=== PATIENT | female | born 1970 | race Caucasian/White ===

== ENCOUNTER 2020-02-18 13:38 | Outpatient (CLI) | payer OTHER, SELFPAY ==
--- NOTE | ~2020-02-18 | MR_ITS ---
MR breast BI wo con 02/20/2020 13:56 CDT INDICATION: Complication of breast implant TECHNIQUE: MRI of the breasts perform using standard protocol without IV contrast using the following sequences: Axial T2 fast spin-echo, axial vibrant, sagittal T2 fast spin echo, sagittal T2 STIR with silicone suppression and sagittal T2 STIR with water suppression. COMPARISON: MRI dated 01/01/2019 FINDINGS: Study limited by motion artifact. No definite evidence for intracapsular or extracapsular r upture. RIGHT BREAST: There are no abnormalities on the precontrast sequences. There is an irregular line negar ng the medial aspect of the left breast implant which likely represents a normal fold rather than butch dence for intracapsular rupture. No evidence for extracapsular rupture. LEFT BREAST: No signal abnormalities on precontrast sequences. There are normal radial folds in the right breast implant. IMPRESSION: 1: Normal radial folds. No evidence for intracapsular or extracapsular rupture. Reviewed, dictated and finalized at location B.
--- NOTE | ~2020-02-18 | MR_ITS ---
EXAMINATION: MR abdomen wo/w con DATE: 02/18/2020 15:52 INDICATION: Liver mass. TECHNIQUE: Magnetic resonance imaging (MRI) of the abdomen was performed without and with 10 mL Multi Jade intravenous contrast. Sequences included coronal T2-weighted FS FSE, coronal and axial FS FIEST A, axial T2-weighted FSE, coronal LAVA-flex, axial STIR FSE, axial DWI, axial dual-echo T1-weighted F SPGR, and axial LAVA. Postcontrast sequences included coronal LAVA-flex and a time course of axial LA VA. COMPARISON: None. FINDINGS: Partially visualized are breast implants. There are numerous cysts in the liver measuring up to 6 mm. The gallbladder, spleen, pancreas, adrenal glands, and kidneys are normal. There are no dilated loop s of bowel. There are no pathologically enlarged lymph nodes. There is no free intraperitoneal fluid. IMPRESSION: 1. Benign cysts in the liver. Reviewed, dictated and finalized at location A.
[2020-02-18 14:35] LABS: Estimated Glomerular Filt Rate > 60
== END 2020-02-18 13:39 | disposition home or self-care (01) ==
PROVIDERS: PCP Internal Medicine; Visit Provider Internal Medicine
DX: T85.49XS Other mechanical complication of breast prosthesis and implant, sequela (principal); Y83.8 Other surgical procedures as the cause of abnormal reaction of the patient, or of later complication, without mention of misadventure at the time of the procedure; K76.89 Other specified diseases of liver
CPT/HCPCS: 74183; 77047; A9577

== ENCOUNTER 2021-07-27 14:44 | Outpatient (CLI) | payer OTHER, SELFPAY ==
--- NOTE | 2021-07-27 16:48 | WPDSIXMINUTE ---
Six Minute Walk Procedure Procedure Performed Pulmonary Stress Test (6 min walk) Six Minute Walk This 6 minute walk test was carried out with the patient breathing ambient air. The pre-walk oxyhemoglobin saturation was 99%. The patient walked over 335 m with no stops recorded. During the walk the oxyhemoglobin saturation remained over 96%. The perceived dyspnea was 5 on the [place] scale at baseline and increased to 6 at the end of the 6 minute-walk. Impression: No evidence of oxyhemoglobin desaturation on this testing.
== END 2021-07-27 14:45 | disposition home or self-care (01) ==
PROVIDERS: PCP Nurse Practitioner Adult Health; Visit Provider Nurse Practitioner
DX: J43.9 Emphysema, unspecified (principal)
CPT/HCPCS: 94618

== ENCOUNTER 2021-09-02 14:06 | Emergency (ER) | payer OTHER, SELFPAY ==
--- NOTE | ~2021-09-02 | XR_ITS ---
EXAMINATION: XR chest 2V DATE: 09/02/2021 16:17 INDICATION: Chest pain. TECHNIQUE: Frontal and lateral views of the chest were obtained. COMPARISON: Chest single view 12/15/2018 FINDINGS: There is mild scarring at the lung apices. No pleural effusion or pneumothorax. The heart s ize is normal. Breast implants are noted. IMPRESSION: 1. Mild scarring at the lung apices. Reviewed, dictated and finalized at location A.
[2021-09-02 14:19] VITALS: BP 134/74; PULSE 79; RESP 18; TEMP 36.3; O2SAT 100
--- NOTE | 2021-09-02 14:25 | ECG_ITS ---
Measurements Intervals [place] Rate: 73 P: 78 SC: 177 QRS: 69 QRSD: 77 T: 54 QT: 385 QTc: 427 Interpretive Statements SINUS RHYTHM POSSIBLE LEFT ATRIAL ENLARGEMENT [-0.1mV P WAVE IN V1/V2] NONSPECIFIC T-WAVE ABNORMALITY BORDERLINE ECG NO PREVIOUS ECG AVAILABLE FOR COMPARISON Electronically Signed On 09-02-2021 15:34:43 CDT by Bharath Estrella M.D.
[2021-09-02 14:35] LABS: Basophils Absolute Auto 0.1 K/mm3 (0.0-0.1); Basophils Percent Auto 0.6 % (0.2-1.2); Eosinophils Absolute Auto 0.1 K/mm3 (0-0.3); Eosinophils Percent Auto 1.7 % (0-4.4); Hematocrit 39.2 % (37.0-47.0); Hemoglobin 13.1 g/dL (12.0-15.0); Immature Granulocyte Absolute 0.02 K/mm3 (0.00-0.031); Immature Granulocyte Percent A 0.3 % (0-0.5); Lymphocytes Absolute Auto 2.58 K/mm3 (0.9-3.2); Lymphocytes Percent Auto 32.8 % (18.3-44.2); Mean Corpuscular HGB Conc 33.4 g/dl (32-36); Mean Corpuscular Volume 92.9 fl (80-100); Mean Platelet Volume 9.5 fl (7.4-10.4); Monocytes Absolute Auto 0.5 K/mm3 (0.1-0.6); Monocytes Percent Auto 6.6 % (2.6-8.5); Neutrophils Absolute Auto 4.6 K/mm3 (1.3-6.7); Platelet Count Result 240 k/mm3 (150-375); Red Blood Count 4.22 M/mm3 (4.2-5.4); Red Cell Distribution Width 13.1 % (11.5-14.5); White Blood Count 7.9 K/mm3 (4.5-10.0)
[2021-09-02 14:44] LABS: Alanine Aminotransferase 13 U/L (4-35); Alkaline Phosphatase 40 U/L (38-126); Anion Gap 9 mmol/L (8-16); Aspartate Amino Transferase 25 U/L (14-36); Bilirubin,Total 0.4 mg/dL (0.2-1.3); Blood Urea Nitrogen 11 mg/dL (7-17); Calcium 9.4 mg/dL (8.4-10.2); Carbon Dioxide 22 mmol/L (22-30); Chloride 106 mmol/L (98-107); Estimated CRCL calculation 87 ml/min; Estimated Glomerular Filt Rate > 60; Glucose 96 mg/dL (65-110); Lipase 73 U/L (23-300); Sodium 137 mmol/L (137-145)
[2021-09-02 14:52] LABS: Appearance Urine Clear (Clear); Bilirubin Urine 1+ (Negative); Blood Urine 2+ (Negative); Color Urine Yellow (Yellow); Glucose Urine UA Negative (Negative); Ketones Urine 1+ mg/dL (Negative); Leukocyte Esterase Ur Negative LEU/UL (Negative); Nitrate Urine Negative (Negative); Protein Urine Negative (Negative); Specific Grav Ur 1.025 (1.001-1.035); Urobilinogen Urine 0.2 mg/dL (<2.0)
--- NOTE | 2021-09-02 14:52 | ED.GENADULT ---
HPI - General Adult General Chief complaint: Unspecified Stated complaint: lumps Time Seen by Provider: 09/02/21 14:53 History of Present Illness HPI narrative: Patient is a 51 year old female with a history of CHF (EF 35%), who presents for evaluation of multiple medical complaints. She states her main complaint is a burning epigastric discomfort that has been present constantly for the past 2 weeks, worse when lying flat. This is associated with belching and occasionally moves into her neck and across her chest. Additionally concerned over painful lumps that she feels in her bilateral breasts. She has breast implants and states the pain has been present since she had them placed about a year ago. The pain comes and goes throughout the month. Had an MRI done of her implants appx 1 year ago which showed no rupture. She additionally reports diffuse muscle cramping throughout her limbs, most notably in her legs. Has been trying [place] for her pain without much relief. Denies fevers, chills, shortness of breath. Has been compliant with Entresto and Metoprolol for her CHF, she states her last cath was less than 1 year ago and showed no blockage. Related Data Allergies Allergy/AdvReac Type Severity Reaction Status Date / Time aspirin Allergy Intermediate Rash Verified 12/15/18 16:24 latex Allergy Intermediate Rash Verified 12/15/18 16:24 Sulfa (Sulfonamide Allergy Intermediate Rash Verified 12/15/18 16:24 Antibiotics) Review of Systems Review of Systems: All systems reviewed & are unremarkable except as noted in HPI and below Exam Const: General: healthy appearing and no acute distress Nutritional Appearance: average body habitus HENMT: Head: normal to inspection Throat: posterior oropharynx normal Eyes: General: appearance normal, both eyes and all related structures Neck: Neck: normal visual inspection, lymphadenopathy noted and no anterior neck swelling Chest: Chest palpation & inspection: normal inspection of the chest Breast/axilla inspection: Other Breast/axilla palpation: axillary lymphadenopathy not noted Other: Breast implant palpated. Several mobile, tender masses to bilateral breasts. No nipple inversion or overlying skin changes. Resp: Effort & Inspection: normal respiratory effort and able to speak in complete sentences Auscultation: clear to auscultation bilaterally, no rales, no rhonchi and no wheezes Cardio: Rate: regular rate Rhythm: regular rhythm Heart sounds: S1 normal heart sound present and S2 normal heart sound present GI: GI Palp: No abdominal tenderness, Yes Soft to palpation, Yes Tenderness to palpation present (GI) (mild, epigastric) and No Guarding due to palpation present (GI) Auscultation: normal bowel sounds : General: No CVA tenderness Skin: General skin exam: normal color Neuro: General: patient oriented x3 and gait normal Speech: normal speech Extrem: General: normal to inspection, full ROM and no clubbing, cyanosis or edema Psych: Affect: Anxious affect present Course Vital Signs Vital signs: Vital Signs Temperature 97.4 F L 09/02/21 14:19 Pulse Rate 79 09/02/21 14:19 Respiratory Rate 18 09/02/21 14:19 Blood Pressure 134/74 09/02/21 14:19 Pulse Oximetry 100 09/02/21 14:19 Temperature 97.4 F L 09/02/21 14:19 Pulse Rate 88 09/02/21 17:10 Respiratory Rate 16 09/02/21 17:10 Blood Pressure 138/67 09/02/21 17:10 Pulse Oximetry 98 09/02/21 17:10 Medical Decision Making [facility] Narrative Medical decision making narrative: 51 year old female with history of CHF who presents for evaluation of multiple medical complaints, most notably epigastric discomfort for several weeks and some muscle cramping. Patient has stable vital signs, labs have been unremarkable. Chest XR, EKG and troponin were obtained given history of CHF and location of pain, all of which were non-ischemic. Given muscle cramping, a CK and UA were obtained which did not show evidence
[2021-09-02 14:57] LABS: Mucus Urine Moderate /lpf; RBC Urine 21-50 /hpf (0-2); Squamous Epithelial Cell Urine Rare /hpf (Few)
[2021-09-02 14:59] LABS: Add Urine Microscopic? YES
[2021-09-02 16:22] LABS: Creatine Kinase 51 U/L (30-135)
[2021-09-02 16:35] LABS: Troponin I < 0.012 ng/mL (0.000-0.034)
[2021-09-02] MEDS: BELLADONNA ALK/PHENOB ELIX 10 ML, MAG HYDROX/ALUMINUM HYD/SIMETH 30 ML, LIDOCAINE HCL 2... PO (17:00)
[2021-09-02 17:10] VITALS: BP 138/67; PULSE 88; RESP 16; O2SAT 98
== END 2021-09-02 17:33 | disposition home or self-care (01) ==
PROVIDERS: Emergency Medicine; Physician Assistant; Emergency Provider Family Medicine; PCP Nurse Practitioner Adult Health
DX: R10.13 Epigastric pain (principal)
CPT/HCPCS: 36415; 71046; 80053; 81001; 81025; 82550; 83690; 84484; 85025; 93005; 99284; A9270

== ENCOUNTER 2021-09-24 13:30 | Outpatient (CLI) | payer OTHER, SELFPAY ==
--- NOTE | ~2021-09-24 | MM_ITS ---
EXAMINATION: MM diag kristine implant BI w rashmi HISTORY: Bilateral breast lumps TECHNIQUE: ML, MLO and CC implant displaced 3-D tomosynthesis images of both breasts were performed a nd synthetic 2-D images were generated. Bilateral implant ML, MLO and CC views. CAD analysis was subm itted and interpreted. COMPARISON: 02/18/2020 MRI breast examination 01/01/2019 MR breast examination 01/01/2029 bilateral implant screening mammogram BREAST PARENCHYMAL COMPOSITION: The breasts are extremely dense, which lowers the sensitivity of mamm ography. FINDINGS: Status post bilateral augmentation mammoplasty. No suspicious mass or architectural distortion, malignant calcification, skin thickening or retractio n or significant new or developing density is detected. Given the history of bilateral breast lumps and the extremely dense stroma which may obscure masses, bilateral complete breast ultrasound examination is recommended. IMPRESSION: 1. Clinical complaint of bilateral breast lumps and extremely dense breast parenchyma 2. Bilateral complete breast ultrasound examination is recommended BI-RADS Category 0: Incomplete: Needs additional imaging evaluation. Reviewed, dictated and finalized at location A. IMPRESSION: 1. Clinical complaint of bilateral breast lumps and extremely dense breast pare nchyma 2. Bilateral complete breast ultrasound examination is recommended BI-RADS Category 0: Incomplete: Needs additional imaging evaluation.
== END 2021-09-24 13:31 | disposition home or self-care (01) ==
PROVIDERS: PCP Nurse Practitioner Adult Health; Visit Provider Nurse Practitioner Adult Health
DX: N63.20 Unspecified lump in the left breast, unspecified quadrant (principal); N63.10 Unspecified lump in the right breast, unspecified quadrant
CPT/HCPCS: 77062; 77066; G0279

== ENCOUNTER 2021-10-23 10:39 | Outpatient (CLI) | payer OTHER, SELFPAY ==
--- NOTE | ~2021-10-23 | US_ITS ---
EXAMINATION: US breast BI limited HISTORY: Palpable lumps in the upper outer quadrants of the breasts. TECHNIQUE: Limited bilateral ultrasound is performed in the areas of clinical interest FINDINGS: Right breast: There is a 5 mm x 2 mm oval, circumscribed, parallel, hypoechoic mass with no posterior features or internal vascularity at the 9:00 location 4 cm from the nipple in the area of palpable a bnormality. Left breast: There is a 10 mm x 2 mm oval, circumscribed, parallel, hypoechoic mass with posterior ac oustic enhancement and no internal vascularity at the 1:00 location 6 cm from the nipple correspondin g to the palpable abnormality of concern. There is a 3 mm x 2 mm mass with similar sonographic featur es at the 10:00 location 3 cm from the nipple. IMPRESSION: Probably benign bilateral breast masses. Targeted bilateral breast ultrasound in six months is recomm ended. BI-RADS category 3, probably benign findings. Reviewed, dictated and finalized at location A. IMPRESSION: Probably benign bilateral breast masses. Targeted bilateral breast ultrasound i n six months is recommended. BI-RADS category 3, probably benign findings.
== END 2021-10-23 10:40 | disposition home or self-care (01) ==
PROVIDERS: PCP Nurse Practitioner Adult Health; Visit Provider Nurse Practitioner Adult Health
DX: N63.10 Unspecified lump in the right breast, unspecified quadrant (principal); N63.20 Unspecified lump in the left breast, unspecified quadrant
CPT/HCPCS: 76642

== ENCOUNTER 2022-06-03 12:30 | Outpatient (RCR) | payer OTHER, SELFPAY ==
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
--- NOTE | 2022-06-03 13:12 | PTOPPROG ---
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--fingernails are changing colors and uneven, rough; pain range of 5-8 /10; cervical spine hurts, R and L sides of neck, back of head; have constant headache, just gets worse sometimes--have not been able to sleep well because of them; increase pain with lifting, carrying--unable to take out her trash or carry laundry basket; pain just comes on; decrease pain--try massage and stretching, heat but nothing helps the pain; feels tight all the time--feel like it is aggravated when I try to get it better; take hydrocodone every 4-6 hours per script; rough past few days and have neede to take them regularly; having pain in L hip and problems walking--hip muscles tightened up; also pain in lateral trunk L Oswestry self assessment functional score of 78% limitation in activity level. Assessment PT Clinical Summary Jessica has received 6 PT sessions, for cervicalgia. She reports she has not had any change since attending therapy. And that she NEEDS an MRI to figure out what is going on. Compared to the initial evaluation: pain rating has increased from 4-6/10 to 5-8/10; continues to have pain with all cervical motions and B shoulder motions and continues to have headaches; cervical rotation ROM to the R has increased slightly; she has been educated on home exercises and posture correction. Self assessment Oswestry score was 76% and now 78%. The goals for education and increase cervical rotation to R were met. She has a follow up appointment with provider in 2 weeks. PLAN: HOLD PT until after appt; If she is to continue PT, she will need a new order to return. Plan of Care PT Services Indicated Yes
--- NOTE | 2022-07-05 10:39 | PCPTNOTE ---
PHYSICAL THERAPY DISCHARGE 07-05-22 Attending Provider: Kavita Coffey NP Patient:Jessica Noriega Date of :1970 Mrs. Noriega has not returned for any further treatments since the reevaluation on 06/03/2022, therefore she will be discharged at this time. Refer to the reevaluation report for her status at the last session. Thank you for referring Arianne to [facility].
== END 2022-07-06 09:05 | disposition home or self-care (01) ==
LOC: ANHPT 12:30
PROVIDERS: PCP Internal Medicine; Visit Provider Nurse Practitioner Family
DX: M54.2 Cervicalgia (principal)
CPT/HCPCS: 97110; 97140; 97162

== ENCOUNTER 2022-10-19 12:53 | Outpatient (CLI) | payer OTHER, SELFPAY ==
--- NOTE | ~2022-10-19 | MR_ITS ---
EXAMINATION: MR breast BI wo/w con INDICATION: Right breast mass and possible breast implant rupture TECHNIQUE: Axial VIBRANT pre and dynamic post contrast, Sagittal VIBRANT post contrast, Axial T2 STIR ASSET, , Sagittal T2 FSE, Sagittal T2 STIR silicone SAT, Sagittal STIR Water suppression COMPARISON: 02/18/2020 CONTRAST: Multihance, 9 cc BREAST COMPOSITION: Heterogeneous fibroglandular tissue FINDINGS: RIGHT BREAST: There is mild background parenchymal enhancement. No abnormal enhancement is present af ter contrast administration. No pathologically enlarged axillary or internal mammary lymph nodes are identified. LEFT BREAST: There is mild background parenchymal enhancement. No abnormal enhancement is present aft er contrast administration. No pathologically enlarged axillary or internal mammary lymph nodes are i dentified. There is a bulge in the left axillary region of the left breast implant. IMPRESSION: 1. Unremarkable breast MRI. Bulge in the left axillary region of the left breast implant is noted. BI-RADS Category 1: Negative Reviewed, dictated and finalized at location A. IMPRESSION: 1. Unremarkable breast MRI. Bulge in the left axillary region of the left breas t implant is noted. BI-RADS Category 1: Negative
== END 2022-10-19 12:54 | disposition home or self-care (01) ==
PROVIDERS: PCP Internal Medicine
DX: R92.8 Other abnormal and inconclusive findings on diagnostic imaging of breast (principal)
CPT/HCPCS: 77049; A9577; C8908

== ENCOUNTER 2023-09-05 10:57 | Outpatient (CLI) | payer OTHER, SELFPAY ==
--- NOTE | ~2023-09-05 | MR_ITS ---
MR breast BI wo/w con 09/07/2023 16:11 CDT INDICATION: Breast lumps with pain TECHNIQUE: MRI of the breasts perform using standard protocol pre-and post IV contrast with the follo wing sequences: Axial T2 STIR, axial T1, axial vibrant T1 with fat suppression precontrast and multip hasic postcontrast. 11 cc of MultiHance administered intravenously. COMPARISON: Comparison to multiple prior studies sequentially, with oldest reviewed study dated 09/24. FINDINGS: There are no abnormalities on the precontrast sequences. There is mild background parenchym al enhancement. No enhancing lesions following contrast administration. No areas of enhancement julianna ting threshold criteria on CAD analysis. No evidence of signal abnormalities in the axillary or inte rnal mammary node distributions. LEFT BREAST: No signal abnormalities on precontrast sequences. There is mild background parenchymal enhancement. No enhancing lesions following contrast administration. No areas of enhancement meeti ng threshold criteria on CAD analysis. No evidence of signal abnormalities in the axillary or inter nal mammary node distributions.] IMPRESSION: 1: Right breast: Negative. No evidence of malignancy. BI-RADS category 1. Recommend annual mammo graphy follow-up. 2: Left breast: Negative. No evidence of malignancy. BI-RADS category 1. Recommend annual mammogr aphy follow-up. Reviewed, dictated and finalized at location A. IMPRESSION: 1: Right breast: Negative. No evidence of malignancy. BI-RADS category 1. Recommend annual mammography follow-up. 2: Left breast: Negative. No evidence of malignancy. BI-RADS category 1. Re commend annual mammography follow-up.
== END 2023-09-05 10:58 | disposition home or self-care (01) ==
LOC: ANHIMG 10:58
PROVIDERS: PCP Internal Medicine; Visit Provider Nurse Practitioner Adult Health
DX: R92.8 Other abnormal and inconclusive findings on diagnostic imaging of breast (principal)
CPT/HCPCS: 77049; A9577; C8908

== ENCOUNTER 2023-12-15 16:55 | Emergency (ER) | payer OTHER, SELFPAY ==
--- NOTE | ~2023-12-15 | XR_ITS ---
EXAMINATION: XR shoulder RT min 2V DATE: 12/15/2023 18:31 INDICATION: Right shoulder pain. TECHNIQUE: 4 views of right shoulder were obtained. COMPARISON: None. FINDINGS: Bone alignment is normal. No fracture. There is mild osteoarthritis of glenohumeral joint a nd acromioclavicular joint. IMPRESSION: 1. Mild polyarticular osteoarthritis. Reviewed, dictated and finalized at location E.
--- NOTE | ~2023-12-15 | CT_ITS ---
EXAMINATION: CT cervical spine wo con DATE: 12/15/2023 18:31 INDICATION: Neck pain radiating down right arm. TECHNIQUE: Computed tomography (CT) of the cervical spine was performed without intravenous contrast. Automated exposure control and iterative reconstruction technique were employed. The dose-length pro duct was 136.53 mGy-cm. COMPARISON: None FINDINGS: There is mild emphysema. There is 3 degrees dextrocurvature of cervical spine. There is mil d kyphosis of cervical spine. Vertebral body heights are normal. There is mildly decreased disc heigh t at C4-C5, severely decreased disc height at C5-C6, and mildly decreased disc height at C6-C7. The f ollowing disc levels are specifically discussed: C2-C3: There is mild left uncovertebral joint osteoarthritis. There is mild right and severe left fac et joint osteoarthritis. There is no neural foraminal stenosis. There is no central canal stenosis. C3-C4: There is mild bilateral uncovertebral joint osteoarthritis. There is no facet joint osteoarthr itis. There is no neural foraminal stenosis. There is no central canal stenosis. C4-C5: There is severe right and moderate left uncovertebral joint osteoarthritis. There is no facet joint osteoarthritis. There is mild bilateral neural foraminal stenosis. There is mild central canal stenosis. C5-C6: There is severe bilateral uncovertebral joint osteoarthritis. There is mild bilateral facet rachelle int osteoarthritis. There is mild bilateral neural foraminal stenosis. There is mild central canal st enosis. C6-C7: There is severe right and mild left uncovertebral joint osteoarthritis. There is no facet join t osteoarthritis. There is no neural foraminal stenosis. There is mild central canal stenosis. C7-T1: There is no uncovertebral joint osteoarthritis. There is severe right and mild left facet join t osteoarthritis. There is mild right neural foraminal stenosis. There is no central canal stenosis. IMPRESSION: 1. Severe cervical spondylosis. Reviewed, dictated and finalized at location E.
[2023-12-15 17:04] VITALS: BP 126/79; PULSE 73; RESP 14; TEMP 36.3; O2SAT 100
--- NOTE | 2023-12-15 18:15 | ED.UPPEXIN ---
HPI - Extremity Injury (Upper) General Chief Complaint: Extremity Injury, Upper Stated Complaint: R shoulder pain/hand pain Time Seen by Provider: 12/15/23 17:55 Source: patient Mode of arrival: ambulatory Limitations: no limitations History of Present Illness HPI narrative: This is a 53-year-old female that presents to the emergency department for right arm pain. Reports right-sided neck and shoulder pain ongoing over the last 4 days. Reports radiation into the arm. She took [place] at home with some relief. She takes this for chronic pain. No recent injuries or trauma. Does report she has been diagnosed with spinal stenosis. Denies numbness or weakness. Related Data Allergies Allergy/AdvReac Type Severity Reaction Status Date / Time aspirin Allergy Intermediate Rash Verified 12/15/23 17:06 latex Allergy Intermediate Rash Verified 12/15/23 17:06 Sulfa (Sulfonamide Allergy Intermediate Rash Verified 12/15/23 17:06 Antibiotics) Review of Systems Review of Systems: CONSTITUTIONAL: Denies fever SKIN: Denies rash MUSCULOSKELETAL: Reports joint pain, and myalgia. NEUROLOGIC: Denies numbness, or weakness. All systems reviewed & are unremarkable except as noted in HPI and below PMFSH Past Medical History Medical History (Updated 12/15/23 @ 20:06 by Tanika Johnson PA-C) History of anxiety History of CHF (congestive heart failure) Exam Narrative: GENERAL: Well-appearing, well-nourished, and in no acute distress. HEAD: Normocephalic, atraumatic. EYES: EOMI. ENT: Nares clear, no rhinorrhea or epistaxis. Mucous membranes moist. Oropharynx without tonsillar hypertrophy exudate or other lesions. NECK: Supple. No adenopathy or masses. No JVD CHEST: Clear to auscultation. No respiratory distress. No wheezes rales or rhonchi HEART: Regular rate and rhythm. No murmur heard. Normal peripheral pulses. EXTREMITIES: Normal range of motion, except decreased active ROM in the right 5th finger with chronic deformity. No edema or erythema. Normal radial pulse SKIN: Warm, dry, no rash. NEURO: No focal deficits. Alert and oriented x3. PSYCH: Normal mood and affect Course Course Emergency Course: patient updated on her workup and agrees with plan of care Vital Signs Vital signs: Vital Signs Temperature 97.4 F L 12/15/23 17:04 Pulse Rate 73 12/15/23 17:04 Respiratory Rate 14 12/15/23 17:04 Blood Pressure 126/79 12/15/23 17:04 Pulse Oximetry 100 12/15/23 17:04 Oxygen Delivery Room Air 12/15/23 17:04 Temperature 97.4 F L 12/15/23 17:04 Pulse Rate 73 12/15/23 17:04 Respiratory Rate 14 12/15/23 17:04 Blood Pressure 126/79 12/15/23 17:04 Pulse Oximetry 100 12/15/23 17:04 Oxygen Delivery Room Air 12/15/23 17:04 MDM - Extremity Injury (Upper) MDM Narrative Medical decision making narrative: Patient presents to the emergency department for right sided neck and shoulder pain. Ongoing over the last 4 days. No recent injuries or trauma. She is neurovascularly intact. Right shoulder x-ray shows osteoarthritis. Cervical spine CT shows severe cervical spondylosis. Patient was updated on her workup and agrees with plan of care. Will be given follow-up with neuro surgery. She was given warnings to return to the ER Patient also reporting some chronic issues. Reporting a lesion in her mouth that has been present for years. Given information for follow-up with ENT for this. Reporting she has also had trouble swallowing for a while. Given information for follow-up with Gastroenterology for this Differential Diagnosis Differential diagnosis: Likely other ( osteoarthritis, cervical radiculopathy, spinal stenosis, rotator cuff tendinopathy) Imaging Data Radiologist's impression: ITS Impressions Shoulder X-Ray 12/15/23 18:35 IMPRESSION: 1. Mild polyarticular osteoarthritis. Cervical Spine CT 12/15/23 18:46 IMPRESSION: 1. Severe cervical spondylosis.
[2023-12-15] MEDS: ACETAMINOPHEN 325 MG TABLET 650 MG PO (18:48)
[2023-12-15] MEDS: diazePAM INJ (*CRX) 10 MG/2 ML SYRINGE 5 MG IM (18:49)
[2023-12-15 20:21] VITALS: BP 119/65; PULSE 69; RESP 16; O2SAT 100
== END 2023-12-15 20:22 | disposition home or self-care (01) ==
PROVIDERS: Emergency Provider Physician Assistant; PCP Internal Medicine
DX: M47.812 Spondylosis without myelopathy or radiculopathy, cervical region (principal); I50.9 Heart failure, unspecified; M19.011 Primary osteoarthritis, right shoulder
CPT/HCPCS: 72125; 73030; 96372; 99284; A9270; J3360

== ENCOUNTER 2024-06-15 12:53 | Emergency (ER) | payer OTHER, SELFPAY ==
--- NOTE | ~2024-06-15 | XR_ITS ---
HISTORY: cut tip of 2ND finger with knife, rule out fx COMPARISON: None TECHNIQUE: 3 views of the second left digit were performed FINDINGS: No acute or subacute fracture. Joint spaces are narrowed and alignment is preserved. Soft tissue defect, consistent with patient's history. No radiopaque foreign body is visualized. Diminished mineralization, far advanced for patient's age. IMPRESSION: No acute fracture. Soft tissue defect Reviewed, dictated and finalized at location A. L APPLICATION DEVELOPER
[2024-06-15 13:05] VITALS: BP 145/82; PULSE 87; RESP 18; TEMP 36.2; O2SAT 100
--- NOTE | 2024-06-15 14:07 | ED_ITS ---
HPI - Wound/Laceration General Chief Complaint: Wound/Laceration <Osorio Hameed PA-C - Last Filed: 06/15/24 14:10> Stated Complaint: I chopped the top of my finger off <Osorio Hameed PA-C - Last Filed: 06/15/24 14:10> Time Seen by Provider: 06/15/24 14:21 <Osorio Hameed PA-C - Last Filed: 06/15/24 14:10> Focused HPI: this is a 54-year-old female who presents to the ED for chief complaint of left index finger injury that occurred at work just prior to arrival. 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 Denies any further injury. States tetanus shot is uptodate. GENERAL: Well-appearing, well-nourished, and in no acute distress. HEAD: Normocephalic, atraumatic. CHEST: Clear to auscultation. No respiratory distress. HEART: Regular rate and rhythm. NEURO: Alert and oriented x3. Patient screened in triage and initial orders placed. Additional care and disposition to be based upon diagnostic testing and treatment. <Osorio Hameed PA-C - Last Filed: 06/15/24 14:10> Related Data Allergies/Adverse Reactions: Allergies Allergy/AdvReac Type Severity Reaction Status Date / Time aspirin Allergy Intermediate Rash Verified 12/15/23 17:06 latex Allergy Intermediate Rash Verified 12/15/23 17:06 Sulfa (Sulfonamide Allergy Intermediate Rash Verified 12/15/23 17:06 Antibiotics) <Osorio Hameed PA-C - Last Filed: 06/15/24 14:10> Review of Systems Constitutional: Constitutional: Reports no additional constitutional complaints <Mert Mcarthur MD - Last Filed: 06/15/24 15:23> Musculoskeletal: Musculoskeletal: Reports no additional musculoskeletal complaints <Mert Mcarthur MD - Last Filed: 06/15/24 15:23> Integumentary/Breasts: Skin/Breast: Reports system reviewed and no additional complaints, except as docu <Mert Mcarthur MD - Last Filed: 06/15/24 15:23> Neurologic: Reports system reviewed and no additional complaints, except as documented <Mert Mcarthur MD - Last Filed: 06/15/24 15:23> PMFSH Past Medical History Medical History: Medical History (Updated 06/15/24 @ 15:18 by Mert Mcarthur MD) History of CHF (congestive heart failure) History of anxiety <Osorio Hameed PA-C - Last Filed: 06/15/24 14:10> Exam Narrative: GENERAL: Well-appearing, well-nourished, and in no acute distress. HEAD: Normocephalic, atraumatic. ENT: Mucous membranes moist. EXTREMITIES: Normal range of motion. No edema. Left index finger fingertip avulsion 1 cm diameter. Bleeding become controlled. No skin bone exposure. Sensation intact. SKIN: Warm, dry, no rash. NEURO: Alert and oriented x3. PSYCH: Normal mood and affect. <Mert Mcarthur MD - Last Filed: 06/15/24 15:23> Course Course Emergency Course: Patient declines any intervention on the finger. No bony involvement. Non adherent placed in Alumafoam splint given to cushion the tip. Tetanus up to date. Discharge. <Mert Mcarthur MD - Last Filed: 06/15/24 15:23> Vital Signs Vital signs: Vital Signs Temperature 97.2 F L 06/15/24 13:05 Pulse Rate 87 06/15/24 13:05 Respiratory Rate 18 06/15/24 13:05 Blood Pressure 145/82 H 06/15/24 13:05 Pulse Oximetry 100 06/15/24 13:05 Oxygen Delivery Room Air 06/15/24 13:05 Temperature 97.2 F L 06/15/24 13:05 Pulse Rate 87 06/15/24 13:05 Respiratory Rate 18 06/15/24 13:05 Blood Pressure 145/82 H 06/15/24 13:05 Pulse Oximetry 100 06/15/24 13:05 Oxygen Delivery Room Air 06/15/24 13:05 <Osorio Hameed PA-C - Last Filed: 06/15/24 14:10> Vital Signs Temperature 97.2 F L 06/15/24 13:05 Pulse Rate 87 06/15/24 13:05 Respiratory Rate 18 06/15/24 13:05 Blood Pressure 145/82 H 06/15/24 13:05 Pulse Oximetry 100 06/15/24 13:05 Oxygen Delivery Room Air 06/15/24 13:05 Temperature 97.2 F L 06/15/24 13:05 Pulse Rate 87 06/15/24 13:05 Respiratory Rate 18 06/15/24 13:05 Blood Pressure 145/82 H 06/15/24 13:05 Pulse Oximetry 100 06/15/24 13:05 Oxygen Delivery Room Air 06/15/24 13:05 <Mert Mcarthur MD - Last Filed: 06/15/24 15:23> MDM - Wound/Laceration Imaging Data Radiologist's impression: ITS Impressions Finger X-Ray 06/15/24 14:37 IMPRESSION: No acute fracture. Soft tissue defect <Mert Mcarthur MD - Last Filed: 06/15/24 15:23> Discharge Plan Discharge Clinical Impression: Finger laceration <Osorio Hameed PA-C - Last Filed: 06/15/24 14:10> Patient Disposition: Home, Self-Care <Osorio Hmaeed PA-C - Last Filed: 06/15/24 14:10> Condition: Stable <Osorio Hameed PA-C - Last Filed: 06/15/24 14:10> Instructions: Skin Avulsion (ED) <Osorio Hameed PA-C - Last Filed: 06/15/24 14:10> Additional Instructions: Return ER if your finger becomes red and hot, you have fever over 100.4? F, have additional concerns. <Osorio Hameed PA-C - Last Filed: 06/15/24 14:10> Patient Language: Sinhala <Osorio Hameed PA-C - Last Filed: 06/15/24 14:10> Prescriptions: No Action cyclobenzaprine 10 mg tablet 10 mg PO TID PRN (Reason: muscle spasm) Qty: 14 0RF <Osorio Hameed PA-C - Last Filed: 06/15/24 14:10> Follow-up/Referrals: Green,Buzz Acosta MD [Primary Care Provider] - 1 Week <Osorio Hameed PA-C - Last Filed: 06/15/24 14:10>
[2024-06-15] MEDS: ACETAMINOPHEN 500 MG TABLET 1000 MG PO (14:11)
[2024-06-15] MEDS: IBUPROFEN 400 MG TABLET 800 MG PO (14:12)
--- NOTE | 2024-06-15 14:12 | PC.NURSE ---
Pt. states she is allergic to aspirin but is not allergic to ibuprofen. KARI Ac aware and states is it ok to administer ibuprofen.
== END 2024-06-15 15:23 | disposition home or self-care (01) ==
PROVIDERS: Emergency Provider Emergency Medicine; PCP Internal Medicine
DX: S61.211A Laceration without foreign body of left index finger without damage to nail, initial encounter (principal); I50.9 Heart failure, unspecified; W26.0XXA Contact with knife, initial encounter; Y93.G1 Activity, food preparation and clean up
CPT/HCPCS: 29130; 73140; 99283; A9270

== ENCOUNTER 2024-07-10 08:59 | Outpatient (CLI) | payer OTHER, SELFPAY ==
--- NOTE | ~2024-07-10 | CT_ITS ---
EXAMINATION: CT soft tissue neck w con DATE: 07/10/2024 09:47 INDICATION: Other diseases of tongue. TECHNIQUE: Computed tomography (CT) of the neck was performed with 75 mL Omnipaque-350 intravenous co ntrast. Automated exposure control and iterative reconstruction technique were employed. The dose-eva gth product was 363.49 mGy-cm. COMPARISON: None FINDINGS: There is mild emphysema. There is mild scarring at the lung apices. Partially visualized is a right-sided breast implant. There are no pathologically enlarged lymph nodes. The cervical carotid arteries are normal. There is severe cervical spondylosis. IMPRESSION: 1. Unremarkable tongue. Reviewed, dictated and finalized at location A. MACHINE OPERATOR IMPRESSION: 1. Unremarkable tongue.
--- OUTSIDE RECORDS SUMMARY | 2024-07-10 09:36 | XMS_ITS | Encounter Summary ---
Author Organization [facility] Address [address] [facility] [place] [place] [address] Phone Care Team Providers Care Stroke Coordinator Name Role Phone Cruz Luciano MD Primary Care Provider [phone] Aguilar Najera MD Unavailable [phone] Cruz Luciano MD Primary Care Provider [phone] Tanika Clay APRN, [facility] Primary Care Provide r Danilo Lyles MD Unavailable [phone] Cruz Luciano MD Primary Care Provider [phone] Encounter Details Date Type Department Care Team (Late st Contact Info) Description 04/27/2022 Transcribe Orders [facility] Central Scheduling [address] [place] [address] Cruz Luciano MD [address] [place] [id number] Social History Tobacco Use Types Packs/Day Years Used Date Smoking Tobacco: Every Day Smokeless Tobacco: Never Comments Unknown Sex and Gender Information Value Date Recorded Sex Assigned at Not on file Legal Sex Female 1:32 PM CDT Gender Identity Not on file Sexual Orientation Not on file documented as of this encounter Plan of Treatment Upcoming Encounters Date Type Department Care Team (Late st Contact Info) Description 12/17/2024 10:45 AM CDT Office Visit [facility] Oncology Services [address] [place] [id number] Angelique Walker Elvie, PAC [address] [place] [address] Discharge Disposition: Discharged to home or Selfcare documented as of this encounter Visit Diagnoses Not on filedocumented in this encounter Care Teams Stroke Coordinator Relationship Specialty Start Date End Date Cruz Luciano MD PCP - General Internal Medicine 03/11/22 10/12/22 Cruz Luciano MD [address] [place] [id number] PCP - General Internal Medicine 10/19/22 11/09/22 Tanika Clay, WILDLIFE PHOTOGRAPHER, SAP PORTAL CONSULTANT [address] [place] [address] PCP - General Advanced Practice Nurse 11/10/22 01/11/24 Cruz Luciano MD [address] [place] [address] PCP - General Orthopaedic Surgery 01/12/24 Aguilar Najera MD [address] [address] Consulting Physician Urology 03/18/22 Danilo Lyles MD [address] [place] [address] Consulting Physician Medical Oncology 04/27/23 documented as of this encounter
--- OUTSIDE RECORDS SUMMARY | 2024-07-10 09:37 | XMS_ITS | Encounter Summary ---
Author Organization [facility] Address [address] [place] [address] Care Team Providers Care Nitric Acid Concentrator Operator Name Role Phone Katey Markham NP Primary Care Provider [phone] Katey Markham MODELING AGENCY MANAGER Primary Care Provider [phone] Katey Markham NP Unavailable [phone] Cruz Luciano MD Primary Care Provider + Katey Markham NP Primary Care Provider [phone] Katey Makrham NP Primary Care Provider [phone] Cruz Luciano MD Primary Care Provider + Alia Fuller MODELING AGENCY MANAGER Unavailable [phone] Tanika Clay MODELING AGENCY MANAGER Unavailable [phone] Aguilar Najera MD Unavailable [phone] Beau Stone MODELING AGENCY MANAGER Unavailable [phone] Pearl York DO Unavailable [phone] Katey Markham NP Primary Care Provider [phone] Katey Markham NP Primary Care Provider [phone] Encounter Details Date Type Department Care Team (Late st Contact Info) Description 09/04/2021 Telephone [facility] Imaging Center [address] [place] [address] Arcelia Pollard, RT Social History Tobacco Use Types Packs/Day Years Used Date Smoking Tobacco: Every Day Cigarettes Smokeless Tobacco: Never Comments:4 per day Alcohol Use Standard Drinks/Week Comments No 0 (1 standard drink = 0.6 oz pur e alcohol) Comments No Sex and Gender Information Value Date Recorded Sex Assigned at Not on file Legal 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 Female 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 Gender Identity Female 09/01/2023 3:49 PM CDT Sexual Orientation Straight 09/01/2023 3: 49 PM CDT documented as of this encounter Plan of Treatment Not on file documented as of this encounter Visit Diagnoses Not on filedocumented in this encounter Additional Health Concerns Infection Onset Date Last Indicated Resolved Time Diarrhea 07/11/2023 07/11/2023 07/25/2023 3:05 AM BALLOON MAKER documented as of this encounter Care Teams Nitric Acid Concentrator Operator Relationship Specialty Start Date End Date Katey Markham NP PCP - General 03/06/21 09/25/21 Katey Markham NP PCP - General 09/26/21 12/22/21 Cruz Luciano MD [address] [place] [address] [place] [address] PCP - General Internal Medicine 12/23/21 12/27/21 Katey Markham NP PCP - General 12/28/21 12/28/21 Katey Markham NP PCP - General 12/29/21 01/13/22 Cruz Luciano MD [address] [place] [address] [place] [address] PCP - General Internal Medicine 01/14/22 10/03/23 Katey Markham, MODELING AGENCY MANAGER [address] [facility] [place] [address] PCP - General Internal Medicine 10/04/23 10/04/23 Katey Markham, MODELING AGENCY MANAGER [address] [facility] Jeron[address] [place] [address] PCP - General Internal Medicine 10/12/23 Katey Markham, MODELING AGENCY MANAGER 09/26/21 Alia Fuller, ALKA [address] [place] [address] [address] [place] [address] Nurse Practitioner Family Medicine 09/28/22 Tanika Clay, ALKA [address] [place] [address] [place] [address] Nurse Practitioner Nurse Practitioner 09/28/22 [place] [address] [place] [address] Consulting Physician Urology 09/28/22 Beau Stone, ALKA [address] [place] [address] Nurse Practitioner Family Practice 09/28/22 Pearl York DO [address] [facility] Jeron[address] [place] [address] Consulting Physician Otolaryngology 09/28/22 documented as of this encounter
--- OUTSIDE RECORDS SUMMARY | 2024-07-10 09:38 | XMS_ITS | Data Portability ---
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 Lab hypersensit ivity pneumonitis profile, serum 2022 023 [email or web address] 25 Not available 11:56:[address] referral - Multiple skin calcificati ons, unexplained rashes, spooning of nails 2022 023 [email or web address] 25 [facility], [address] [place], [address], 10:54:08 hematologis t referral - Also with mild anemia 2022 023 [facility] [place], [address] [place], [address], 17:36:04 Procedures None recorded. Surgeries None recorded. Imaging None recorded. Medication Orders prednisone 10 mg tablet 2022 023 MALI [id number], [address], [place], [address], 3 15:02:18 amoxicillin 875 mg-potassiu m clavulanate 125 mg tablet 2022 023 [email or web address] 7 [id number] In [facility], [address] [facility], [place], [address], 3 11:15:38 Patient TargetsNo targets recorded. 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 [facility] ([facility]) [address] [place], [address], 03/01/2023 13:16:50 Result Notes None recorded. Problems Name Problem SNOMED Code Status Onset Date Resolution Date Notes Provider Name and Address Organization Details Recorded Time 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 19173283886 542652 Active 2021 Not Available [facility] 3 19:28:43 Chronic back pain 380586639 Active 2016 Not Available [facility] 3 19:28:43 Bipolar disorder 40749647 Active 2016 Not Available [facility] 3 19:28:43 Chronic depressio n 050945631 Completed 201605/12/2017 Not Available [facility] 3 19:28:43 Asthma 704621208 Active 2021 Not Available [facility] 3 19:28:43 Mixed anxiety and depressiv e disorder 991289702 Active 2016 Not Available [facility] 3 19:28:43 Muscle weakness 93859809 Active 2021 Not Available [facility] 3 19:28:43 Pulmonary function studies abnormal 580369043 Active 2021 Not Available [facility] 3 19:28:43 Scoliosis deformity of spine 098019957 Active 2016 Not Available [facility] 3 19:28:43 Pain in left knee Active 2016 Not Available [facility] 3 19:28:43 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 599733615 Active 2021 Not Available [facility] 3 19:28:43 Hypersens itivity pneumonit is 77332547 Active 2021 Not Available [facility] 3 19:28:43 Dizziness 097111810 Active 2021 Not Available [facility] 3 19:28:44 Exposure to potential ly harmful entity Active 2021 Not Available [facility] 3 19:28:44 Chronic systolic heart failure 923578847 Active 2021 Not Available [facility] 3 19:28:44 Multiple nodules of lung 173383911 Active 2021 Not Available [facility] 3 19:28:44 Anxiety 55630595 Completed 201605/12/2017 Not Available [facility] 3 19:28:44 Nicotine dependenc e 27631698 Active 2021 Not Available [facility] 3 19:28:44 Dyspnea on exertion 52328465 Active 2021 Not Available [facility] 3 19:28:44 Spina bifida 60356650 Active 2016 Not Available [facility] 3 19:28:44 Chronic cough 04004138 Active 2021 Not Available [facility] 3 19:28:44 Exacerbat ion of moderate persisten t asthma 638122755 Active 2022 Not Available [facility] 3 19:28:44 Smoker 93967970 Active 2016 Not Available [facility] 3 19:28:45 Candidias is of mouth 58254856 Active 2021 Not Available [facility] 3 19:28:45 Fatigue 54772266 Active 2021 Not Available [facility] 3 19:28:45 Pulmonary emphysema 35698480 Active 2021 Not Available [facility] 3 19:28:45 Chronic Erik-B arr virus infection syndrome 397700546 Active 2022 GRISELDA Ferguson [address], [address], [place], [address] , [employer] 3 15:04:10 Abnormal weight loss 367905944 Active 2022 GRISELDA Ferguson [address], [address], [place], [address] , [employer] 3 16:46:48 Red blood cell count below reference range 403738604 Active 2022 GRISELDA Ferguson [address], [address], [place], [address] , [employer] 3 10:16:41 Skin lesion 45796475 Active 2022 GRISELDA Ferguson [address], [address], [place], [address] , [employer] 3 10:17:40 Acute sinusitis 81319633 Active 2022 GRISELDA Ferguson [address], [address], [place], [address] , [employer] 3 16:40:02 Problem Notes None recorded. Procedures Surgical History None recorded. Imaging Results Imaging Date Name Status LastModified by Organization Details LastModified Time 02/18/2023 complete PFT w/ post bronchodilator spirometry* completed [address] ([facility]) [address], [place], [address], 03/01/2023 13:16:50 Procedure Notes None recorded. Medical Equipment None Reported. Allergies Allergen ID Allergen Name Allergen Category Reaction Reaction Severity Criticality Documentation Date Start Date Code Code System Note Provider Name and Address Organization Details Recorded Time 92116 Substance with sulfonami de structure and antibacte rial mechanism of action (substanc e) medicatio n hives severe Not available 08/04/2022 77887 8003 SNOMED Not Available [facility] 3 19:30:15 68223 aspirin medicatio n hives severe Not available 08/04/2022 1191 RxNorm Not Available [facility] 3 19:30:15 Medications Name Sig Start Date Stop Date Status Note LastModified by Organization Details LastModified Time cyclobenzap rine 10 mg tablet TAKE 1 TABLET BY MOUTH DAILY active Not Available Not Available No t Available amoxicillin 500 mg capsule 06/18 completed Not Available Not Available Not Available medroxyprog esterone 10 mg tablet 07/26 completed Not Available Not Available Not Available nystatin 100,000 unit/mL oral suspension Take 5 mL 4 times a day by oral route as directed for 10 days. active Not Available Not Available No t Available prednisone 10 mg tablet PLEASE SEE ATTACHED FOR DETAILED DIRECTION S active Not Available Not Available No t Available doxycycline hyclate 100 mg capsule active Not Available Not Available N ot Available atorvastati n 20 mg tablet TAKE 1 TABLET(20 MG) BY MOUTH AT BEDTIME active Not Available Not Available No t Available famotidine 10 mg tablet TAKE 1 TABLET (10MG) BY ORAL ROUTE THREE TIMES DAILY 07/26 completed Not Available Not Available Not Available azithromyci n 250 mg tablet TAKE 2 TABLETS BY MOUTH TODAY, THEN TAKE 1 TABLET DAILY FOR 4 DAYS 07/26 completed Not Available Not Available Not Available sucralfate 1 gram tablet active Not Available Not Available Not Available famotidine 40 mg tablet 07/26 completed Not Available Not Available Not Available prednisone 20 mg tablet Take 1 tablet every day by oral route as directed for 5 days. 10/12 completed Not Available Not Available Not Available clonazepam 0.5 mg tablet TAKE ONE-HALF TABLET BY MOUTH DAILY active Not Available Not Available No t Available sertraline 100 mg tablet TAKE 2 TABLETS BY MOUTH DAILY active Not Available Not Available No t Available prednisone 5 mg tablet Take one tablet daily for 1 week then 1/2 tablet daily for 1 weeks then off (to follow previous taper instructi ons) active Not Available Not Available No t Available Seroquel 25 mg tablet Take 1 tablet every day by oral route at bedtime for 30 days. 07/26 completed Not Available Not Available Not Available Mobic 7.5 mg tablet Take 1 tablet every day by oral route after meals for 30 days. 07/26 completed With food. Not Available Not Available Not Available sulindac 150 mg tablet active Not Available Not Available Not Available hydrocodone 10 mg-acetamin ophen 325 mg tablet TAKE ONE TABLET BY MOUTH EVERY 4 HOURS NEEDED FOR PAIN active Not Available Not Available No t Available cyproheptad ine 4 mg tablet TAKE 1/2 TABLET 2 TIMES A DAY BY MOUTH active Not Available Not Available No t Available hydrocortis one 2.5 % topical cream with perineal applicator PLEASE SEE ATTACHED FOR DETAILED DIRECTION S active Not Available Not Available No t Available amoxicillin 875 mg tablet TAKE 1 TABLET BY MOUTH TWICE DAILY X 7 DAYS. TAKE WITH FOOD active Not Available Not Available No t Available famotidine 20 mg tablet 07/26 completed Not Available Not Available Not Available dicyclomine 20 mg tablet TAKE 1 TABLET BY MOUTH 2 TIMES A DAY 07/26 completed Not Available Not Available Not Available baclofen 10 mg tablet Take 1 tablet every 8 hours by oral route as needed for 30 days. 06/18 completed Not Available Not Available Not Available Lamictal 25 mg tablet Take 2 tablets every day by oral route in the morning for 30 days. 07/26 completed Not Available Not Available Not Available pantoprazol e 40 mg tablet,golden yed release TAKE 1 TABLET BY MOUTH EVERY DAY active Not Available Not Available No t Available docusate sodium 100 mg capsule active Not Available Not Available N ot Available montelukast 10 mg tablet TAKE 1 TABLET BY MOUTH EVERY DAY IN THE MORNING 07/26 completed Not Available Not Available Not Available midodrine 2.5 mg tablet TAKE 1 TABLET BY MOUTH TWICE A DAY active Not Available Not Available No t Available mirtazapine 15 mg tablet TAKE 1 TABLET BY MOUTH EVERY DAY AT BEDTIME FOR 30 DAYS active Not Available Not Available No t Available metoprolol succinate ER 25 mg tablet,exte nded release 24 hr TAKE 1 TABLET BY MOUTH EVERY DAY active Not Available Not Available No t Available polyethylen e glycol 3350 17 gram/dose oral powder MIX AND TAKE 1/2 TO 1 CAPFUL DAILY NEEDED FOR CONSTIPAT ION active Not Available Not Available No t Available Bloomer 5 mg-325 mg tablet Take 1 tablet every 8 hours by oral route as needed for 30 days. 07/26 completed Not Available Not Available Not Available ondansetron 4 mg disintegrat ing tablet TAKE 1 TABLET (4 MG TOTAL) BY MOUTH EVERY 6 (SIX) HOURS NEEDED FOR NAUSEA OR VOMITING active Not Available Not Available No t Available fluticasone propionate 50 mcg/actuati on nasal spray,suspe nsion active Not Available Not Available Not Available sertraline 50 mg tablet 07/26 completed Not Available Not Available Not Available metoclopram dedra 10 mg tablet TAKE 1 TABLET BY MOUTH EVERY DAY AT NIGHT 07/26 completed Not Available Not Available Not Available amoxicillin 875 mg-potassiu m clavulanate 125 mg tablet TAKE 1 TABLET BY MOUTH EVERY 12 HOURS DIRECTED FOR 10 DAYS active Not Available Not Available No t Available amoxicillin 500 mg-potassiu m clavulanate 125 mg tablet TAKE 1 TABLET BY MOUTH TWICE A DAY FOR 10 DAYS 10/12 completed Not Available Not Available Not Available neomycin 3.5 mg/g-polymy farzaneh B 10,000 unit/g-dexa meth 0.1 % eye oint active Not Available Not Available Not Available ezetimibe 10 mg tablet TAKE 1 TABLET BY MOUTH EVERY DAY active Not Available Not Available No t Available cyclobenzap rine 5 mg tablet TAKE 1 TABLET(5M G) BY MOUTH DAILY 10/12 completed Not Available Not Available Not Available Spiriva with HandiHaler 18 mcg and inhalation capsules INHALE 1 CAPSULE EVERY DAY BY INHALATIO N ROUTE DIRECTED FOR 30 DAYS 11/19 completed Not Available Not Available Not Available duloxetine 30 mg capsule,del ayed release TAKE 1 CAPSULE BY MOUTH EVERY DAY IN THE MORNING 07/26 completed Not Available Not Available Not Available Gas Relief Extra Strength 125 mg chewable tablet CHEW 1 TABLET BY MOUTH 4 TIMES A DAY NEEDED (CRAMPING /BLOATING /GAS/NAUS EA) active Not Available Not Available No t Available Albuterol Sulfate HFA 90 mcg/Actuati on aerosol inhaler Inhale 2 puffs every 4 hours by inhalatio n route. 11/19 completed Not Available Not Available Not Available pregabalin 25 mg capsule TAKE 1 CAPSULE (25MG) BY MOUTH THREE TIMES DAILY 07/26 completed Not Available Not Available Not Available quetiapine 50 mg tablet Take 1 tablet every day by oral route at bedtime. 05/19 completed Not Available Not Available Not Available Senexon-S 8.6 mg-50 mg tablet TAKE 1 TABLET BY MOUTH NIGHTLY active Not Available Not Available No t Available Isabelle-era 8.6 mg tablet PLEASE SEE ATTACHED FOR DETAILED DIRECTION S active Not Available Not Available No t Available Spiriva Respimat 2.5 mcg/actuati on solution for inhalation Inhale 2 puffs every day by inhalatio n route as directed for 30 days. 11/19 completed Not Available Not Available Not Available Movantik 25 mg tablet TAKE 1 TABLET (25 MG TOTAL) BY MOUTH DAILY. active Not Available Not Available No t Available Entresto 24 mg-26 mg tablet TAKE 1 TABLET BY MOUTH TWICE A DAY active Not Available Not Available No t Available Trelegy Ellipta 100 mcg-62.5 mcg-25 mcg powder for inhalation Inhale 1 puff every day by inhalatio n route. 07/26 completed Not Available Not Available Not Available albuterol sulf 90 mcg/actuati on breath activated powder inhaler,sen sor Inhale 2 puffs every 4 hours by inhalatio n route. 2021 active Not Available Not Available Not Avai lable Trelegy Ellipta 200 mcg-62.5 mcg-25 mcg powder for inhalation Inhale 1 puff every day by inhalatio n route as directed for 30 days. active Not Available Not Available No t Available Vitals Date Recorded Body height Body mass index (BMI) Body weight Body temperature Heart rate Oxygen saturation Oxygen saturation in Arterial blood by Pulse oximetry Systolic blood pressure Diastolic blood pressure Provider Name and Address Organization Details Last Updated DateTime 3 167.64 cm 17.8 kg/m2 44916.1 6 g 97.3 [degF] 64 /min 99 % 99 % 120 mm[Hg] 70 mm[Hg] Shira Warren MA [facility] [employer] [facility] 3 09:35:04 Date Recorded Body height Body mass index (BMI) Body weight Body temperature Heart rate Oxygen saturation Oxygen saturation in Arterial blood by Pulse oximetry Systolic blood pressure Diastolic blood pressure Provider Name and Address Organization Details Last Updated DateTime 3 167.64 cm 17.8 kg/m2 93500.1 6 g 97.2 [degF] 71 /min 99 % 99 % 112 mm[Hg] 60 mm[Hg] Tatiana Jimenez RN [facility] [employer] [facility] 3 14:40:41 Date Recorded Body height Body mass index (BMI) Body weight Body temperature Heart rate Oxygen saturation Oxygen saturation in Arterial blood by Pulse oximetry Systolic blood pressure Diastolic blood pressure Provider Name and Address Organization Details Last Updated DateTime 3 167.64 cm 17.8 kg/m2 41418.1 6 g 97.3 [degF] 68 /min 99 % 99 % 114 mm[Hg] 64 mm[Hg] Tatiana Jimenez RN [facility] [employer] [facility] 3 11:16:24 Date Recorded Body height Body mass index (BMI) Body weight Body temperature Heart rate Oxygen saturation Oxygen saturation in Arterial blood by Pulse oximetry Systolic blood pressure Diastolic blood pressure Provider Name and Address Organization Details Last Updated DateTime 3 167.64 cm 18.6 kg/m2 50342.1 2 g 98.3 [degF] 76 /min 99 % 99 % 102 mm[Hg] 58 mm[Hg] Roya Tapia [facility] [employer] [facility] 3 16:33:07 Date Recorded Body height Body mass index (BMI) Body weight Body temperature Heart rate Oxygen saturation Oxygen saturation in Arterial blood by Pulse oximetry Systolic blood pressure Diastolic blood pressure Provider Name and Address Organization Details Last Updated DateTime 3 167.64 cm 19 kg/m2 18013.9 g 97.3 [degF] 72 /min 97 % 97 % 92 mm[Hg] 50 mm[Hg] Roya Tapia [facility] [employer] [facility] 3 15:33:16 Social History Question Answer Notes LastModified by Organizat ion Details LastModified Time Tobacco Smoking Status Current Every Day Smoker Not Available [facility] 08/04/2022 19:28:03 What Is Your Level Of Caffeine Consumption? Heavy [id number] Information not available 08/04/2022 Which Illicit Or Recreational Drugs Have You Used? Claraa Every3-6 Mo [id number] Information not available 08/04/2022 How Many Years Have You Used Illicit Or Recreational Drugs? 35 [id number] Information not available 08/04/2022 At What Age Did You Start Smoking Tobacco? 15 [id number] Information not available 08/04/2022 How Much Tobacco Do You Smoke? 1 PPD Now-8 A Day [id number] Information not available 08/04/2022 Do You Use Any Illicit Or Recreational Drugs? Yes [id number] Information not available 08/04/2022 How Many Years Have You Smoked Tobacco? 35 [id number] Information not available 08/04/2022 Have You Used IV Drugs? No [id number] Information not available 08/04/2022 Do You Or Have You Ever Used Any Other Forms Of Tobacco Or Nicotine? No [id number] Information not available 08/04/2022 Sex: Unknown Functional Status None recorded. Mental Status None recorded. Family History Nothing Reported. Medical History No medical history recorded. Gynecological HistoryNo gynecological history recorded. Obstetrics History GPAL:G 0 P 0 0 0 0 Immunizations Vaccine Type Date Status Note Provider Nam e and Address Organization Details Recorded Time Tdap 05/12/2017 completed Not Available [facility] 08/04/2022 19:30:13 Past Encounters Encounter ID Performer Location Encounter Start Date Encounter Closed Date Diagnosis/Indication Diagnosis SNOMED-CT Code Diagnosis ICD10 Code Diagnosis Note [id number] [facility] [address] [place] [address] 06/18/2021 00:00:00 06/22/2021 19:29:20 [id number] [facility] [address] [place] [address] 08/03/2021 00:00:00 08/03/2021 14:39:05 [id number] [facility] [address] [place] [address] 09/07/2021 00:00:00 09/07/2021 13:36:06 [id number] [facility] [address] [place] [address] 10/28/2021 00:00:00 10/28/2021 16:09:57 [id number] [facility] [place] [address] [facility] [place] [address] 11/19/2021 00:00:00 11/19/2021 14:15:06 [id number] [facility] [address] [place] [address] 03/03/2022 00:00:00 03/03/2022 14:07:33 [id number] [facility] [address] [place] [address] 04/14/2022 00:00:00 04/14/2022 16:48:20 [id number] [facility] [address] [place] [address] 07/26/2022 00:00:00 07/26/2022 14:25:50 [id number] Tanika Clay, [facility] [address] [place] [address] 08/30/2022 14:20:57 08/31/2022 08:57:21 Asthma 479775722 J45.909 Positive methacholi ne challenge testing at level 3 with 20% drop in [id number] ue Trelegy Ellipta 200Samples to patient todayInstr ucted on techniqueD iscussed reportable S/S Dyspnea on exertion 6084 5006 R06.09 Multifacto ral Chronic Ep mace-Chowdhury virus infection syndrome 244799509 B27.00 She shows me testing from 2020ID referral Multiple n odules of lung 399043376 R91.8 CT chest 03/27/22 with multiple micro nodular nodules No change per CT chest 3DW Jessica today Pulmonary emphysema 8743 3001 J43.9 PFT completed 12/17/20Ra yesenia 80%, FEV1 81%No improvemen t [facility] hodilator. Lung volumes significan tly elevated consistent with emphysema seen on CT chest.TLC 282, RV 670DLCO 58, corrects to 65 for alveolar volume.Rep eat 09/04/21 with ratio 89FEV1 84% pre-BDTLC 178, RV 334DLCO 103 adjustedAl pha1 MM normalEosi nophils normalSix minute walk testing normalPara septal emphysema noted to CT chestRepea t testing as ordered above Chronic sy stolic heart failure 098837254 I50.22 Follows cardiology Nicotine dependence 5629 4008 Z87.891 Smoking cessation counseling and techniques reviewed at length.?Literat ure reviewed.A void triggers, support groups.Dis traction techniques Greater than 3 but less than 10 minutes spent discussing cessation. Declines NRT.Discus sed Rx options if needed in the future. Abnormal weight loss 267 685515 R63.4 30 pounds in 6 months - follow with PCM Fatigue 42442544 R53.83 Sleep study and BENEDICT normal [id number] Tanika Clay, [facility] [address] [place] [address] 10/12/2022 09:26:05 10/12/2022 10:48:31 Red blood cell count below reference range 101390976 R71.8 Also with low H&HHematol ogy referral today Skin lesion 57662217 L98 .9 Intermitte nt rashesSkin calcificat ionsSpooni ng to nailsRefer ral to dermatolog y Asthma 874775973 J45.90 9 Positive methacholi ne challenge testing at level 3 with 20% drop in QUN5Rrltov ue Trelegy Ellipta 200Samples to patient todayInstr ucted on techniqueD iscussed reportable S/S Chronic Ep mace-Chowdhury virus infection syndrome 094927493 B27.00 She shows me testing from 2019Previo us ID referral Dyspnea on exertion 6084 5006 R06.09 Multifacto ralContinu e inhaled therapyShe must quit smoking Multiple n odules of lung 324793610 R91.8 CT chest 03/27/22 with multiple micro nodular nodules No change per CT chest 3Pla n to repeat in a year Pulmonary emphysema 8743 3001 J43.9 PFT completed 12/17/20Ra yesenia 80%, FEV1 81%No improvemen t [facility] hodilator. Lung volumes significan tly elevated consistent with emphysema seen on CT chest.TLC 282, RV 670DLCO 58, corrects to 65 for alveolar volume.Rep eat 09/04/21 with ratio 89FEV1 84% pre-BDTLC 178, RV 334DLCO 103 adjustedPl ans to repeat this fallAlpha1 MM normalEosi nophils normalSix minute walk testing normalPara septal emphysema noted to CT chest Chronic sy stolic heart failure 967552865 I50.22 Follows cardiology Fatigue 35529730 R53.83 Sleep study and BENEDICT normal Nicotine dependence 5629 4008 Z87.891 Smoking cessation counseling and techniques reviewed at length.?Literat ure reviewed.A void triggers, support groups.Dis traction techniques Greater than 3 but less than 10 minutes spent discussing cessation. Declines NRT.Discus sed Rx options if needed in the future. [id number] Tanika Clay, [facility] [address] [place] [address] 11/30/2022 14:36:15 11/30/2022 15:21:26 Asthma 290279940 J45.909 Positive methacholi ne challenge testing at level 3 with 20% drop in WXB3Popmlq ue Trelegy Ellipta 200Samples to patient todayInstr ucted on techniqueD iscussed reportable S/SStart prednisone taper Pulmonary emphysema 8743 3001 J43.9 PFT completed 12/17/20Ra yesenia 80%, FEV1 81%No improvemen t [facility] hodilator. Lung volumes significan tly elevated consistent with emphysema seen on CT chest.TLC 282, RV 670DLCO 58, corrects to 65 for alveolar volume.Rep eat 09/04/21 with ratio 89FEV1 84% pre-BDTLC 178, RV 334DLCO 103 adjustedPl ans to repeat this fall - ordered todayAlpha 1 MM normalEosi nophils normalSix minute walk testing normalPara septal emphysema noted to CT chest Red blood cell count below reference range [id number] R71.8 Has seen hematology Skin lesion 44123684 L98 .9 Intermitte nt rashesSkin calcificat ionsSpooni ng to nailsDerma tology appointmen t scheduled Chronic Ep mace-Chowdhury virus infection syndrome [id number] B27.00 [facility] Dyspnea on exertion 6084 5006 R06.09 Multifacto ralContinu e inhaled therapyShe must quit smoking Multiple n odules of lung 687936484 R91.8 CT chest 03/27/22 with multiple micro nodular nodulesNo change per CT chest 3Che ck HP panel, she brings mold testing with her today Chronic sy stolic heart failure 128960840 I50.22 Follows cardiology Fatigue 09047000 R53.83 Sleep study and BENEDICT normal Nicotine dependence 5629 4008 Z87.891 Smoking cessation counseling and techniques reviewed at length.?Literat ure reviewed.A void triggers, support groups.Dis traction techniques Greater than 3 but less than 10 minutes spent discussing cessation. Declines NRT.Discus sed Rx options if needed in the future. [id number] Tanika Clay, DINKEY ENGINE OPERATOR-[facility] Pulmonolo gy [place] [address] [place] [address] 02/11/2023 11:07:12 02/11/2023 12:06:22 Asthma [id number] J45.909 Positive methacholi ne challenge testing at level 3 with 20% drop in IAX5Bskghu ue Trelegy Ellipta 200, samples to patient todayInstr ucted on techniqueD iscussed reportable S/SStresse d avoidance of triggers Pulmonary emphysema 8743 3001 J43.9 PFT completed 12/17/20Ra yesenia 80%, FEV1 81%No [facility]men t [facility]. 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 Has appointmen t with ID scheduled Dyspnea on exertion 6084 5006 R06.09 Multifacto ralContinu e inhaled therapyQui t smoking and vaping 4 months ago Multiple n odules of lung 786664256 R91.8 CT chest 03/27/22 with multiple micro nodular nodulesNo change per CT chest 08/2022HP panel with high reaction to penicillum Chronic sy stolic heart failure 527492356 I50.22 Follows cardiology Fatigue 89604515 R53.83 Sleep study and BENEDICT normal [id number] Tanika Clay, DINKEY ENGINE OPERATOR-[facility] Pulmonolo gy [place] [address] [place] [address] 03/02/2023 15:58:54 03/02/2023 16:41:00 Asthma [id number] J45.909 Positive methacholi ne challenge testing 01/2022 at level 3 with 20% drop in WUL8Jhmizu ue Trelegy Ellipta 200, samples to patient todayInstr ucted on techniqueD iscussed reportable S/SStresse d avoidance of triggers Pulmonary emphysema 8743 3001 J43.9 PFT completed 12/17/20Ra yesenia 80%, FEV1 81%No [facility]men [facility]odil[facility]. Lung volumes significan tly elevated consistent with emphysema seen on CT chest.TLC 282, RV 670DLCO 58, corrects to 65 for alveolar volume.Rep eat 09/04/21 with ratio 89FEV1 84% pre-BDTLC 178, RV 334DLCO 103 adjustedRe peat PFT 02/2023 with no obstructio nTLC normalDLCO moderately reduced with corrected for alveolar volumeAlph a1 MM normalEosi nophils normalSix minute walk testing 08/2022 normalPara septal emphysema noted to CT chest Acute sinusitis 00328589 J01.90 Start amox-clavD iscussed emergently reportable signs and symptoms [id number] aTnika Obed, DINKEY ENGINE OPERATOR-[facility] Pulmonolo gy Anne-Marie Rivas [address] [place] [address] 03/28/2023 15:20:14 03/28/2023 16:18:04 Asthma [id number] J45.909 Positive methacholi ne challenge testing 01/2022 at level 3 with 20% drop in QOO2Xhmifu ue Trelegy Ellipta 200, samples to patient todayInstr ucted on techniqueD iscussed reportable S/SStresse d avoidance of triggersAd vised vaccines Pulmonary emphysema 8743 3001 J43.9 PFT completed 12/17/20Ra yesenai 80%, FEV1 81%No improvemen t [facility]odilator. Lung volumes significan tly elevated consistent with emphysema seen on CT chest.TLC 282, RV 670DLCO 58, corrects to 65 for alveolar volume.Rep eat 09/04/21 with ratio 89FEV1 84% pre-BDTLC 178, RV 334DLCO 103 adjustedRe peat PFT 02/2023 with no obstructio nTLC normalDLCO moderately reduced with corrected for alveolar volumeAlph a1 MM normalEosi nophils normalSix minute walk testing 08/2022 normalPara septal emphysema noted to CT chest Dyspnea on exertion 6084 5006 R06.09 Multifacto ralContinu e inhaled therapyQui t smoking and vaping 4 months ago Multiple n odules of lung 035712476 R91.8 CT chest 03/27/22 with multiple micro nodular nodulesNo change per CT chest 08/2022HP panel with high reaction to penicillum Repeat due 08/2023 Health Concerns Section Related Observation LastModified by Organization Detai ls LastModified Time None Recorded Concern Status LastModified by Organization Details LastModified Time None Recorded Advance Directives Directive None Recorded Payers Encounter Date Sequence Insurance Name Policy Number Policy Cabrales Covered Member ID Cabrales Member ID Guarantor Name 10/12/2022 1 [facility] (MEDICAID HMO) [id number] Jessica Noriega [id number] Jessica Noriega 11/30/2022 1 [facility] (MEDICAID HMO) [id number] [facility] [id number] [facility] 02/11/2023 1 [facility] (MEDICAID HMO) [id number] Jessica Dos Santosbright [id number] [facility] 03/02/2023 1 [facility] (MEDICAID HMO) [id number] Jessica Dos Santosbright [id number] Jessica Dos Santosbright 03/28/2023 1 [facility] (MEDICAID HMO) [id number] [facility] [id number] Jessica Men[facility]aca [facility] Notes Date Note Type Note Provider Name and Address Organization Details Recorded Time 3 text/html Jessica presents today to follow up on asthma, emphysema, shortness of breath, wheezing, and coughCompliant with Trelegy Ellipta 200 - requesting samples todayLisa has seen several other providers and has been told that she may have some silicone left from her implant when it ruptured in 2018In addition, she is anemic with low RBC countLandlord has set up a radon testing unit in her houseShe has contacted the [facility] and the health department to help with more testingTells me her cats are getting sick.Denies chest pain.Severe fatigue - this is chronicCough is mildly productiveNo hemoptysisDenies fever and chillsNail abnormalities since childhood, feels like she has redness around her fingernails and clubbing Reports mid back pain, chronic - MRI has been deniedLisa has ID appointment scheduled for January Tanika Clay, [facility] [address], [place], [address], [facility] 10/12/2022 13:53:14 3 text/html Jessica presents today to follow up on asthma, emphysema, shortness of breath, wheezing, and cough and referralsLisa has seen hematologyAppointment with dermatology in JanuaryReports more lumps under her skin todayCompliant with Trelegy Ellipta 200 dailyRescue MDI Osmin had independent mold testing done in her house and has the report with her todayDenies chest pain.Severe fatigue - this is chronicCough is mildly productiveNo hemoptysisDenies fever and chillsNo respiratory infection since last OV Tanika Obed, DINKEY ENGINE OPERATORSW[facility] [address], [place], [address], [employer] 11/30/2022 16:57:23 3 text/html Jessica presents today to follow up on asthma, emphysema, shortness of breath, wheezing, and cough and referralsShanabela has seen hematology and has low iron.Appointment with dermatology upcoming.Compliant with Trelegy Ellipta 200 daily but continues to report wheezing.Tells me that nothing in her house has been fixed and she does not have alternate housing.Rescue MDI intermittentDenies chest pain but admits to intermittent tightness.Severe fatigue - this is chronic and has gotten worse.Cough is mildly productiveNo hemoptysis, fever and chillsNo respiratory infection since last OV [facility] [address] [facility] [address], [place], [address], [employer] 02/11/2023 13:59:48 3 text/html Jessica presents today to follow up on asthma, emphysema, shortness of breath, wheezing, and cough and referralsShanabela has seen hematology and has low iron, has been instructed to double her doseSaw infectious disease and has had lab workup, awaiting results.Compliant with Trelegy Ellipta 200 daily but continues to report wheezing, dyspnea, cough.Rescue MDI intermittent with good benefitDenies chest pain but admits to intermittent tightness.Severe fatigue, muscle and bone aches.Reports the whole left side of her body hurtsCough is mildly productive but she denies hemoptysisHas had facial pressure with headache and thick nasal mucous for greater than a week.Unsure of fevers.No relief from OTCNo respiratory infection since last OV Tanika OJ [facility]FL[facility] [address] [facility] [address], [place], [address], [employer] 03/03/2023 11:23:54 3 text/html Jessica presents today to follow up on asthma, emphysema, shortness of breath, wheezing, and cough and referralsHad eye infection and tells me that her antibiotics were switched with improvement to eye swelling.Compliant with Trelegy Ellipta 200 daily but continues to report wheezing, dyspnea, cough.She is working.Rescue MDI intermittent with good benefitDenies chest pain but admits to intermittent tightness.Severe fatigue, muscle and bone aches.Cough is mildly productive but she denies hemoptysisSHe tells me she has recently found a water leak under her house and also piles of feces.No repairs thus far completed by [facility]. Tanika Clay, [facility] [address], [place], [address], [facility] 03/28/2023 19:09:44 OBGyn Episode No OBEpisode recorded.
--- OUTSIDE RECORDS SUMMARY | 2024-07-10 09:38 | XMS_ITS | Clinical Summary ---
Author Organization [facility] Address [address] [place] [address] Phone Care Team Providers Care Nuclear Plant Operator Name Role Phone Aguilar Najera MD Unavailable [phone] Danilo Lyles MD Unavailable [phone] Cruz Luciano MD Primary Care Provider [phone] Allergies Active Allergy Reactions Criticality Noted Date Comments Aspirin Hives 02/19/2014 Reaction: Hives, Latex Hives Medium 09/27/2017 Sulfa Antibiotics Hives 02/19/2014 Reaction: Hives, Medications sertraline (ZOLOFT) 100 MG Tablet TAKE 2 TABLETS BY MOUTH DAILY 2 Active senna (SENOKOT) 8.6 MG Tablet Take 2 pills, every day or every other day in the evening, for management of chronic constipation. 1 Active Entresto 24-26 MG Tablet Take 1 Tablet by mouth 2 times daily. 2 Active polyethylene glycol (GLYCOLAX) 17 GM/SCOOP Powder Take 1-2 capfuls nightly. 1 Active ondansetron (ZOFRAN-ODT) 4 MG TABLET DISPERSIBLE DISSOLVE 1 TABLET BY MOUTH EVERY 6 HOURS NEEDED FOR NAUSEA OR VOMITING 2 Active metoprolol Succinate (TOPROL-XL) 25 MG TABLET SR 24 HR Take 25 mg by mouth daily. 2 Active HYDROcodone-acet aminophen (NORCO) 10-325 MG Tablet TAKE 1 TABLET BY MOUTH EVERY 4 HOURS NEEDED FOR PAIN. 2 Active docusate sodium 100 MG Capsule 1 Active cyclobenzaprine (FLEXERIL) 5 MG Tablet TAKE 1 TABLET(5MG) BY MOUTH DAILY 2 Active clonazePAM (KlonoPIN) 0.5 MG Tablet TAKE 1/2 TABLET BY MOUTH DAILY(0.25MG DAILY) DAILY 2 Active Vitamin D3 1000 UNIT Tablet Take 1,000 Units by mouth. Active Fluticasone-Umec lidin-Vilant (Trelegy Ellipta) 200-62.5-25 MCG/INH AEROSOL POWDER, BREATH ACTIVATED take by inhalation. Active Gas Relief Extra Strength 125 MG Chewable Tablet CHEW 1 TABLET BY MOUTH 4 TIMES A DAY NEEDED (CRAMPING/BLOAT ING/GAS/NAUSEA) 3 Active Zinc-Vitamin C (ZINC-A-COLD/VIT LAGOS C MT) by Mouth/Throat route. Active MAGNESIUM PO Take by mouth. Ac tive Probiotic Product (PROBIOTIC PO) Take by mouth daily. Active Ascorbic Acid (VITAMIN C PO) Take by mouth daily. Active Ferrous Sulfate (IRON PO) Take by mouth daily. Active TURMERIC CURCUMIN PO Take by mouth daily. Active B Complex Vitamins (B COMPLEX PO) Take by mouth daily. Active Misc Natural Products (SUPER GREENS PO) Take by mouth daily. Active predniSONE (DELTASONE) 20 MG Tablet Take 20 mg by mouth. 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 08/30/2022 Former smoker 06/24/2022 Gastroesophageal reflux dise ase with esophagitis without hemorrhage 06/24/2022 Overview (10/19/2022): Last Assessment & Plan: 64 ounces of caffeine free and soda free fluid daily Nutritional shakes 3-4 times daily Continue work up with GI Augmentin 500 mg twice daily for 10 days Follow up with Dentist Multiple nodules of lung 03/03/2022 Claudication 08/21/2021 Chronic systolic heart failure 08/03/2021 Muscle weakness 08/03/2021 Asthma 07/02/2021 Cardiomyopathy 02/26/2021 Nonrheumatic mitral valve regurgitation 02/27/20 21 Irritable bowel syndrome wit h both constipation and diarrhea 10/16/2019 Overview (10/19/2022): Last Assessment & Plan: No worrisome signs, we dicussed diet and eating yogurt for probiotics benefits. Chronic back pain 05/19/2017 Bipolar disorder 05/12/2017 Anxiety disorder 05/12/2017 Scoliosis deformity of spine 05/12/2017 Normocytic anemia Immunizations Immunization Administration Dates Next Due TDAP Vaccine 05/12/2017 Tetanus Vaccine 06/11/2004 Family History Medical History Relation Name Comments Liver Disease Father Cancer Mother blood cancer Diabetes Mother Cancer Sister 1 skin cancer of face Cancer Sister 2 uterine Relation Name Status Comments Father Mother Sister 1 Sister 2 Alive Social History Tobacco Use Types Packs/Day Years Used Date Smoking Tobacco: Former Cigarettes 1 35 1 07/1986 - 05/2022 Smokeless Tobacco: Never Tobacco Cessation:Counseling Given: Not Answered Alcohol Use Standard Drinks/Week Comments Not Currently 0 (1 standard drink = 0.6 oz pur e alcohol) Sexually Active Control Partners Comments Not Currently Comments No Sex and Gender Information Value Date Recorded Sex Assigned at Not on file Legal Sex Female 1:32 PM CDT Gender Identity Not on file Sexual Orientation Not on file Last Filed Vital Signs Vital Sign Reading Time Taken Comments Blood Pressure 120/83 01/20/2024 9:09 AM CDT Pulse 96 01/20/2024 9:09 AM CDT Temperature 36.6 ??C (97.9 ??F) 12/15/2023 10:07 AM C DT Respiratory Rate 20 01/20/2024 9:09 AM CDT Oxygen Saturation 97% 01/20/2024 9:09 AM CDT Inhaled Oxygen Concentration - - Weight 58.5 kg (129 lb) 01/20/2024 9:09 AM CDT Height 162.6 cm (5' 4 ) 01/20/2024 9:09 AM CDT Body Mass Index 22.14 01/20/2024 9:09 AM CDT Plan of Treatment Upcoming Encounters Date Type Department Care Team (Late st Contact Info) Description 12/17/2024 10:45 AM CDT Office Visit [facility] [address] [place] [address] Angelique Walker Elvie, [address] [place] [address] Discharge Disposition: Discharged to home or Selfcare Health Maintenance Due Date Last Done Comments Hepatitis C Virus (HCV) Screening 1971 Hepatitis B Immunization (1 of 3 - 19+ 3-dose series) 1990 Pneumococcal Immunization (50+ years) (1 of 2 - PCV) 1990 Pap Smear 1992 Cervical Cancer Screening (CCS) 2001 HPV/Cotest 2001 Cologuard 2021 Zoster Immunization (1 of 2) 2021 Lung Cancer Screening 08/11/2023 08/10/2022 , 08/10/2022, 03/27/2022, Additional history exists Mammogram 01/23/2024 01/22/2022, 01/15/2021 Influenza Immunization (#1) 2024 SARS-COV-2 Immunization ( season) 2024 06/23/2021 Immunochemical Fecal Occult Blood 04/27/2024 04/27/2023, 01/25/2023 Td Immunization Every 10 Years (Adults With 1 Tdap) 05/12/2027 05/12/2017 Colonoscopy 12/30/2031 12/29/2021 Colorectal Cancer Screening 12/30/2031 Respiratory Syncytial Virus (RSV) Immunization (Adult) (1 - 1-dose 75+ series) 2046 12/29/2021 DTaP/Tdap/Td Immunization Discontinued 05/12/2017 Meningococcal Immunization (ACWY) Aged Out No longer eligible based on patient's age to complete this topic Rotavirus Immunization Aged Out No lo nger eligible based on patient's age to complete this topic Insurance MEDICAID [place] Care Teams Nuclear Plant Operator Relationship Specialty Start Date End Date Cruz Luciano MD [address] [place] [address] PCP - General Orthopaedic Surgery 01/12/24 Aguilar Najera MD [address] [address] Consulting Physician Urology 03/18/22 Danilo Lyles MD [address] [place] [address] Consulting Physician Medical Oncology 04/27/23
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
--- OUTSIDE RECORDS SUMMARY | 2024-07-10 09:38 | XMS_ITS | Clinical Summary ---
Author Organization [facility] Address [address] [place] [address] Phone Care Team Providers Care Biomed Tech Name Role Phone ADELE VALENTINE MD Primary Care Provider [phone] MARYLU CHRISTOPHER MD Unavailable [phone] Reason for Visit and Chief Complaint The Chief Complaint is: WWE, in 2018 or 2019 she had a Paragard that broke off and Dr. Christopher removed what was remaining. She states she has had pain to the right of her naval, she states it feels as if it floats around. She has not had intercourse for 4 years Problems Includes: Problems addressed during this encounter and other active Problems Current Visit Onset Date Resolved Date Provider Conditio n Status Hyperlipidemia 11/21/2020 HATTIE QUINTEROS WHNP-BC Active Last Documented On 1 1:46PM ; [facility] Hypertension Systemic 11/21/2020 HATTIE QUINTEROS WHNP-BC Active Last Documented On 1 1:48PM ; [facility] Risk: Tobacco Use 11/21/2020 HATTIE QUINTEROS WHNP -BC Active Last Documented On 1 1:29PM ; [facility] Plan of Treatment - Follow-up visit 1 year or as needed - Last Documented On 11/21/2020 2:02PM ; [facility] - Clinical summary provided to patient - Last Documented On 11/21/2020 2:02PM ; [facility] Jessica really feels that her pelvic pain has something to do with the laparoscopic removal of Paragard IUD with Dr. Christopher in 2018. She has had this pain since then. Will schedule consult with him to discuss . ER/pain precautions reviewed. Will check FSH today and consider provera challenge if not menopausal. - Last Documented On 11/21/2020 2:02PM ; [facility] Pending Tests Order Diagnosis Results Due Ordering Rafa oleary Radiology @ other - *MAMMOGRAPHY SCREENING MAMMOGRAM Encntr screen mammogram for malignant neoplasm of breast 12/05/20 HATTIE Ruth QUINTEROS WHNP-BC Last Documented On 2 8:55AM ; [facility] Instructions to patient Instructions for patient : B reast Self Exam discussed Last Documented On 1 1:01PM ; [facility] Intervention and counseling on cessation of tobacco use : Patient recieved smoking cessation handout Last Documented On 1 1:42PM ; [facility] Education and Decision Aids were provided during visit for: Patient Education: Daily iesha cium and vitamin D Last Documented On 1 1:01PM ; [facility] Patient Education: weight be aring exercise Last Documented On 1 1:01PM ; [facility] Smoking cessation advised Last Documented On 1 1:30PM ; [facility] Assessments Includes: Assessments from this encounter Findings - Hypertension [I10 - Essential (primary) hypertension] - Last Documented On 11/21/2020 2:02PM ; [facility] - NORMAL FEMALE EXAM [Z01.419 - Encounter for gynecological examination (general) (routine) without abnormal findings] - Last Documented On 11/21/2020 2:02PM ; [facility] - Hyperlipidemia - Last Documented On 11/21/2020 2:02PM ; [facility] - Screening Malig. Neoplasm Rectum [Z12.12 - Encounter for screening for malignant neoplasm of rectum] - Last Documented On 11/21/2020 2:02PM ; [facility] Instructions Includes: Instructions from this encounter Instructions to patient Instructions for patient : B reast Self Exam discussed Last Documented On 1 1:01PM ; [facility] Intervention and counseling on cessation of tobacco use : Patient recieved smoking cessation handout Last Documented On 1 1:42PM ; [facility] Education and Decision Aids were provided during visit for: Patient Education: Daily iesha cium and vitamin D Last Documented On 1 1:01PM ; [facility] Patient Education: weight be aring exercise Last Documented On 1 1:01PM ; [facility] Smoking cessation advised Last Documented On 1 1:30PM ; [facility] Medical Equipment - Implanted Devices Includes: Current Devices No Medical Equipment Recorded Medications Includes: Medications discussed during this encounter and other current Medications Discontinued / Stopped on this date on 03/14/2018 LamoTRIgine 25MG Oral Tablet Provider: Diagnosis: Last Documented On 11/21/2020 1:36PM By Carmencita Moss MA ; [facility] Current Medications (continue as prescribed) Provera 10 MG Oral Tablet 11/25/2020 Provider: Diagnosis: Last Documented On 11/25/2020 11:04AM By Carmencita Moss MA ; [facility] HYDROcodone-Acetaminophen 5-325 MG Oral Tablet 021 Provider: Diagnosis: Last Documented On 11/21/2020 1:38PM By Carmencita Moss MA ; [facility] clonazePAM 0.5 MG Oral Tablet 11/21/2020 Provider: Diagnosis: Last Documented On 11/21/2020 1:38PM By Carmencita Moss MA ; [facility] Cyclobenzaprine HCl 5 MG Oral Tablet 11/21/2020 Prov ider: Diagnosis: Last Documented On 11/21/2020 1:39PM By Carmencita Moss MA ; [facility] Adult Probiotic Oral Capsule 11/21/2020 Provider : Diagnosis: Last Documented On 11/21/2020 1:39PM By Carmencita Moss MA ; [facility] Turmeric Curcumin 500 MG Oral Capsule 11/21/2020 Provider: Diagnosis: Last Documented On 11/21/2020 1:39PM By Carmencita Moss MA ; [facility] Calcium/Vitamin D 500-200 MG-UNIT Oral Tablet 11/22/19 21 Provider: Diagnosis: Last Documented On 11/21/2020 1:40PM By Carmencita Moss MA ; [facility] Montelukast Sodium 10MG Oral Tablet 03/14/2018 Provi duyen: Diagnosis: Last Documented On 8 4:57PM By MAYRA RODRIGUEZ ; [facility] Medications Administered Includes: Administered Medications from this encounter No Administered Medications Recorded Vital Signs Includes: Vital Signs from this encounter Vital Name 11/21/2020 01:30P Blood Pressure Sitting L 126/74 BP Cuff Size Regular Temp-Oral (F) 98 Height (in) 64.5 Weight (lb) 141 Body Mass Index (kg/m2) 23.8 Body Surface Area (m2) 1.7 Last Documented: On 11/21/2020 1:36PM ; [facility] Results Includes: Results discussed during this encounter No Results Recorded For Specified Dates History of Present Illness Includes: History of Present Illness from this encounter JESUS ARRIAGA is a 50 year old female. - Allergy list reviewed - Medication reconciliation performed - Primary Care Provider: Dr. Adele Valentine - Age at menarche 15 - Date of last menstruation 3mos. ago - Number of days between periods 3 mos or so - Abnormal menstrual flow Normal menstrual flow - Menstrual symptoms Mild menstrual cramping - Concerned about getting - History of menopause having occurred at age 49 Social History Description Last Updated control is not practiced 1 Last Documented On 1 2:02PM ; [facility] Current smoker 11/21/2020 Last Documented On 1 2:02PM ; [facility] Does not have anal sex 11/21/2020 Last Documented On 1 2:02PM ; [facility] Does not have vaginal sex. 11/21/2020 Last Documented On 1 2:02PM ; [facility] Has not used injectable drugs 11/21/2020 Last Documented On 1 2:02PM ; [facility] Has sex with males only 11/21/2020 Last Documented On 1 2:02PM ; [facility] Have you ever had sex (vaginal or penis in anus or rectum)? 11/21/2020 Last Documented On 1 2:02PM ; [facility] No consumption of alcohol 11/21/2020 Last Documented On 1 2:02PM ; [facility] No drug use by a sexual partner 11/22/19 Last Documented On 1 2:02PM ; [facility] Not using drugs 11/21/2020 Last Documented On 1 2:02PM ; [facility] Partner has not had a STD in the past ye ar 11/21/2020 Last Documented On 1 2:02PM ; [facility] Patient does not report having sex when she didn't want to 11/21/2020 Last Documented On 1 2:02PM ; [facility] Patient has not had sex unde r the influence of alcohol or drugs in the last year 11/21/2020 Last Documented On 1 2:02PM ; [facility] Sexual partner has not had o ther partners while in relationship with patient 11/21/2020 Last Documented On 1 2:02PM ; [facility] Sexual partner has not had sex with pros titutes 11/21/2020 Last Documented On 1 2:02PM ; [facility] Alcohol use very seldom: every 2 months 11/21/2020 Last Documented On 1 2:02PM ; [facility] Exercising regularly 11/21/2020 Last Documented On 1 2:02PM ; [facility] Marital history 11/21/2020 Last Documented On 1 2:02PM ; [facility] Sexually active with 0 partners in the l ast year 11/21/2020 Last Documented On 1 2:02PM ; [facility] Smoking Status Unknown Procedures and Surgical History Includes: Procedures from this encounter Procedures Code Diagnosis Performing Provider Service L ocation Service Date low fat diet Last Documented On 1 1:03PM ; [facility] intervention and counseling on cessation of tobacco use : Patient recieved smoking cessation handout 4000F Last Documented On 1 1:42PM ; [facility] use of tobacco assessment performed 1000F Last Documented On 1 1:42PM ; [facility] review of medications documented 1160F Last Documented On 1 1:42PM ; [facility] colonoscopy fiberoptic was performed 02-07-2018 - normal pathology 41170 Last Documented On 1 1:43PM ; [facility] fecal occult blood test was negative 43052 Last Documented On 1 1:01PM ; [facility] a transvaginal ultrasound of the uterus is abnormal + fibroid - 2.1 cm at largest dimension 56709 Last Documented On 1 1:40PM ; [facility] no uterine enlargement Last Documented On 1 1:40PM ; [facility] mass lesion of the uterus see above Last Documented On 1 1:40PM ; [facility] a transvaginal ultrasound of the ovaries is norm al 12365 Last Documented On 1 1:40PM ; [facility] no enlargement of the right ovary Last Documented On 1 1:40PM ; [facility] no enlargement of the left ovary Last Documented On 1 1:40PM ; [facility] no mass on the right ovary Last Documented On 1 1:40PM ; [facility] no mass on the left ovary Last Documented On 1 1:40PM ; [facility] screening mammogram was performed 1 yr ago 53341 Last Documented On 1 1:30PM ; [facility] endometrium thickness 4.0 mm Last Documented On 1 1:40PM ; [facility] the cul-de-sac had no fluid present t/v pelvic u/s done 10-17-20 Last Documented On 1 1:40PM ; [facility] test was negative Last Documented On 1 1:46PM ; [facility] Cervical Pap Smear performed Q0091 Last Documented On 1 1:47PM ; [facility] Surgical History Last Updated Surgical / procedural histor y Knee surgery ~Hand surgery ~Breast implants ~3rd degree triplett on arm ~PTSD: she was hospitalized in [place] in 2014 ~anxiety and depression 11/21/2020 Last Documented On 1 2:02PM ; [facility] Medical History Includes: Medical History addressed during this encounter Description Last Updated Contraception: 11/21/2020 Last Documented On 1 2:02PM ; [facility] Aborta 2 11/21/2020 Last Documented On 1 2:02PM ; [facility] 6 11/21/2020 Last Documented On 1 2:02PM ; [facility] History of colonoscopy fiberoptic was pe rformed 2018 11/21/2020 Last Documented On 1 2:02PM ; [facility] LMP: 08/27/2020 11/21/2020 Last Documented On 1 2:02PM ; [facility] # 1 Anesthesia: Local only 11/21/2020 Last Documented On 1 2:02PM ; [facility] # 1 Delivery date: [birth year] 11/21/2020 Last Documented On 1 2:02PM ; [facility] # 1 Hours in labor ??? 11/21/2020 Last Documented On 1 2:02PM ; [facility] # [facility] Sex: Male 11/21/2020 Last Documented On 1 2:02PM ; [facility] # 1 type delivery: Vaginal 11/21/2020 Last Documented On 1 2:02PM ; [facility] # 1 Weeks: 38 weeks 11/21/2020 Last Documented On 1 2:02PM ; [facility] # 1 Weight [id number] 11/21/2020 Last Documented On 1 2:02PM ; [facility] # 2 type delivery: Vaginal 11/21/2020 Last Documented On 1 2:02PM ; [facility] # 2 Anesthesia: Local 11/21/2020 Last Documented On 1 2:02PM ; [facility] # 2 Complications: None 11/21/2020 Last Documented On 1 2:02PM ; [facility] # 2 Delivery date: [birth year] 11/21/2020 Last Documented On 1 2:02PM ; [facility] # 2 Hours in labor: ??? 11/21/2020 Last Documented On 1 2:02PM ; [facility] # 2 Sex: Female 11/21/2020 Last Documented On 1 2:02PM ; [facility] # 2 Weeks: 40 weeks 11/21/2020 Last Documented On 1 2:02PM ; [facility] # 2 Weight: 7lbs 11oz 11/21/2020 Last Documented On 1 2:02PM ; [facility] #[facility] Complications None 11/21/2020 Last Documented On 1 2:02PM ; [facility] Anemia 11/21/2020 Last Documented On 1 2:02PM ; [facility] Asthma 11/21/2020 Last Documented On 1 2:02PM ; [facility] Breast problems 11/21/2020 Last Documented On 1 2:02PM ; [facility] Elective (s) 2 11/21/2020 Last Documented On 1 2:02PM ; [facility] Exercise 11/21/2020 Last Documented On 1 2:02PM ; [facility] No of miscarriages: 0 11/21/2020 Last Documented On 1 2:02PM ; [facility] No previous STD 11/21/2020 Last Documented On 1 2:02PM ; [facility] No. of Pregnancies: 6 11/21/2020 Last Documented On 1 2:02PM ; [facility] Please list all surgeries: K nee surgery, breast surgery x3hand surgery/tendon transfer 11/21/2020 Last Documented On 1 2:02PM ; [facility] Previous live (s) 4 11/21/2020 Last Documented On 1 2:02PM ; [facility] Previous premature delivery(s) 0 021 Last Documented On 1 2:02PM ; [facility] Received all 3 doses of Hepatitis B vacc ine 11/21/2020 Last Documented On 1 2:02PM ; [facility] Reported Pneumococcal Vaccine Last year 11/21/2020 Last Documented On 1 2:02PM ; [facility] A colonoscopy was performed 02/2018 at [facility] 11/21/2020 Last Documented On 1 2:02PM ; [facility] Last mammogram date: 09/23/2017 1 Last Documented On 1 2:02PM ; [facility] Last pap smear date years ago 11/21/2020 Last Documented On 1 2:02PM ; [facility] Not sexually active not since 04/30/17 0 11/21/2020 Last Documented On 1 2:02PM ; [facility] Para 4 11/21/2020 Last Documented On 1 2:02PM ; [facility] Vaginal delivery x 4 11/21/2020 Last Documented On 1 2:02PM ; [facility] Family History Includes: Family History addressed during this encounter Description Last Updated Family history of Breast problems 2020 Last Documented On 1 2:02PM ; [facility] Maternal history of Anemia 11/21/2020 Last Documented On 1 2:02PM ; [facility] Maternal history of bowel problems 11/21 Last Documented On 1 2:02PM ; [facility] Maternal history of kidney disease 11/21 Last Documented On 1 2:02PM ; [facility] Maternal history of thyroid disorder Last Documented On 1 2:02PM ; [facility] mom- cancer along ribs ~dad- ci rrhosis of liver 03/14/2018 Last Documented On 1 1:30PM ; [facility] Family history of malignant female breas t neoplasm MGM 03/14/2018 Last Documented On 1 1:30PM ; [facility] First child named 07/15/[birth year] male 6# 4oz vag inal 03/14/2018 Last Documented On 1 1:30PM ; [facility] Fourth child named 11/12/2005 female 6# 14 oz vaginal 03/14/2018 Last Documented On 1 1:30PM ; [facility] Second child named 02/17/90 female 7# 6oz vaginal 03/14/2018 Last Documented On 1 1:30PM ; [facility] Third child named 06/01/[birth year] male 8# 1oz v aginal 03/14/2018 Last Documented On 1 1:30PM ; [facility] Family history of hypertension pt and mo m 03/14/2018 Last Documented On 1 1:30PM ; [facility] Review of Systems Includes: Review of Systems from this encounter Gastrointestinal: No pelvic pain. Genitourinary: No menorrhagia. No dysmenorrhea and no bleeding between periods. No vaginal discharge. Mental Status Includes: Mental Status from this encounter No Mental Status Recorded Functional Status Includes: Functional Status from this encounter No Functional Status Recorded Physical Exam Includes: Physical Exam from this encounter Allergies Includes: Active Allergies Substance Type Reaction Onset Date Resolved Date Statu s Sulfa Antibiotics Allergy 03/14/2018 A ctive Last Documented On 1 11:42AM ; [facility] Latex Allergy 03/14/2018 Active Last Documented On 1 11:42AM ; [facility] Aspirin Allergy 03/14/2018 Active Last Documented On 1 11:42AM ; [facility] Encounters Encounter Provider Location Date Check-In Time Check-Out Time Diagnosis WELL WOMAN - NEW PATIENT HATTIE QUINTEROS [facility] 11/22/19 21 1:24PM 2:01PM Screening Malig. Neoplasm Rectum,Normal Female Exam,Hyperten karly Systemic,Hype rlipidemia Insurance Includes: Active Insurance Policies Plan Name Member ID Group # Subscriber Relationship Effect mario Dates 1 - [facility] [id number] JESSICA ARRIAGA Self Clinical Notes Includes: Clinical Notes from this encounter No Clinical Notes Recorded
--- OUTSIDE RECORDS SUMMARY | 2024-07-10 09:38 | XMS_ITS | Clinical Summary ---
Author Organization [facility] Address [address] [place] [address] Phone Care Team Providers Care Crayon Sorting Machine Feeder Name Role Phone ADELE VALENTINE MD Primary Care Provider [phone] MARYLU LUZ MD Unavailable [phone] Reason for Visit and Chief Complaint * PHONE CALL Problems Includes: Problems addressed during this encounter and other active Problems All Visits Onset Date Resolved Date Provider Condition S tatus Hyperlipidemia 11/21/2020 HATTIE A NELI NP-BC Active Last Documented On 1 1:46PM ; [facility] Hypertension Systemic 11/21/2020 HATTIE QUINTEROS NP-BC Active Last Documented On 1 1:48PM ; [facility] Risk: Tobacco Use 11/21/2020 HATTIE QUINTEROS NP -BC Active Last Documented On 1 1:29PM ; [facility] Plan of Treatment No Plan of Treatment Recorded Assessments Includes: Assessments from this encounter No Assessments Recorded Medical Equipment - Implanted Devices Includes: Current Devices No Medical Equipment Recorded Medications Includes: Medications discussed during this encounter and other current Medications Current Medications (continue as prescribed) Provera 10 MG Oral Tablet 11/25/2020 Provider: Diagnosis: Last Documented On 11/25/2020 11:04AM By Carmencita Moss MA ; [facility] HYDROcodone-Acetaminophen 5-325 MG Oral Tablet 021 Provider: Diagnosis: Last Documented On 11/21/2020 1:38PM By Carmencita Moss MA ; [facility] clonazePAM 0.5 MG Oral Tablet 11/21/2020 Provider: Diagnosis: Last Documented On 11/21/2020 1:38PM By Carmencita Moss MA ; [facility] Cyclobenzaprine HCl 5 MG Oral Tablet 11/21/2020 Prov ider: Diagnosis: Last Documented On 11/21/2020 1:39PM By Carmencita Moss MA ; [facility] Adult Probiotic Oral Capsule 11/21/2020 Provider : Diagnosis: Last Documented On 11/21/2020 1:39PM By Carmencita Moss MA ; [facility] Turmeric Curcumin 500 MG Oral Capsule 11/21/2020 Provider: Diagnosis: Last Documented On 11/21/2020 1:39PM By Carmencita Moss MA ; [facility] Calcium/Vitamin D 500-200 MG-UNIT Oral Tablet 11/22/19 Provider: Diagnosis: Last Documented On 11/21/2020 1:40PM By Carmencita Moss MA ; [facility] Montelukast Sodium 10MG Oral Tablet 03/14/2018 Provi duyen: Diagnosis: Last Documented On 8 4:57PM By MAYRA RODRIGUEZ ; [facility] Medications Administered Includes: Administered Medications from this encounter No Administered Medications Recorded Results Includes: Results discussed during this encounter No Results Recorded For Specified Dates History of Present Illness Includes: History of Present Illness from this encounter No History of Present Illness Recorded Social History No Social History Recorded - Smoking Status Unknown Medical History Includes: Medical History addressed during this encounter No Medical History Recorded Family History Includes: Family History addressed during this encounter No Family History Recorded Review of Systems Includes: Review of Systems from this encounter No Review of Systems Recorded Mental Status Includes: Mental Status from this encounter No Mental Status Recorded Functional Status Includes: Functional Status from this encounter No Functional Status Recorded Physical Exam Includes: Physical Exam from this encounter No Physical Exam Recorded Allergies Includes: Active Allergies Substance Type Reaction Onset Date Resolved Date Statu s Sulfa Antibiotics Allergy 03/14/2018 A ctive Last Documented On 1 11:42AM ; [facility] Latex Allergy 03/14/2018 Active Last Documented On 1 11:42AM ; [facility] Aspirin Allergy 03/14/2018 Active Last Documented On 1 11:42AM ; [facility] Encounters Encounter Provider Location Date Check-In Time Check-Out Time Diagnosis * PHONE CALL MARYLU LUZ MD 04/10/2018 11:15AM 11:59PM Insurance Includes: Active Insurance Policies Plan Name Member ID Group # Subscriber Relationship Effect mario Dates 1 - [facility] [id number] ALEX ARRIAGA Self Clinical Notes Includes: Clinical Notes from this encounter No Clinical Notes Recorded
--- OUTSIDE RECORDS SUMMARY | 2024-07-10 09:38 | XMS_ITS | Clinical Summary ---
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 11/03/2022 1:25 PM CDT 11/04/2022 10:17 AM CDT us Moni Briseno NP LAB MICROBIOLOGY - GENERAL ORDERABLES Final Result Performing Organization Address City/[facility]/ZIP Co de Phone Number ARMANDO SAWANT (ESTELA) [address] [facility] Department [place] [address] * COLONOSCOPY (12/29/2021 11:33 AM CDT) Anatomical Region Laterality Modality Other Narrative Procedure Note Kingsley Corea MD - 12/29/2021 11:33 AM CDT [facility] Patient Name: Jessica Fulbright Procedure Date: 12/29/2021 11:33 AM Date of : 1970 Admit Type: Outpatient Age: 51 Gender: Female Attending MD: Kingsley Corea M.D. Room: [facility] ROOM 1 Note Status: Finalized Patient Profile: This is a 51 year old female. Her father had colon cancer. Noted patient has irregular bowel movements between constipation and diarrhea and rectal pain. Colonoscopy for evaluation. Procedure: Colonoscopy Indications: Screening in patient at increased risk: Familyhistory of 1st-degree relative with colorectal cancerbefore age 60 years, Last colonoscopy: February 2018 Referring MD: Cruz Luciano M.D. Providers: Kingsley Corea M.D. Impression: - The entire examined colon is normal. - Internal hemorrhoids. - No specimens collected. Recommendation: - Await pathology results. - Repeat colonoscopy in 5 years for surveillance. - Continue present medications. Medicines: Monitored Anesthesia Care Complications: No immediate complications. Estimated Blood Loss: Estimated blood loss: none. Procedure: Pre-Anesthesia Assessment: - Prior to the procedure, a History and Physicalwas performed, and patient medications and allergieswere reviewed. The patient's tolerance of previous anesthesia was also reviewed. The risks andbenefits of the procedure and the sedation options and risks were discussed with the patient. All questions were answered, and informed consent was obtained. Prior Anticoagulants: The patient has taken noanticoagulant or antiplatelet agents. ASA Grade Assessment: III -A patient with severe systemic disease. Afterreviewing the risks and benefits, the patient was deemed in satisfactory condition to undergo the procedure. The benefits, risks and alternatives of theprocedure and sedation were discussed and informed consentwas obtained. All questions were answered. Please referto the signed informed consent document in the medical record. The bowel preparation used was Miralax via split dose instruction. The bowel preparation usedwas bisacodyl tablets via split dose instruction. The scope was passed under direct vision. The Pediatric Colonoscope PCF-[id number] was introducedthrough the anus and advanced to the the cecum, identifiedby appendiceal orifice and ileocecal valve. Thequality of the bowel preparation was excellent. Bowel prepwas administered using a split dose. Findings: The perianal and digital rectal examinations were normal. The cecum appeared normal. The colon (entire examined portion) appeared normal. No polyps and no mass lesions noted. Random colon biopsies performed. Internal hemorrhoids were found during retroflexion. The hemorrhoids were small. Electronically signed by Kingsley Corea M.D. Kingsley Corea M.D. 12/29/2021 1:42:45 PM Number of Addenda: 0 Note Initiated On: 12/29/2021 11:33 AM Procedure Code(s): --- Professional --- 46395, Colonoscopy, flexible; with biopsy, single or multiple Diagnosis Code(s): --- Professional --- Z80.0, Family history of malignant neoplasm of digestive organs K64.8, Other hemorrhoids CPT copyright 2020 [employer]. All rights reserved. The codes documented in this report are preliminary and upon heritage consultant reviewmay be revised to meet current compliance requirements. Recognized by the [employer] [place] for promoting quality in endoscopy Kingsley Corea MD ENDOSCOPY PROCEDURES Final Result from Last 3 Months or Most Recently Relevant to Health Maintenance Insurance [facility] Advance Directives For more information, please contact: [phone] * Full Code (Latest Code Status on File) Date Activated Date Inactivated Comments 12/29/2021 11:07 AM 12/29/2021 6:29 PM * Full Code Date Activated Date Inactivated Comments 12/29/2021 11:07 AM 12/29/2021 11:07 AM * Full Code Date Activated Date Inactivated Comments 03/06/2021 9:36 AM 03/06/2021 5:00 PM * Full Code Date Activated Date Inactivated Comments 02/27/2020 1:42 PM 02/27/2020 8:15 PM * Full Code Date Activated Date Inactivated Comments 04/26/2018 9:14 AM 04/26/2018 12:11 PM Care Teams Floatlight Powder Mixer Relationship Specialty Start Date End Date Katey Markham, STRUCTURED CABLING TECHNICIAN [address] [place] [address] DR TRENT RUELAS [address] [place] [address] PCP - General Internal Medicine 10/12/23 Katey Markham STRUCTURED CABLING TECHNICIAN 09/26/21 Alia Fuller, ALKA [address] [place] [address] DR RUELAS [address] [place], [place] [address], [place] [address] Nurse Practitioner Family Medicine 09/28/22 Tanika Clay STRUCTURED CABLING TECHNICIAN [address] [place] [address] DR RUELAS [address] [place], [place] [address], [place] [address] Nurse Practitioner Nurse Practitioner 09/28/22 [place] [address] RUELAS [address] [place] [address] Consulting Physician Urology 09/28/22 Beau Stone, ALKA [address] [place], [place] [id number] Nurse Practitioner Family Practice 09/28/22 Pearl York DO [address] [facility] [address] [place]MAN [address] [address] Consulting Physician Otolaryngology 09/28/22
--- OUTSIDE RECORDS SUMMARY | 2024-07-10 09:38 | XMS_ITS ---
Care Plan - [facility] Created on: July 10, 2024 ALEX ARRIAGA : 1970 Sex: Female Author Organization [facility] Address [address] [place] [address] Phone Care Team Providers Care Boilermaker Fitter Name Role Phone MEME COOPER, ADELE Olivares Primary Care Provider [phone] SUKH COOPER, MARYLU Vizcarra Unavailable [phone]
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
--- OUTSIDE RECORDS SUMMARY | 2024-07-10 09:38 | XMS_ITS | Clinical Summary ---
Author Organization [facility] Address [address] [place] [address] Phone Care Team Providers Care Sap Payroll Consultant Name Role Phone ADELE VALENTINE MD Primary Care Provider [phone] MARYLU LUZ MD Unavailable [phone] Reason for Visit and Chief Complaint * PHONE CALL Problems Includes: Problems addressed during this encounter and other active Problems All Visits Onset Date Resolved Date Provider Condition S tatus Hyperlipidemia 11/21/2020 HATTIE A NELI NP-BC Active Last Documented On 1 1:46PM ; [facility] Hypertension Systemic 11/21/2020 HATTIE QUINTEROS NP-BC Active Last Documented On 1 1:48PM ; [facility] Risk: Tobacco Use 11/21/2020 HATTIE QUINTEROS NP -BC Active Last Documented On 1 1:29PM ; [facility] Plan of Treatment No Plan of Treatment Recorded Assessments Includes: Assessments from this encounter No Assessments Recorded Medical Equipment - Implanted Devices Includes: Current Devices No Medical Equipment Recorded Medications Includes: Medications discussed during this encounter and other current Medications Current Medications (continue as prescribed) Provera 10 MG Oral Tablet 11/25/2020 Provider: Diagnosis: Last Documented On 11/25/2020 11:04AM By Carmencita Moss MA ; [facility] HYDROcodone-Acetaminophen 5-325 MG Oral Tablet 021 Provider: Diagnosis: Last Documented On 11/21/2020 1:38PM By Carmencita Moss MA ; [facility] clonazePAM 0.5 MG Oral Tablet 11/21/2020 Provider: Diagnosis: Last Documented On 11/21/2020 1:38PM By Carmencita Moss MA ; [facility] Cyclobenzaprine HCl 5 MG Oral Tablet 11/21/2020 Prov ider: Diagnosis: Last Documented On 11/21/2020 1:39PM By Carmencita Moss MA ; [facility] Adult Probiotic Oral Capsule 11/21/2020 Provider : Diagnosis: Last Documented On 11/21/2020 1:39PM By Carmencita Moss MA ; [facility] Turmeric Curcumin 500 MG Oral Capsule 11/21/2020 Provider: Diagnosis: Last Documented On 11/21/2020 1:39PM By Carmencita Moss MA ; [facility] Calcium/Vitamin D 500-200 MG-UNIT Oral Tablet 11/22/19 Provider: Diagnosis: Last Documented On 11/21/2020 1:40PM By Carmencita Moss MA ; [facility] Montelukast Sodium 10MG Oral Tablet 03/14/2018 Provi duyen: Diagnosis: Last Documented On 8 4:57PM By MAYRA RODRIGUEZ ; [facility] Medications Administered Includes: Administered Medications from this [...] ctive Last Documented On 1 11:42AM ; [facility] Latex Allergy 03/14/2018 Active Last Documented On 1 11:42AM ; [facility] Aspirin Allergy 03/14/2018 Active Last Documented On 1 11:42AM ; [facility] Encounters Encounter Provider Location Date Check-In Time Check-Out Time Diagnosis * PHONE CALL MARYLU LUZ MD [facility] TRIAGE LICENSED PRACTICAL NURSE 8 4:59PM 11:59PM Insurance Includes: Active Insurance Policies Plan Name Member ID Group # Subscriber Relationship Effect mario Dates 1 - [facility] [id number] ALEX ARRIAGA Self Clinical Notes Includes: Clinical Notes from this encounter No Clinical Notes Recorded
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
--- OUTSIDE RECORDS SUMMARY | 2024-07-10 09:41 | XMS_ITS | Patient Health Summary ---
Author Organization [facility] Address [address] [place] [address] Care Team Providers Care [employer] Sales Engineer Name Role Phone Zack Nguyen MD Unavailable Cruz Luciano MD Primary Care Provider [phone] Note from [facility],non-owned Affiliates and Associated Physician Practices is amultiple site organization consisting of ambulatory clinics and hospital sitesin [place], [place] and [place]. This disclosure is being madepursuant to the Care Everywhere program and may not contain all information available regarding this patient. Last updated 18.[facility] Allergies * Aspirin(Urticaria) -High Criticality * Latex(Urticaria) -Medium Criticality * Sulfa Antibiotics(Urticaria) -High Criticality * Sulfa Drugs * Sulfanilamide(Urticaria) -Medium Criticality Medications * Be aware that medications may not be up to date on this document. Alwaysverify current medications with the patient. * hydrocodone-acetaminophen (NORCO) 10-325 MG tablet Take 1 (one) tablet by mouth every 4 hours as needed for Pain Reasons: Moderate to Moderately Severe Pain * Sacubitril-Valsartan (ENTRESTO PO) * METOPROLOL SUCCINATE PO * Sertraline HCl (ZOLOFT PO) * Ferrous Dyrjujgmr-B-Ybwre Acid (IRON-C PO) * xxtlffdwnra-nrcqrjdlm-ocnbcu (Trelegy Ellipta) 200-62.5-25 MCG/ACT inhaler Inhale 1 (one) puff by mouth once daily * CLONAZEPAM PO * cyclobenzaprine (Flexeril) 10 MG tablet Take 1 (one) tablet by mouth as needed for Muscle Spasms * VITAMIN D PO * Probiotic Product (PROBIOTIC PO) * Other tumeric curcumin * Other(Started 06/24/2022) MIX AND TAKE 1/2 TO 1 CAPFUL DAILY NEEDED FOR CONSTIPATION * amoxicillin-clavulanate (Augmentin) 875-125 MG tablet(Started 03/02/2023) Take 1 tablet every 12 hours by oral route as directed for 10 days. Active Problems Problem Noted Date Diagnosed Date Anemia 03/10/2023 03/10/2023 Skin lesion 10/12/2022 03/10/2023 Multiple nodules of lung 03/03/2022 023 Candidiasis of mouth 09/07/2021 03/10/2023 Claudication 08/21/2021 03/10/2023 Chronic systolic heart failure 08/02/2021 1 Asthma 07/02/2021 03/10/2023 Pulmonary emphysema 07/01/2021 03/10/2023 Cardiomyopathy 02/26/2021 03/10/2023 Hepatic steatosis 02/26/2021 03/10/2023 Bipolar disorder 05/11/2017 03/10/2023 Spina bifida 05/11/2017 03/10/2023 Social History Tobacco Use Types Packs/Day Years Used Date Smoking Tobacco: Former Cigarettes 1 27 0 12/31/1993 - 12/31/2020 Smokeless Tobacco: Never Tobacco Cessation:Counseling Given: Not Answered Alcohol Use Standard Drinks/Week Comments Not Currently 1.7 (1 standard drin k = 0.6 oz pure alcohol) recovering alcoholic; 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 PHQ-2 Answer Date Recorded Patient Health Questionnaire-2 Score 2 02/21/2023 Sex and Gender Information Value Date Recorded Sex Assigned at Not on file Gender Identity Not on file Sexual Orientation Not on file Last Filed Vital Signs Vital Sign Reading Time Taken Comments Blood Pressure 140/92 02/21/2023 11:55 AM CDT Pulse 64 02/21/2023 11:55 AM CDT Temperature 35.6 ??C (96.1 ??F) 02/21/2023 11:55 AM C DT Respiratory Rate 18 02/21/2023 11:55 AM CDT Oxygen Saturation 98% 02/21/2023 11:55 AM CDT Inhaled Oxygen Concentration - - Weight 52.6 kg (116 lb) 02/21/2023 11:55 AM CDT Height 167.6 cm (5' 6 ) 12/31/2020 12:03 PM CDT Body Mass Index 18.72 12/31/2020 12:03 PM CDT Procedures * SYPHILIS ANTIBODY CASCADING REFLEX(Performed 02/21/2023) Performed for EBV infection * FTA ANTIBODY(Performed 02/21/2023) Performed for EBV infection * ERIK-ROSE VIRUS QUANT BLOOD STL(Performed 02/21/2023) Performed for EBV infection * HIV-1 HIV-2 ANTIBODY + HIV P24 AG PANEL(Performed 02/21/2023) Performed for EBV infection * CYTOMEGALOVIRUS (CMV) QUANTITATIVE PLASMA(Performed 02/21/2023) Performed for EBV infection * IGE BLOOD(Performed 02/21/2023) Performed for EBV infection * IGG BLOOD(Performed 02/21/2023) Performed for EBV infection * LAB RESULTS ORDER(Performed 02/21/2023) * MRI BREAST BILAT WO CONTRAST(Performed 02/03/2021) Performed for Mechanical complication due to breast prosthesis, subsequent encounter * CARDIAC EKG ORDER(Performed 01/07/2021) * LACTIC ACID BLOOD(Performed 12/31/2020) * COMPREHENSIVE METABOLIC PANEL(Performed 12/31/2020) * CBC W AUTO DIFFERENTIAL(Performed 12/31/2020) * TROPONIN I(Performed 12/31/2020) * EKG 12-LEAD(Performed 12/31/2020) Performed for SOB (shortness of breath) * XR KNEE RIGHT 4VW OR MORE(Performed 02/19/2014) Performed for Knee pain, right * TSH(Performed 02/18/2014) * HCG URINE QUALITATIVE - POINT OF CARE(Performed 02/18/2014) * RPR(Performed 02/18/2014) * URINE MICROSCOPIC ONLY(Performed 02/18/2014) * DRUG SCREEN TOX LIMITED BLD PNL 3 INHOUSE(Performed 02/18/2014) * COMPREHENSIVE METABOLIC PANEL(Performed 02/18/2014) * CBC W AUTO DIFFERENTIAL(Performed 02/18/2014) * URINALYSIS REFLEX TO MICROSCOPIC NO CULTURE(Performed 02/18/2014) * URINE DRUG SCREEN IMMUNOASSAY(Performed 02/18/2014) Results * SYPHILIS ANTIBODY CASCADING REFLEX (02/21/2023 1:07 PM CDT) Treponema pallidum Antibody Non-react mario Non-react mario 02/21/2023 2:42 PM CDT [facility] Comment: No Laboratory evidence of syphilis infection. ?? Note: ??Circulating antibodies may be low or undetectable in early infection. ??If recent exposure is suspected, re-draw sample in 2-4 weeks and repeat testing. Blood BLOOD SPECIMEN / Unknown Lab Venipuncture / Unknown 02/21/2023 1:07 PM CDT 02/21/2023 1:21 PM CDT Aristides Velasco MD LAB - SEROLOGY ORDER WHIT Performing Organization Address City/[facility]/ZIP Co de Phone Number [facility] [address] [place] [phone], [facility] [phone] * FTA ANTIBODY (02/21/2023 1:07 PM CDT) Pathologist [facility] Treponema pallidum Antibody (FTA-ABS) Non Reactive Non Reactive 02/24/2023 8:17 AM CDT [facility] ([facility]) Blood BLOOD SPECIMEN / Unknown Lab Venipuncture / Unknown 02/21/2023 1:07 PM CDT 02/21/2023 1:21 PM CDT Narrative [facility] ([facility]) - 02/24/2023 8:17 AM CDT Performed at: ??01 - [facility] [address] [place], [place] ??[id number] Visual Merchandising Coordinator: Mitul Gong PhD, Phone: ??[phone] Aristides Velasco MD LAB - CHEMISTRY ORDE AMY Performing Organization Address City/[facility]/ZIP Co de Phone Number [facility] ([facility]) [address] [place] [address], [facility] * CYTOMEGALOVIRUS (CMV) QUANT PCR PLASMA STL (02/21/2023 1:02 PM CDT) Pathologist [facility] CMV Quant by PCR, Interp Not detected Not detected 02/22/2023 9:06 AM CDT [facility] Blood BLOOD SPECIMEN / Unknown Lab Venipuncture / Unknown 02/21/2023 1:02 PM CDT 02/21/2023 1:21 PM CDT Narrative [facility] - 02/22/2023 9:06 AM CDT The CMV DNA analysis utilized real-time PCR, and is reported as Not Detected, Detected (< 30 IU/mL) [or Detected (< 1.48 log IU/mL)], Detected (30 - 100,000,000 IU/mL) [or Detected 1.48 to 8.00 log IU/mL)], or Detected (> 100,000,000 IU/mL) [or Detected (> 8.00 log IU/mL)]. The analytical sensitivity (LOD) of the assay is 30.00 IU/mL [1.48 log IU/mL], (100% of samples with this CMV/DNA level were detected). Linear range of the assay is 30 - 100,000,000 IU/mL [or 1.48 to 8.00 log IU/mL]. The detection/quantitation of CMV DNA is plasma is based on the isolation of CMV DNA followed by real-time PCR in the presence of reference standard DNA. The standard ensures that DNA was isolated, and that no general significant inhibitors of the real-time PCR process were present. Absolute CMV values or breakpoints for symptomatic disease have not been established and appear to be different between populations and laboratories. Therefore, it is important to monitor patients and to follow increases and/or decreases in the level of CMV in multiple blood specimens. The analysis was performed using an [place] FDA approved test methodology. Aristides Velasco MD LAB - CHEMISTRY EDNA REYES [facility] [address] [place] [address], [facility] [phone] * ERIK-ROSE VIRUS (EBV) QUANT PCR?? PLASMA STL (02/21/2023 1:02 PM CDT) EBV Quant by PCR, Interp Not detected Not detected 02/22/2023 2:03 PM CDT [facility] Specimen Type Plasma 02/22/2023 2:03 PM CDT [facility] Blood BLOOD SPECIMEN / Unknown Lab Venipuncture / Unknown 02/21/2023 1:02 PM CDT 02/21/2023 1:21 PM CDT Narrative [facility] - 02/22/2023 2:03 PM CDT DNA isolated from the plasma was analyzed in a qPCR assay to detect and quantify Erik-Rose DNA. An internal control is included to evaluate for PCR inhibition. The quantitative range of this assay is 500 IU/mL to 5,000,000 IU/mL. Values below 500 IU/mL will be reported as Detected (<500 IU/mL). ?? This test was developed and its performance characteristics determined by [facility]. ??It has not been cleared or approved by the U.S. Food and Drug Administration. ??The FDA has determined that such clearance or approval is not necessary. ??The test is used for clinical purposes. ??It should not be regarded as investigational or for research. ??This laboratory is certified under the Clinical Laboratory Improvement Amendments of 1988(CLIA-88) as qualified to perform high complexity clinical laboratory testing. Aristides Velasco MD LAB - CHEMISTRY EDNA REYES [facility] [address] [place] [address], [facility] [phone] * HIV-1 HIV-2 ANTIBODY + HIV P24 AG PANEL (New on 10/20) (02/21/2023 1:02 PM CDT) HIV Antigen/Antibod y 1 & 2 Non-reacti ve Non-react mario 02/21/2023 2:43 PM CDT [facility] Comment:No Laboratory eviden ce of HIV infection. Blood BLOOD SPECIMEN / Unknown Lab Venipuncture / Unknown 02/21/2023 1:02 PM CDT 02/21/2023 1:21 PM CDT Aristides Velasco MD LAB - CHEMISTRY EDNA REYES [facility] [address] [place] [address], [place] [phone] * IGE BLOOD (02/21/2023 1:02 PM CDT) Pathologist [facility] IgE Total 40 <=214 kU/L 02/23/2023 11:27 PM CDT [facility] ([facility]) Comment: REFERENCE INTERVAL: Immunoglobulin E, Serum Access complete set of age- and/or gender-specific reference intervals for this test in the [facility] Test Directory ([employer]). Performed By: [employer] [address] [place] [address] Auto Job Estimator: Kevon Kaplan MD, PhD CLIA Number: [id number] Blood BLOOD SPECIMEN / Unknown Lab Venipuncture / Unknown 02/21/2023 1:02 PM CDT 02/21/2023 1:21 PM CDT Aristides Velasco MD LAB - CHEMISTRY EDNA REYES Performing Organization Address City/[facility]/ZIP Co de Phone Number [facility]) [address] [place] [id number] * IGG BLOOD (02/21/2023 1:02 PM CDT) [facility] IgG 821 767 - 1,590 mg/dL 02/21/2023 2:25 PM CDT [facility] Blood BLOOD SPECIMEN / Unknown Lab Venipuncture / Unknown 02/21/2023 1:02 PM CDT 02/21/2023 1:21 PM CDT Aristides Velasco MD LAB - CHEMISTRY [facility]DNA RE[facility] [address] [address], [facility] [phone] * LAB RESULTS ORDER (02/21/2023) 02/21/2023 Narrative 02/21/2023 Ordered by an unspecified provider. Scanned Document LAB - THERAPEUTIC DR SANCHES MONITORING ORDERABLES * MRI BREAST W/O CONT BILATERAL (02/03/2021 10:50 AM CDT) Anatomical Region Laterality Modality Breast Bilateral Magnetic Resonan ce 02/04/2021 12:3 8 PM CDT Impressions 02/04/2021 3:53 PM CDT 1. ??Intact bilateral silicone breast implants. Clinical follow-up is recommended for the patient's breast pain 2. ??This noncontrast-enhanced MRI examination does not evaluate for breast malignancy. *Reading Radiologist: ILA CHAN on 02/04/2021 at 3:53 PM Narrative 02/04/2021 3:53 PM CDT EXAMINATION: MRI EXAMINATION OF THE BREASTS WITHOUT CONTRAST HISTORY: 50-year-old woman with severe pain in both breasts. Outside imaging studies from [facility] in January 15, 2021 reported bilateral contour irregularity on ultrasound and MRI was recommended. Indwelling bilateral silicone breast implants. Evaluate for implant rupture. TECHNIQUE: A noncontrast-enhanced MRI examination of the breasts was performed per the silicone breast implant protocol. ??A dedicated breast imaging coil was used. COMPARISON: 02/18/2020 MRI 01/15/2021 FINDINGS: There is no free silicone or other evidence of implant rupture. Procedure Note Ila Chan MD - 02/04/2021 EXAMINATION: MRI EXAMINATION OF THE BREASTS WITHOUT CONTRAST HISTORY: 50-year-old woman with severe pain in both breasts. Outside imaging studies from [facility] in January 15, 2021 reported bilateral contour irregularity on ultrasound and MRI was recommended. Indwelling bilateral silicone breast implants. Evaluate for implant rupture. TECHNIQUE: A noncontrast-enhanced MRI examination of the breasts was performed per the silicone breast implant protocol. A dedicated breast imaging coil was used. COMPARISON: 02/18/2020 MRI 01/15/2021 FINDINGS: There is no free silicone or other evidence of implant rupture. IMPRESSION 1. Intact bilateral silicone breast implants. Clinical follow-up is recommended for the patient's breast pain 2. This noncontrast-enhanced MRI examination does not evaluate for breast malignancy. *Reading Radiologist: ILA CHAN on 02/04/2021 at 3:53 PM Katey Markham HUMAN RESOURCES REPRESENTATIVE-FERMENTATION OPERATOR MR ORDERABLES * CARDIAC EKG ORDER (01/07/2021 8:00 AM CDT) Narrative 01/07/2021 8:00 AM CDT Ordered by an unspecified provider. Scanned Document CARDIAC SERVICES ORD ERABLES * TROPONIN I (12/31/2020 12:31 PM CDT) Pathologist [facility] Troponin I 0.010 <0.032 ng/mL 12/31/2020 1:27 PM CDT [facility] Blood BLOOD SPECIMEN / Unknown Venipuncture / Unknown 12/31/2020 12:31 PM CDT 12/31/2020 12:53 PM CDT Alexander Castillo MD LAB - CHEMISTRY ORDE AMY [facility] [address] [place] [address], [facility] [phone] * CBC W AUTO DIFFERENTIAL (12/31/2020 12:31 PM CDT) Only the most recent of2 resultswithin the time period is included. Pathologist [facility] WBC 8.1 3.5 - 10.5 10? 3 /uL 12/31/2020 1:00 PM [facility] RBC 4.61 3.80 - 5.20 10? 6 /uL 12/31/2020 1:00 PM [facility] Hemoglobin 14.2 12.0 - 15.6 g/dL 12/31/2020 1:00 PM [facility] Hematocrit 42.3 35.0 - 45.0 % 12/31/2020 1:00 PM [facility] MCV 91.8 80.7 - 98.3 fL 12/31/2020 1:00 PM [facility] MCH 30.8 26.7 - 34.0 pg 12/31/2020 1:00 PM [facility] MCHC 33.6 30.8 - 35.9 g/dL 12/31/2020 1:00 PM [facility] Platelet Count 238 150 - 400 10? 3 /uL 12/31/2020 1:00 PM [facility] RDW-SD 44.1 36.0 - 50.0 fL 12/31/2020 1:00 PM [facility] RDW-CV 13.0 11.2 - 14.8 % 12/31/2020 1:00 PM [facility] MPV 10.1 9.4 - 12.9 fL 12/31/2020 1:00 PM [facility] nRBC Absolute 0.00 0 10? 3 /uL 12/31/2020 1:00 PM [facility] nRBC Auto 0.0 0 /100 WBC 12/31/2020 1:00 PM [facility] Neutrophils % 56.6 35.0 - 70.0 % 12/31/2020 1:00 PM [facility] Lymphocytes % 33.9 20.0 - 43.0 % 12/31/2020 1:00 PM [facility] Monocytes % 6.9 5.0 - 13.0 % 12/31/2020 1:00 PM [facility] Eosinophils % 1.4 0.0 - 6.0 % 12/31/2020 1:00 PM [facility] Basophil % 1.0 0.0 - 2.0 % 12/31/2020 1:00 PM [facility] Neutrophils Absolute 4.6 1.6 - 7.0 10? 3 /uL 12/31/2020 1:00 PM [facility] Lymphocyte Absolute 2.7 1.1 - 3.9 10? 3 /uL 12/31/2020 1:00 PM [facility] Monocytes Absolute 0.56 0.26 - 1.07 10? 3 /uL 12/31/2020 1:00 PM [facility] Eosinophils Absolute 0.11 0.00 - 0.47 10? 3 /uL 12/31/2020 1:00 PM [facility] Basophils Absolute 0.08 0.00 - 0.08 10? 3 /uL 12/31/2020 1:00 PM [facility] Immature Granulocytes % 0.2 0.0 - 1.0 % 12/31/2020 1:00 PM [facility] Immature Granulocytes Absolute 0.02 12/31/2020 1:00 PM [facility] Blood BLOOD SPECIMEN / Unknown Venipuncture / Unknown 12/31/2020 12:31 PM CDT 12/31/2020 12:53 PM CDT Alexander Castillo MD LAB - HEMATOLOGY ORD ERABLES [facility] [address] [place] [address], [facility] [phone] * (ABNORMAL) COMPREHENSIVE METABOLIC PANEL (12/31/2020 12:31 PM CDT) Only the most recent of2 resultswithin the time period is included. BUN 9 7 - 26 mg/dL 12/31/2020 1:21 PM [facility] Creatinine 0.81 0.56 - 0.96 mg/dL 12/31/2020 1:21 PM [facility] Sodium 139 136 - 145 mmol/L 12/31/2020 1:21 PM [facility] Potassium 4.3 3.5 - 4.5 mmol/L 12/31/2020 1:21 PM [facility] Chloride 107 98 - 107 mmol/L 12/31/2020 1:21 PM [facility] CO2 23 22 - 29 mmol/L 12/31/2020 1:21 PM [facility] Glucose 91 70 - 115 mg/dL 12/31/2020 1:21 PM [facility] Calcium 10.0 8.4 - 10.2 mg/dL 12/31/2020 1:21 PM [facility] Protein Total 7.9 6.0 - 8.3 g/dL 12/31/2020 1:21 PM [facility] Albumin 4.7 3.4 - 5.0 g/dL 12/31/2020 1:21 PM [facility] Bilirubin Total 0.4 0.2 - 1.2 mg/dL 12/31/2020 1:21 PM [facility] Alkaline Phosphatase 36(L) 40 - 150 U/L 12/31/2020 1:21 PM [facility] ALT 10 5 - 55 U/L 12/31/2020 1:21 PM CDT [facility] AST 17 5 - 34 U/L 12/31/2020 1:21 PM [facility] Anion Gap 13 8 - 18 12/31/2020 1:21 PM [facility] BUN/Creatinine Ratio 11 7 - 23 12/31/2020 1:21 PM [facility] Osmolality Calculated 286 270 - 300 mOsm/kg 12/31/2020 1:21 PM [facility] Albumin/Globulin Ratio 1.5 1.1 - 2.3 12/31/2020 1:21 PM [facility] eGFR by CKD-EPI 85(L) >=90 mL/min/1.7 3 m2 12/31/2020 1:21 PM [facility] Blood BLOOD SPECIMEN / Unknown Venipuncture / Unknown 12/31/2020 12:31 PM CDT 12/31/2020 12:53 PM CDT Alexander Castillo MD LAB - CHEMISTRY EDNA REYES [address] [address], [place] [phone] * LACTIC ACID BLOOD (12/31/2020 12:31 PM CDT) [facility] Lactic Acid-Stat 1.1 <=2.0 mmol/L 12/31/2020 1:16 PM T [facility] Blood BLOOD SPECIMEN / Unknown Venipuncture / Unknown 12/31/2020 12:31 PM CDT 12/31/2020 12:53 PM CDT Alexander Castillo MD LAB - CHEMISTRY EDNA REYES [address] [address], [facility] [phone] * EKG 12-LEAD (12/31/2020 12:24 PM CDT) Ventricular Rate 85 BPM [facility] Atrial Rate 85 BPM [facility] P-R Interval 166 ms [facility] QRS Duration ms 68 ms [facility] Q-T Interval ms 378 ms [facility] QTC Calculation (Bezet) 449 ms [facility] Calculated P [place] 78 degrees [facility] Calculated R [place] 64 degrees [facility] Calculated T [place] 82 degrees [facility] Interpretation EKG NORMAL SINUS RHYTHM POSSIBLE LEFT ATRIAL ENLARGEMENT ABNORMAL ECG NO PREVIOUS ECGS AVAILABLE Confirmed by fellow Renu Zavala ([id number]) on 01/02/2021 10:18:34 AM Confirmed by Jewel Newell [id number]) on 01/02/2021 3:13:46 PM [facility] 12/31/2020 12:2 4 PM CDT 01/02/2021 3:13 PM CDT Alexander Castillo MD ECG ORDERABLES [facility] * XR KNEE 4+ VW RIGHT (02/19/2014 7:01 PM CDT) Anatomical Region Laterality Modality Lower Extremity Radiographic Jyoti ging 02/19/2014 7:24 PM CDT Impressions 02/19/2014 7:25 PM CDT Negative for fracture at this time. ??Please see above. Narrative 02/19/2014 7:25 PM CDT Examination: Right knee 4 views Indication: ??Right knee pain. ??Injury, fell 2 days ago. Findings: No fracture can be identified on the current plain films. If the patient's symptoms persist or worsen, consideration may be given to an alternative imaging modality such as an MRI or a bone scan to check for an occult process. Procedure Note Pino Coffey MD - 02/19/2014 Examination: Right knee 4 views Indication: Right knee pain. Injury, fell 2 days ago. Findings: No fracture can be identified on the current plain films. If the patient's symptoms persist or worsen, consideration may be given to an alternative imaging modality such as an MRI or a bone scan to check for an occult process. IMPRESSION Negative for fracture at this time. Please see above. Elena Zelaya MD DIAGNOSTIC IMAGING O RDERABLES * TSH (02/18/2014 9:38 PM CDT) TSH 1.82 0.358 - 3.740 uIU/mL 02/19/2014 12:40 AM CDT [facility] Blood BLOOD SPECIMEN / Unknown 02/18/2014 9:38 PM CDT 02/19/2014 12:14 AM CDT Wolfgang Salamanca MD LAB - CHEMISTRY EDNA REYES [facility] [address] [place] [address] * HCG URINE QUALITATIVE - POINT OF CARE (IP) (02/18/2014 7:39 PM CDT) Pathologist [facility] HCG Qual Urine Negative Negative [facility] QC Verified Yes Yes [facility] POC T TESTING Urine specimen (specimen) URINE / Unknown 02/18/2014 7:39 PM CDT Austin Schrader DO LAB - POINT OF CARE ORDERABLES Performing Organization Address City/[facility]/[place] Co de Phone Number [facility] [id number] * DRUG SCREEN TOX LIMITED BLD PNL 3 INHOUSE (02/18/2014 7:38 PM CDT) Pathologist [facility] Acetaminophen 20.5 10.0 - 30.0 ug/mL 02/18/2014 8:05 PM CDT [facility] Ethanol <3 <10 mg/dL 02/18/2014 8:05 PM CDT [facility] Salicylate 3.2 <20.0 mg/dL 02/18/2014 8:05 PM CDT [facility] Ethanol Calculated <0.100 gm/dL 02/18/2014 8:05 PM CDT [facility] Comment:Not Calculated Blood BLOOD SPECIMEN / Unknown 02/18/2014 7:38 PM CDT 02/18/2014 7:45 PM CDT Narrative [facility] - 02/18/2014 8:05 PM CDT [facility] ACETAMINOPHEN COMMENT Contact the [place] [facility] at [facility] [employer] [phone] for advice in interpreting acetaminophen levels or if an overdose is suspected. Critical values: 4 Hours Post Ingestion: Critical value > 200 ??g/mL 12 Hours Post Ingestion: Critical value >150 ??g/mL Random values: Critical value: For patients 18 years or less: No numeric critical defined. Critical value: For patients 18 years or older: >50 ??g/mL. Austin Schrader DO LAB - CHEMISTRY EDNA REYES [facility] [address] [place] [address] * (ABNORMAL) URINALYSIS ROUTINE AUTO (02/18/2014 7:38 PM CDT) Color UA Yellow Straw, Yellow, Dark Yellow 02/18/2014 8:03 PM CDT [facility] Clarity UA Cloudy 02/18/2014 8:03 PM CDT [facility] Specific [place] UA >1.030(H) 1.005 - 1.030 02/18/2014 8:03 PM CDT [facility] pH UA 5.0 5.0 - 8.0 pH 02/18/2014 8:03 PM CDT [facility] Protein UA Negative Negative 02/18/2014 8:03 PM CDT [facility] Blood UA 2+(A) Negative 02/18/2014 8:03 PM CDT [facility] Leukocyte UA Negative Negative 02/18/2014 8:03 PM CDT [facility] Nitrite UA Negative Negative 02/18/2014 8:03 PM CDT [facility] Glucose UA Negative Negative 02/18/2014 8:03 PM CDT [facility] Ketone UA Trace(A) Negative 02/18/2014 8:03 PM CDT [facility] Bilirubin UA Negative Negative 02/18/2014 8:03 PM CDT [facility] Urobilinogen UA 1.0 0.1 - 1.0 EU/dL 02/18/2014 8:03 PM CDT [facility] WBC UA Auto 0-2 0-2, 2-5 #/hpf 02/18/2014 8:03 PM CDT [facility] Epithelial Cell UA Auto 0-2 0-2, 2-5 #/hpf 02/18/2014 8:03 PM CDT [facility] Bacteria UA Auto None seen None seen 02/18/2014 8:03 PM CDT [facility] Hyaline Casts UA Auto 2-5(A) 0 - 2 #/lpf 02/18/2014 8:03 PM CDT [facility] Urine Microscopy Urine microscopy to follow 02/18/2014 8:03 PM CDT [facility] Urine URINE SPECIMEN OBTAINED BY CLEAN CATCH PROCEDURE / Unknown 02/18/2014 7:38 PM CDT 02/18/2014 7:45 PM CDT [facility] LAB - URINALYSIS ORD ERABLES Performing Organization Address City/[facility]/ZIP Co de Phone Number [facility] [address] [place] [address] * (ABNORMAL) URINALYSIS MICROSCOPIC ONLY (02/18/2014 7:38 PM CDT) RBC UA 0-2 0-2, 2-5 # /hpf 02/18/2014 8:19 PM CDT [facility] WBC UA 0-2 0-2, 2-5 # /hpf 02/18/2014 8:19 PM CDT [facility] Bacteria UA None Seen None Seen 02/18/2014 8:19 PM CDT [facility] Epithelial Cell UA 0-2 0-2, 2-5 02/18/2014 8:19 PM CDT [facility] Calcium Oxalate Crystals 1+(A) None Seen 02/18/2014 8:19 PM CDT [facility] Urine URINE SPECIMEN OBTAINED BY CLEAN CATCH PROCEDURE / Unknown 02/18/2014 7:38 PM CDT 02/18/2014 7:45 PM CDT Austin Macrina DO LAB - URINALYSIS ORD ERABLES Performing Organization Address City/[facility]/ZIP Co de Phone Number [facility] [address] [place] [address] * RPR (02/18/2014 7:38 PM CDT) RPR Nonreactive Nonreactive 02/19/2014 10:16 AM CDT [facility] Blood BLOOD SPECIMEN / Unknown 02/18/2014 7:38 PM CDT 02/19/2014 12:14 AM CDT Wolfgang Salamanca MD LAB - CHEMISTRY EDNA [place] Organization Address City/State/ZIP Co de Phone Number [facility] [address] [place] [address] * (ABNORMAL) DRUG SCREEN TOX URINE PANEL (02/18/2014 7:37 PM CDT) Amphetamines Screen Urine Not Detected Not Detected 02/18/2014 8:14 PM CDT [facility] Barbiturates Screen Urine Not Detected Not Detected 02/18/2014 8:14 PM CDT [facility] Benzodiazepines Screen Urine Not Detected Not Detected 02/18/2014 8:14 PM CDT [facility] Cannabinoids Screen Urine Detected(A) Not Detected 02/18/2014 8:14 PM CDT [facility] Cocaine Screen Urine Not Detected Not Detected 02/18/2014 8:14 PM CDT [facility] Methadone Screen Urine Not Detected Not Detected 02/18/2014 8:14 PM CDT [facility] Opiate Screen Urine Detected(A) Not Detected 02/18/2014 8:14 PM CDT [facility] Phencyclidine Screen Urine Not Detected Not Detected 02/18/2014 8:14 PM CDT [facility] Urine URINE / Unknown 02/18/2014 7 :37 PM CDT 02/18/2014 7:45 PM CDT Narrative [facility] - 02/18/2014 8:14 PM CDT This drug screen is designed for MEDICAL purposes only. It is not to be used for legal purposes, including but not limited to worker's comp, police investigations, occupational issues, child custody, etc. ??Any positive result is only presumptive and must be confirmed with a separate confirmatory test ordered by the physician. Drug Screening Test Cutoff Values: AMPHETAMINES ?1000 ng/ml BARBITURATES ? 200 ng/ml BENZODIAZEPINES ??200 ng/ml CANNABINOIDS(THC) 50 ng/ml COCAINE ?300 ng/ml METHADONE ?300 ng/ml OPIATES ?300 ng/ml PHENCYCLIDINE(PCP)25 ng/ml Austin Schrader DO LAB - URINE CHEMISTR Y ORDERABLES [facility] [address] [place] [address] Care Teams Ceramic Products Sales Engineer Relationship Specialty Start Date End Date Cruz Luciano MD [address] [place] [address] PCP - General Internal Medicine 12/16/22 Zack Nguyen MD [address] [facility] [place] [address] Internal Medicine 01/06/21
--- OUTSIDE RECORDS SUMMARY | 2024-07-10 09:41 | XMS_ITS | Referral Summary ---
Author Organization [facility] Address [address] [facility] [place] [address] Care Team Providers Care Operations Accountant Name Role Phone Zack Nguyen MD Unavailable Cruz Luciano MD Primary Care Provider [phone] [facility],non-owned Affiliates and Associated Physician Practices is amultiple site organization consisting of ambulatory clinics and hospital sitesin [place], [place], [place] and [place]. This disclosure is being madepursuant to the Care Everywhere program and may not contain all information available regarding this patient. Last updated 18.[facility] Allergies Active Allergy Reactions Criticality Noted Date Comments Aspirin Urticaria High 02/19/2014 Reaction: Hives, ?? Reaction: Hives, ?? Latex Urticaria Medium 09/27/2017 Sulfa Antibiotics Urticaria High 02/19/2014 Reaction: Hives, ?? Reaction: Hives, ?? Sulfa Drugs 02/19/2014 Sulfanilamide Urticaria Medium 03/10/2023 Reaction: Hives, Medications * Be aware that medications may not be up to date on this document. Alwaysverify current medications with the patient. Medication Sig Dispensed Refills Start Date End Date Status hydrocodone-acetami nophen (NORCO) 10-325 MG tabletIndications:M oderate to Moderately Severe Pain Take 1 (one) tablet by mouth every 4 hours as needed for Pain Reasons: Moderate to Moderately Severe Pain Active Sacubitril-Valsarta n (ENTRESTO PO) Active METOPROLOL SUCCINATE PO Active Sertraline HCl (ZOLOFT PO) Active Ferrous Zjdsjtoeq-T-Hobew Acid (IRON-C PO) Active fluticasone-umeclid in-vilant (Trelegy Ellipta) 200-62.5-25 MCG/ACT inhaler Inhale 1 (one) puff by mouth once daily Active CLONAZEPAM PO Active cyclobenzaprine (Flexeril) 10 MG tablet Take 1 (one) tablet by mouth as needed for Muscle Spasms Active VITAMIN D PO Active Probiotic Product (PROBIOTIC PO) Active Other tumeric curcumin Active Other MIX AND TAKE 1/2 TO 1 CAPFUL DAILY NEEDED FOR CONSTIPATION 06/24/2022 Active amoxicillin-clavula domenic (Augmentin) 875-125 MG tablet Take 1 tablet every 12 hours by oral route as directed for 10 days. 03/02/2023 Active Active Problems Problem Noted Date Diagnosed [...] Mass Index 18.72 12/31/2020 12:03 PM CDT Functional Status Functional Status Response Date of Assess ment Is person deaf or have serious hearing difficult y? No 02/19/2014 Is person blind or have serious difficulty seein g? No 02/19/2014 Does person have serious dif ficulty walking/climbing stairs? No 02/19/2014 Does person have difficulty dressing/bathing? No 02/19/2014 Does person have difficulty doing errands alone? No 02/19/2014 Cognitive Status Response Date of Assessm ent Does person have difficulty concentrating/remembering/making decisions? No 02/19/2014 Plan of Treatment Not on file Procedures Procedure Name Priority Date/Time Associated Diagnosis Comments HIV-1 HIV-2 ANTIBODY + HIV P24 AG PANEL Routine 02/21/2023 1:02 PM CDT EBV infection from Last 3 Months or Most Recently Relevant to Health Maintenance Results * HIV-1 HIV-2 ANTIBODY + HIV P24 AG PANEL (New on 10/20) (02/21/2023 1:02 PM CDT) HIV Antigen/Antibod y 1 & 2 Non-reacti ve Non-react mario 02/21/2023 2:43 PM CDT [facility] Comment:No Laboratory eviden ce of HIV infection. Blood BLOOD SPECIMEN / Unknown Lab Venipuncture / Unknown 02/21/2023 1:02 PM CDT 02/21/2023 1:21 PM CDT Aristides Velasco MD LAB - CHEMISTRY EDNA REYES [facility] [address] [place] [address] [phone] from Last 3 Months or Most Recently Relevant to Health Maintenance Advance Directives * Full Code (Latest Code Status on File) Date Activated Date Inactivated Comments 02/19/2014 12:04 AM 02/21/2014 4:03 PM Care Teams Operations Accountant Relationship Specialty Start Date End Date Cruz Luciano MD [address] [place] [address] PCP - General Internal Medicine 12/16/22 Zack Nguyen MD [address] [place] [address] Internal Medicine 01/06/21
--- OUTSIDE RECORDS SUMMARY | 2024-07-10 09:41 | XMS_ITS | Clinical Summary ---
Author Organization [facility] Address [address] [place] [address] Care Team Providers Care Geophysical Prospecting Surveyor Name Role Phone Zack Nguyen MD Unavailable Cruz Luciano MD Primary Care Provider [phone] Source Comments [facility],non-owned Affiliates and Associated Physician Practices is amultiple site organization consisting of ambulatory clinics and hospital sitesin [place], [place], [place] and [place]. This disclosure is being madepursuant to the Care Everywhere program and may not contain all information available regarding this patient. Last updated 18.[facility] Allergies Active Allergy Reactions Criticality Noted Date [...] Active Sertraline HCl (ZOLOFT PO) Active Ferrous Rctjtgcje-Z-Yjpnh Acid (IRON-C PO) Active fluticasone-umeclid in-vilant (Trelegy [...] Mass Index 18.72 12/31/2020 12:03 PM CDT Plan of Treatment Health Maintenance Due Date Last Done Comments COLOGUARD (AGES 45-75) - COL ON CA SCREENING 1971 COLON MONITORING 1971 COLONOSCOPY - COLON CA SCREENING 1971 CT COLONOGRAPHY - COLON CA SCREENING 1971 Colorectal Cancer Screening 1971 FIT - COLON CA SCREENING 1971 FLEX SIG - COLON CA SCREENING 1971 LIPID TESTING 1971 PAP SMEAR 1971 HEPATITIS C SCREENING 04/10/1989 DTAP/TDAP/TD VACCINES (1 - Tdap) 1990 HEPATITIS B VACCINE (1 of 3 - 19+ 3-dose series) 1990 PNEUMOCOCCAL VACCINE 50+ (1 of 2 - PCV) 1990 PNEUMOCOCCAL VACCINE (1 of 2 - PCV) 1990 MAMMOGRAM 03/18/2019 03/18/2017 LUNG CANCER SCREENING 2021 ZOSTER VACCINE (1 of 2) 2021 COVID-19 VACCINE (2 - 2023-2 5 season) 2024 06/23/2021 INFLUENZA VACCINE (#1) 2024 HIV SCREENING Completed 02/21/2023 HIB VACCINE Aged Out No longer eligi ble based on patient's age to complete this topic HPV VACCINE Aged Out No longer eligi ble based on patient's age to complete this topic MENINGOCOCCAL (Group B) VACCINE Aged Out No longer eligible based on patient's age to complete this topic MENINGOCOCCAL VACCINE Aged Out No rangel ghanshyam eligible based on patient's age to complete this topic Procedures Procedure Name Priority Date/Time Associated Diagnosis [...] ve Non-react mario 02/21/2023 2:43 PM CDT [facility] Comment:No Laboratory eviden ce of HIV infection. Blood BLOOD SPECIMEN / Unknown Lab Venipuncture / Unknown 02/21/2023 1:02 PM CDT 02/21/2023 1:21 PM CDT Aristides Velasco MD LAB - CHEMISTRY EDNA REYES [facility] [address] [place] [address], [facility] [phone] from Last 3 Months or Most Recently Relevant to Health Maintenance Advance Directives * Full Code (Latest Code Status on File) Date Activated Date Inactivated Comments 02/19/2014 12:04 AM 02/21/2014 4:03 PM Care Teams Geophysical Prospecting Surveyor Relationship Specialty Start Date End Date Cruz Luciano MD [address] [place] [address] PCP - General Internal Medicine 12/16/22 Zack Nguyen MD [address] [facility] [address] [place] [address] Internal Medicine 01/06/21
[2024-07-10 20:46] LABS: Estimated Glomerular Filt Rate > 60
== END 2024-07-10 09:00 | disposition home or self-care (01) ==
PROVIDERS: Visit Provider Otolaryngology
DX: J31.0 Chronic rhinitis (principal); J34.3 Hypertrophy of nasal turbinates; K14.8 Other diseases of tongue; K14.3 Hypertrophy of tongue papillae
CPT/HCPCS: 70491; Q9967

== ENCOUNTER 2024-08-08 00:30 | Day surgery (SDC) | payer OTHER, SELFPAY ==
[2024-07-30 09:42] VITALS: BMI 23.2
--- OUTSIDE RECORDS SUMMARY | 2024-08-08 00:33 | XMS_ITS | Encounter Summary ---
Author Organization [facility] Address [address] [place] [place] [address] Phone Care Team Providers Care Java Sql Developer Name Role Phone Cruz Luciano MD Primary Care Provider [phone] Aguilar Najera MD Unavailable [phone] Cruz Luciano MD Primary Care Provider [phone] Tanika Clay APRN, [facility] Primary Care Provide r Danilo Lyles MD Unavailable [phone] Cruz Luciano MD Primary Care Provider [phone] Encounter Details Date Type Department Care Team (Late st Contact Info) Description 04/27/2022 [facility] [address] [place] [address] Cruz Luciano MD [address] [place] [address] Social History Tobacco Use Types Packs/Day [...] 10:45 AM CDT Office Visit [facility] [address] [place] [phone] Angelique Walker Elvie, PAC [address] [place] [address] Discharge Disposition: Discharged to home or Selfcare documented as of this encounter Visit Diagnoses Not on filedocumented in this encounter Care Teams Java Sql Developer Relationship Specialty Start Date End Date Cruz Luciano MD PCP - General Internal Medicine 03/11/22 10/12/22 Cruz Luciano MD [address] [place] [address] PCP - General Internal Medicine 10/19/22 11/09/22 Tanika Clay, MOTTLE LAY UP OPERATOR, ASSISTANT PRINTER FLOOR COVERING [address] [place] [address] PCP - General Advanced Practice Nurse 11/10/22 01/11/24 Cruz Luciano MD [address] [place] [address] PCP - General Orthopaedic Surgery 01/12/24 Aguilar Najera MD [address] [address] Consulting Physician Urology 03/18/22 Danilo Lyles MD [address] [place] [address] Consulting Physician Medical Oncology 04/27/23 documented as of this encounter
--- OUTSIDE RECORDS SUMMARY | 2024-08-08 00:33 | XMS_ITS | Encounter Summary ---
Author Organization [facility] Address [address] [place] [address] Care Team Providers Care Tile Shader Name Role Phone Katey Markham NP Primary Care Provider [phone] Katey Markham ELECTRIC MOTOR ASSEMBLER AND TESTER Primary Care Provider [phone] Katey Markham NP Unavailable [phone] Cruz Luciano MD Primary Care Provider + Katey Markham NP Primary Care Provider [phone] Katey Markham NP Primary Care Provider [phone] Cruz Luciano MD Primary Care Provider + Alia Fuller ELECTRIC MOTOR ASSEMBLER AND TESTER Unavailable [phone] Tanika Clay ELECTRIC MOTOR ASSEMBLER AND TESTER Unavailable [phone] Aguilar Najera MD Unavailable [phone] Beau Stone ELECTRIC MOTOR ASSEMBLER AND TESTER Unavailable [phone] Pearl York DO Unavailable [phone] Katey Markham NP Primary Care Provider [phone] Katey Markham NP Primary Care Provider [phone] Encounter Details Date Type Department Care Team (Late st Contact Info) Description 09/04/2021 Telephone [facility] [address] [place] [address] Arcelia Pollard, RT Social History Tobacco Use Types Packs/Day Years Used Date Smoking Tobacco: Every Day Cigarettes Smokeless Tobacco: Never Comments:4 per day Alcohol Use Standard Drinks/Week Comments No 0 (1 standard drink = 0.6 oz pur e alcohol) Comments No Sex and Gender Information Value Date Recorded Sex Assigned at Not on file Legal Sex Female 8:57 AM SAW SHARPENER Gender Identity Female 09/01/2023 3:49 PM CDT Sexual Orientation Straight 09/01/2023 3: 49 PM CDT documented as of this encounter Plan of Treatment Not on file documented as of this encounter Visit Diagnoses Not on filedocumented in this encounter Additional Health Concerns Infection Onset Date Last Indicated Resolved Time Diarrhea 07/11/2023 07/11/2023 07/25/2023 3:05 AM SAW SHARPENER documented as of this encounter Care Teams Tile Shader Relationship Specialty Start Date End Date Katey Markham NP PCP - General 03/06/21 09/25/21 Katey Markham NP PCP - General 09/26/21 12/22/21 Cruz Luciano MD [address] [place] [address] [place] [address] PCP - General Internal Medicine 12/23/21 12/27/21 Katey Markham NP PCP - General 12/28/21 12/28/21 Katey Markham NP PCP - General 12/29/21 01/13/22 Cruz Luciano MD [address] [place] [address] [place] [address] PCP - General Internal Medicine 01/14/22 10/03/23 Katey Markham, ELECTRIC MOTOR ASSEMBLER AND TESTER [address] [place] [address] [address] [place] [address] PCP - General Internal Medicine 10/04/23 10/04/23 Katey Markham, ELECTRIC MOTOR ASSEMBLER AND TESTER [address] [place] [address] [address] [place] [address] PCP - General Internal Medicine 10/12/23 Katey Markham, ELECTRIC MOTOR ASSEMBLER AND TESTER 09/26/21 Alia Fuller, ALKA [address] [place] [address] [place] [address] Nurse Practitioner Family Medicine 09/28/22 Tanika Clay, ALKA [address] [place] [address] [place] [address] Nurse Practitioner Nurse Practitioner 09/28/22 [place] [address] [place] [address] Consulting Physician Urology 09/28/22 Beau Stone, ALKA [address] [place] [address] Nurse Practitioner Family Practice 09/28/22 Pearl York DO [address] [place] [address] [address] [place] [address] Consulting Physician Otolaryngology 09/28/22 documented as of this encounter
--- OUTSIDE RECORDS SUMMARY | 2024-08-08 00:33 | XMS_ITS | Clinical Summary ---
Author Organization [facility] Address [address] [place] [address] Phone Care Team Providers Care Cotton Gin Yard Supervisor Name Role Phone ADELE VALENTINE MD Primary Care Provider [phone] MARYLU LUZ MD Unavailable [phone] Reason for Visit and Chief Complaint [Patient Encounter] Problems Includes: Problems addressed during this encounter and other active Problems All Visits Onset Date Resolved Date Provider Condition S tatus Hyperlipidemia 11/21/2020 HATTIE Ruth NELI NP-BC Active Last Documented On 1 1:46PM ; [facility] Hypertension Systemic 11/21/2020 HATTIE Miranda QUINTEROS NP-BC Active Last Documented On 1 1:48PM ; [facility] Risk: Tobacco Use 11/21/2020 HATTIE QUINTEROS NP -BC Active Last Documented On 1 1:29PM ; [facility] Plan of Treatment No [...] 11/25/2020 11:04AM By Carmencita Moss MA ; [facility] HYDROcodone-Acetaminophen 5-325 MG Oral Tablet 021 Provider: Diagnosis: Last Documented On 11/21/2020 1:38PM By Carmencita Moss MA ; [facility] clonazePAM 0.5 MG Oral Tablet 11/21/2020 Provider: Diagnosis: Last Documented On 11/21/2020 1:38PM By Carmencita Moss MA ; [facility] Cyclobenzaprine HCl 5 MG Oral Tablet 11/21/2020 Prov ider: Diagnosis: Last Documented On 11/21/2020 1:39PM By Carmencita Moss MA ; [facility] Adult Probiotic Oral Capsule 11/21/2020 Provider : Diagnosis: Last Documented On 11/21/2020 1:39PM By Carmencita Moss MA ; [facility] Turmeric Curcumin 500 MG Oral Capsule 11/21/2020 Provider: Diagnosis: Last Documented On 11/21/2020 1:39PM By Carmencita Moss MA ; [facility] Calcium/Vitamin D 500-200 MG-UNIT Oral Tablet 11/22/19 Provider: Diagnosis: Last Documented On 11/21/2020 1:40PM By Carmencita Moss MA ; [facility] Montelukast Sodium 10MG Oral Tablet 03/14/2018 Provi duyen: Diagnosis: Last Documented On 8 4:57PM By MAYRA RODRIGUEZ ; [facility] Medications Administered Includes: Administered [...] ctive Last Documented On 1 11:42AM ; [facility] Latex Allergy 03/14/2018 Active Last Documented On 1 11:42AM ; [facility] Aspirin Allergy 03/14/2018 Active Last Documented On 1 11:42AM ; [facility] Encounters Encounter Provider Location Date Check-In Time Check- Out Time Diagnosis [Patient Encounter] HATTIE QUINTEROS [facility] 2 12:29PM 11:59PM Insurance Includes: Active Insurance Policies Plan Name Member ID Group # Subscriber Relationship Effect mario Dates 1 - [facility] [id number] ALEX ARRIAGA Self Clinical Notes Includes: Clinical Notes from this encounter No Clinical Notes Recorded
--- OUTSIDE RECORDS SUMMARY | 2024-08-08 00:33 | XMS_ITS ---
Author Organization [facility] Address [address] [place] [address] Care Team Providers Care Mural Artist Name Role Phone Amanda Wong Primary Care Provider Gonzalo Dorado [phone] REASON FOR VISIT therapy Social History Sex Assigned At : Social History Observation Description Sex Assigned At Female Encounters Encounter Location Date Provider Diagnosis [facility] [address] [place] [address] 07/23/2024 Gonzalo Dorado Major depressive disorder, severe F32.2 and PTSD (post-traumatic stress disorder) F43.10 Assessments Encounter Date Diagnosis (ICD Code) Assessment Notes Treatment Notes Treatment Clinical Notes Section Notes 07/23/2024 Major depressive disorder, severe (ICD-10 - F32.2) 07/23/2024 PTSD (post-traumatic stress disorder) (ICD-10 - F43.10) Plan Of Treatment Next Appt Details Follow Up: 2 Weeks, Reason: Provider Name:Gonzalo estrada, 08/20/2024 04:00:00 PM, [address], [place], [address], Progress Notes * Jaclyn ARRIAGAOB:[birth year] (54 yo F)Acc No.[id number]:07/23/2024 Patient: Ceasar Jessica LYNN Provider: Brandt Dorado :1970 A ge:54 Y S ex:Female Date:07/23/2024 Address:[address] [place] [address] [place], [id number] Pcp:Amanda Wong Subjective: * Chief Complaints: * T herapy * HPI: B ehavioral Health Treatment: Call Center Operations Manager met with client for scheduled therapy session. Client shared with production underwriter how she's been doing over the past few weeks, client feels she's been making really great progress but has also been getting upset with self due to various dreams over past situations or past decisions made recently. Client feels this indicates she's not moved on and is still stuck in suffering with was has been done. Call Center Operations Manager challenged this notion, instead reframing it as that client may now feel safe enough to think and process these situations more than she has in the past. Call Center Operations Manager and client again discussed that our thoughts are not automatic truths we believe, but instead are the cultimation of many different factors, its what we do following these thoughts that can give more insight on how we really feel and believe. * Medical History: * Medications: Objective: * Vitals: * Examination: G eneral Examination: D taye today's sessionDuring session, production underwriter utilized Person-Centered Therapy techniques with unconditional positive regard, empathy, reflection, validation, active listening & summarizing. Call Center Operations Manager addressed mental health symptoms and discussed patterns of behaviors and their outcomes. Assessment: * Assessment: 1. M ajor depressive disorder, severe - F32.2 (Primary) 2 . P TSD (post-traumatic stress disorder) - F43.10 Plan: * Treatment: * Procedure Codes: 9 0837 PSYTX PT&/FAMILY 60 MINUTES, Modifiers: AJ * Follow Up: 2 Weeks * * LANE CAPTAIN Electronically co-signed by Amanda Almeida LCSW, [id number] on 07/31/2024 at 11:51 AM AIRPLANE CAPTAIN Sign off status: Completed true * Provider: Brandt Dorado Date: 0 07/23/2024 Generated for Josefa stephens/Armando/Anca on: 0 08/08/2024 12:33 AM AIRPLANE CAPTAIN History and Physical Notes * Examination Category Sub-Category Detail Notes Category Not es General Examination During nancy espinoza's session During session, production underwriter utilized Person-Centered Therapy techniques with unconditional positive regard, empathy, reflection, validation, active listening & summarizing. Call Center Operations Manager addressed mental health symptoms and discussed patterns of behaviors and their outcomes.
--- OUTSIDE RECORDS SUMMARY | 2024-08-08 00:33 | XMS_ITS ---
Author Organization [facility] Address [address] [place] [address] Care Team Providers Care Transition Of Care Specialist Name Role Phone Amanda Wong Primary Care Provider Gonzalo Dorado REASON FOR VISIT Therapy Social History Sex Assigned At : Social History Observation Description Sex Assigned At Female Encounters Encounter Location Date Provider Diagnosis [facility] [address] [place] [address] 08/06/2024 Gonzalo Dorado Plan Of Treatment Next Appt Details Provider Name:Gonzalo estrada, 08/20/2024 04:00:00 PM, [address], [place], [address], Progress Notes * BARTTiburcioStaceyOB:[birth year]06 (54 yo F)Acc No.[id number]:08/06/2024 UNLOCKED PROGRESS NOTE Patient: Jessica GRIMALDO Provider: Brandt Dorado :1970 A ge:54 Y S ex:Female Date:08/06/2024 Address:[address] [facility] Pcp:Amanda Wong Subjective: * Chief Complaints: * 1 . Therapy. * Medical History: Objective: * Vitals: Assessment: Plan: * Treatment: * * Electronic signature of Citlaly Dorado on 08/08/2024 at 12:33 AM HAZMAT CDL A DRIVER Sign off status: Pending * Provider: Brandt Dorado Date: 0 08/06/2024 Generated for Josefa stephens/Armando/Anca on: 0 08/08/2024 12:33 AM HAZMAT CDL A DRIVER
--- OUTSIDE RECORDS SUMMARY | 2024-08-08 00:34 | XMS_ITS | Continuity of Care Document ---
Author Organization [facility] Address [address] [place] [address] Phone Care Team Providers Care Director Of Supply Chain Name Role Phone Kwabena Thorne DO Unavailable Unavailable Allergies, Adverse Reactions, Alerts Substance Reaction Status Criticality Sulfa (Sulfonamide Antibiotics) Other Active No Information aspirin Other Active No Information Medications Medication Instructions Dosage Effective Dates (start - stop) Status Comments CLONIDINE HCL 0.1 MG TABLET 1 DAILY - Active ROZEREM 8 MG TABLET 1 QHS - Active TRAMADOL HCL 50 MG TABLET 1 QID - No Longer Active VALIUM 5MG TABS 1 Q 12HR - No Longer Active VICODIN 5MG-500MG TABS 1 Q 4HR - No Longer Active METHOCARBAMOL 750MG TABS 2 TID - No Longer Active SELENIUM SULFIDE 2.5% APPLICS 1 DIRECTE - No Longer Active NIZORAL 2% APPLICS 1 QD-daily No Longer Active Advance Directives Directive Yes / No Effective Date File Name No Information Encounters Encounter Description Practice Location Reason(s) For Visit Diagnoses Date Provider Providers Copied on Encounter [facility], [address], [place], [place], [id number], [place] tel:[phone] [facility] No Information 1 Fadumo Yuan. [address] [facility], [place] [address], [place], [place], [address] , . tel:[phone] [facility], [address], [place], [place], [address], [place] tel:[phone] Kathleen DYSURIA [address]. [address] [facility] [facility] [address], [place], [place], [id number] , [place]. tel: [phone] [facility], [address], [place], [place], [address], [place] tel:[phone] Kathleen SPINA BIFIDA OCCULTAACUTE PHARYNGITISDRUG ABUSE NEC-UNSPEC [address]. [address] [facility] [facility] [address], [place], [place], [address] , [place]. tel: [phone] [facility], [address], [place], [place], [address], tel:[phone] Kathleen HEMATURIA NOSDRUG WITHDRAWALLUMBAGO [address]. [address] [facility] [facility] [address], [place], [place], [address] , [place]. tel: [phone] [facility], [address], [place], [place], [address], [place] tel:[phone] Amanda ACUTE URI NOS [address]. [address] [facility] [address], [place], [place], [address] , [place]. tel: [phone] [facility], [address], [place], [place], [address], [place] tel:[phone] Amanda CONSTIPATION NOSMIXED HYPERLIPIDEMIA [address]. [address] [facility] [address], [place], [place], [id number] , [place]. tel: [phone] [facility], [address], [place], [place], [address], [place] tel:[phone] Amanda SPRAIN LUMBAR REGION 0 [address]. [address] , [facility] [address], [place], [place], [address] , [place]. tel: [phone] [facility], [address], [place], [place], [address], [place] tel:[phone] Amanda ROUTINE MEDICAL EXAM [address]. [address] [facility] [address], [place], [place], [address] , . tel: [phone] [facility], [address], [place], [place], [address], tel:[phone] Amanda PITYRIASIS VERSICOLOR [address]. [address] [place] [address], [id number] , . tel: [phone] [facility], [address], [place], [place], [address], tel:[phone] [facility] No Information [address] [place] [address], [id number] , . tel: [phone] Family History Family Member Type Diagnosis Age At Onset No Information Payers Payer name Insurance type Covered republican ID Authoriza tikitty(s) No Information Social History Type Description Quantity Date Captured Comments Sex Female Smoking Status No Information Chief Complaint And Reason For Visit No Information Reason For Referral Reason For Referral No Information History Of Present Illness Encounter Date Complaint History Of Prese nt Illness No Information Functional Status Date Functional Assessmen t No Information Instructions Date Instruction Additional Infor mation No Information Assessments Type Assessment Date No Information Patient Care Teams Name Effective Dates (start - stop) Status Members No Information
--- OUTSIDE RECORDS SUMMARY | 2024-08-08 00:34 | XMS_ITS | Clinical Summary ---
Author Organization [facility] Address [address] [place] [address] Phone Care Team Providers Care Cytology Teacher Name Role Phone ADELE VALENTINE MD Primary Care Provider [phone] MARYLU LUZ MD Unavailable [phone] Reason for Visit and Chief Complaint * PHONE CALL Problems Includes: Problems addressed during this encounter and other active Problems All Visits Onset Date Resolved Date Provider Condition S tatus Hyperlipidemia 11/21/2020 HATTIE A NELI NP-BC Active Last Documented On 1 1:46PM ; [facility] Hypertension Systemic 11/21/2020 HATTIE QUINTEROS NP-BC Active Last Documented On 1 1:48PM ; [facility] Risk: Tobacco Use 11/21/2020 HATTIE QUINTEROS NP -BC Active Last Documented On 1 1:29PM ; [facility] Plan of Treatment No Plan [...] 11/25/2020 11:04AM By Carmencita Moss MA ; [facility] HYDROcodone-Acetaminophen 5-325 MG Oral Tablet 021 Provider: Diagnosis: Last Documented On 11/21/2020 1:38PM By Carmencita Moss MA ; [facility] clonazePAM 0.5 MG Oral Tablet 11/21/2020 Provider: Diagnosis: Last Documented On 11/21/2020 1:38PM By Carmencita Moss MA ; [facility] Cyclobenzaprine HCl 5 MG Oral Tablet 11/21/2020 Prov ider: Diagnosis: Last Documented On 11/21/2020 1:39PM By Carmencita Moss MA ; [facility] Adult Probiotic Oral Capsule 11/21/2020 Provider : Diagnosis: Last Documented On 11/21/2020 1:39PM By Carmencita Moss MA ; [facility] Turmeric Curcumin 500 MG Oral Capsule 11/21/2020 Provider: Diagnosis: Last Documented On 11/21/2020 1:39PM By Carmencita Moss MA ; [facility] Calcium/Vitamin D 500-200 MG-UNIT Oral Tablet 11/22/19 Provider: Diagnosis: Last Documented On 11/21/2020 1:40PM By Carmencita Moss MA ; [facility] Montelukast Sodium 10MG Oral Tablet 03/14/2018 Provi duyen: Diagnosis: Last Documented On 8 4:57PM By MAYRA RODRIGUEZ ; [facility] Medications Administered Includes: Administered Medications [...] 1 11:42AM ; [facility] Latex Allergy 03/14/2018 Active Last Documented On 1 11:42AM ; [facility] Aspirin Allergy 03/14/2018 Active Last Documented On 1 11:42AM ; [facility] Encounters Encounter Provider Location Date Check-In Time Check-Out Time Diagnosis * PHONE CALL MARYLU LUZ MD 04/10/2018 11:15AM 11:59PM Insurance Includes: Active Insurance Policies Plan Name Member ID Group # Subscriber Relationship Effect mario Dates 1 - [facility] [id number] ALEX ARRIAGA Self Clinical Notes Includes: Clinical Notes from this encounter No Clinical Notes Recorded
--- OUTSIDE RECORDS SUMMARY | 2024-08-08 00:34 | XMS_ITS ---
Author Organization [facility] Address [address] [place] [address] Care Team Providers Care Vascular Ultrasound Technologist Name Role Phone Amanda Wong Primary Care Provider Gonzalo Dorado REASON FOR VISIT therapy Social History Sex Assigned At : Social History Observation Description Sex Assigned At Female Encounters Encounter Location Date Provider Diagnosis [facility] [address] [place] [address] 07/06/2024 Gonzalo Dorado Plan Of Treatment Next Appt Details Provider Name:Gonzalo estrada, 08/20/2024 04:00:00 PM, [address], [place], [address], Progress Notes * Jaclyn ARRIAGAOB:[birth year] (54 yo F)Acc No.[id number]:07/06/2024 UNLOCKED PROGRESS NOTE Patient: Tiburcio GRIMALDOie Provider: Brandt Dorado :1970 A ge:54 Y S ex:Female Date:07/06/2024 Address:[address] [place], [id number] Pcp:Amanda Wong Subjective: * Chief Complaints: Objective: Assessment: Plan: * Treatment: * Care Plan Details* * Electronic signature of Citlaly Dorado on 08/08/2024 at 12:34 AM ENGINEERING MATHEMATICIAN Sign off status: Pending * Provider: Brandt Dorado Date: 0 07/06/2024 Generated for Josefa stephens/Armando/Anca on: 0 08/08/2024 12:34 AM ENGINEERING MATHEMATICIAN
--- OUTSIDE RECORDS SUMMARY | 2024-08-08 00:34 | XMS_ITS | Clinical Summary ---
Author Organization [facility] Address [address] [place] [address] Phone Care Team Providers Care Santa'S Helper Name Role Phone ADELE AVLENTINE MD Primary Care Provider [phone] MARYLU CHRISTOPHER MD Unavailable [phone] Reason for Visit and Chief [...] Active Last Documented On 1 1:46PM ; [facility] Hypertension Systemic 11/21/2020 HATTIE QUINTEROS WHNP-BC Active Last Documented On 1 1:48PM ; [facility] Risk: Tobacco Use 11/21/2020 HATTIE QUINTEROS WHNP -BC Active Last Documented On 1 1:29PM ; [facility] Plan of Treatment - Follow-up visit 1 year or as needed - Last Documented On 11/21/2020 2:02PM ; [facility] - Clinical summary provided to patient - Last Documented On 11/21/2020 2:02PM ; [facility] Jessica really feels that her pelvic pain has something to do with the laparoscopic removal of Paragard IUD with Dr. Christopher in 2018. She has had this pain since then. Will schedule consult with him to discuss . ER/pain precautions reviewed. Will check FSH today and consider provera challenge if not menopausal. - Last Documented On 11/21/2020 2:02PM ; [facility] Pending Tests Order Diagnosis Results Due Ordering Rafa oleary Radiology @ other - *MAMMOGRAPHY SCREENING MAMMOGRAM Encntr screen mammogram for malignant neoplasm of breast 12/05/20 HATTIE Ruth QUINTEROS WHNP-BC Last Documented On 2 8:55AM ; [facility] Instructions to patient Instructions for patient : B reast Self Exam discussed Last Documented On 1 1:01PM ; [facility] Intervention and counseling on cessation of tobacco use : Patient recieved smoking cessation handout Last Documented On 1 1:42PM ; [facility] Education and Decision Aids were provided during visit for: Patient Education: Daily iesha cium and vitamin D Last Documented On 1 1:01PM ; [facility] Patient Education: weight be aring exercise Last Documented On 1 1:01PM ; [facility] Smoking cessation advised Last Documented On 1 1:30PM ; [facility] Assessments Includes: Assessments from this encounter Findings - Hypertension [I10 - Essential (primary) hypertension] - Last Documented On 11/21/2020 2:02PM ; [facility] - NORMAL FEMALE EXAM [Z01.419 - Encounter for gynecological examination (general) (routine) without abnormal findings] - Last Documented On 11/21/2020 2:02PM ; [facility] - Hyperlipidemia - Last Documented On 11/21/2020 2:02PM ; [facility] - Screening Malig. Neoplasm Rectum [Z12.12 - Encounter for screening for malignant neoplasm of rectum] - Last Documented On 11/21/2020 2:02PM ; [facility] Instructions Includes: Instructions from this encounter Instructions to patient Instructions for patient : B reast Self Exam discussed Last Documented On 1 1:01PM ; [facility] Intervention and counseling on cessation of tobacco use : Patient recieved smoking cessation handout Last Documented On 1 1:42PM ; [facility] Education and Decision Aids were provided during [...] 1.7 Last Documented: On 11/21/2020 1:36PM ; [facility] Results Includes: Results discussed during [...] 1 Last Documented On 1 2:02PM ; [facility] Current smoker 11/21/2020 Last Documented On 1 2:02PM ; [facility] Does not have anal sex 11/21/2020 Last Documented On 1 2:02PM ; [facility] Does not have vaginal sex. 11/21/2020 Last Documented On 1 2:02PM ; [facility] Has not used injectable drugs 11/21/2020 Last Documented On 1 2:02PM ; [facility] Has sex with males only 11/21/2020 Last Documented On 1 2:02PM ; [facility] Have you ever had sex (vaginal or penis in anus or rectum)? 11/21/2020 Last Documented On 1 2:02PM ; [facility] No consumption of alcohol 11/21/2020 Last Documented On 1 2:02PM ; [facility] No drug use by a sexual partner 11/22/19 Last Documented On 1 2:02PM ; [facility] Not using drugs 11/21/2020 Last Documented On 1 2:02PM ; [facility] Partner has not had a [...] 4000F Last Documented On 1 1:42PM ; [facility] use of tobacco assessment performed 1000F Last Documented On 1 1:42PM ; [facility] review of medications documented 1160F Last Documented On 1 1:42PM ; [facility] colonoscopy fiberoptic was performed 02-07-2018 - normal pathology 71971 Last Documented On 1 1:43PM ; [facility] fecal occult blood test was negative 50545 Last Documented On 1 1:01PM ; [facility] a transvaginal ultrasound of the uterus is abnormal + fibroid - 2.1 cm at largest dimension 94391 Last Documented On 1 1:40PM ; [facility] no uterine enlargement Last Documented On 1 1:40PM ; [facility] mass lesion of the uterus see above Last Documented On 1 1:40PM ; [facility] a transvaginal [place] ovaries [place] norm al 98945 Last Documented On 1 1:40PM ; [facility] no enlargement of the right ovary Last Documented On 1 1:40PM ; [facility] no enlargement of the left ovary Last Documented On 1 1:40PM ; [facility] no mass on the right ovary Last Documented On 1 1:40PM ; [facility] no mass on the left ovary Last Documented On 1 1:40PM ; [facility] screening mammogram was performed 1 yr ago 26815 Last Documented On 1 1:30PM ; [facility] endometrium thickness 4.0 mm Last Documented On 1 1:40PM ; [facility] the cul-de-sac had no fluid present [...] 11/21/2020 Last Documented On 1 2:02PM ; [facility] Aborta 2 11/21/2020 Last Documented On 1 2:02PM ; [facility] 6 11/21/2020 Last Documented On 1 2:02PM ; [facility] History of colonoscopy fiberoptic was pe rformed 2018 11/21/2020 Last Documented On 1 2:02PM ; [facility] LMP: 08/27/2020 11/21/2020 Last Documented On 1 2:02PM ; [facility] # 1 Anesthesia: Local only 11/21/2020 Last Documented On 1 2:02PM ; [facility] # 1 Delivery date: [birth year] 11/21/2020 Last Documented On 1 2:02PM ; [facility] # 1 Hours in labor ??? 11/21/2020 Last Documented On 1 2:02PM ; [facility] # [facility] Sex: Male 11/21/2020 Last Documented On 1 2:02PM ; [facility] # 1 type delivery: Vaginal 11/21/2020 Last Documented On 1 2:02PM ; [facility] # 1 Weeks: 38 weeks 11/21/2020 Last Documented On 1 2:02PM ; [facility] # 1 Weight [id number] 11/21/2020 Last Documented On 1 2:02PM ; [facility] # 2 type delivery: Vaginal 11/21/2020 Last Documented On 1 2:02PM ; [facility] # 2 Anesthesia: Local 11/21/2020 Last Documented On 1 2:02PM ; [facility] # 2 Complications: None 11/21/2020 Last Documented On 1 2:02PM ; [facility] # 2 Delivery date: [birth year] 11/21/2020 Last Documented On 1 2:02PM ; [facility] # 2 Hours in labor: ??? 11/21/2020 Last Documented On 1 2:02PM ; [facility] # 2 Sex: Female 11/21/2020 Last Documented On 1 2:02PM ; [facility] # 2 Weeks: 40 weeks 11/21/2020 Last Documented On 1 2:02PM ; [facility] # 2 Weight: 7lbs 11oz 11/21/2020 Last Documented On 1 2:02PM ; [facility] #1 Complications None 11/21/2020 Last Documented On 1 2:02PM ; [facility] Anemia 11/21/2020 Last Documented On 1 2:02PM ; [facility] Asthma 11/21/2020 Last Documented On 1 2:02PM ; [facility] Breast problems 11/21/2020 Last Documented On 1 2:02PM ; [facility] Elective (s) 2 11/21/2020 Last Documented On 1 2:02PM ; [facility] Exercise 11/21/2020 Last Documented On 1 2:02PM ; [facility] No of miscarriages: 0 11/21/2020 Last Documented On 1 2:02PM ; [facility] No previous STD 11/21/2020 Last Documented On 1 2:02PM ; [facility] No. of Pregnancies: 6 11/21/2020 Last Documented On 1 2:02PM ; [facility] Please list all surgeries: K nee surgery, breast surgery x3hand surgery/tendon transfer 11/21/2020 Last Documented On 1 2:02PM ; [facility] Previous live (s) 4 11/21/2020 Last Documented On 1 2:02PM ; [facility] Previous premature delivery(s) 0 021 Last Documented On 1 2:02PM ; [facility] Received all 3 doses of Hepatitis B vacc ine 11/21/2020 Last Documented On 1 2:02PM ; [facility] Reported Pneumococcal Vaccine Last year 11/21/2020 Last Documented On 1 2:02PM ; [facility] A colonoscopy was performed 02/2018 at [facility] 11/21/2020 Last Documented On 1 2:02PM ; [facility] Last mammogram date: 09/23/2017 1 Last Documented On 1 2:02PM ; [facility] Last pap smear date years ago 11/21/2020 Last Documented On 1 2:02PM ; [facility] Not sexually active not since 04/30/17 0 11/21/2020 Last Documented On 1 2:02PM ; [facility] Para 4 11/21/2020 Last Documented On [...] 03/14/2018 Last Documented On 1 1:30PM ; [facility] First child named 07/15/[birth year] male 6# 4oz vag inal 03/14/2018 Last Documented On 1 1:30PM ; [facility] Fourth child named 11/12/2005 female 6# 14 oz vaginal 03/14/2018 Last Documented On 1 1:30PM ; [facility] Second child named 02/17/90 female 7# 6oz vaginal 03/14/2018 Last Documented On 1 1:30PM ; [facility] Third child named 06/01/[birth year] male 8# 1oz v aginal 03/14/2018 Last Documented On 1 1:30PM ; [facility] Family history of hypertension pt [...] ctive Last Documented On 1 11:42AM ; [facility] Latex Allergy 03/14/2018 Active Last Documented On 1 11:42AM ; [facility] Aspirin Allergy 03/14/2018 Active Last Documented On 1 11:42AM ; [facility] Encounters Encounter Provider Location Date Check-In Time Check-Out Time Diagnosis WELL WOMAN - NEW PATIENT HATTIE QUINTEROS [facility] 11/22/19 21 1:24PM 2:01PM Screening Malig. Neoplasm Rectum,Normal Female Exam,Hyperten karly Systemic,Hype rlipidemia Insurance Includes: Active Insurance Policies Plan Name Member ID Group # Subscriber Relationship Effect mario Dates 1 - [facility] [id number] JESSICA ARRIAGA Self Clinical Notes Includes: Clinical Notes from this encounter No Clinical Notes Recorded
--- OUTSIDE RECORDS SUMMARY | 2024-08-08 00:34 | XMS_ITS | Encounter Summary ---
Author Organization [facility] Address [address] [place] [address] Care Team Providers Care Lacemaker Name Role Phone Katey Markham NP Unavailable [phone] Alia Fuller SALT CUTTER Unavailable Tanika Clay NP Unavailable Aguilar Najera MD Unavailable [phone] Beau Stone SALT CUTTER Unavailable [phone] Pearl York DO Unavailable [phone] Katey Markham NP Primary Care Provider [phone] Encounter Details Date Type Department Care Team (Late st Contact Info) Description 08/01/2024 Results Follow-Up [facility] at [address] [place] [id number] Alia Fuller NP [address] [place] [address] [address] [place] [address] Social History Tobacco Use Types Packs/Day Years Used Date Smoking Tobacco: Some Days Cigarettes 0.5 37.3 Started: 1985; Last attempted to quit: 03/2022 Vaping Smokeless Tobacco: Never Comments:4 per day Alcohol [...] on file Legal 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 Gender Identity Female 09/01/2023 3:49 PM CDT Sexual Orientation Straight 09/01/2023 3: 49 PM CDT documented as of this encounter Plan of Treatment Not on file documented as of this encounter Visit Diagnoses Not on filedocumented in this encounter Care Teams Lacemaker Relationship Specialty Start Date End Date Katey Markham NP [address] [place] [address] [address] TR[address] Jeronimo [address] [address] PCP - General Internal Medicine 10/12/23 Katey Markham NP 09/26/21 Alia Fuller NP Nurse Practitioner Family Medicine 09/28/22 Tanika Clay NP Nurse Practitioner Nurse Practitioner 09/28/22 [place] [address] [place] [address] Consulting Physician Urology 09/28/22 [place] [address] [place] [address] Nurse Practitioner Family Practice 09/28/22 Pearl York DO [address] [facility] [address] [address] Consulting Physician Otolaryngology 09/28/22 documented as of this encounter
--- OUTSIDE RECORDS SUMMARY | 2024-08-08 00:34 | XMS_ITS | Clinical Summary ---
Author Organization [facility] Address [address] [place] [address] Phone Care Team Providers Care Inspector Barrel Name Role Phone Agiular Najera MD Unavailable [phone] Danilo Lyles MD Unavailable [phone] Cruz Luciano MD Primary Care Provider [phone] Allergies Active Allergy Reactions Criticality Noted Date [...] 96 01/20/2024 9:09 AM CDT Temperature 36.6 C (97.9 F) 12/15/2023 10:07 AM CDT Respiratory Rate 20 01/20/2024 9:09 AM CDT [...] 12/17/2024 10:45 AM CDT Office Visit [facility] [address] [place] [address] Angelique Walker Elvie, PAC [address] [place] [address] Discharge Disposition: Discharged to home or Selfcare Health Maintenance Due Date Last Done Comments Hepatitis C Virus (HCV) Screening 1971 Hepatitis B Immunization (1 of 3 - 19+ 3-dose series) 1990 Pneumococcal Immunization (50+ years) (1 of 2 - PCV) 1990 Pap Smear 1992 Cervical Cancer Screening (CCS) 2001 HPV/Cotest 2001 Cologuard 2021 Zoster Immunization (1 of 2) 2021 Mammogram 01/22/2023 01/22/2022, 01/04, 03/18/2017 Lung Cancer Screening 08/11/2023 08/10/2022 , 08/10/2022, 03/27/2022, Additional history exists Influenza Immunization (#1) 2024 SARS-COV-2 Immunization ( [...] this topic Insurance MEDICAID [place] Care Teams Inspector Barrel Relationship Specialty Start Date End Date Cruz Luciano MD [address] [place] [address] PCP - General Orthopaedic Surgery 01/12/24 Aguilar Najera MD [address] [address] Consulting Physician Urology 03/18/22 Danilo Lyles MD [address] [place] [address] Consulting Physician Medical Oncology 04/27/23
--- OUTSIDE RECORDS SUMMARY | 2024-08-08 00:34 | XMS_ITS | Patient Health Record ---
Author Organization [facility] Address [address] [place] [address] Care Team Providers Care Sales Communications Manager Name Role Phone Marvin Amanda Primary Care Provider [phone] Amanda Almeida Unavailable [phone] Gonzalo Dorado Unavailable Allergies Allergen (clinical drug ingredient) Drug/Non Drug Allergy documented on EMR Reaction Allergy Type Onset Date Status Aspir-81 Unknown Drug Allergy Active Latex Latex Unknown Allergy Active Substance with sulfonamide structure and antibacterial mechanism of action (substance) Sulfa Antibiotics Unknown Drug Allergy Active Reason For Referral No Information Medications Medication SIG (Take, Route, Frequency, Duration) Notes Start Date End Date Status Zoloft 100 MG 1 tablet Orally twice daily for 30 days Active Cyproheptadine HCl 4 MG 0.5 tablet Orall y Twice a day for 30 days 11/12/2022 Active Mirtazapine 15 MG 1 tablet at bedtime Orally Once a day for 30 day(s) 10/01/2022 Not-Taking Amoxicillin 500 MG 1 capsule Orally Twice a day Active HYDROcodone-Acetaminoph en 10-325 MG 1 tablet as needed Orally every 6 hrs Active Cyclobenzaprine HCl 10 MG 1 tablet at bedtime as needed Orally Once a day Active Trelegy Ellipta 200-62.5-25 MCG/ACT 1 puff Inhalation Once a day Active Metoprolol Tartrate 25 MG 0.5 tab Orally daily Active Entresto 24-20mg, 1/2 tab BID Active Social History Tobacco Use: Social History Observation Description Date Details (start date - stop date) Never Smoker NA - NA Sex Assigned At : Social History Observation Description Sex Assigned At Female Dont use, Tobacco Use/Smoking Question Answer Notes Are you a nonsmoker Problems Problem Type SNOMED Code ICD Code Onset Dates Problem Status W/U Status Risk Notes Problem Posttraumatic stress disorder (57474240) PTSD (post-traumati c stress disorder) (F43.10) Active confirmed Problem Severe major depression, single episode, without psychotic features (48122631) Major depressive disorder, severe (F32.2) Active confirmed Encounters Encounter Location Date Provider Diagnosis [address] [address] 08/06/2024 Gonzalo Dorado [address] [address] 08/19/2023 Amanda Sanftleben Major depressive disorder, severe F32.2 and PTSD (post-traumatic stress disorder) F43.[address] [address] 08/26/2023 Amanda Sanftleben Major depressive disorder, severe F32.[address] [address] 09/09/2023 Amanda Sanftleben Major depressive disorder, severe F32.2 and PTSD (post-traumatic stress disorder) F43.[address] [address] 09/16/2023 Amanda Sanftleben PTSD (post-traumatic stress disorder) F43.10 and Major depressive disorder, severe F32.[address] [address] 09/26/2023 Amanda Sanftleben Major depressive disorder, severe F32.2 and PTSD (post-traumatic stress disorder) F43.[address] [address] 09/29/2023 Amanda Sanftleben Major depressive disorder, severe F32.2 and PTSD (post-traumatic stress disorder) F43.[address] [address] 10/07/2023 Amanda Sanftleben [facility] [address] [address] 10/13/2023 Amanda Sanftleben Major depressive disorder, severe F32.2 and PTSD (post-traumatic stress disorder) F43.10 [facility] [address] [address] 10/26/2023 Amanda Sanftleben Major depressive disorder, severe F32.2 and PTSD (post-traumatic stress disorder) F43.10 [facility] [address] [address] 11/04/2023 Amanda Sanftleben Major depressive disorder, severe F32.2 and PTSD (post-traumatic stress disorder) F43.10 [facility] [address] [place] [address] 11/14/2023 Amanda Sanftleben Major depressive disorder, severe F32.2 and PTSD (post-traumatic stress disorder) F43.10 [facility] [address] [place] [address] 11/25/2023 Amanda Sanftleben Major depressive disorder, severe F32.2 and PTSD (post-traumatic stress disorder) F43.10 [facility] [address] [place] [address] 12/06/2023 Amanda Sanftleben Major depressive disorder, severe F32.2 and PTSD (post-traumatic stress disorder) F43.10 [facility] [address] [address] 12/23/2023 Amanda Sanftleben [facility] [address] [place] [address] 12/30/2023 Amanda Sanftleben Major depressive disorder, severe F32.2 and PTSD (post-traumatic stress disorder) F43.10 [facility] [address] [place] [address] 01/06/2024 Amanda Sanftleben Major depressive disorder, severe F32.2 and PTSD (post-traumatic stress disorder) F43.10 [facility] [address] [place] [address] 01/27/2024 Amanda Sanftleben Major depressive disorder, severe F32.2 and PTSD (post-traumatic stress disorder) F43.10 [facility] [address] [address] 02/10/2024 Amanda Sanftleben Major depressive disorder, severe F32.2 and PTSD (post-traumatic stress disorder) F43.10 [facility] [address] [address] 02/24/2024 Amanda Sanftleben Major depressive disorder, severe F32.2 and PTSD (post-traumatic stress disorder) F43.10 [place] [address] [place] [address] 03/02/2024 Amanda Sanftleben Major depressive disorder, severe F32.2 and PTSD (post-traumatic stress disorder) F43.10 [facility] [address] [place] [address] 03/09/2024 Amanda Sanftleben Major depressive disorder, severe F32.2 and PTSD (post-traumatic stress disorder) F43.10 [facility] [address] [place] [phone] 03/16/2024 Amanda Sanftleben Major depressive disorder, severe F32.2 and PTSD (post-traumatic stress disorder) F43.10 [facility] [address] [place] [address] 04/02/2024 Gonzalo Dorado Major depressive disorder, severe F32.2 and PTSD (post-traumatic stress disorder) F43.[address] [address] 04/06/2024 Gonzalo Dorado Major depressive disorder, severe F32.2 and PTSD (post-traumatic stress disorder) F43.10 [facility] [address] [place] [address] 04/13/2024 Gonzalo Dorado Major depressive disorder, severe F32.2 and PTSD (post-traumatic stress disorder) F43.10 [facility] [address] [address] 04/27/2024 Gonzalo Dorado Major depressive disorder, severe F32.2 and PTSD (post-traumatic stress disorder) F43.10 [facility] [address] [address] 05/11/2024 Gonzalo Dorado Major depressive disorder, severe F32.2 and PTSD (post-traumatic stress disorder) F43.10 [facility] [address] [address] 05/25/2024 Gonzalo Dorado Major depressive disorder, severe F32.2 and PTSD (post-traumatic stress disorder) F43.10 [facility] [address] [address] 06/18/2024 Gonzalo Dorado Major depressive disorder, severe F32.2 and PTSD (post-traumatic stress disorder) F43.10 [facility] [address] [address] 06/29/2024 Gonzalo Dorado Major depressive disorder, severe F32.2 and PTSD (post-traumatic stress disorder) F43.10 [place] [address] [place] [address] 07/23/2024 Gonzalo Dorado Major depressive disorder, severe F32.2 and PTSD (post-traumatic stress disorder) F43.10 Assessments Encounter Date Diagnosis (ICD Code) Assessment Notes Treatment Notes Treatment Clinical Notes Section Notes 08/19/2023 Major depressive disorder, severe (ICD-10 - F32.2) Product Developer asked client to reflect on two questions, this week, first was 'what would slowing down look like?' and second was 'What are things you are trying to improve or wish were different about yourself' and machine sign writer and client will work on developing affirmations for client to do everyday to help reinforce care forself since client struggles with self image or being enough. Product Developer will also re-visit 'spoon technique' with client to help her prioritze slowing down and saving energy for things that would benefit herself. 08/26/2023 Major depressive disorder, severe (ICD-10 - F32.2) Product Developer will review what client tracks with spoons and cup next week and evaluate how much energy is being put into self versus others. 09/09/2023 Major depressive disorder, severe (ICD-10 - F32.2) 09/16/2023 PTSD (post-traumatic stress disorder) (ICD-10 - F43.10) 09/26/2023 Major depressive disorder, severe (ICD-10 - F32.2) 09/29/2023 Major depressive disorder, severe (ICD-10 - F32.2) 10/13/2023 Major depressive disorder, severe (ICD-10 - F32.2) 10/26/2023 Major depressive disorder, severe (ICD-10 - F32.2) 11/04/2023 Major depressive disorder, severe (ICD-10 - F32.2) 11/14/2023 Major depressive disorder, severe (ICD-10 - F32.2) 11/25/2023 Major depressive disorder, severe (ICD-10 - F32.2) 12/06/2023 Major depressive disorder, severe (ICD-10 - F32.2) 12/30/2023 Major depressive disorder, severe (ICD-10 - F32.2) 01/06/2024 Major depressive disorder, severe (ICD-10 - F32.2) 01/27/2024 Major depressive disorder, severe (ICD-10 - F32.2) 02/10/2024 Major depressive disorder, severe (ICD-10 - F32.2) 02/24/2024 Major depressive disorder, severe (ICD-10 - F32.2) 03/02/2024 Major depressive disorder, severe (ICD-10 - F32.2) 03/09/2024 Major depressive disorder, severe (ICD-10 - F32.2) 03/16/2024 Major depressive disorder, severe (ICD-10 - F32.2) 04/02/2024 Major depressive disorder, severe (ICD-10 - F32.2) 04/06/2024 Major depressive disorder, severe (ICD-10 - F32.2) 04/13/2024 Major depressive disorder, severe (ICD-10 - F32.2) 04/27/2024 Major depressive disorder, severe (ICD-10 - F32.2) 05/11/2024 Major depressive disorder, severe (ICD-10 - F32.2) 05/25/2024 Major depressive disorder, severe (ICD-10 - F32.2) 06/18/2024 Major depressive disorder, severe (ICD-10 - F32.2) 06/29/2024 Major depressive disorder, severe (ICD-10 - F32.2) 07/23/2024 Major depressive disorder, severe (ICD-10 - F32.2) 07/23/2024 PTSD (post-traumatic stress disorder) (ICD-10 - F43.10) 06/29/2024 PTSD (post-traumatic stress disorder) (ICD-10 - F43.10) 06/18/2024 PTSD (post-traumatic stress disorder) (ICD-10 - F43.10) 05/25/2024 PTSD (post-traumatic stress disorder) (ICD-10 - F43.10) 05/11/2024 PTSD (post-traumatic stress disorder) (ICD-10 - F43.10) 04/27/2024 PTSD (post-traumatic stress disorder) (ICD-10 - F43.10) 04/13/2024 PTSD (post-traumatic stress disorder) (ICD-10 - F43.10) 04/06/2024 PTSD (post-traumatic stress disorder) (ICD-10 - F43.10) 04/02/2024 PTSD (post-traumatic stress disorder) (ICD-10 - F43.10) 03/16/2024 PTSD (post-traumatic stress disorder) (ICD-10 - F43.10) 03/09/2024 PTSD (post-traumatic stress disorder) (ICD-10 - F43.10) 03/02/2024 PTSD (post-traumatic stress disorder) (ICD-10 - F43.10) 02/24/2024 PTSD (post-traumatic stress disorder) (ICD-10 - F43.10) 02/10/2024 PTSD (post-traumatic stress disorder) (ICD-10 - F43.10) 01/27/2024 PTSD (post-traumatic stress disorder) (ICD-10 - F43.10) 01/06/2024 PTSD (post-traumatic stress disorder) (ICD-10 - F43.10) 12/30/2023 PTSD (post-traumatic stress disorder) (ICD-10 - F43.10) 12/06/2023 PTSD (post-traumatic stress disorder) (ICD-10 - F43.10) 11/25/2023 PTSD (post-traumatic stress disorder) (ICD-10 - F43.10) 11/14/2023 PTSD (post-traumatic stress disorder) (ICD-10 - F43.10) 11/04/2023 PTSD (post-traumatic stress disorder) (ICD-10 - F43.10) 10/26/2023 PTSD (post-traumatic stress disorder) (ICD-10 - F43.10) 10/13/2023 PTSD (post-traumatic stress disorder) (ICD-10 - F43.10) 09/29/2023 PTSD (post-traumatic stress disorder) (ICD-10 - F43.10) 09/16/2023 Major depressive disorder, severe (ICD-10 - F32.2) 09/26/2023 PTSD (post-traumatic stress disorder) (ICD-10 - F43.10) 09/09/2023 PTSD (post-traumatic stress disorder) (ICD-10 - F43.10) 08/19/2023 PTSD (post-traumatic stress disorder) (ICD-10 - F43.10) 09/09/2023 Other Product Developer and esperanza kraft at next appointment will make a list of actual ways client can use her 'spoons' and how she can view task in such a way to make the decision of choosing this activity over using in on someone else. 04/02/2024 Other Product Developer will continue to work with client on the importance of boundary setting for their own peace. Plan Of Treatment Next Appt Details Provider Name:Gonzalo estrada, 08/20/2024 04:00:00 PM, [address], [place], [address], Insurance Providers Payer Name Payer Address Payer Phone Subscriber Number Group Number Insured Name Patient Relationship to Insured Coverage Start Date Coverage End Date [employer] [address] [place] [phone] [id number] Jessica Noriega Self - patient is the insured 3 [employer] [address] [place] [phone] [id number] Jessica Noriega Self - patient is the insured 9 [employer] [address] [place] [phone] [id number] Leann Jessica Self - patient is the insured 4 Medical (General) History Medical History History ICD Code Anemia GERD Connective tissue disorder Surgical History Surgery Date(Month/Year) left knee repair breast bilateral R pinky tendon repair R hand fracture repair
--- OUTSIDE RECORDS SUMMARY | 2024-08-08 00:35 | XMS_ITS ---
Care Plan - [facility] Created on: August 08, 2024 ALEX ARRIAGA : 1970 Sex: Female Author Organization [facility] Address [address] [place] [address] Phone Care Team Providers Care Audiovisual Lead Technician Name Role Phone MEME COOPER, ADELE Olivares Primary Care Provider [phone] SUKH COOPER, MARYLU Vizcarra Unavailable [phone]
--- OUTSIDE RECORDS SUMMARY | 2024-08-08 00:35 | XMS_ITS | Referral Summary ---
Author Organization [facility] Address [address] [place] [address] Care Team Providers Care Payment Processor Name Role Phone Katey Markham NP Unavailable [phone] Alia Cardoso PHARMACY TECHNICIAN INSTRUCTOR Unavailable [phone] Tanika Clay NP Unavailable [phone] Aguilar Najera MD Unavailable [phone] Beau Stone PHARMACY TECHNICIAN INSTRUCTOR Unavailable [phone] Pearl York DO Unavailable [phone] Katey Markham NP Primary Care Provider Encounters Date Type Department Care Team Description 08/01/2024 Results Follow-Up [place] [facility] at [address] [place] [phone] Alia Cardoso NP 07/30/2024 12:32 PM EQUINE PHARMACOLOGY TECHNICIAN - 07/30/2024 11:59 PM EQUINE PHARMACOLOGY TECHNICIAN Hospital Encounter [facility] [address] [place] [id number] Congestive heart failure, unspecified HF chronicity, unspecified heart failure type (HCC) Discharge Disposition: Discharge to home or self care 06/28/2024 7:30 AM EQUINE PHARMACOLOGY TECHNICIAN Lab [address] [address] 06/27/2024 Orders Only [facility] [address] [facility] [address] [place] [address] Raf Pratt MD Bilateral occipital neuralgia (Primary Dx) 06/22/2024 8:00 AM EQUINE PHARMACOLOGY TECHNICIAN Office Visit [facility] [address] [facility] [address] [place] [address] Raf Pratt MD Bilateral occipital neuralgia (Primary Dx); Cervical pain (neck) 06/07/2024 1:45 PM EQUINE PHARMACOLOGY TECHNICIAN Office Visit [facility] [address] [place] [address] Alida Caceres MD Small fiber neuropathy (CMS/HCC) (Primary Dx); Chronic migraine with aura without status migrainosus, not intractable 05/22/2024 Telephone [facility] [address] [place] [address] Yadira Fuller MD 05/22/2024 1:30 PM EQUINE PHARMACOLOGY TECHNICIAN Office Visit [facility] at [address] [place] [address] Tanika Clay NP Asthma-COPD overlap syndrome (HCC) (Primary Dx); NICM (nonischemic cardiomyopathy) (CMS/HCC) (HCC) from Last 3 Months Allergies Active Allergy Reactions Criticality Noted Date Comments Aspirin Hives,Urticaria High 02/19/2014 Reaction: Hives, Reaction: Hives, Reaction: Hives, Latex Hives,Urticaria Medium 09/27/2017 Sulfa (Sulfonamide Antibiotics) Hives,Urticaria High 02/19/2014 Reaction: Hives, Reaction: Hives, Reaction: Hives, Sulfanilamide Hives,Urticaria Medium 03/10/2023 Reaction: [...] mg tablet,delayed release (DR/EC) Take by mouth lapidarist before breakfast Active [id number] -OREG-CAPRYL ORAL daily Ac tive magnesium gluconate [...] however has not had formal follow-up with janitor cleaner, skin testing may return different results IgE [...] 07/20/2023 Assessment & Plan (05/22/2024 3:29 PM EQUINE PHARMACOLOGY TECHNICIAN): She will continue Trelegy Ellipta 200 once [...] triggers Assessment & Plan (07/20/2023 11:53 AM EQUINE PHARMACOLOGY TECHNICIAN): Continue Trelegy Ellipta 200 once daily for now We have discussed the risks of infection and we will monitor her carefully Continue albuterol, discussed indications for use She is current on vaccines Avoid triggers Dyspnea on exertion 07/20/2023 Assessment & Plan (07/20/2023 11:51 AM EQUINE PHARMACOLOGY TECHNICIAN): Multifactorial I have urged her to prioritize new living arrangements and remain active Iron deficiency anemia 07/20/2023 Assessment & Plan (07/20/2023 11:48 AM EQUINE PHARMACOLOGY TECHNICIAN): Last H&H was normal Fluctuations could contribute to dyspnea Continue to follow with Hematology Continue ferrous sulfate as ordered Pelvic and perineal pain 07/02/2023 Assessment & Plan (07/03/2023 6:37 PM EQUINE PHARMACOLOGY TECHNICIAN): I suspect main problem is her opiod [...] menopause. Assessment & Plan (05/18/2023 4:21 PM EQUINE PHARMACOLOGY TECHNICIAN): The patient presents today for discussion of [...] 06/24/2022 Assessment & Plan (07/20/2023 11:50 AM EQUINE PHARMACOLOGY TECHNICIAN): She is due for CT chest in [...] (03/03/2021): Added automatically from request for surgery [id number] Other chest pain 02/27/2021 Hot flashes 02/26/2021 [...] 02/05 Assessment & Plan (05/22/2024 3:30 PM EQUINE PHARMACOLOGY TECHNICIAN): Continue Entresto Continue follow-up with Cardiology Last [...] cardiology Assessment & Plan (07/20/2023 11:47 AM EQUINE PHARMACOLOGY TECHNICIAN): Continue Entresto Follow with cardiology Hepatic cyst 11/27/2020 Functional abdominal pain syndrome 11/26/2020 Nausea and vomiting 11/26/2020 Post-nasal drainage 11/26/2020 Tobacco use disorder 08/26/2020 Gastroesophageal reflux disease without esophagi tis 03/12/2020 Assessment & Plan (06/23/2020 5:03 PM EQUINE PHARMACOLOGY TECHNICIAN): Patient is doing well with the Pepcid [...] (02/14/2020): Added automatically from request for surgery [id number] Assessment & Plan (06/23/2020 5:03 PM EQUINE PHARMACOLOGY TECHNICIAN): Normal upper endoscopy in February of 2020. [...] benefits. Assessment & Plan (06/23/2020 5:02 PM EQUINE PHARMACOLOGY TECHNICIAN): Patient is having constipation symptoms no. Discussed [...] is a hard stool. Pt also on longterm opioids which likely contributes to constipation. She [...] (02/14/2020): Added automatically from request for surgery [id number] Assessment & Plan (03/12/2020 1:04 PM CDT): [...] normal. Will order MRI of liver. Immunizations Immunization Administration Dates Next Due Tdap 05/12/2017 Tetanus [...] on file Legal Sex Female 8:57 AM EQUINE PHARMACOLOGY TECHNICIAN Gender Identity Female 09/01/2023 3:49 PM CDT Sexual Orientation Straight 09/01/2023 3: 49 PM CDT Last Filed Vital Signs Vital Sign Reading Time Taken Comments Blood Pressure 114/78 06/22/2024 7:50 AM EQUINE PHARMACOLOGY TECHNICIAN Pulse 78 06/22/2024 7:50 AM EQUINE PHARMACOLOGY TECHNICIAN Temperature 36.6 C (97.9 F) 06/07/2024 1:32 PM EQUINE PHARMACOLOGY TECHNICIAN Respiratory Rate 15 06/07/2024 1:32 PM EQUINE PHARMACOLOGY TECHNICIAN Oxygen Saturation 91% 06/22/2024 7:50 AM EQUINE PHARMACOLOGY TECHNICIAN Inhaled Oxygen Concentration - - Weight 63.5 kg (140 lb) 06/22/2024 7:50 AM EQUINE PHARMACOLOGY TECHNICIAN Height 162.6 cm (5' 4 ) 06/22/2024 7:50 AM EQUINE PHARMACOLOGY TECHNICIAN Body Mass Index 24.03 06/22/2024 7:50 AM EQUINE PHARMACOLOGY TECHNICIAN Plan of Treatment Not on file Medical Devices Implanted Type Area Lidar Technician Device Identifier Shelf Expiration Date Model / Serial / Lot [employer] [id number] Angio-Seal Evolution 6fr .035in Guidewire Bypass Tube Suture - [id number] Implanted:Qty: 1 on 03/06/2021 by Amador Cano MD at [facility] [employer] 10/03/2021 [id number] / / [id number] Procedures Procedure Name Priority Date/Time Associated Diagnosis Comments TRANSTHORACIC ECHO (TTE) COMPLETE W DOPPLER/CF WO CONTRAST Routine 07/30/2024 1:51 PM EQUINE PHARMACOLOGY TECHNICIAN Congestive heart failure, unspecified HF chronicity, unspecified heart failure type (HCC) URINALYSIS AND REFLEX TO MICROSCOPIC AND CULTURE Routine 06/28/2024 7:45 AM EQUINE PHARMACOLOGY TECHNICIAN EGFR Routine 06/28/2024 7:42 AM EQUINE PHARMACOLOGY TECHNICIAN PHOSPHORUS Routine 06/28/2024 7:42 AM EQUINE PHARMACOLOGY TECHNICIAN DIFFERENTIAL AUTO Routine 06/28/2024 7:4 2 AM EQUINE PHARMACOLOGY TECHNICIAN VITAMIN D 25 HYDROXY Routine 06/28/2024 7:42 AM EQUINE PHARMACOLOGY TECHNICIAN TSH Routine 06/28/2024 7:42 AM EQUINE PHARMACOLOGY TECHNICIAN T4, FREE Routine 06/28/2024 7:42 AM EQUINE PHARMACOLOGY TECHNICIAN COMPREHENSIVE METABOLIC PANEL Routine 06/28/2024 7:42 AM EQUINE PHARMACOLOGY TECHNICIAN LIPID PANEL Routine 06/28/2024 7:42 AM EQUINE PHARMACOLOGY TECHNICIAN CBC WITH AUTO DIFFERENTIAL Routine 06/28/2024 7:42 [address]OLOGY [address] CT LUNG CANCER SCREENING Schedule Routine, Read Routine (OP Routine) 11/07/2023 8:11 AM CDT Nicotine dependence, cigarettes, in remission DIAGNOSTIC MAMMOGRAM BILATERAL W SCOTT W IMPLANTS Schedule Routine, Read Routine (OP Routine) 07/11/2023 1:57 PM EQUINE PHARMACOLOGY TECHNICIAN Abnormal mammogram PAP AND HPV, REFLEX TO HPV GENOTYPES Routine 03/30/2023 2:59 PM CDT Encounter for annual routine gynecological examination HEPATITIS C RNA, QUANTITATIVE, PCR Routine 11/03/2022 1:25 PM CDT COLONOSCOPY 12/29/2021 11:33 AM CDT from Last 3 Months or Most Recently Relevant to Health Maintenance Results * TRANSTHORACIC ECHO (TTE) COMPLETE W DOPPLER/CF WO CONTRAST (07/30/2024 1:51 PM EQUINE PHARMACOLOGY TECHNICIAN) LV EF 35 % CONS SCIMAGE Anatomical Region Laterality Modality Ultrasound 07/30/2024 1:11 PM EQUINE PHARMACOLOGY TECHNICIAN Narrative 07/30/2024 3:52 PM EQUINE PHARMACOLOGY TECHNICIAN [address] [address] Echocardiogram Report Patient Name: JESSICA ARRIAGA : 1970 Study Date: 07/30/2024 1:11:09 PM Gender: F Tech: AA Location: echo room 2 Ref Provider: ALIA CARDOSO Height(Cm): BSA: Weight(Kg): Quality: Adequate Order Provider: ALIA CARDOSO PROCEDURES: Echocardiographic Report: Transthoracic echocardiogram with complete 2D, M-Mode, and color Doppler examination. INDICATIONS: Congestive Heart Failure and I50.9 Heart failure, unspecified. MEASUREMENTS: 2D/MM Value Range Doppler Value Range EF Teich 2D 35.5 % [ 54.0 - 74.0 ] NAYA Vmax 2.64 cm2 Estimated EF 35 to 40 % AV Mean PG 4 mmHg LVIDd 2D 4.73 cm [ 3.80 - 5.20 ] AV Peak Mina 1.24 m/s [ 1.00 - 1.70 ] LVIDs 2D 3.92 cm [ 2.20 - 3.50 ] AV VTI 23.80 cm LVPWd 2D 1.02 cm [ 0.60 - 0.90 ] LVOT Diam 2.07 cm IVSd 2D 1.21 cm [ 0.60 - 0.90 ] LVOT Peak Mina 0.98 m/s [ 0.70 - 1.10 ] LA Dimension MM 3.68 cm [ 2.70 - 3.80 ] LVOT VTI 19.68 cm AoR Diam MM 2.70 cm [ 2.70 - 3.70 ] MV E Peak Mina 0.63 m/s [ 0.60 - 1.30 ] ACS MM 2.00 cm MV A Peak Mina 0.73 m/s [ 1.00 - 1.20 ] MV Mean PG 2 mmHg MV PHT 61 msec [ 20 - 100 ] MVA 2.50 MV Decel Time 238 msec [ 104 - 258 ] PV Peak Mina 0.89 m/s [ 0.40 - 0.80 ] TR Peak Mina 2.40 m/s [ 1.00 - 2.80 ] TR Peak PG 23 mmHg RVSP 28.00 mmHg [ 10.00 - 36.00 ] PA Pressure 5.00 mmHg [ 10.00 - 36.00 ] 2D/MM Value Range Doppler Value Range - FINDINGS: Atrial Septum: Normal atrial septum. Left Ventricle: Moderate enlargement of left ventricle cavity. Moderate global left ventricular systolic dysfunction. Diastolic dysfunction is present. Ejection Fraction is estimated to be 35 to 40 %. Left Atrium: There is mild enlargement of left atrium. Right Ventricle: Normal right ventricular size. Normal right ventricular systolic function. Right Atrium: The right atrium is normal in size. Aortic Valve: Normal structure of the aortic valve. Trace aortic valve regurgitation. Mitral Valve: Normal structure of the mitral valve. Mild to moderate mitral valve regurgitation. Pulmonic Valve: Normal structure of the pulmonic valve. Tricuspid Valve: Normal structure of the tricuspid valve. Trivial regurgitation in the tricuspid valve. Pericardium: Normal pericardium with no significant pericardial effusion. Aorta: Normal aortic root. IVC: Normal size and normal respiratory collapse consistent with normal right atrial pressure (<5 mmHg). CONCLUSIONS: Moderate enlargement of left ventricle cavity. Moderate global left ventricular systolic dysfunction. Diastolic dysfunction is present. Ejection Fraction is estimated to be 35 to 40 %. There is mild enlargement of left atrium. Normal structure of the mitral valve. Mild to moderate mitral valve regurgitation. Normal structure of the aortic valve. Trace aortic valve regurgitation. Normal structure of the tricuspid valve. Trivial regurgitation in the tricuspid valve. Electronically Signed By: Dr Gavin Low 07/30/2024 3:51:47 PM EQUINE PHARMACOLOGY TECHNICIAN Procedure Note Gavin Low MD - 07/30/[address] [place] [address] Echocardiogram Report Patient Name: JESSICA ARRIAGA : 1970 Study Date: 07/30/2024 1:11:09 PM Gender: F Tech: Location: echo room 2 Ref Provider: ALIA CARDOSO Height(Cm): BSA: Weight(Kg): Quality: Adequate Order Provider: ALIA CARDOSO PROCEDURES: Echocardiographic Report: Transthoracic echocardiogram with complete 2D, M-Mode, and color Dopplerexamination. INDICATIONS: Congestive Heart Failure and I50.9 Heart failure, unspecified. MEASUREMENTS: 2D/MM Value Range Doppler ValueRange EF Teich 2D 35.5 % [ 54.0 - 74.0 ] NAYA Vmax 2.64cm2 Estimated EF 35 to 40 % AV Mean PG 4mmHg LVIDd 2D 4.73 cm [ 3.80 - 5.20 ] AV Peak Mina 1.24m/s [ 1.00 - 1.70 ] LVIDs 2D 3.92 cm [ 2.20 - 3.50 ] AV VTI 23.80cm LVPWd 2D 1.02 cm [ 0.60 - 0.90 ] LVOT Diam 2.07cm IVSd 2D 1.21 cm [ 0.60 - 0.90 ] LVOT Peak Mina 0.98m/s [ 0.70 - 1.10 ] LA Dimension MM 3.68 cm [ 2.70 - 3.80 ] LVOT VTI 19.68cm AoR Diam MM 2.70 cm [ 2.70 - 3.70 ] MV E Peak Mina 0.63m/s [ 0.60 - 1.30 ] ACS MM 2.00 cm MV A Peak Mina 0.73m/s [ 1.00 - 1.20 ] MV Mean PG 2 mmHg MV PHT 61 msec [ 20 - 100 ] MVA 2.50 MV Decel Time 238 msec [ 104 - 258 ] PV Peak Mina 0.89 m/s [ 0.40 - 0.80 ] TR Peak Mina 2.40 m/s [ 1.00 - 2.80 ] TR Peak PG 23 mmHg RVSP 28.00 mmHg [ 10.00 - 36.00 ] PA Pressure 5.00 mmHg [ 10.00 - 36.00 ] 2D/MM Value Range Doppler ValueRange - FINDINGS: Atrial Septum: Normal atrial septum. Left Ventricle: Moderate enlargement of left ventricle cavity. Moderate global leftventricular systolic dysfunction. Diastolic dysfunction is present. Ejection Fraction isestimated to be 35 to 40 %. Left Atrium: There is mild enlargement of left atrium. Right Ventricle: Normal right ventricular size. Normal right ventricular systolicfunction. Right Atrium: The right atrium is normal in size. Aortic Valve: Normal structure of the aortic valve. Trace aortic valve regurgitation. Mitral Valve: Normal structure of the mitral valve. Mild to moderate mitral valveregurgitation. Pulmonic Valve: Normal structure of the pulmonic valve. Tricuspid Valve: Normal structure of the tricuspid valve. Trivial regurgitation in thetricuspid valve. Pericardium: Normal pericardium with no significant pericardial effusion. Aorta: Normal aortic root. IVC: Normal size and normal respiratory collapse consistent with normal rightatrial pressure (<5 mmHg). CONCLUSIONS: Moderate enlargement of left ventricle cavity. Moderate global leftventricular systolic dysfunction. Diastolic dysfunction is present. Ejection Fraction isestimated to be 35 to 40 %. There is mild enlargement of left atrium. Normal structure of the mitral valve. Mild to moderate mitral valveregurgitation. Normal structure of the aortic valve. Trace aortic valve regurgitation. Normal structure of the tricuspid valve. Trivial regurgitation in thetricuspid valve. Electronically Signed By: Dr Gavin Low 07/30/2024 3:51:47 PM EQUINE PHARMACOLOGY TECHNICIAN us Alia Cardoso PHARMACY TECHNICIAN INSTRUCTOR CV ECHO PROCEDURES Carin l Result * Urinalysis reflex to microscopic and culture Urine (06/28/2024 7:45 AM EQUINE PHARMACOLOGY TECHNICIAN) Color, ur Yellow Yellow Clarity, ur Clear Clear [facility] ([place]) Specific gravity, ur 1.025 1.003 - 1.030 [facility] ([place]) pH, urine 8.0 [facility] ([place]) Comment: Interpretive Data U rine pH is affected by diet, medications, systemic acid-base disturbances, and renal tubular function. pH may affect urinary stone formation. For example, urine pH below 6.0 may help reduce the tendency for calcium phosphate stones and pH greater than 6.0 may reduce the tendency for uric acid stone formation. Source: [employer] Current Interpretive Data was last revised on [...] for microscopic UA and culture not met. [facility] ([place]) Urine 06/28/2024 7:45 AM EQUINE PHARMACOLOGY TECHNICIAN 06/28/2024 8:42 AM EQUINE PHARMACOLOGY TECHNICIAN us Katey Markham NP LAB MICROBIOLOGY - GENERAL ORD ERABLES Final Result [facility] [place] [address] [facility] [employer] [place] [address] * eGFR (06/28/2024 7:42 AM EQUINE PHARMACOLOGY TECHNICIAN) eGFR 88 >=60 mL/min/1. 73 m2 Comment: Interpretive Data Reference Interval Normal >/= 90 mL/min/1.73m2 Mildly decreased* 60 - 89 mL/min/1.73m2 Mildly to moderately decreased 45 - 59 mL/min/1.73m2 Moderately to severely decreased 30 - 44 mL/min/1.73m2 Severely decreased 15 - 29 mL/min/1.73m2 Kidney Failure < 15 mL/min/1.73m2 *Relative to young adult level Estimated glomerular [...] data was last reviewed 2021. Blood 06/28/2024 7:4 2 AM EQUINE PHARMACOLOGY TECHNICIAN 06/28/2024 8:40 AM EQUINE PHARMACOLOGY TECHNICIAN us Katey Markham NP LAB BLOOD ORDERABLES Final Res ult [facility]) [address] [facility] Department [place] [address] * Differential, auto (06/28/2024 7:42 AM EQUINE PHARMACOLOGY TECHNICIAN) Neutrophil abs 4.1 1.5 - 6.5 K/cumm Imm gran abs 0.0 0.0 - 0.1 K/cumm [facility] ([place]) Lymphocyte abs 2.2 0.8 - 3.3 K/cumm [...] revised on 2017. Blood 06/28/2024 7:42 AM EQUINE PHARMACOLOGY TECHNICIAN 06/28/2024 8:40 AM EQUINE PHARMACOLOGY TECHNICIAN us Katey Markham PHARMACY TECHNICIAN INSTRUCTOR LAB BLOOD ORDERABLES Final Res ult [facility] ([place]) [address] [facility] [place] [address] * CBC with auto differential (06/28/2024 7:42 AM EQUINE PHARMACOLOGY TECHNICIAN) WBC 7.0 3.8 - 9.9 K/cumm Hgb [...] 0.01 K/cumm [facility] ([place]) Blood 06/28/2024 7:42 AM EQUINE PHARMACOLOGY TECHNICIAN 06/28/2024 8:40 AM EQUINE PHARMACOLOGY TECHNICIAN us Katey Markham PHARMACY TECHNICIAN INSTRUCTOR LAB BLOOD ORDERABLES Final Res ult [facility] ([place]) [address] [facility] [place] [address] * Vitamin D 25 hydroxy (06/28/2024 7:42 AM EQUINE PHARMACOLOGY TECHNICIAN) Vitamin D 25-OH 36 30 - 80 ng/mL Blood 06/28/2024 7:42 AM EQUINE PHARMACOLOGY TECHNICIAN 06/28/2024 8:40 AM EQUINE PHARMACOLOGY TECHNICIAN us Katey Markham PHARMACY TECHNICIAN INSTRUCTOR LAB BLOOD ORDERABLES Final Res ult [facility] ([place]) [address] [facility] [place] [address] * TSH (06/28/2024 7:42 AM EQUINE PHARMACOLOGY TECHNICIAN) Thyroid Stimulating Hormone 1.39 0.30 - 4.20 mcIUnit/mL Blood 06/28/2024 7:42 AM EQUINE PHARMACOLOGY TECHNICIAN 06/28/2024 8:40 AM EQUINE PHARMACOLOGY TECHNICIAN us Katey Markham PHARMACY TECHNICIAN INSTRUCTOR LAB BLOOD ORDERABLES Final Res ult Performing Organization Address [facility] Co de Phone Number [facility] ([place]) [address] [facility] [address] * T4, free (06/28/2024 7:42 AM EQUINE PHARMACOLOGY TECHNICIAN) Free T4 0.98 0.90 - 1.70 ng/dL Blood 06/28/2024 7:42 AM EQUINE PHARMACOLOGY TECHNICIAN 06/28/2024 8:40 AM EQUINE PHARMACOLOGY TECHNICIAN us Katey Markham PHARMACY TECHNICIAN INSTRUCTOR LAB BLOOD ORDERABLES Final Res ult Performing Organization Address City/[facility]/ZIP Co de Phone Number [facility]O SAW[facility] ([place]) [address] [facility] [place] [address] * Phosphorus (06/28/2024 7:42 AM EQUINE PHARMACOLOGY TECHNICIAN) Phosphorus, pl 3.7 2.3 - 4.5 mg/dL Blood 06/28/2024 7:42 AM EQUINE PHARMACOLOGY TECHNICIAN 06/28/2024 8:40 AM EQUINE PHARMACOLOGY TECHNICIAN Katey Markham PHARMACY TECHNICIAN INSTRUCTOR LAB BLOOD ORDERABLES Final Res ult [facility]O [facility] ([place]) [address] Department [place] [address] * (ABNORMAL) Lipid panel (06/28/2024 7:42 AM EQUINE PHARMACOLOGY TECHNICIAN) Cholesterol 298(H) 30 - 199 mg/dL Comment: Interpretive Data Ages < or = 19 years Acceptable: <170 mg/dL Borderline high: 170-199 mg/dL High: >or= 200 mg/dL Ages > or = 20 years Desirable: <200 mg/dL Borderline high: 200-239 mg/dL High: >or= 240 mg/dL Literature References: 1. Expert Panel on Integrated Guidelines for Cardiovascular Health and Risk Reduction in Children and Adolescents. Pediatrics 2011;128:S213 2. NCEP Expert Panel. Circulation 2004;110:227 Current Interpretive Data was last revised on 2018. Triglycerides 231(H) <=149 mg/dL [facility] ([place]) Comment: Interpretive Data Ages < or = 9 years Acceptable: <75 mg/dL Borderline high: 75-99 mg/dL High: >or= 100 mg/dL Ages 10 to 20 years Acceptable: <90 mg/dL Borderline high: 90-129 mg/dL High: >or= 130 mg/dL Ages > or = 20 years Desirable: <150 mg/dL Borderline high: 150-199 mg/dL High: 200-499 mg/dL Very high: >or= 499 mg/dL Literature References: 1. Expert Panel on Integrated Guidelines for Cardiovascular Health and Risk Reduction in Children and Adolescents. Pediatrics 2011;128:S213 2. NCEP Expert Panel. Circulation 2004;110:227 Current Interpretive Data was last revised on 2018. HDL 42 >=40 mg/dL [facility]O SA[facility] ([place]) Comment: Interpretive Data Ages < or = 19 years Acceptable: >45 mg/dL Borderline low: 40-45 mg/dL Low: <40 mg/dL Ages > or = 20 years Desirable: >or= 60 mg/dL Low: <40 mg/dL Literature References: 1. Expert Panel on Integrated Guidelines for Cardiovascular Health and Risk Reduction in Children and Adolescents. Pediatrics 2011;128:S213 2. NCEP Expert Panel. Circulation 2004;110:227 Current Interpretive Data was last revised on 2018. LDL, calculated 210(H) <=129 mg/dL ARM[facility]O SAWANT ([place]) Comment: Interpretive Data Ages < or = 19 years Acceptable: <110 mg/dL Borderline high: 110-129 mg/dL High: >or= 130 mg/dL Ages > or = 20 years Optimal: <100 mg/dL Near optimal: 100-129 mg/dL Borderline high: 130-159 mg/dL High: >160 mg/dL Calculated using the Jeff LDL-C estimating [...] 2024. Non-HDL Cholesterol 256 mg/dL [facility] ([place]) Comment: Interpretive Data Ages < or = 19 years Acceptable: <120 mg/dL Borderline high: 120-144 mg/dL High: >145 mg/dL Ages > or = 20 years When triglycerides are >200 mg/dL, Non-HDL cholesterol is a secondary target of therapy with treatment goals that are 30 mg/dL greater than the LDL cholesterol target. Literature References: 1. Expert Panel on Integrated Guidelines for Cardiovascular Health and Risk Reduction in Children and Adolescents. Pediatrics 2011;128:S213 2. NCEP Expert Panel. Circulation 2004;110:227 Current Interpretive Data was last revised on 2018. Chol/HDL ratio 7 ANANDA SAWANT ([place]) Blood 06/28/2024 7:42 AM EQUINE PHARMACOLOGY TECHNICIAN 06/28/2024 8:40 AM EQUINE PHARMACOLOGY TECHNICIAN us Katey Markham NP LAB BLOOD ORDERABLES Final Res ult [facility] ([place]) [address] [facility] Department [place] [address] * Comprehensive metabolic panel (06/28/2024 7:42 AM EQUINE PHARMACOLOGY TECHNICIAN) Sodium 139 135 - 145 mmol/L Potassium, [...] >/= 126 mg/dl is diagnostic for diabetes. Fasting is defined as no caloric intake [...] [facility] ([place]) Blood 06/28/2024 7:42 AM EQUINE PHARMACOLOGY TECHNICIAN 06/28/2024 8:40 AM EQUINE PHARMACOLOGY TECHNICIAN us Katey Markham PHARMACY TECHNICIAN INSTRUCTOR LAB BLOOD ORDERABLES Final Res ult [facility] ([place]) [address] [facility] Department [place] [address] * CT Lung Cancer Screening (11/07/2023 8:11 AM CDT) Anatomical Region Laterality Modality Chest N/A Computed Tomogra phy 11/07/2023 8:28 AM CDT Narrative 11/07/2023 8:39 AM CDT EXAM DESCRIPTION: CT LUNG CANCER SCREENING REASON FOR STUDY: Screening CT of the chest in a current smoker with a 20 pack year smoking history. Additional history: None. TECHNIQUE: Low dose CT scan of the chest was performed without intravenous contrast using helical scanning technique. The exam extends from the lung apices through the lung bases. Automatic exposure control was used as a dose optimization technique. NOTE: This study was performed for the specific purposes of lung cancer screening and is not an alternative to diagnostic chest CT. RADIATION DOSE: CT dose index volume (CTDIvol) = 0.95 mGy COMPARISON: 11/02/2022, 08/10/2022, 03/27/2022, 10/02/2021 FINDINGS: SMOKING RELATED LUNG DISEASE: There is mild emphysema. Pleuroparenchymal scarring within the lung apices is stable compared to the prior examination. LUNG NODULES: 5 mm nodule anterior right middle lobe image 225, stable. 3 mm subpleural left upper lobe nodule is stable. This is calcified consistent with a granuloma. Linear 3-4 mm nodule in the medial right upper lobe on image 160 is stable. No new suspicious pulmonary nodule in either lung. CORONARY ARTERY CALCIFICATION: Present. OTHER: No pneumonic consolidation. Mild subsegmental scarring and atelectasis. No effusion or pneumothorax. Mild bronchial wall thickening centrally. This can be seen in the setting of chronic bronchitis in a current smoker. The central airways are patent. The thyroid gland is stable. There is no mediastinal or hilar lymphadenopathy. There is mild thickening of the mid and distal esophagus. Decompression limits evaluation. The heart is normal in size without pericardial effusion. The thoracic aorta is normal in caliber. There is no axillary lymphadenopathy. The chest wall is partially visualized. Bilateral breast implants are noted. The visualized upper abdomen reveals no significant incidental findings. There is no acute osseous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
--- OUTSIDE RECORDS SUMMARY | 2024-08-08 00:35 | XMS_ITS | Clinical Summary ---
Author Organization Formerly [facility] Address [address] [place] [address] Care Team Providers Care Assistant Portfolio Manager Name Role Phone Katey Markham NP Unavailable [phone] Alia Cardoso TILE LAYER DRAINAGE Unavailable Tanika Clay NP Unavailable Aguilar Najera MD Unavailable [phone] Beau Stone TILE LAYER DRAINAGE Unavailable [phone] Pearl York DO Unavailable [phone] Katey Markham NP Primary Care Provider [phone] Allergies Active Allergy Reactions Criticality Noted Date [...] mg tablet,delayed release (DR/EC) Take by mouth cable way operator before breakfast Active UITLSCE-[id number]-DRQFQ -OREG-CAPRYL ORAL daily Ac tive magnesium gluconate [...] however has not had formal follow-up with wood fence installer, skin testing may return different results IgE [...] 07/20/2023 Assessment & Plan (05/22/2024 3:29 PM COMPUTER HARDWARE DESIGNER): She will continue Trelegy Ellipta 200 once [...] triggers Assessment & Plan (07/20/2023 11:53 AM COMPUTER HARDWARE DESIGNER): Continue Trelegy Ellipta 200 once daily for now We have discussed the risks of infection and we will monitor her carefully Continue albuterol, discussed indications for use She is current on vaccines Avoid triggers Dyspnea on exertion 07/20/2023 Assessment & Plan (07/20/2023 11:51 AM COMPUTER HARDWARE DESIGNER): Multifactorial I have urged her to prioritize new living arrangements and remain active Iron deficiency anemia 07/20/2023 Assessment & Plan (07/20/2023 11:48 AM COMPUTER HARDWARE DESIGNER): Last H&H was normal Fluctuations could contribute to dyspnea Continue to follow with Hematology Continue ferrous sulfate as ordered Pelvic and perineal pain 07/02/2023 Assessment & Plan (07/03/2023 6:37 PM COMPUTER HARDWARE DESIGNER): I suspect main problem is her opiod [...] menopause. Assessment & Plan (05/18/2023 4:21 PM COMPUTER HARDWARE DESIGNER): The patient presents today for discussion of [...] 06/24/2022 Assessment & Plan (07/20/2023 11:50 AM COMPUTER HARDWARE DESIGNER): She is due for CT chest in [...] (03/03/2021): Added automatically from request for surgery [id number] Other chest pain 02/27/2021 Hot flashes 02/26/2021 [...] 02/05 Assessment & Plan (05/22/2024 3:30 PM COMPUTER HARDWARE DESIGNER): Continue Entresto Continue follow-up with Cardiology Last [...] cardiology Assessment & Plan (07/20/2023 11:47 AM COMPUTER HARDWARE DESIGNER): Continue Entresto Follow with cardiology Hepatic cyst 11/27/2020 Functional abdominal pain syndrome 11/26/2020 Nausea and vomiting 11/26/2020 Post-nasal drainage 11/26/2020 Tobacco use disorder 08/26/2020 Gastroesophageal reflux disease without esophagi tis 03/12/2020 Assessment & Plan (06/23/2020 5:03 PM COMPUTER HARDWARE DESIGNER): Patient is doing well with the Pepcid [...] (02/14/2020): Added automatically from request for surgery [id number] Assessment & Plan (06/23/2020 5:03 PM COMPUTER HARDWARE DESIGNER): Normal upper endoscopy in February of 2020. [...] benefits. Assessment & Plan (06/23/2020 5:02 PM COMPUTER HARDWARE DESIGNER): Patient is having constipation symptoms no. Discussed [...] is a hard stool. Pt also on oysterman opioids which likely contributes to constipation. She [...] (02/14/2020): Added automatically from request for surgery [id number] Assessment & Plan (03/12/2020 1:04 PM CDT): [...] Department Care Team Description 08/01/2024 Results Follow-Up [place] [employer] Worker at [facility] [address] [facility] [address] [place] [address] Alia Cardoso NP 07/30/2024 12:32 PM COMPUTER HARDWARE DESIGNER - 07/30/2024 11:59 PM COMPUTER HARDWARE DESIGNER Hospital Encounter [facility] Cardiology [address] [place] [address] Congestive heart failure, unspecified HF chronicity, unspecified heart failure type (HCC) Discharge Disposition: Discharge to home or self care 06/28/2024 7:30 AM COMPUTER HARDWARE DESIGNER Lab [address] [address] 06/27/2024 Orders Only [facility] Neurology [address] [place] [address] Raf Pratt MD Bilateral occipital neuralgia (Primary Dx) 06/22/2024 8:00 AM COMPUTER HARDWARE DESIGNER Office Visit [facility] Neurology [address] [place] [address] Raf Pratt MD Bilateral occipital neuralgia (Primary Dx); Cervical pain (neck) 06/07/2024 1:45 PM COMPUTER HARDWARE DESIGNER Office Visit [facility] [address] [place] [address] [address] [place] [address] Alida Caceres MD Small fiber neuropathy (CMS/HCC) (Primary Dx); Chronic migraine with aura without status migrainosus, not intractable 05/22/2024 1:30 PM COMPUTER HARDWARE DESIGNER Office Visit [facility] Pulmonary at [address] [place] [address] Tanika Clay NP Asthma-COPD overlap syndrome (HCC) (Primary Dx); NICM (nonischemic cardiomyopathy) (CMS/HCC) (HCC) 05/22/2024 Telephone [facility] [address] [facility] [address] [place] [address] Yadira Fuller MD from Last 3 Months Immunizations Immunization Administration Dates Next Due Tdap 05/12/2017 Tetanus toxoid, adsorbed 06/11/2004 Surgical History Surgery Date Site/Laterality Comments OTHER SURGICAL HISTORY depression: admitted to [facility] KNEE SURGERY Left FINGER TENDON REPAIR Right [...] patient Anxiety Substance abuse (CMS/HCC) (HCC) Depression [facility] psych sta y Feb 2014 Chronic diarrhea [...] on file Legal Sex Female 8:57 AM COMPUTER HARDWARE DESIGNER Gender Identity Female 09/01/2023 3:49 PM CDT [...] Comments Blood Pressure 114/78 06/22/2024 7:50 AM COMPUTER HARDWARE DESIGNER Pulse 78 06/22/2024 7:50 AM COMPUTER HARDWARE DESIGNER Temperature 36.6 C (97.9 F) 06/07/2024 1:32 PM COMPUTER HARDWARE DESIGNER Respiratory Rate 15 06/07/2024 1:32 PM COMPUTER HARDWARE DESIGNER Oxygen Saturation 91% 06/22/2024 7:50 AM COMPUTER HARDWARE DESIGNER Inhaled Oxygen Concentration - - Weight 63.5 kg (140 lb) 06/22/2024 7:50 AM COMPUTER HARDWARE DESIGNER Height 162.6 cm (5' 4 ) 06/22/2024 7:50 AM COMPUTER HARDWARE DESIGNER Body Mass Index 24.03 06/22/2024 7:50 AM COMPUTER HARDWARE DESIGNER Plan of Treatment Health Maintenance Due Date Last Done Comments Hepatitis B Screening 1989 Pneumococcal vaccine <65 (1 of 2 - PCV) 1990 Zoster Vaccine (1 of 2) 2021 Covid-19 Vaccine (2 - 2023-2 5 season) 2024 06/23/2021 Influenza Vaccine (#1) 2024 Cervical Cancer Screening 03/30/2024 03/30/2023 Regular Well Visit/Exam 18-64 03/30/2024 03/30/2023 Depression Screening 05/18/2024 05/18/2023, 03/30/2023, 12/20/2016 Breast Cancer Screening-Mammogram 07/11/2024 07/11/2023, 09/24/2022, 01/15/2021, Additional history exists Lung Cancer Screening 11/07/2024 11/07/2023 DTaP/Tdap/Td Vaccine (2 - Td or Tdap) 05/12/2027 05/12/2017, 06/11/2004 Colon Cancer Screening-Colonoscopy 12/30/2031 12/29/2021, 02/07/2018, 12/14/2010 Hepatitis C Screening Completed 11/03/2022 Medical Devices Implanted Type Area Fundraising Manager Device Identifier Shelf Expiration Date Model / Serial / Lot [employer] [id number] Angio-Seal Evolution 6fr .035in Guidewire Bypass Tube Suture - [id number] Implanted:Qty: 1 on 03/06/2021 by Amador Cano MD at [facility] [employer] 10/03/2021 [id number] / / [id number] Procedures Procedure Name Priority Date/Time Associated Diagnosis Comments TRANSTHORACIC ECHO (TTE) COMPLETE W DOPPLER/CF WO CONTRAST Routine 07/30/2024 1:51 PM COMPUTER HARDWARE DESIGNER Congestive heart failure, unspecified HF chronicity, unspecified heart failure type (HCC) URINALYSIS AND REFLEX TO MICROSCOPIC AND CULTURE Routine 06/28/2024 7:45 AM COMPUTER HARDWARE DESIGNER EGFR Routine 06/28/2024 7:42 AM COMPUTER HARDWARE DESIGNER PHOSPHORUS Routine 06/28/2024 7:42 AM COMPUTER HARDWARE DESIGNER DIFFERENTIAL AUTO Routine 06/28/2024 7:4 2 AM COMPUTER HARDWARE DESIGNER VITAMIN D 25 HYDROXY Routine 06/28/2024 7:42 AM COMPUTER HARDWARE DESIGNER TSH Routine 06/28/2024 7:42 AM COMPUTER HARDWARE DESIGNER T4, FREE Routine 06/28/2024 7:42 AM COMPUTER HARDWARE DESIGNER COMPREHENSIVE METABOLIC PANEL Routine 06/28/2024 7:42 AM COMPUTER HARDWARE DESIGNER LIPID PANEL Routine 06/28/2024 7:42 AM COMPUTER HARDWARE DESIGNER CBC WITH AUTO DIFFERENTIAL Routine 06/28/2024 7:42 AM COMPUTER HARDWARE DESIGNER CT LUNG CANCER SCREENING Schedule Routine, Read Routine (OP Routine) 11/07/2023 8:11 AM CDT Nicotine dependence, cigarettes, in remission DIAGNOSTIC MAMMOGRAM BILATERAL W SCOTT W IMPLANTS Schedule Routine, Read Routine (OP Routine) 07/11/2023 1:57 PM COMPUTER HARDWARE DESIGNER Abnormal mammogram PAP AND HPV, REFLEX TO HPV GENOTYPES Routine 03/30/2023 2:59 PM CDT Encounter for annual routine gynecological examination HEPATITIS C RNA, QUANTITATIVE, PCR Routine 11/03/2022 1:25 PM CDT COLONOSCOPY 12/29/2021 11:33 AM CDT from Last 3 Months or Most Recently Relevant to Health Maintenance Results * TRANSTHORACIC ECHO (TTE) COMPLETE W DOPPLER/CF WO CONTRAST (07/30/2024 1:51 PM COMPUTER HARDWARE DESIGNER) LV EF 35 % CONS SCIMAGE Anatomical Region Laterality Modality Ultrasound 07/30/2024 1:11 PM COMPUTER HARDWARE DESIGNER Narrative 07/30/2024 3:52 PM COMPUTER HARDWARE DESIGNER [address] [place] [address] Echocardiogram Report Patient Name: JESSICA ARRIAGA : [...] By: Dr Gavin Low 07/30/2024 3:51:47 PM COMPUTER HARDWARE DESIGNER Procedure Note Gavni Low MD - 07/30/[address] [place] [address] Echocardiogram Report Patient Name: JESSICA ARRIAGA : [...] By: Dr Gavin Low 07/30/2024 3:51:47 PM COMPUTER HARDWARE DESIGNER us Alia Cardoso NP CV ECHO PROCEDURES Carin l Result * Urinalysis reflex to microscopic and culture Urine (06/28/2024 7:45 AM COMPUTER HARDWARE DESIGNER) Color, ur Yellow Yellow Clarity, ur Clear [...] tendency for uric acid stone formation. Source: [facility] [place] Current Interpretive Data was last revised on [...] [facility] ([place]) Urine 06/28/2024 7:45 AM COMPUTER HARDWARE DESIGNER 06/28/2024 8:42 AM COMPUTER HARDWARE DESIGNER us Katey Markham TILE LAYER DRAINAGE LAB MICROBIOLOGY - GENERAL ORD ERABLES Final Result [facility] ([place]) [address] [facility] [place] [address] * eGFR (06/28/2024 7:42 AM COMPUTER HARDWARE DESIGNER) eGFR 88 >=60 mL/min/1. 73 m2 Comment: [...] last reviewed 2021. Blood 06/28/2024 7:42 AM COMPUTER HARDWARE DESIGNER 06/28/2024 8:40 AM COMPUTER HARDWARE DESIGNER us Katey Markham TILE LAYER DRAINAGE LAB BLOOD ORDERABLES Final Res ult [facility] ([place] [address] [facility] [place] [address] * Differential, auto (06/28/2024 7:42 AM COMPUTER HARDWARE DESIGNER) Neutrophil abs 4.1 1.5 - 6.5 K/cumm [...] revised on 2017. Blood 06/28/2024 7:42 AM COMPUTER HARDWARE DESIGNER 06/28/2024 8:40 AM COMPUTER HARDWARE DESIGNER us Katey Markham TILE LAYER DRAINAGE LAB BLOOD ORDERABLES Final Res ult [facility] ([place]) [address] [facility] [place] [address] * CBC with auto differential (06/28/2024 7:42 AM COMPUTER HARDWARE DESIGNER) WBC 7.0 3.8 - 9.9 K/cumm Hgb [...] ([place]) MCHC 33.1 32.3 - 35.7 g/dL [facility] ([place]) RDW CV 13.7 11.1 - 14.9 % [facility] ([place]) RDW SD 46.1 35.7 - 48.1 fL [facility] ([place]) NRBC abs 0.00 0.00 - 0.01 K/cumm [facility] ([place]) Blood 06/28/2024 7:42 AM COMPUTER HARDWARE DESIGNER 06/28/2024 8:40 AM COMPUTER HARDWARE DESIGNER Katey Markham TILE LAYER DRAINAGE LAB BLOOD ORDERABLES Final Res ult [facility] ([place]) [address] [facility] [place] [address] * Vitamin D 25 hydroxy (06/28/2024 7:42 AM COMPUTER HARDWARE DESIGNER) Vitamin D 25-OH 36 30 - 80 ng/mL Blood 06/28/2024 7:42 AM COMPUTER HARDWARE DESIGNER 06/28/2024 8:40 AM COMPUTER HARDWARE DESIGNER us Katey Markham TILE LAYER DRAINAGE LAB BLOOD ORDERABLES Final Res ult Performing Organization Address [facility]/ZIP Co de Phone Number [facility] ([place]) [address] [facility] [place] [address] * TSH (06/28/2024 7:42 AM COMPUTER HARDWARE DESIGNER) Thyroid Stimulating Hormone 1.39 0.30 - 4.20 mcIUnit/mL Blood 06/28/2024 7:42 AM COMPUTER HARDWARE DESIGNER 06/28/2024 8:40 AM COMPUTER HARDWARE DESIGNER Katey Markham TILE LAYER DRAINAGE LAB BLOOD ORDERABLES Final Res ult [facility] ([place]) [address] [facility] [place] [address] * T4, free (06/28/2024 7:42 AM COMPUTER HARDWARE DESIGNER) Free T4 0.98 0.90 - 1.70 ng/dL Blood 06/28/2024 7:42 AM COMPUTER HARDWARE DESIGNER 06/28/2024 8:40 AM COMPUTER HARDWARE DESIGNER Katey Markham TILE LAYER DRAINAGE LAB BLOOD ORDERABLES Final Res ult Performing Organization Address [facility] Co de Phone Number [facility] ([place]) [address] [facility] [place] [address] * Phosphorus (06/28/2024 7:42 AM COMPUTER HARDWARE DESIGNER) Pathologist [facility] Phosphorus, pl 3.7 2.3 - 4.5 mg/dL Blood 06/28/2024 7:42 AM COMPUTER HARDWARE DESIGNER 06/28/2024 8:40 AM COMPUTER HARDWARE DESIGNER Katey Markham TILE LAYER DRAINAGE LAB BLOOD ORDERABLES Final Res ult Performing Organization Address [facility] de Phone Number [facility] ([place]) [address] [facility] [place] [address] * (ABNORMAL) Lipid panel (06/28/2024 7:42 AM COMPUTER HARDWARE DESIGNER) Cholesterol 298(H) 30 - 199 mg/dL Comment: [...] NCEP Expert Panel. Circulation 2004;110:227 3. Jeff Love al. CHRIST Cardiol. 2020 October 04;5(5):540-548. doi: [...] [facility] ([place]) Blood 06/28/2024 7:42 AM COMPUTER HARDWARE DESIGNER 06/28/2024 8:40 AM COMPUTER HARDWARE DESIGNER us Katey Markham NP LAB BLOOD ORDERABLES Final Res ult [facility] ([place]) [address] [facility] Department [place] [address] * Comprehensive metabolic panel (06/28/2024 7:42 AM COMPUTER HARDWARE DESIGNER) Sodium 139 135 - 145 mmol/L Potassium, pl 4.3 3.3 - 4.9 mmol/L [facility] ([place]) Chloride 101 97 - 110 mmol/L [facility] ([place]) CO2 27 22 - 32 mmol/L [facility] ([place]) Anion gap 12 2 - 15 mmol/L [facility] ([place]) BUN 16 6 - 25 mg/dL [facility] ([place]) Creatinine 0.80 0.60 - 1.10 mg/dL [facility] ([place]) Glucose 86 70 - 199 mg/dL [facility] ([place]) Comment: Interpretive Data Fasting glucose [...] [facility] ([place]) Blood 06/28/2024 7:42 AM COMPUTER HARDWARE DESIGNER 06/28/2024 8:40 AM COMPUTER HARDWARE DESIGNER us Katey Markham TILE LAYER DRAINAGE LAB BLOOD ORDERABLES Final Res ult [facility] ([place]) [address] [facility] Department [place] [address] * CT Lung Cancer Screening (11/07/2023 8:11 [...] Annie Linares M.D. TW: TW Report ID: [id number] Reading Location: [place] [address] Procedure Note Annie Linares MD - 11/07/2023 [...] Electronically signed by Annie Linares M.D. TW: PORFIRIO Report ID: [id number] Reading Location: [place] [address] Austin Stout MD [facility] CT PROCEDURES Final Result * Diagnostic Mammogram Bilateral W Scott W Implants (07/11/2023 1:57 PM COMPUTER HARDWARE DESIGNER) Anatomical Region Laterality Modality Breast Bilateral Mammography 07/11/2023 4:15 PM COMPUTER HARDWARE DESIGNER Impressions 07/11/2023 4:15 PM COMPUTER HARDWARE DESIGNER 1. Probably benign asymmetry versus amorphous calcifications [...] Hayes Blair M.D. Narrative 07/11/2023 4:15 PM COMPUTER HARDWARE DESIGNER EXAMINATION: DIAGNOSTIC MAMMOGRAM BILATERAL W SCOTT W [...] Genotypes (03/30/2023 2:59 PM CDT) CLINICAL INFORMATION: [facility] Comment:ROUTINE SCREENING LMP [facility] Comment:NONE Previous Pap [facility] Comment:NONE GIVEN Prev. Bx [facility] Comment:NONE GIVEN SOURCE: [facility] Comment:Cervix, Endocervix Pap, specimen adequacy [facility] Comment: Satisfactory for evaluation. Endocervical/transformation zone component absent. HPV interp [facility] Comment: Cytology Results: Negative for intraepithelial lesion or malignancy. Bleach Mixer [facility] Comment: SRR, CT(ASCP) CT Screening Location: [place] [address] [place] [address] Comment [facility] Comment: EXPLANATORY NOTE: The Pap is [...] Client Letter) showing TIS test codes, see www.One2start/Resources, and navigate to Erly-Woman>Physician Materials>TIS Client Letter. You can also call for test code assistance. Human papillomavirus DNA, High Risk E6/E7 Not Detected NOT DETECTED [employer] /Jose IBARRA Comment: Not Detected High Risk HPV types (16,18,31,33,35,39,45,51,52, 56,58,59,66,68) were not detected. Other HPV types which cause anogenital lesions may be present. The significance of the other types of HPV in malignant processes has not been established. Methodology: Real Time PCR Thin prep 03/30/2023 2:59 PM CDT 04/01/2023 2:49 AM CDT us Silvia Velez NP LAB CYTOLOGY ORDERABLES Final Re sult [facility] [address] [place] [address] [employer]/[place] [address] [facility] [place] [phone] * Hepatitis C (HCV) RNA PCR, quantitative (11/03/2022 1:25 PM CDT) HCV RNA result Not Detected [facility] ([place]) Comment: The quantifiable range of this assay is 15 IU/mL to 100,000,000 IU/mL (1.18 log IU/mL to 8.00 log IU/mL). Testing was performed by the EVA 6800 HCV Test ([employer] Testing performed at [facility] Current Interpretive Data was last revised on 2021 Testing performed by: [facility], [address] [place]., [address] Blood 11/03/2022 1:25 PM CDT 11/04/2022 10:17 AM CDT us Moni Briseno NP LAB MICROBIOLOGY - GENERAL ORDERABLES Final Result [facility] ([place]) [address] [facility] Department of Laboratories [place], [place] [id number] * COLONOSCOPY (12/29/2021 11:33 AM CDT) Anatomical Region Laterality Modality Other Narrative Procedure Note Kingsley Corea MD - 12/29/2021 11:33 AM CDT [facility] Patient Name: Jessica Arriaga Procedure Date: 12/29/2021 11:33 AM Date of : 1970 Admit Type: Outpatient Age: 51 Gender: Female Attending MD: Kingsley Corea M.D. Room: [facility] ENDOSCOPY ROOM 1 Note Status: Finalized Patient [...] under direct vision. The Pediatric Colonoscope [id number] was introducedthrough the anus and advanced to [...] 11:33 AM Procedure Code(s): --- Professional --- 90578, Colonoscopy, flexible; with biopsy, single or multiple Diagnosis Code(s): --- Professional --- Z80.0, Family history of malignant neoplasm of digestive organs K64.8, Other hemorrhoids CPT copyright 2020 [employer]. All rights reserved. The codes documented in this report are preliminary and upon manifest clerk reviewmay be revised to meet current compliance requirements. Recognized by the [employer] [employer] for promoting quality in endoscopy Kingsley Corea MD ENDOSCOPY PROCEDURES Final Result from Last 3 Months or Most Recently Relevant to Health Maintenance Insurance [facility] Advance Directives For more information, please contact: [phone] * Full Code (Latest Code Status on [...] 9:14 AM 04/26/2018 12:11 PM Care Teams Assistant Portfolio Manager Relationship Specialty Start Date End Date Katye Markham, TILE LAYER DRAINAGE [address] [place] [address] [address] TR[address] [facility] [address] [place] [address] PCP - General Internal Medicine 10/12/23 Katey Markham, TILE LAYER DRAINAGE 09/26/21 Alia Cardoso, [place] Nurse Practitioner Family Medicine 09/28/22 Tanika Clay NP Nurse Practitioner Nurse Practitioner 09/28/22 [place] [address] [address] [place] [id number] Consulting Physician Urology 09/28/22 Beau Stone, [place] [address] [place] [id number] Nurse Practitioner Family Practice 09/28/22 Pearl York DO [address] [place] [address] [address] TR[address] [facility] [address] [place] [address] Consulting Physician Otolaryngology 09/28/22
--- OUTSIDE RECORDS SUMMARY | 2024-08-08 00:35 | XMS_ITS | Clinical Summary ---
Author Organization [facility] Address [address] [place] [address] Phone Care Team Providers Care Income Tax Preparer Name Role Phone ADELE VALENTINE MD Primary Care Provider [phone] MARYLU LUZ MD Unavailable [phone] Reason for Visit and Chief Complaint The Chief Complaint is: Consult- chronic pelvic pain- s/p hysteroscopic removal of paragard 2018 Problems Includes: Problems addressed during this encounter and other active Problems All Visits Onset Date Resolved Date Provider Condition S tatus Hyperlipidemia 11/21/2020 HATTIE QUINTEROS WHNP-BC Active Last Documented On 1 1:46PM ; [facility] Hypertension Systemic 11/21/2020 HATTIE QUINTEROS NP-BC Active Last Documented On 1 1:48PM ; [facility] Risk: Tobacco Use 11/21/2020 HATTEI A NELI WHNP -BC Active Last Documented On 1 1:29PM ; [facility] Plan of Treatment No Plan of Treatment Recorded Assessments Includes: Assessments from this encounter Findings - Ventral hernia without obstruction or gangrene - Last Documented On 12/29/2020 12:45PM ; [facility] Medical Equipment - Implanted Devices Includes: Current Devices No Medical Equipment Recorded Medications Includes: Medications discussed during this encounter and other current Medications Current Medications (continue as prescribed) Provera 10 MG Oral Tablet 11/25/2020 Provider: Diagnosis: Last Documented On 11/25/2020 11:04AM By Carmencita Moss MA ; [facility] HYDROcodone-Acetaminophen 5-325 MG Oral Tablet Provider: Diagnosis: Last Documented On 11/21/2020 1:38PM By Carmencita Moss MA ; [facility] clonazePAM 0.5 MG Oral Tablet 11/21/2020 Provider: Diagnosis: Last Documented On 11/21/2020 1:38PM By Carmencita Moss MA ; [facility] Cyclobenzaprine HCl 5 MG Oral Tablet 11/21/2020 Prov ider: Diagnosis: Last Documented On 11/21/2020 1:39PM By Carmencita Moss MA ; [facility] Adult Probiotic Oral Capsule 11/21/2020 Provider : Diagnosis: Last Documented On 11/21/2020 1:39PM By Carmencita Moss MA ; [facility] Turmeric Curcumin 500 MG Oral Capsule 11/21/2020 Provider: Diagnosis: Last Documented On 11/21/2020 1:39PM By Carmencita Moss MA ; [facility] Calcium/Vitamin D 500-200 MG-UNIT Oral Tablet 11/22/19 Provider: Diagnosis: Last Documented On 11/21/2020 1:40PM By Carmencita Moss MA ; [facility] Montelukast Sodium 10MG Oral Tablet 03/14/2018 Provi duyen: Diagnosis: Last Documented On 8 4:57PM By MAYRA RODRIGUEZ ; [facility] Medications Administered Includes: Administered Medications from this encounter No Administered Medications Recorded Vital Signs Includes: Vital Signs from this encounter Vital Name 12/29/2020 11:44A Blood Pressure Sitting (mmHg) 100/70 Temp-Oral (F) 98 Height (in) 64.5 Weight (lb) 135.25 Body Mass Index (kg/m2) 22.9 Body Surface Area (m2) 1.7 Last Documented: On 12/29/2020 11:44A M ; [facility] Results Includes: Results discussed during [...] she had a CT scan done at [facility] a couple weeks ago. It doesn't find anything. She had a CT urogram done at [place] 12/23/20 also that didn't find anything. She [...] trouble swallowing. Hida scan done 12/16/20 at [facility] that was normal. 12/17/20 pulmonary lung test done at [facility]. She states she had blood in her stool 3 x in the last months. She also gets a 'fizzing feeling' in my vagina for 2 seconds 'off and on constantly'. Did it all day long a couple days ago and sometimes it skips days Social History Description Last Updated control is not practiced Last Documented On 1 11:31AM ; [facility] Does not have anal sex 11/21/2020 Last Documented On 1 11:31AM ; [facility] Does not have vaginal sex. 11/21/2020 Last Documented On 1 11:31AM ; [facility] Has not used injectable drugs 11/21/2020 Last Documented On 1 11:31AM ; [facility] Has sex with males only 11/21/2020 Last Documented On 1 11:31AM ; [facility] Have you ever had sex (vaginal or penis in anus or rectum)? 11/21/2020 Last Documented On 1 11:31AM ; [facility] No consumption of alcohol 11/21/2020 Last Documented On 1 11:31AM ; [facility] No drug use by a sexual partner 11/22/19 Last Documented On 1 11:31AM ; [facility] Not using drugs 11/21/2020 Last Documented On 1 11:31AM ; [facility] Partner has not had a STD in the past ye ar 11/21/2020 Last Documented On 11:31AM ; [facility] Patient does not report having sex when she didn't want to 11/21/2020 Last Documented On 11:31AM ; [facility] Patient has not had sex unde r the influence of alcohol or drugs in the last year 11/21/2020 Last Documented On 11:31AM ; [facility] Sexual partner has not had o ther partners while in relationship with patient 11/21/2020 Last Documented On 11:31AM ; [facility] Sexual partner has not had sex with pros titutes 11/21/2020 Last Documented On 11:31AM ; [facility] Exercising regularly 11/21/2020 Last Documented On 11:31AM ; [facility] Marital history 11/21/2020 Last Documented On 11:31AM ; [facility] Sexually active with 0 partners in the l ast year 11/21/2020 Last Documented On 11:31AM ; [facility] Smoking status : Current denver ryday smoker one pack per day since 15 y old off and on (off for preg's) 03/14/2018 Last Documented On 11:31AM ; [facility] Procedures and Surgical History Includes: Procedures from this encounter Procedures Code Diagnosis Performing Provider Service L ocation Service Date use of tobacco assessment performed 1000F Last Documented On 11:33AM ; [facility] Clinical summary provided to patient Last Documented On 12:32PM ; [facility] Surgical History Last Updated Surgical [...] 12/29/2020 Last Documented On 1 12:45PM ; [facility] Medical History Includes: Medical History addressed during this encounter Description Last Updated A colonoscopy was performed 02/2018 at [facility]: ulcerative colitis was dx's and she hasen't seen anybody about it since then 12/29/2020 Last Documented On 1 12:45PM ; [facility] Contraception: abstinence past 4 years 0 12/29/2020 Last Documented On 12:45PM ; [facility] LMP: 12/23/2020 12/29/2020 Last Documented On 12:45PM ; [facility] Last pap smear date 11/21/2020 12/29/2020 Last Documented On 12:45PM ; [facility] Result: normal 12/29/2020 Last Documented On 12:45PM ; [facility] History of cervical Pap smear 11/21/2020 12/29/2020 Last Documented On 1 12:45PM ; [facility] History of colonoscopy fiberoptic was pe rformed 02/07/2018 12/29/2020 Last Documented On 1 12:45PM ; [facility] History of screening mammogram was perfo rmed 09/23/2017 12/29/2020 Last Documented On 1 12:45PM ; [facility] Aborta 2 11/21/2020 Last Documented On 1 11:31AM ; [facility] 6 11/21/2020 Last Documented On 1 11:31AM ; [facility] Anesthesia: Local only 11/21/2020 Last Documented On 1 11:31AM ; [facility] # 1 Delivery date: [birth year] 11/21/2020 Last Documented On 1 11:31AM ; [facility] # 1 Hours in labor ??? 11/21/2020 Last Documented On 1 11:31AM ; [facility] Sex: Male 11/21/2020 Last Documented On 1 11:31AM ; [facility] type delivery: Vaginal 11/21/2020 Last Documented On 1 11:31AM ; [facility] 1 Weeks: 38 weeks 11/21/2020 Last Documented On 1 11:31AM ; [facility] 1 Weight [id number] 11/21/2020 Last Documented On 1 11:31AM ; [facility] # 2 type delivery: Vaginal 11/21/2020 Last Documented On 1 11:31AM ; [facility] # 2 Anesthesia: Local 11/21/2020 Last Documented On 11:31AM ; [facility] # [facility] Complications: None 11/21/2020 Last Documented On 1 11:31AM ; [facility] 2 Delivery date: [birth year] 11/21/2020 Last Documented On 1 11:31AM ; [facility] # 2 Hours in labor: ??? 11/21/2020 Last Documented On 1 11:31AM ; [facility] Sex: Female 11/21/2020 Last Documented On 1 11:31AM ; [facility] # 2 Weeks: 40 weeks 11/21/2020 Last Documented On 1 11:31AM ; [facility] # 2 Weight: 7lbs 11oz 11/21/2020 Last Documented On 1 11:31AM ; [facility] Complications None 11/21/2020 Last Documented On 1 11:31AM ; [facility] Asthma 11/21/2020 Last Documented On 1 11:31AM ; [facility] Breast problems 11/21/2020 Last Documented On 11:31AM ; [facility] Elective (s) 2 11/21/2020 Last Documented On 1 11:31AM ; [facility] Exercise 11/21/2020 Last Documented On 11:31AM ; [facility] No of miscarriages: 0 11/21/2020 Last Documented On 07/26/202 1 11:31AM ; [facility] No previous STD 11/21/2020 Last Documented On 11:31AM ; [facility] No. of Pregnancies: 6 11/21/2020 Last Documented On 1 11:31AM ; [facility] Please list all surgeries: K nee surgery, breast surgery x3hand surgery/tendon transfer 11/21/2020 Last Documented On 11:31AM ; [facility] Previous live (s) 4 11/21/2020 Last Documented On 11:31AM ; [facility] Previous premature delivery(s) 0 021 Last Documented On 11:31AM ; [facility] Received all 3 doses of Hepatitis B vacc ine 11/21/2020 Last Documented On 11:31AM ; [facility] Reported Pneumococcal Vaccine Last year 11/21/2020 Last Documented On 11:31AM ; [facility] Last mammogram date: 09/23/2017 1 Last Documented On 1 11:31AM ; [facility] Not sexually active not since 04/30/17 0 11/21/2020 Last Documented On 1 11:31AM ; [facility] Para 4 11/21/2020 Last Documented On 1 11:31AM ; [facility] Vaginal delivery x 4 11/21/2020 Last Documented On 11:31AM ; [facility] Family History Includes: Family History addressed during this encounter Description Last Updated Family history of Breast problems 2020 Last Documented On 11:31AM ; [facility] Maternal history of Anemia 11/21/2020 Last Documented On 11:31AM ; [facility] Maternal history of bowel problems 11/21 Last Documented On 11:31AM ; [facility] Maternal history of kidney disease 11/21 Last Documented On 11:31AM ; [facility] Maternal history of thyroid disorder Last Documented On 1 11:31AM ; [facility] mom- cancer along ribs ~dad- ci rrhosis of liver 03/14/2018 Last Documented On 1 11:31AM ; [facility] Family history of malignant female breas t neoplasm MGM 03/14/2018 Last Documented On 1 11:31AM ; [facility] First child named 07/15/[birth year] male 6# 4oz vag inal 03/14/2018 Last Documented On 1 11:31AM ; [facility] Fourth child named 11/12/2005 female 6# 14 oz vaginal 03/14/2018 Last Documented On 1 11:31AM ; [facility] Second child named 02/17/90 female 7# 6oz vaginal 03/14/2018 Last Documented On 1 11:31AM ; [facility] Third child named 06/01/[birth year] male 8# 1oz v aginal 03/14/2018 Last Documented On 1 11:31AM ; [facility] Family history of hypertension pt and mo m 03/14/2018 Last Documented On 1 11:31AM ; [facility] Review of Systems Includes: Review [...] ctive Last Documented On 1 11:42AM ; [facility] Latex Allergy 03/14/2018 Active Last Documented On 1 11:42AM ; [facility] Aspirin Allergy 03/14/2018 Active Last Documented On 1 11:42AM ; [facility] Encounters Encounter Provider Location Date Check-In Time Check-Out Time Diagnosis CONSULTATION- ESTABLISHED PATIENT MARYLU LUZ MD [facility] 12/30/19 21 11:28AM 12:33PM Ventral Hernia Without Obstruction Or Gangrene Insurance Includes: Active Insurance Policies Plan Name Member ID Group # Subscriber Relationship Effect mario Dates 1 - [employer] [id number] ALEX ARRIAGA Self Clinical Notes Includes: Clinical Notes from this encounter No Clinical Notes Recorded
--- OUTSIDE RECORDS SUMMARY | 2024-08-08 00:35 | XMS_ITS | Clinical Summary ---
Author Organization [facility] Address [address] [place] [address] Phone Care Team Providers Care Director Software Name Role Phone ADELE VALENTINE MD Primary Care Provider [phone] MARYLU LUZ MD Unavailable [phone] Reason for Visit and Chief [...] 1:48PM ; [facility] Risk: Tobacco Use [...] 11/25/2020 11:04AM By Carmencita Moss MA ; [facility] HYDROcodone-Acetaminophen 5-325 MG Oral Tablet 021 Provider: Diagnosis: Last Documented On 11/21/2020 1:38PM By Carmencita Moss MA ; [facility] clonazePAM 0.5 MG Oral Tablet 11/21/2020 Provider: Diagnosis: Last Documented On 11/21/2020 1:38PM By Carmencita Moss MA ; [facility] Cyclobenzaprine HCl 5 [...] ctive Last Documented On 1 11:42AM ; [facility] Latex Allergy 03/14/2018 Active Last Documented On 1 11:42AM ; [facility] Aspirin Allergy 03/14/2018 Active Last Documented On 1 11:42AM ; [facility] Encounters Encounter Provider Location Date Check-In Time Check-Out Time Diagnosis * PHONE CALL MARYLU LUZ MD [facility] [employer] 8 4:59PM 11:59PM Insurance Includes: Active Insurance Policies Plan Name Member ID Group # Subscriber Relationship Effect mario Dates 1 - [facility] [id number] ALEX ARRIAGA Self Clinical Notes Includes: Clinical Notes from this encounter No Clinical Notes Recorded
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
--- OUTSIDE RECORDS SUMMARY | 2024-08-08 00:36 | XMS_ITS | Clinical Summary ---
Author Organization [facility] Address [address] [place] [place] [address] Care Team Providers Care Networking Technology Instructor Name Role Phone Zack Nguyen MD Unavailable Cruz Luciano MD Primary Care Provider [phone] Source Comments [facility],non-owned Affiliates and Associated Physician Practices is amultiple site organization consisting of ambulatory clinics and hospital sitesin [place], [place], [place] and [place]. This disclosure is being madepursuant to the Care Everywhere program and may not contain all information available regarding this patient. Last updated 18.[facility] Allergies Active Allergy Reactions Criticality Noted Date Comments Aspirin Urticaria High 02/19/2014 Reaction: Hives, Reaction: Hives, Latex Urticaria Medium 09/27/2017 Sulfa Antibiotics Urticaria High 02/19/2014 Reaction: Hives, Reaction: Hives, Sulfa Drugs 02/19/2014 Sulfanilamide Urticaria Medium 03/10/2023 [...] Active Sertraline HCl (ZOLOFT PO) Active Ferrous Xkqmkntwf-R-Rmxbu Acid (IRON-C PO) Active fluticasone-umeclid in-vilant (Trelegy [...] 64 02/21/2023 11:55 AM CDT Temperature 35.6 C (96.1 F) 02/21/2023 11:55 AM CDT Respiratory Rate 18 02/21/2023 11:55 AM CDT [...] ve Non-react mario 02/21/2023 2:43 PM CDT [facility] Comment:No Laboratory eviden ce of HIV infection. Blood BLOOD SPECIMEN / Unknown Lab Venipuncture / Unknown 02/21/2023 1:02 PM CDT 02/21/2023 1:21 PM CDT Aristides Velasco MD LAB - CHEMISTRY EDNA [facility] [address] [place] [address], [facility] [phone] from Last 3 Months or Most Recently Relevant to Health Maintenance Advance Directives * Full Code (Latest Code Status on File) Date Activated Date Inactivated Comments 02/19/2014 12:04 AM 02/21/2014 4:03 PM Care Teams Networking Technology Instructor Relationship Specialty Start Date End Date Cruz Luciano MD [address] [place] [address] PCP - General Internal Medicine 12/16/22 Zack Nguyen MD [address] [place] [id number] Internal Medicine 01/06/21
--- OUTSIDE RECORDS SUMMARY | 2024-08-08 00:36 | XMS_ITS | Referral Summary ---
Author Organization [facility] Address [address] [place] [address] Care Team Providers Care Communication Electronic Technician Name Role Phone Zack Nguyen MD Unavailable Cruz Luciano MD Primary Care Provider [phone] Source Comments [facility],non-owned Affiliates and Associated Physician Practices is amultiple site organization consisting of ambulatory clinics and hospital sitesin [place], [place], [place] and [place]. This disclosure is being madepursuant to the Care Everywhere program and may not contain all information available regarding this patient. Last updated 18.[facility] Allergies Active Allergy Reactions Criticality Noted Date [...] Active Sertraline HCl (ZOLOFT PO) Active Ferrous Okvqvwgjb-P-Jcdac Acid (IRON-C PO) Active fluticasone-umeclid in-vilant (Trelegy [...] ve Non-react mario 02/21/2023 2:43 PM CDT [facility] Comment:No Laboratory eviden ce of HIV infection. Blood BLOOD SPECIMEN / Unknown Lab Venipuncture / Unknown 02/21/2023 1:02 PM CDT 02/21/2023 1:21 PM CDT Aristides Velasco MD LAB - CHEMISTRY [facility]DNA [place] Organization Address City/State/ZIP Co de Phone Number [facility] [address] [place] [id number], [facility] [phone] from Last 3 Months or Most Recently Relevant to Health Maintenance Advance Directives * Full Code (Latest Code Status on File) Date Activated Date Inactivated Comments 02/19/2014 12:04 AM 02/21/2014 4:03 PM Care Teams Communication Electronic Technician Relationship Specialty Start Date End Date Cruz Luciano MD [address] [place] [address] PCP - General Internal Medicine 12/16/22 Zack Nguyen MD [address] [facility] [place] [address] Internal Medicine 01/06/21
--- OUTSIDE RECORDS SUMMARY | 2024-08-08 00:36 | XMS_ITS | Patient Health Summary ---
Author Organization [facility] Address [address] [place] [address] Care Team Providers Care Monogram And Letter Paster Name Role Phone Zack Nguyen MD Unavailable Cruz Luciano MD Primary Care Provider [phone] Note from [facility],non-owned Affiliates and Associated Physician Practices is amultiple site organization consisting of ambulatory clinics and hospital sitesin [place], [place], [place] and [place]. This disclosure is being madepursuant to the Care Everywhere program and may not contain all information available regarding this patient. Last updated 18.[facility] Allergies * Aspirin(Urticaria) -High Criticality * Latex(Urticaria) [...] * Sertraline HCl (ZOLOFT PO) * Ferrous Fspynkrde-C-Yvgnu Acid (IRON-C PO) * oujujcgcwsl-gqlrkrhph-fgjnaq (Trelegy Ellipta) 200-62.5-25 MCG/ACT inhaler Inhale 1 [...] ANTIBODY CASCADING REFLEX (02/21/2023 1:07 PM CDT) Pathologist [facility] Treponema pallidum Antibody Non-react mario Non-react mario 02/21/2023 2:42 PM CDT [facility] Comment: No Laboratory evidence of syphilis infection. Note: Circulating antibodies may be low or undetectable in early infection. If recent exposure is suspected, re-draw sample in 2-4 weeks and repeat testing. Blood BLOOD SPECIMEN / Unknown Lab Venipuncture / Unknown 02/21/2023 1:07 PM CDT 02/21/2023 1:21 PM CDT Aristides Velasco MD LAB - SEROLOGY ORDER WHIT Performing Organization Address City/[facility]/ZIP Co de Phone Number [facility] [address] [place] [address], [facility] [phone] * FTA ANTIBODY (02/21/2023 1:07 PM CDT) [facility] Treponema pallidum Antibody (FTA-ABS) Non Reactive Non Reactive 02/24/2023 8:17 AM CDT [facility] ([facility]) Blood BLOOD SPECIMEN / Unknown Lab Venipuncture / Unknown 02/21/2023 1:07 PM CDT 02/21/2023 1:21 PM CDT Narrative [facility] ([facility]) - 02/24/2023 8:17 AM CDT Performed at: [facility] [address] [place], [place] [id number] Tipple Mechanic: Mitul Gong PhD, Phone: [phone] Aristides Velasco MD LAB - CHEMISTRY ORDE [facility] ([facility]) [address] [place] [address], [facility] * CYTOMEGALOVIRUS (CMV) QUANT PCR PLASMA STL (02/21/2023 1:02 PM CDT) [facility] CMV Quant by PCR, Interp Not detected Not detected 02/22/2023 9:06 AM CDT [facility] Blood BLOOD SPECIMEN / Unknown Lab Venipuncture / Unknown 02/21/2023 1:02 PM CDT 02/21/2023 1:21 PM CDT Narrative [facility] - 02/22/2023 9:06 AM CDT The [...] Velasco MD LAB - CHEMISTRY EDNA REYES [facility] [address] [place] [address], [facility] [phone] * ERIK-ROSE VIRUS (EBV) QUANT PCR?? PLASMA STL (02/21/2023 1:02 PM CDT) EBV Quant by PCR, Interp Not detected Not detected 02/22/2023 2:03 PM CDT [facility] Specimen Type Plasma 02/22/2023 2:03 PM CDT [facility] Blood BLOOD SPECIMEN / Unknown Lab Venipuncture / Unknown 02/21/2023 1:02 PM CDT 02/21/2023 1:21 PM CDT Narrative [facility] - 02/22/2023 2:03 PM CDT DNA isolated from the plasma was analyzed in a qPCR assay to detect and quantify Erik-Rose DNA. An internal control is included to evaluate for PCR inhibition. The quantitative range of this assay is 500 IU/mL to 5,000,000 IU/mL. Values below 500 IU/mL will be reported as Detected (<500 IU/mL). This test was developed and its performance characteristics determined by [facility]. It has not been cleared or approved by the U.S. Food and Drug Administration. The FDA has determined that such clearance or approval is not necessary. The test is used for clinical purposes. It should not be regarded as investigational or for research. This laboratory is certified under the Clinical Laboratory Improvement Amendments of 1988(CLIA-88) as qualified to perform high complexity clinical laboratory testing. Aristides Velasco MD LAB - CHEMISTRY EDNA REYES [facility] [address] [place] [address], [facility] [phone] * HIV-1 HIV-2 ANTIBODY + HIV P24 AG PANEL (New on 10/20) (02/21/2023 1:02 PM CDT) [facility] HIV Antigen/Antibod y 1 & 2 Non-reacti ve Non-react mario 02/21/2023 2:43 PM CDT [facility] Comment:No Laboratory eviden ce of HIV infection. Blood BLOOD SPECIMEN / Unknown Lab Venipuncture / Unknown 02/21/2023 1:02 PM CDT 02/21/2023 1:21 PM CDT Aristides Velasco MD LAB - CHEMISTRY EDNA REYES [facility] [address] [place] [address], [place] [phone] * IGE BLOOD (02/21/2023 1:02 PM CDT) [facility] IgE Total 40 <=214 kU/L 02/23/2023 11:27 PM CDT [facility] ([facility]) Comment: REFERENCE INTERVAL: Immunoglobulin E, Serum Access complete set of age- and/or gender-specific reference intervals for this test in the [facility] Laboratory Test Directory ([employer]). Performed By: [facility] [employer] [address] [place] [id number] Photoengraving Finisher: Kevon Kaplan MD, PhD CLIA Number: [id number] Blood BLOOD SPECIMEN / Unknown Lab Venipuncture / Unknown 02/21/2023 1:02 PM CDT 02/21/2023 1:21 PM CDT Aristides Velasco MD LAB - CHEMISTRY EDNA REYES [facility]) [address] [place] [address] * IGG BLOOD (02/21/2023 1:02 PM CDT) [facility] IgG 821 767 - 1,590 mg/dL 02/21/2023 2:25 PM CDT [facility] Blood BLOOD SPECIMEN / Unknown Lab Venipuncture / Unknown 02/21/2023 1:02 PM CDT 02/21/2023 1:21 PM CDT Aristides Velasco MD LAB - CHEMISTRY EDNA REYES [address] [address] [phone] * LAB RESULTS ORDER (02/21/2023) 02/21/2023 Narrative 02/21/2023 Ordered by an unspecified provider. Scanned Document LAB - THERAPEUTIC DR SANCHES MONITORING ORDERABLES * MRI BREAST W/O CONT BILATERAL (02/03/2021 10:50 AM CDT) Anatomical Region Laterality Modality Breast Bilateral Magnetic Resonan ce 02/04/2021 12:3 8 PM CDT Impressions 02/04/2021 3:53 PM CDT 1. Intact bilateral silicone breast implants. Clinical follow-up is recommended for the patient's breast pain 2. This noncontrast-enhanced MRI examination does not evaluate for breast malignancy. *Reading Radiologist: ILA CHAN on 02/04/2021 at 3:53 PM Narrative 02/04/2021 3:53 PM CDT EXAMINATION: MRI EXAMINATION OF THE BREASTS WITHOUT CONTRAST HISTORY: 50-year-old woman with severe pain in both breasts. Outside imaging studies from [facility] in January 15, 2021 reported [...] in both breasts. Outside imaging studies from [facility] in January 15, 2021 reported [...] on 02/04/2021 at 3:53 PM Katey Markham ASSOCIATE CREATIVE DIRECTOR-BASKET MACHINE OPERATOR MR ORDERABLES * CARDIAC EKG ORDER (01/07/2021 8:00 AM CDT) Narrative 01/07/2021 8:00 AM CDT Ordered by an unspecified provider. Scanned Document CARDIAC SERVICES ORD ERABLES * TROPONIN I (12/31/2020 12:31 PM CDT) [facility] Troponin I 0.010 <0.032 ng/mL 12/31/2020 1:27 PM [facility] Blood BLOOD SPECIMEN / Unknown Venipuncture / Unknown 12/31/2020 12:31 PM CDT 12/31/2020 12:53 PM CDT Alexander Castillo MD LAB - CHEMISTRY EDNA REYES [facility] [address] [place] [address], [facility] [phone] * CBC W AUTO DIFFERENTIAL (12/31/2020 12:31 PM CDT) Only the most recent of2 resultswithin the time period is included. [facility] WBC 8.1 3.5 - 10.5 10 3/uL 12/31/2020 1:00 PM [facility] RBC 4.61 3.80 - 5.20 10 6/uL 12/31/2020 1:00 PM [facility] Hemoglobin 14.2 12.0 - 15.6 g/dL 12/31/2020 1:00 PM [facility] Hematocrit 42.3 35.0 - 45.0 % 12/31/2020 1:00 PM [facility] MCV 91.8 80.7 - 98.3 fL 12/31/2020 1:00 PM [facility] MCH 30.8 26.7 - 34.0 pg 12/31/2020 1:00 PM [facility] MCHC 33.6 30.8 - 35.9 g/dL 12/31/2020 1:00 PM [facility] Platelet Count 238 150 - 400 10 3/uL 12/31/2020 1:00 PM [facility] RDW-SD 44.1 36.0 - 50.0 fL 12/31/2020 1:00 PM [facility] RDW-CV 13.0 11.2 - 14.8 % 12/31/2020 1:00 PM [facility] MPV 10.1 9.4 - 12.9 fL 12/31/2020 1:00 PM [facility] nRBC Absolute 0.00 0 10 3/uL 12/31/2020 1:00 PM [facility] nRBC Auto 0.0 0 /100 WBC 12/31/2020 1:00 PM [facility] Neutrophils % 56.6 35.0 - 70.0 % 12/31/2020 1:00 PM [facility] Lymphocytes % 33.9 20.0 - 43.0 % 12/31/2020 1:00 PM [facility] Monocytes % 6.9 5.0 - 13.0 % 12/31/2020 1:00 PM [facility] Eosinophils % 1.4 0.0 - 6.0 % 12/31/2020 1:00 PM [facility] Basophil % 1.0 0.0 - 2.0 % 12/31/2020 1:00 PM [facility] Neutrophils Absolute 4.6 1.6 - 7.0 10 3/uL 12/31/2020 1:00 PM [facility] Lymphocyte Absolute 2.7 1.1 - 3.9 10 3/uL 12/31/2020 1:00 PM [facility] Monocytes Absolute 0.56 0.26 - 1.07 10 3/uL 12/31/2020 1:00 PM [facility] Eosinophils Absolute 0.11 0.00 - 0.47 10 3/uL 12/31/2020 1:00 PM [facility] Basophils Absolute 0.08 0.00 - 0.08 10 3/uL 12/31/2020 1:00 PM [facility] Immature Granulocytes % 0.2 0.0 - 1.0 % 12/31/2020 1:00 PM [facility] Immature Granulocytes Absolute 0.02 12/31/2020 1:00 PM [facility] Blood BLOOD SPECIMEN / Unknown Venipuncture / Unknown 12/31/2020 12:31 PM CDT 12/31/2020 12:53 PM CDT Alexander Castilol MD LAB - HEMATOLOGY ORD ERABLES [facility] [address] [place] [address], [facility] [phone] * (ABNORMAL) COMPREHENSIVE METABOLIC PANEL (12/31/2020 12:31 PM CDT) Only the most recent of2 resultswithin the time period is included. BUN 9 7 - 26 mg/dL 12/31/2020 1:21 PM [facility] Creatinine 0.81 0.56 - 0.96 mg/dL 12/31/2020 1:21 PM [facility] Sodium 139 136 - 145 mmol/L 12/31/2020 1:21 PM [facility] Potassium 4.3 3.5 - 4.5 mmol/L 12/31/2020 1:21 PM [facility] Chloride 107 98 - 107 mmol/L 12/31/2020 1:21 PM [facility] CO2 23 22 - 29 mmol/L 12/31/2020 1:21 PM [facility] Glucose 91 70 - 115 mg/dL 12/31/2020 1:21 PM [facility] Calcium 10.0 8.4 - 10.2 mg/dL 12/31/2020 1:21 PM [facility] Protein Total 7.9 6.0 - 8.3 g/dL 12/31/2020 1:21 PM [facility] Albumin 4.7 3.4 - 5.0 g/dL 12/31/2020 1:21 PM [facility] Bilirubin Total 0.4 0.2 - 1.2 mg/dL 12/31/2020 1:21 PM [facility] Alkaline Phosphatase 36(L) 40 - 150 U/L 12/31/2020 1:21 PM [facility] ALT 10 5 - 55 U/L 12/31/2020 1:21 PM [facility] AST 17 5 - 34 U/L 12/31/2020 1:21 PM [facility] Anion Gap 13 8 - 18 12/31/2020 1:21 PM CDT [facility] BUN/Creatinine Ratio 11 7 - 23 12/31/2020 1:21 PM CDT [facility] Osmolality Calculated 286 270 - 300 mOsm/kg 12/31/2020 1:21 PM CDT [facility] Albumin/Globulin Ratio 1.5 1.1 - 2.3 12/31/2020 1:21 PM CDT [facility] eGFR by CKD-EPI 85(L) >=90 mL/min/1.7 3 m2 12/31/2020 1:21 PM CDT [facility] Blood BLOOD SPECIMEN / Unknown Venipuncture / Unknown 12/31/2020 12:31 PM CDT 12/31/2020 12:53 PM CDT Alexander Castillo MD LAB - CHEMISTRY EDNA REYES Performing Organization Address City/[facility]/ZIP Co de Phone Number [address] [address], [employer] [phone] * LACTIC ACID BLOOD (12/31/2020 12:31 PM CDT) Pathologist [facility] Lactic Acid-Stat 1.1 <=2.0 mmol/L 12/31/2020 1:16 PM CDT [facility] Blood BLOOD SPECIMEN / Unknown Venipuncture / Unknown 12/31/2020 12:31 PM CDT 12/31/2020 12:53 PM CDT Alexander Castillo MD LAB - CHEMISTRY EDNA REYES [address] [address], [employer] [phone] * EKG 12-LEAD (12/31/2020 12:24 PM CDT) Ventricular Rate 85 BPM [facility] Atrial Rate 85 BPM [facility] P-R Interval 166 ms [facility] QRS Duration ms 68 ms [facility] Q-T Interval ms 378 ms [facility] QTC Calculation (Bezet) 449 ms [facility] Calculated P Jansen 78 degrees [facility] MUSE Calculated R Jansen 64 degrees [facility] MUSE Calculated T Jansen 82 degrees [facility] MUSE Interpretation EKG NORMAL SINUS RHYTHM POSSIBLE LEFT ATRIAL ENLARGEMENT ABNORMAL ECG NO PREVIOUS ECGS AVAILABLE Confirmed by fellow Renu Zavala ([id number]) on 01/02/2021 10:18:34 AM Confirmed by Jewel Newell ([id number]) on 01/02/2021 3:13:46 PM [facility] MUSE 12/31/2020 12:2 4 PM CDT 01/02/2021 3:13 PM CDT Alexander Castillo MD ECG ORDERABLES [facility] * XR KNEE 4+ VW RIGHT (02/19/2014 7:01 PM CDT) Anatomical Region Laterality Modality Lower Extremity Radiographic Jyoti ging 02/19/2014 7:24 PM CDT Impressions 02/19/2014 7:25 PM CDT Negative for fracture at this time. Please see above. Narrative 02/19/2014 7:25 PM CDT Examination: Right knee 4 views Indication: Right [...] - 3.740 uIU/mL 02/19/2014 12:40 AM CDT [facility] Blood BLOOD SPECIMEN / Unknown 02/18/2014 9:38 PM CDT 02/19/2014 12:14 AM CDT Wolfgang Salamanca MD LAB - CHEMISTRY ORDLynn REYES Performing Organization Address City/[facility] Co de Phone Number [facility] [address] [place] [address] * HCG URINE QUALITATIVE - POINT OF CARE (IP) (02/18/2014 7:39 PM CDT) HCG Qual Urine Negative Negative [facility] QC Verified Yes Yes [facility] POC T TESTING Urine specimen (specimen) URINE / Unknown 02/18/2014 7:39 PM CDT Austin Schrader DO LAB - POINT OF CARE ORDERABLES Performing Organization Address [facility] de Phone Number [facility] [id number] * DRUG SCREEN TOX LIMITED BLD PNL 3 INHOUSE (02/18/2014 7:38 PM CDT) Acetaminophen 20.5 10.0 - 30.0 ug/mL 02/18/2014 8:05 PM CDT [facility] Ethanol <3 <10 mg/dL 02/18/2014 8:05 PM CDT [facility] Salicylate 3.2 <20.0 mg/dL 02/18/2014 8:05 PM CDT [facility] Ethanol Calculated <0.100 gm/dL 02/18/2014 8:05 PM CDT [facility] Comment:Not Calculated Blood BLOOD SPECIMEN / Unknown 02/18/2014 7:38 PM CDT 02/18/2014 7:45 PM CDT Narrative [facility] - 02/18/2014 8:05 PM CDT [facility] ACETAMINOPHEN COMMENT Contact the [place] [facility] at [facility] for advice in interpreting acetaminophen levels or if an overdose is suspected. Critical values: 4 Hours Post Ingestion: Critical value > 200 g/mL 12 Hours Post Ingestion: Critical value >150 g/mL Random values: Critical value: For patients 18 years or less: No numeric critical defined. Critical value: For patients 18 years or older: >50 g/mL. Austin Schrader DO LAB - CHEMISTRY EDNA REYES [facility] [address] [place] [address] * (ABNORMAL) URINALYSIS ROUTINE AUTO (02/18/2014 7:38 PM CDT) Color UA Yellow Straw, Yellow, Dark Yellow 02/18/2014 8:03 PM CDT [facility] Clarity UA Cloudy 02/18/2014 8:03 PM CDT [facility] Specific [place] UA >1.030(H) 1.005 - 1.030 02/18/2014 8:03 PM CDT [facility] pH UA 5.0 5.0 - 8.0 pH 02/18/2014 8:03 PM CDT [facility] Protein UA Negative Negative 02/18/2014 8:03 PM CDT [facility] Blood UA 2+(A) Negative 02/18/2014 8:03 PM CDT [facility] Leukocyte UA Negative Negative 02/18/2014 8:03 PM CDT [facility] Nitrite UA Negative Negative 02/18/2014 8:03 PM CDT [facility] Glucose UA Negative Negative 02/18/2014 8:03 PM CDT [facility] Ketone UA Trace(A) Negative 02/18/2014 8:03 PM CDT [facility] Bilirubin UA Negative Negative 02/18/2014 8:03 PM CDT [facility] Urobilinogen UA 1.0 0.1 - 1.0 EU/dL 02/18/2014 8:03 PM CDT [facility] WBC UA Auto 0-2 0-2, 2-5 #/hpf 02/18/2014 8:03 PM CDT [facility] Epithelial Cell UA Auto 0-2 0-2, 2-5 #/hpf 02/18/2014 8:03 PM CDT [facility] Bacteria UA Auto None seen None seen 02/18/2014 8:03 PM CDT [facility] Hyaline Casts UA Auto 2-5(A) 0 - 2 #/lpf 02/18/2014 8:03 PM CDT [facility] Urine Microscopy Urine microscopy to follow 02/18/2014 8:03 PM CDT [facility] Urine URINE SPECIMEN OBTAINED BY CLEAN CATCH PROCEDURE / Unknown 02/18/2014 7:38 PM CDT 02/18/2014 7:45 PM CDT Austin Schrader DO LAB - URINALYSIS ORD ERABLES Performing Organization Address City/[facility] Co de Phone Number [facility] [address] [place] [address] * (ABNORMAL) URINALYSIS MICROSCOPIC ONLY (02/18/2014 7:38 PM CDT) RBC UA 0-2 0-2, 2-5 # /hpf 02/18/2014 8:19 PM CDT [facility] WBC UA 0-2 0-2, 2-5 # /hpf 02/18/2014 8:19 PM CDT [facility] Bacteria UA None Seen None Seen 02/18/2014 8:19 PM CDT [facility] Epithelial Cell UA 0-2 0-2, 2-5 02/18/2014 8:19 PM CDT [facility] Calcium Oxalate Crystals 1+(A) None Seen 02/18/2014 8:19 PM CDT [facility] Urine URINE SPECIMEN OBTAINED BY CLEAN CATCH PROCEDURE / Unknown 02/18/2014 7:38 PM CDT 02/18/2014 7:45 PM CDT Austin Schrader DO LAB - URINALYSIS ORD ERABLES Performing Organization Address [facility] Co de Phone Number [facility] [address] [place] [address] * RPR (02/18/2014 7:38 PM CDT) RPR Nonreactive Nonreactive 02/19/2014 10:16 AM CDT [facility] Blood BLOOD SPECIMEN / Unknown 02/18/2014 7:38 PM CDT 02/19/2014 12:14 AM CDT Wolfgang Salamanca MD LAB - CHEMISTRY EDNA REYES Performing Organization Address [facility]/ZIP Co de Phone Number [facility] [address] [place] [address] * (ABNORMAL) DRUG SCREEN TOX URINE PANEL (02/18/2014 7:37 PM CDT) Amphetamines Screen Urine Not Detected Not Detected 02/18/2014 8:14 PM CDT [facility] Barbiturates Screen Urine Not Detected Not Detected 02/18/2014 8:14 PM CDT [facility] Benzodiazepines Screen Urine Not Detected Not Detected 02/18/2014 8:14 PM CDT [facility] Cannabinoids Screen Urine Detected(A) Not Detected 02/18/2014 8:14 PM CDT [facility] Cocaine Screen Urine Not Detected Not Detected 02/18/2014 8:14 PM CDT [facility] Methadone Screen Urine Not Detected Not Detected 02/18/2014 8:14 PM CDT [facility] Opiate Screen Urine Detected(A) Not Detected 02/18/2014 8:14 PM CDT [facility] Phencyclidine Screen Urine Not Detected Not Detected 02/18/2014 8:14 PM CDT [facility] Urine URINE / Unknown 02/18/2014 7 :37 PM CDT 02/18/2014 7:45 PM CDT Narrative [facility] - 02/18/2014 8:14 PM CDT This drug screen is designed for MEDICAL purposes only. It is not to be used for legal purposes, including but not limited to worker's comp, police investigations, occupational issues, child custody, etc. Any positive result is only presumptive and must be confirmed with a separate confirmatory test ordered by the physician. Drug Screening Test Cutoff Values: AMPHETAMINES 1000 ng/ml BARBITURATES 200 ng/ml BENZODIAZEPINES 200 ng/ml CANNABINOIDS(THC) 50 ng/ml COCAINE 300 ng/ml METHADONE 300 ng/ml OPIATES 300 ng/ml PHENCYCLIDINE(PCP)25 ng/ml Austin Schrader DO LAB - URINE CHEMISTR Y ORDERABLES [facility] [address] [place] [address] Care Teams Monogram And Letter Paster Relationship Specialty Start Date End Date Cruz Luciano MD [address] [place] [address] PCP - General Internal Medicine 12/16/22 Zack Nguyen MD [address] [place] [address] Internal Medicine 01/06/21
[2024-08-08 08:48] VITALS: BP 112/72; PULSE 84; RESP 16; TEMP 36.2; O2SAT 98; BMI 23.1
[2024-08-08] MEDS: LACTATED RINGERS 1,000 ML 150 ML IV CONT (09:07)
--- NOTE | 2024-08-08 09:35 | PM.HPGS ---
History of Present Illness History of Present Illness Consent: Risks, benefits, and alternatives have been discussed and questions answered. Patient agrees to proceed with procedure. Chief complaint: GERD,Dysphagia,Dyskinesia of esophagus Narrative: Jessica Noriega is a 54 year old female here for egd, c/o sensation of food getting stuck at throat level, she has seen ENT because similar problem, c/o growth by tongue. CT next normal tongue. Review of Systems Review of Systems: All systems reviewed & are unremarkable except as noted in HPI and below PMFSH Past Medical History Medical History Spinal stenosis Osteopenia IBS (irritable bowel syndrome) Hypertension Headache GERD (gastroesophageal reflux disease) Arthritis Anxiety Anemia Asthma History of CHF (congestive heart failure) History of anxiety Family History Family History Father Cancer Alcoholism Mother Cancer Depression Anxiety Cerebrovascular accident Thyroid disorder Sibling Alcoholism Anxiety Depression Heart disease Thyroid disorder Grandparent Breast cancer Liver cancer Bone cancer Social History Social History Social History: Caffeine-Coffee daily Smoking packs per day: 0.5 Smoking cigarettes per day: 10.0 Years smoked: 35 Smoking pack-years: 17.50 Smoking status: Current every day smoker Tobacco type: cigarettes Alcohol intake: never Substance use: current Substance use type: marijuana Other substance usage details: gummies Living arrangements: alone Gender identity (if verbalized by the patient): Female Spiritual care concerns: No Agree to blood products: Yes Meds Home Medications and Allergies Home Medications ?Medication ?Instructions ?Recorded ?Confirmed ?Type cyclobenzaprine 10 mg tablet 10 mg PO TID PRN muscle spasm #14 12/15/23 07/30/24 Rx tabs Bacillus coagulans 1 tablet PO DAILY 06/26/24 08/08/24 History ascorbate calcium (vitamin C) 1,000 mg PO .q day 06/26/24 08/08/24 History cholecalciferol (vitamin D3) 2 tablet PO .qday 06/26/24 08/08/24 History fluticasone propionate 50 2 spray intranasal DAILY chronic 06/26/24 08/08/24 Rx mcg/actuation nasal nonallergic rhinitis #18 mL spray,suspension (Flonase Allergy Relief) hydrocodone 10 mg-acetaminophen 1 tablet PO QHS PRN pain 06/26/24 07/30/24 History 325 mg tablet magnesium oxide 400 mg PO DAILY 06/26/24 08/08/24 History metoprolol succinate 25 mg 12.5 mg PO DAILY 06/26/24 08/08/24 History tablet,extended release 24 hr sacubitril 24 mg-valsartan 26 mg 1 tablet PO BID 06/26/24 08/08/24 History tablet (Entresto) sertraline 100 mg tablet (Zoloft) 100 mg PO DAILY 06/26/24 08/08/24 History zinc gluconate 1 tablet PO .qday 06/26/24 08/08/24 History ferrous sulfate 325 mg (65 mg 325 mg PO DAILY 07/30/24 08/08/24 History iron) tablet (Feosol) gem rand mushroom gummies 1 tablet PO DAILY 07/30/24 08/08/24 History tumeric 1 tablet PO DAILY 07/30/24 08/08/24 History Allergies Allergy/AdvReac Type Severity Reaction Status Date / Time aspirin Allergy Intermediate Rash Verified 08/08/24 08:58 latex Allergy Intermediate Rash Verified 08/08/24 08:58 Sulfa (Sulfonamide Allergy Intermediate Rash Verified 08/08/24 08:58 Antibiotics) Vital Signs Vital Signs - 24 hr 08/08/24 08:48 Temperature 97.2 F L Pulse Rate 84 Respiratory Rate 16 Blood Pressure 112/72 Pulse Oximetry 98 Oxygen Delivery Room Air Exam Const: General: comfortable and no acute distress HENMT: Face/Nose/Sinus: Normal nares present Eyes: General: appearance normal, both eyes and all related structures Neck: Neck: no JVD Resp: Auscultation: clear to auscultation bilaterally Cardio: Rate: regular rate Rhythm: regular rhythm GI: Inspection: non-distended GI Palp: Yes Soft to palpation Skin: General skin exam: normal color Neuro: Speech: normal speech Extrem: General: normal to inspection Psych: Mental Status: mental status grossly normal Assessment and Plan Assessment and plan (1) Dysphagia: Code(s): R13.10 - Dysphagia, unspecified Status: Acute Assessment and Plan: egd also will need to see ENT again
--- NOTE | 2024-08-08 09:38 | WPDANESEPPF ---
Anes - Initial Pre Proc Eval Procedure: Operation Date: 08/08/24 10:00 Proposed Procedures p Esophagogastroduodenoscopy - Vaibhav Trimble MD Date/Time: 08/08/24 09:38 Surgeon: Vaibhav Trimble MD Pre Op Diagnosis: GERD,Dysphagia,Dyskinesia of esophagus Patient Data Age: 54 Gender: F Height: 1.63 m Weight: 61.3 kg Last Vital Signs Temp 36.2 C L 08/08/24 08:48 Pulse 84 08/08/24 08:48 Resp 16 08/08/24 08:48 BP 112/72 08/08/24 08:48 Pulse Ox 98 08/08/24 08:48 O2 Del Method Room Air 08/08/24 08:48 Allergies Allergy/AdvReac Type Severity Reaction Status Date / Time aspirin Allergy Intermediate Rash Verified 08/08/24 08:58 latex Allergy Intermediate Rash Verified 08/08/24 08:58 Sulfa (Sulfonamide Allergy Intermediate Rash Verified 08/08/24 08:58 Antibiotics) Home Medications ?Medication ?Instructions ?Recorded ?Confirmed ?Type cyclobenzaprine 10 mg tablet 10 mg PO TID PRN muscle spasm #14 12/15/23 07/30/24 Rx tabs Bacillus coagulans 1 tablet PO DAILY 06/26/24 08/08/24 History ascorbate calcium (vitamin C) 1,000 mg PO .q day 06/26/24 08/08/24 History cholecalciferol (vitamin D3) 2 tablet PO .qday 06/26/24 08/08/24 History fluticasone propionate 50 2 spray intranasal DAILY chronic 06/26/24 08/08/24 Rx mcg/actuation nasal nonallergic rhinitis #18 mL spray,suspension (Flonase Allergy Relief) hydrocodone 10 mg-acetaminophen 1 tablet PO QHS PRN pain 06/26/24 07/30/24 History 325 mg tablet magnesium oxide 400 mg PO DAILY 06/26/24 08/08/24 History metoprolol succinate 25 mg 12.5 mg PO DAILY 06/26/24 08/08/24 History tablet,extended release 24 hr sacubitril 24 mg-valsartan 26 mg 1 tablet PO BID 06/26/24 08/08/24 History tablet (Entresto) sertraline 100 mg tablet (Zoloft) 100 mg PO DAILY 06/26/24 08/08/24 History zinc gluconate 1 tablet PO .qday 06/26/24 08/08/24 History ferrous sulfate 325 mg (65 mg 325 mg PO DAILY 07/30/24 08/08/24 History iron) tablet (Feosol) gem albert gummies 1 tablet PO DAILY 07/30/24 08/08/24 History tumeric 1 tablet PO DAILY 07/30/24 08/08/24 History Patient hx anesthesia problems: none Family hx anesthesia problems: none Results Review: All pre-operative results and documents have been reviewed as part of the pre-operative evaluation. [facility] Past Medical History Medical History Spinal stenosis Osteopenia IBS (irritable bowel syndrome) Hypertension Headache GERD (gastroesophageal reflux disease) Arthritis Anxiety Anemia Asthma History of CHF (congestive heart failure) History of anxiety Family History Family History Father Cancer Alcoholism Mother Cancer Depression Anxiety Cerebrovascular accident Thyroid disorder Sibling Alcoholism Anxiety Depression Heart disease Thyroid disorder Grandparent Breast cancer Liver cancer Bone cancer Social History Social History Social History: Caffeine-Coffee daily Smoking packs per day: 0.5 Smoking cigarettes per day: 10.0 Years smoked: 35 Smoking pack-years: 17.50 Smoking status: Current every day smoker Tobacco type: cigarettes Alcohol intake: never Substance use: current Substance use type: marijuana Other substance usage details: [facility] Living arrangements: alone Gender identity (if verbalized by the patient): Female Spiritual care concerns: No Agree to blood products: Yes Anes - Eval Final PreProcedure Day of Procedure 08/08/24 09:38 Patient weight: normal Heart: regular rate and rhythm Lungs: clear to auscultation Airway: Mallampati scale class II Neurological: alert and oriented Last oral intake: >/= 8 hours ASA classification: III Emergent: no Anesthetic plan: proceed Anesthesia type and monitoring: general GIVS and standard monitoring Results Review: All pre-operative results and documents have been reviewed as part of the pre-operative evaluation. Informed Consent: The patient's anesthetic plan and its attendant risks and benefits were discussed with the patient/family/POA. Questions were solicited and answers provided to the satisfaction of the patient/family/POA.
[2024-08-08 09:47] VITALS: BP 133/74; PULSE 81; RESP 17; O2SAT 100
[2024-08-08 09:57] VITALS: BP 120/79; PULSE 74; RESP 14; O2SAT 100
[2024-08-08 10:07] VITALS: BP 124/75; PULSE 72; RESP 16; O2SAT 100
--- NOTE | 2024-08-08 10:26 | SUR.PHASEII ---
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 Pt recovered sitting up in recliner.
== END 2024-08-08 10:56 | disposition home or self-care (01) ==
PROVIDERS: Referring Provider Otolaryngology; Visit Provider Internal Medicine Gastroenterology
PROC: 0DJ08ZZ Inspection of Upper Intestinal Tract, Via Natural or Artificial Opening Endoscopic (ICD-10-PCS; CPT 43239; principal; 2024-08-08 10:00)
DX: R13.11 Dysphagia, oral phase (principal); F17.210 Nicotine dependence, cigarettes, uncomplicated; F12.90 Cannabis use, unspecified, uncomplicated
CPT/HCPCS: 43239; 88305; J2003; J2704; J7120

== ENCOUNTER 2024-10-09 07:45 | Outpatient (CLI) | payer OTHER, SELFPAY ==
--- NOTE | ~2024-10-09 | CT_ITS ---
CT scan of the Neck Technique: 2.5 mm axial scans were obtained through the neck after intravenous administration of 75 c c Omnipaque 350. Coronal and sagittal reconstructions of the neck were obtained. Dose reduction techn ique was used on this scan by utilizing automated exposure control and iterative reconstruction techn ique. The dose-length product (DLP) was 376.76 mGy-cm. Clinical History: Other disease of tongue COMPARISON: 07/10/2024 Findings: There is no evidence of any significant cervical lymphadenopathy. Several small, nonenlarged jugulo- digastric and posterior cervical lymph nodes are noted bilaterally. Parapharyngeal spaces appear norm al bilaterally. The parotid and submandibular glands appear normal. The pharyngeal mucosal spaces appear normal. No soft tissue masses are seen in the neck. The thyroid gland appears normal. Images of the lung apices reveal no abnormalities. There is mild to moderate degenerative change at the lower cervical spine. Impression: No significant abnormalities noted. Reviewed, dictated and finalized at [facility]. Impression: No significant abnormalities noted.
--- OUTSIDE RECORDS SUMMARY | 2024-10-09 07:50 | XMS_ITS | Data Portability ---
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 Lab hypersensit ivity pneumonitis profile, serum 2022 023 [email or web address] 25 Not available 11:56:[address] referral - Multiple skin calcificati ons, unexplained rashes, spooning of nails 2022 023 [email or web address] 25 [facility], [address] [place], [address], 3 10:54:08 hematologis t referral - Also with mild anemia 2022 023 [facility], [address] [place], [address], 3 17:36:04 Procedures None recorded. Surgeries None recorded. Imaging None recorded. Medication Orders amoxicillin 875 mg-potassiu m clavulanate 125 mg tablet 2022 023 [email or web address] 7 [facility], [address], [place], [address], 3 11:15:38 prednisone 10 mg tablet 2022 023 MALI [facility], [address] [facility], [place], [address], 3 15:02:18 Patient TargetsNo targets recorded. Patient Instructions Encounter Date Encounter Id Patient Instructions Last Modified By Organization Details Last Modified Time 11/30/2022 [id number] complete PFT w/ post bronchodilator spirometry* Not available 03/01/2023 13:17:51 Reason for Referral Also with mild anemia Referring Physician: Tanika Clay, Pulmonary Disease, Encounter Date: 10/12/2022 Ticket Chopper Assembler Referral for S kin lesion Multiple skin calcifications, unexplained rashes, spooning of nails Referring Physician: Tanika Clay, Pulmonary Disease, Encounter Date: 10/12/2022 Results Created Date Observation Date Name Description Value Unit Range Abnormal Flag Note LastModifiedBy Organization Detail LastModifiedTime 02/22/20 23 02/18/2023 compl ete PFT w/ post [facility] hodil ator riri metry * No observ ation record ed. [facility] ([facility]) [address] [place], [address], 03/01/2023 13:16:50 Result Notes None recorded. Problems Name Problem SNOMED Code Status Onset Date Resolution Date Notes Provider Name and Address Organization Details Recorded Time 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 87564586869 200885 Active 2021 Not Available [facility] 3 19:28:43 Chronic back pain 493109263 Active 2016 Not Available [facility] 3 19:28:43 Bipolar disorder 45707189 Active 2016 Not Available [facility] 3 19:28:43 Chronic depressio n 336197569 Completed 201605/12/2017 Not Available [facility] 3 19:28:43 Asthma 996543650 Active 2021 Not Available [facility] 3 19:28:43 Mixed anxiety and depressiv e disorder 477159432 Active 2016 Not Available [facility] 3 19:28:43 Muscle weakness 44230535 Active 2021 Not Available [facility] 3 19:28:43 Pulmonary function studies abnormal 410039689 Active 2021 Not Available 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 740866335 Active 2021 Not Available [facility] 3 19:28:43 Hypersens itivity pneumonit is 33475233 Active 2021 Not Available [facility] 3 19:28:43 Dizziness 853987864 Active 2021 Not Available [facility] 3 19:28:44 Exposure to potential ly harmful entity Active 2021 Not Available [facility] 3 19:28:44 Chronic systolic heart failure 603812652 Active 2021 Not Available [facility] 3 19:28:44 Multiple nodules of lung 655733281 Active 2021 Not Available [facility] 3 19:28:44 Anxiety 13265746 Completed 201605/12/2017 Not Available [facility] 3 19:28:44 Nicotine dependenc e 89925288 Active 2021 Not Available [facility] 3 19:28:44 Dyspnea on exertion 39100147 Active 2021 Not Available [facility] 3 19:28:44 Spina bifida 64106592 Active 2016 Not Available [facility] 3 19:28:44 Chronic cough 34561325 Active 2021 Not Available [facility] 3 19:28:44 Exacerbat ion of moderate persisten t asthma 082016189 Active 2022 Not Available [facility] 3 19:28:44 Smoker 62601094 Active 2016 Not Available [facility] 3 19:28:45 Candidias is of mouth 38408357 Active 2021 Not Available [facility] 3 19:28:45 Fatigue 10026772 Active 2021 Not Available [facility] 3 19:28:45 Pulmonary emphysema 82782081 Active 2021 Not Available [facility] 3 19:28:45 Chronic Erik-B arr virus infection syndrome 195087296 Active 2022 GRISELDA Ferguson [address], [address], [place], [address] , [employer] 3 15:04:10 Abnormal weight loss 577463174 Active 2022 GRISELDA Ferguson [address], [address], [place], [address] , [employer] 3 16:46:48 Red blood cell count below reference range 326417514 Active 2022 GRISELDA Ferguson [address], [address], [place], [address] , [employer] 3 10:16:41 Skin lesion 53026937 Active 2022 GRISELDA Ferguson [address], [address], [place], [address] , [employer] 3 10:17:40 Acute sinusitis 19807037 Active 2022 GRISELDA Ferguson [address], [address], [place], [address] , [employer] 3 16:40:02 Problem Notes None recorded. Procedures Surgical History None recorded. Imaging Results Imaging Date Name Status LastModified by Organization Details LastModified Time 02/18/2023 complete PFT w/ post bronchodilator spirometry* completed [address] ([facility]) [address], [place], [address], 03/01/2023 13:16:50 Procedure Notes None recorded. Medical Equipment None Reported. Allergies Allergen ID Allergen Name Allergen Category Reaction Reaction Severity Criticality Documentation Date Start Date Code Code System Note Provider Name and Address Organization Details Recorded Time 82750 Substance with sulfonami de structure and antibacte rial mechanism of action (substanc e) medicatio n hives severe Not available 08/04/2022 29873 8003 SNOMED Not Available [facility] 3 19:30:15 28383 aspirin medicatio n hives severe Not available 08/04/2022 1191 RxNorm Not Available [facility] 3 19:30:15 Medications Name Sig Start Date [...] Not Available Not Available No t Available [place] 5 mg-325 mg tablet Take 1 tablet [...] Updated DateTime 3 167.64 cm 17.8 kg/m2 25094.1 6 g 97.3 [degF] 64 /min 99 % 99 % 120 mm[Hg] 70 mm[Hg] Shira Warren MA [facility] [employer] [facility] 3 09:35:04 Date Recorded Body height Body mass index (BMI) Body weight Body temperature Heart rate Oxygen saturation Oxygen saturation in Arterial blood by Pulse oximetry Systolic blood pressure Diastolic blood pressure Provider Name and Address Organization Details Last Updated DateTime 3 167.64 cm 17.8 kg/m2 55628.1 6 g 97.2 [degF] 71 /min 99 % 99 % 112 mm[Hg] 60 mm[Hg] Tatiana Jimenez RN [facility] [employer] [facility] 3 14:40:41 Date Recorded Body height Body mass index (BMI) Body weight Body temperature Heart rate Oxygen saturation Oxygen saturation in Arterial blood by Pulse oximetry Systolic blood pressure Diastolic blood pressure Provider Name and Address Organization Details Last Updated DateTime 3 167.64 cm 17.8 kg/m2 75224.1 6 g 97.3 [degF] 68 /min 99 % 99 % 114 mm[Hg] 64 mm[Hg] Tatiana Jimenez RN [facility] [employer] [facility] 3 11:16:24 Date Recorded Body height Body mass index (BMI) Body weight Body temperature Heart rate Oxygen saturation Oxygen saturation in Arterial blood by Pulse oximetry Systolic blood pressure Diastolic blood pressure Provider Name and Address Organization Details Last Updated DateTime 3 167.64 cm 18.6 kg/m2 66092.1 2 g 98.3 [degF] 76 /min 99 % 99 % 102 mm[Hg] 58 mm[Hg] Roya Tapia [facility] [employer] [facility] 3 16:33:07 Date Recorded Body height Body mass index (BMI) Body weight Body temperature Heart rate Oxygen saturation Oxygen saturation in Arterial blood by Pulse oximetry Systolic blood pressure Diastolic blood pressure Provider Name and Address Organization Details Last Updated DateTime 3 167.64 cm 19 kg/m2 61186.9 g 97.3 [degF] 72 /min 97 % 97 % 92 mm[Hg] 50 mm[Hg] Roya Tapia [facility] [employer] [facility] 3 15:33:16 Social History Question Answer Notes LastModified by Organizat ion Details LastModified Time Tobacco Smoking Status Current Every Day Smoker Not Available [facility] 08/04/2022 19:28:03 What Is Your Level Of Caffeine Consumption? Heavy [id number] Information not available 08/04/2022 Which Illicit Or Recreational Drugs Have You Used? Claraa Every3-6 Mo [id number] Information not available 08/04/2022 How Many Years Have You Used Illicit Or Recreational Drugs? 35 [id number] Information not available 08/04/2022 At What Age Did You Start Smoking Tobacco? 15 [id number].[id number] Information not available 08/04/2022 How Much Tobacco Do You Smoke? 1 PPD Now-8 A Day MIGRATION.[id number] 2478 Information not available 08/04/2022 Do You Use Any Illicit Or Recreational Drugs? Yes MIGRATION.[id number] 0058 Information not available 08/04/2022 How Many Years Have You Smoked Tobacco? 35 MIGRATION.[id number] 3374 Information not available 08/04/2022 Have You Used IV Drugs? No [id number].[id number] 0914 Information not available 08/04/2022 Do You Or Have You Ever Used Any Other Forms Of Tobacco Or Nicotine? No MIGRATION.[id number] 8624 Information not available 08/04/2022 Sex: Unknown Functional Status None recorded. Mental Status None recorded. Family History Nothing Reported. Medical History No medical history recorded. Gynecological HistoryNo gynecological history recorded. Obstetrics History GPAL:G 0 P 0 0 0 0 Immunizations Vaccine Type Date Status Note Provider Nam e and Address Organization Details Recorded Time Tdap 05/12/2017 completed Not Available [facility] 08/04/2022 19:30:13 Past Encounters Encounter ID Performer Location Encounter Start Date Encounter Closed Date Diagnosis/Indication Diagnosis SNOMED-CT Code Diagnosis ICD10 Code Diagnosis Note [id number] [facility] [place] [address] [place] [address] 06/18/2021 00:00:00 06/22/2021 19:29:20 [id number] [facility] [place] [address] [place] [address] 08/03/2021 00:00:00 08/03/2021 14:39:05 [id number] [facility] [place] [address] [place] [address] 09/07/2021 00:00:00 09/07/2021 13:36:06 [id number] [facility] [place] [address] [place] [address] 10/28/2021 00:00:00 10/28/2021 16:09:57 [id number] JENNIFER FergusonPSeleneBC [facility] [place] [address] [place] [address] 11/19/2021 00:00:00 11/19/2021 14:15:06 [id number] GRISELDA Ferguson [facility] [place] [address] [place] [address] 03/03/2022 00:00:00 03/03/2022 14:07:33 [id number] GRISELDA Ferguson [facility] [place] [address] [place] [address] 04/14/2022 00:00:00 04/14/2022 16:48:20 [id number] GRISELDA Ferguson [facility] [place] [address] [place] [address] 07/26/2022 00:00:00 07/26/2022 14:25:50 [id number] GRISELDA Ferguson [facility] [place] [address] [place] [address] 08/30/2022 14:20:57 08/31/2022 08:57:21 Asthma 660785536 J45.909 Positive methacholi ne challenge testing at level 3 with 20% drop in UDE4Slwnpz ue Trelegy Ellipta 200Samples to patient todayInstr ucted on techniqueD iscussed reportable S/S Dyspnea on exertion 6084 5006 R06.09 Multifacto ral Chronic Ep mace-Chowdhury virus infection syndrome 923644042 B27.00 She shows me testing from 2020ID referral Multiple n odules of lung 117849539 R91.8 CT chest 03/27/22 with multiple micro nodular nodules No change per CT chest 3DW Jessica today Pulmonary emphysema 8743 3001 J43.9 PFT completed 12/17/20Ra yesenia 80%, FEV1 81%No improvemen t [facility] hodilator. Lung volumes significan tly elevated consistent with emphysema seen on CT chest.TLC 282, RV 670DLCO 58, corrects to 65 for alveolar volume.Rep eat 09/04/21 with ratio 89FEV1 84% pre-BDTLC 178, RV 334DLCO 103 adjustedAl pha1 MM normalEosi nophils normalSix minute walk testing normalPara septal emphysema noted to CT chestRepea t testing as ordered above Chronic sy stolic heart failure 225509784 I50.22 Follows cardiology Nicotine dependence 5629 4008 Z87.891 Smoking cessation counseling and techniques reviewed at length. Literature reviewed.A void triggers, support groups.Dis traction techniques Greater than 3 but less than 10 minutes spent discussing cessation. Declines NRT.Discus sed Rx options if needed in the future. Abnormal weight loss 267 198797 R63.4 30 pounds in 6 months - follow with PCM Fatigue 44429053 R53.83 Sleep study and BENEDICT normal [id number] Tanika Clay, [facility] [place] [address] [place] [address] 10/12/2022 09:26:05 10/12/2022 10:48:31 Red blood cell count below reference range 725568258 R71.8 Also with low H&HHematol ogy referral today Skin lesion 04191061 L98 .9 Intermitte nt rashesSkin calcificat ionsSpooni ng to nailsRefer ral to dermatolog y Asthma 883258707 J45.90 9 Positive methacholi ne challenge testing at level 3 with 20% drop in ZMU4Ibxhlo ue Trelegy Ellipta 200Samples to patient todayInstr ucted on techniqueD iscussed reportable S/S Chronic Ep mace-Chowdhury virus infection syndrome 991545873 B27.00 She shows me testing from 2019Previo us ID referral Dyspnea on exertion 6084 5006 R06.09 Multifacto ralContinu e inhaled therapyShe must quit smoking Multiple n odules of lung 605631457 R91.8 CT chest 03/27/22 with multiple micro nodular nodules No change per CT chest 3Pla n to repeat in a year Pulmonary emphysema 8743 3001 J43.9 PFT completed 12/17/20Ra yesenia 80%, FEV1 81%No improvemen t [facility] hodilator. Lung volumes significan tly elevated consistent with emphysema seen on CT chest.TLC 282, RV 670DLCO 58, corrects to 65 for alveolar volume.Rep eat 09/04/21 with ratio 89FEV1 84% pre-BDTLC 178, RV 334DLCO 103 adjustedPl ans to repeat this fallAlpha1 MM normalEosi nophils normalSix minute walk testing normalPara septal emphysema noted to CT chest Chronic sy stolic heart failure 578577369 I50.22 Follows cardiology Fatigue 55523641 R53.83 Sleep study and BENEDICT normal Nicotine dependence 5629 4008 Z87.891 Smoking cessation counseling and techniques reviewed at length. Literature reviewed.A void triggers, support groups.Dis traction techniques Greater than 3 but less than 10 minutes spent discussing cessation. Declines NRT.Discus sed Rx options if needed in the future. [id number] Tanika Clay, [facility] [place] [address] [place] [address] 11/30/2022 14:36:15 11/30/2022 15:21:26 Asthma 910102882 J45.909 Positive methacholi ne challenge testing at level 3 with 20% drop in XPT7Vgyljp ue Trelegy Ellipta 200Samples to patient todayInstr ucted on techniqueD iscussed reportable S/SStart prednisone taper Pulmonary emphysema 8743 3001 J43.9 PFT completed 12/17/20Ra yesenia 80%, FEV1 81%No improvemen t [facility] hodilator. Lung volumes significan tly elevated [...] Red blood cell count below reference range 322227260 R71.8 Has seen hematology Skin lesion 67106066 L98 .9 Intermitte nt rashesSkin calcificat ionsSpooni ng [facility] Chronic Ep mace-Chowdhury virus infection syndrome 472715704 B27.00 She shows me testing from 2019Preo us ID referral Dyspnea on exertion 6084 5006 R06.09 Multifacto ralContinu e inhaled therapyShe must quit smoking Multiple n odules of lung 456607250 R91.8 CT chest 03/27/22 with multiple micro nodular nodulesNo change per CT chest 3Che ck HP panel, she brings mold testing with her today Chronic sy stolic heart failure 423653632 I50.22 Follows cardiology Fatigue 72482667 R53.83 Sleep study and BENEDICT normal Nicotine dependence 5629 4008 Z87.891 Smoking cessation counseling and techniques reviewed at length. Literature reviewed.A void triggers, support groups.Dis traction techniques Greater than 3 but less than 10 minutes spent discussing cessation. Declines NRT.Discus sed Rx options if needed in the future. [id number] Tanika Clay, [facility] [place] [address] [place] [address] 02/11/2023 11:07:12 02/11/2023 12:06:22 Asthma 531022001 J45.909 Positive methacholi ne challenge testing at level 3 with 20% drop in IES4Wdwnum ue Trelegy Ellipta 200, samples to patient todayInstr ucted on techniqueD iscussed reportable S/SStresse d avoidance of triggers Pulmonary emphysema 8743 3001 J43.9 PFT completed 12/17/20Ra yesenia 80%, FEV1 81%No improvemen t [facility] hodilator. Lung volumes significan tly elevated [...] Red blood cell count below reference range 020827262 R71.8 Has seen hematology Skin lesion 47117405 L98 .9 Dermatolog y appointmen t scheduled Chronic Ep mace-Chowdhury virus infection syndrome 073106261 B27.00 Has appointmen t with ID scheduled Dyspnea on exertion 6084 5006 R06.09 Multifacto ralContinu e inhaled therapyQui t smoking and vaping 4 months ago Multiple n odules of lung 355130056 R91.8 CT chest 03/27/22 with multiple micro nodular nodulesNo change per CT chest 08/2022HP panel with high reaction to penicillum Chronic sy stolic heart failure 794039853 I50.22 Follows cardiology Fatigue 21600711 R53.83 Sleep study and BENEDICT normal [id number] Tanika Clay, BUTCHER'S ASSISTANT-[facility] [place] [address] [place] [address] 03/02/2023 15:58:54 03/02/2023 16:41:00 Asthma 054734051 J45.909 Positive methacholi ne challenge testing 01/2022 at level 3 with 20% drop in KOQ1Duxkzq ue Trelegy Ellipta 200, samples to patient todayInstr ucted on techniqueD iscussed reportable S/SStresse d avoidance of triggers Pulmonary emphysema 8743 3001 J43.9 PFT completed 12/17/20Ra yesenia 80%, FEV1 81%No improvemen t [facility] hodilator. Lung volumes significan tly elevated [...] emphysema noted to CT chest Acute sinusitis 64652298 J01.90 Start amox-clavD iscussed emergently reportable signs and symptoms [id number] Tanika Obed, [facility] ASSISTANT-[facility] [place] [address] [place] [address] 03/28/2023 15:20:14 03/28/2023 16:18:04 Asthma 017491312 J45.909 Positive methacholi ne challenge testing 01/2022 at level 3 with 20% drop in SGW4Hqqfwi ue Trelegy Ellipta 200, samples to patient todayInstr ucted on techniqueD iscussed reportable S/SStresse d avoidance of triggersAd vised vaccines Pulmonary emphysema 8743 3001 J43.9 PFT completed 12/17/20Ra yesenia 80%, FEV1 81%No improvemen t post-bronc hodilator. Lung volumes significan tly elevated consistent [...] months ago Multiple n odules of lung 008948285 R91.8 CT chest 03/27/22 with multiple micro [...] Cabrales Member ID Guarantor Name 10/12/2022 1 [facility] (MEDICAID HMO) [id number] 0003 Jessica Dos Santosbright [id number] Jessica Menchaca Fulbright 11/30/2022 1 [facility] (MEDICAID HMO) [id number] 0003 Jessica Dos Santosbright [id number] Jessica Menchaca Fulbright 02/11/2023 1 [facility] (MEDICAID HMO) [id number] 0003 Jessica Dos Santosbright [id number] Jessica Menchaca Fulbright 03/02/2023 1 [facility] (MEDICAID HMO) [id number] 0003 Jessica Fulbright [id number] Jessica Menchaca Fulbright 03/28/2023 1 [facility] (MEDICAID HMO) [id number] 0003 Jessica Fulbright [id number] Jessica Menchaca Fulbright Notes Date Note Type Note Provider Name [...] unit in her houseShe has contacted the [facility] and the health department to help with more testingTells me her cats are getting sick.Denies chest pain.Severe fatigue - this is chronicCough is mildly productiveNo hemoptysisDenies fever and chillsNail abnormalities since childhood, feels like she has redness around her fingernails and clubbing Reports mid back pain, chronic - MRI has been deniedLisa has ID appointment scheduled for January Tanika Clay, [facility] ASSISTANT-BC [address] [facility], [facility] [address], [place], [address], [facility] 10/12/2022 13:53:14 3 text/html Jessica presents today to follow up on asthma, emphysema, shortness of breath, wheezing, and cough and referralsLisa has seen hematologyAppointment with dermatology in JanuaryReports more lumps under her skin todayCompliant with Trelegy Ellipta 200 dailyRescue MDI intermittentShanabela had independent mold testing done in her house and has the report with her todayDenies chest pain.Severe fatigue - this is chronicCough is mildly productiveNo hemoptysisDenies fever and chillsNo respiratory infection since last OV OJ Ferguson-AUDREY [address] [facility], [place], [address], [employer] 11/30/2022 16:57:23 3 text/html Jessica presents today to follow up on asthma, emphysema, shortness of breath, wheezing, and cough and referralsLisa has seen hematology and has low iron.Appointment [...] and chillsNo respiratory infection since last OV GRISELDA Ferguson [address] [facility] [address], [place], [address], [employer] 02/11/2023 13:59:48 3 text/html Jessica presents today to follow up on asthma, emphysema, shortness of breath, wheezing, and cough and referralsLisa has seen hematology and has low iron, [...] from OTCNo respiratory infection since last OV OJ Ferguson- [address] [facility] [address] [facility], [place], [address], [employer] 03/03/2023 11:23:54 3 text/html Jessica presents today [...] of feces.No repairs thus far completed by [facility]. Tanika Clay, [facility]ER'S ASSISTANT-[facility] [address] [facility], [facility] [address], [place], [address], [facility] 03/28/2023 19:09:44 OBGyn Episode No OBEpisode recorded.
--- OUTSIDE RECORDS SUMMARY | 2024-10-09 07:50 | XMS_ITS ---
Author Organization [facility] Address [address] [place] [address] Care Team Providers Care Sheet Hanger Name Role Phone Amanda Wong Primary Care Provider Gonzalo Dorado REASON FOR VISIT Therapy Social History Sex Assigned At : Social History Observation Description Sex Assigned At Female Encounters Encounter Location Date Provider Diagnosis [facility] [address] [place] [address] 09/17/2024 Gonzalo Dorado Plan Of Treatment No Information Progress Notes * Jaclyn ARRIAGAOB:[birth year] (54 yo F)Acc No.[id number]:09/17/2024 UNLOCKED PROGRESS NOTE Patient: Jessica GRIMALDO Provider: Brandt Dorado :1970 A ge:54 Y S ex:Female Date:09/17/2024 Address:[address] [facility] Pcp:Amanda Wong Subjective: * Chief Complaints: * 1 . Therapy. * Medical History: Objective: * Vitals: Assessment: Plan: * Treatment: * * Electronic signature of Citlaly Dorado on 10/09/2024 at 07:49 AM CDT Sign off status: Pending * Provider: Brandt Dorado Date: 0 09/17/2024 Generated for Josefa stephens/Armando/Anca on: 0 10/09/2024 07:49 AM CDT
--- OUTSIDE RECORDS SUMMARY | 2024-10-09 07:50 | XMS_ITS | Encounter Summary ---
Author Organization [facility] Address [address] [place] [address] Phone Care Team Providers Care Race Car Mechanic Name Role Phone Cruz Luciano MD Primary Care Provider [phone] Aguilar Najera MD Unavailable [phone] Curz Luciano MD Primary Care Provider [phone] Tanika Clay APRN, [facility] Primary Care Provide r Danilo Lyles MD Unavailable [phone] Cruz Luciano MD Primary Care Provider [phone] Encounter Details Date Type Department Care Team (Late st Contact Info) Description 04/27/2022 [facility] [address] [place] [address] Cruz Luciano MD [address] [place] [address] Social History Tobacco Use Types Packs/Day [...] 10:45 AM CDT Office Visit [facility] On[facility] Services [address] [place] [phone] Angelique Walker Elvie, PAC [address] [place] [address] Discharge Disposition: Discharged to home or Selfcare documented as of this encounter Visit Diagnoses Not on filedocumented in this encounter Care Teams Race Car Mechanic Relationship Specialty Start Date End Date Cruz Luciano MD PCP - General Internal Medicine 03/11/22 10/12/22 Cruz Luciano MD [address] [place] [address] PCP - General Internal Medicine 10/19/22 11/09/22 Tanika Clay, URBAN DESIGNER, AUTOMATED WEAVER [address] [place] [address] PCP - General Advanced Practice Nurse 11/10/22 01/11/24 Cruz Luciano MD [address] [place] [address] PCP - General Orthopaedic Surgery 01/12/24 Aguilar Najera MD [address] [address] Consulting Physician Urology 03/18/22 Danilo Lyles MD [address] [place] [address] Consulting Physician Medical Oncology 04/27/23 documented as of this encounter
--- OUTSIDE RECORDS SUMMARY | 2024-10-09 07:50 | XMS_ITS | Patient Health Record ---
Author Organization [facility] Address [address] [place] [address] Care Team Providers Care Certified Tower Climber Name Role Phone Marvin Amanda Primary Care Provider Amanda Almeida Unavailable [phone] Gonzalo Dorado Unavailable Allergies Allergen (clinical drug [...] Question Answer Notes Are you a nonsmoker PRAPARE Question Answer Notes Date Completed/Updated: 09/10/2024 What is your current housing situation? I have h ousing Are you worried about losing your housing? No What is the highest level of school that you have finished? 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 Check all that apply I do not have problems meeting my needs Has lack of transportation k ept you from medical appointments, meetings, work or from getting things needed for daily living? No How often do you see or talk to people that you care about and feel close to? (For example: talking to friends on the phone, visiting friends or family, going to confucianism or club meetings) 1 or 2 times a week How stressed are you? Stress is when someone feels tense, nervous, anxious, or can\t sleep at night because their mind is troubled Somewhat In the past year have you sp ent more than 2 nights in a row in a long term, [place] health care facility, assisted center, or juvenile correctional facility? No Do you feel physically and e motionally safe where you currently live? Yes In the past year, have you b een afraid of your partner or ex-partner? I have not had a partner in the past year PRAPARE Score: 5 Enabling Services Provided? Yes Please specify Case Management Follow-up Problems Problem Type SNOMED Code ICD Code Onset Dates Problem Status W/U Status Risk Notes Problem Posttraumatic stress disorder (12135097) PTSD (post-traumati c stress disorder) (F43.10) Active confirmed Problem Major depressive disorder, severe (F32.2) Active confirmed Encounters Encounter Location Date Provider Diagnosis [facility] [place] [address] 09/03/2024 Gonzalo Dorado [facility] [address] [place] [address] 10/13/2023 Amanda Almeida Major depressive disorder, severe F32.2 and PTSD (post-traumatic stress disorder) F43.10 [facility] [address] [place] [address] 10/26/2023 Amanda Sanftleben Major depressive disorder, severe F32.2 and PTSD (post-traumatic stress disorder) F43.10 [facility] [address] [place] [address] 11/04/2023 Amanda Sanftleben Major depressive disorder, severe F32.2 and PTSD (post-traumatic stress disorder) F43.10 [facility] [address] [place] [address] 11/14/2023 Amanda Sanftleben Major depressive disorder, severe F32.2 and PTSD (post-traumatic stress disorder) F43.10 [place] [address] [place] [address] 11/25/2023 Amanda Sanftleben Major depressive disorder, severe F32.2 and PTSD (post-traumatic stress disorder) F43.10 [facility] [address] [place] [address] 12/06/2023 Amanda Sanftleben Major depressive disorder, severe F32.2 and PTSD (post-traumatic stress disorder) F43.10 [facility] [address] [place] [address] 12/23/2023 Amanda Sanftleben [place] [address] [place] [address] 12/30/2023 Amanda Sanftleben Major depressive disorder, severe F32.2 and PTSD (post-traumatic stress disorder) F43.10 [facility] [address] [place] [address] 01/06/2024 Amanda Sanftleben Major depressive disorder, severe F32.2 and PTSD (post-traumatic stress disorder) F43.10 [facility] [address] [place] [address] 01/27/2024 Amanda Sanftleben Major depressive disorder, severe F32.2 and PTSD (post-traumatic stress disorder) F43.10 [facility] [address] [place] [address] 02/10/2024 Amanda Sanftleben Major depressive disorder, severe F32.2 and PTSD (post-traumatic stress disorder) F43.10 [place] [address] [place] [address] 02/24/2024 Amanda Sanftleben Major depressive disorder, severe F32.2 and PTSD (post-traumatic stress disorder) F43.10 [place] [address] [place] [address] 03/02/2024 Amanda Sanftleben Major depressive disorder, severe F32.2 and PTSD (post-traumatic stress disorder) F43.[address] [address] 03/09/2024 Amanda Sanftleben Major depressive disorder, severe F32.2 and PTSD (post-traumatic stress disorder) F43.[address] [address] 03/16/2024 Amanda Sanftleben Major depressive disorder, severe F32.2 and PTSD (post-traumatic stress disorder) F43.[address] [address] 04/02/2024 Gonzalo Dorado Major depressive disorder, severe F32.2 and PTSD (post-traumatic stress disorder) F43.[address] [address] 04/06/2024 Gonzalo Dorado Major depressive disorder, severe F32.2 and PTSD (post-traumatic stress disorder) F43.[address] [address] 04/13/2024 Gonzalo Dorado Major depressive disorder, severe F32.2 and PTSD (post-traumatic stress disorder) F43.[address] [address] 04/27/2024 Gonzalo Dorado Major depressive disorder, severe F32.2 and PTSD (post-traumatic stress disorder) F43.10 [facility] [address] [place] [address] 05/11/2024 Gonzalo Dorado Major depressive disorder, severe F32.2 and PTSD (post-traumatic stress disorder) F43.10 [facility] [address] [place] [address] 05/25/2024 Gonzalo Dorado Major depressive disorder, severe F32.2 and PTSD (post-traumatic stress disorder) F43.10 [facility] [address] [place] [address] 06/18/2024 Gonzalo Dorado Major depressive disorder, severe F32.2 and PTSD (post-traumatic stress disorder) F43.10 [facility] [address] [place] [address] 06/29/2024 Gonzalo Dorado Major depressive disorder, severe F32.2 and PTSD (post-traumatic stress disorder) F43.10 [place] [address] [place] [address] 07/23/2024 Gonzalo Dorado Major depressive disorder, severe F32.2 and PTSD (post-traumatic stress disorder) F43.10 [facility] [address] [address] 08/06/2024 Gonzalo Dorado Major depressive disorder, severe F32.2 and PTSD (post-traumatic stress disorder) F43.10 [place] [address] [place] [address] 08/21/2024 Gonzalo Dorado Major depressive disorder, severe F32.2 and PTSD (post-traumatic stress disorder) F43.10 [facility] [address] [place] [address] 09/18/2024 Gonzalo Dorado Major depressive disorder, severe F32.2 and PTSD (post-traumatic stress disorder) F43.[address] [place] [address] 09/11/2024 Amanda Wong Assessments Encounter Date Diagnosis (ICD Code) Assessment Notes Treatment Notes Treatment Clinical Notes Section Notes 10/13/2023 Major depressive disorder, severe (ICD-10 - [...] Major depressive disorder, severe (ICD-10 - F32.2) 08/06/2024 Major depressive disorder, severe (ICD-10 - F32.2) 08/21/2024 Major depressive disorder, severe (ICD-10 - F32.2) 09/18/2024 Major depressive disorder, severe (ICD-10 - F32.2) 09/18/2024 PTSD (post-traumatic stress disorder) (ICD-10 - F43.10) 08/21/2024 PTSD (post-traumatic stress disorder) (ICD-10 - F43.10) 08/06/2024 PTSD (post-traumatic stress disorder) (ICD-10 - F43.10) 07/23/2024 PTSD (post-traumatic stress disorder) (ICD-10 - [...] (post-traumatic stress disorder) (ICD-10 - F43.10) 04/02/2024 Other Inner Layer Scrubber Tender will continue to work with client on the importance of boundary setting for their own peace. Plan Of Treatment No Information Insurance Providers Payer Name Payer Address Payer Phone Subscriber Number Group Number Insured Name Patient Relationship to Insured Coverage Start Date Coverage End Date [employer] [address] [place] [phone] [id number] Jessica Noriega Self - patient is the insured 3 [employer] [address] [place] [phone] [id number] Jessica Noriega Self - patient is the insured 9 [employer] [address] [place] [phone] [id number] Jessica Noriega Self - patient is the insured 4 Medical (General) History Medical History History ICD Code Anemia GERD Connective tissue disorder Surgical History Surgery Date(Month/Year) left knee repair breast bilateral R pinky tendon repair R hand fracture repair
--- OUTSIDE RECORDS SUMMARY | 2024-10-09 07:50 | XMS_ITS | Encounter Summary ---
Author Organization [facility] Address [address] [place] [address] Care Team Providers Care Deep Fat Cook Fry Name Role Phone Katey Markham NP Primary Care Provider [phone] Katey Markham SEXUAL HEALTH PHYSICIAN Primary Care Provider [phone] Katey Markham NP Unavailable [phone] Cruz Luciano MD Primary Care Provider + Katey Markham NP Primary Care Provider [phone] Katey Markham NP Primary Care Provider [phone] Cruz Luciano MD Primary Care Provider + Alia Fuller SEXUAL HEALTH PHYSICIAN Unavailable [phone] Tanika Clay SEXUAL HEALTH PHYSICIAN Unavailable [phone] Aguilar Najera MD Unavailable [phone] Beau Stone SEXUAL HEALTH PHYSICIAN Unavailable [phone] Pearl [place] DO Unavailable [phone] Katey Markham NP Primary Care Provider [phone] Katey Markham NP Primary Care Provider [phone] Encounter Details Date Type Department Care Team (Late st Contact Info) Description 09/04/2021 Telephone [facility] [address] [place] [address] Arcelia Polladr, RT Social History Tobacco Use Types Packs/Day Years Used Date Smoking Tobacco: Every Day Cigarettes Smokeless Tobacco: Never Comments:4 per day Alcohol Use Standard Drinks/Week Comments No 0 (1 standard drink = 0.6 oz pur e alcohol) Comments No Sex and Gender Information Value Date Recorded Sex Assigned at Not on file Legal Sex Female 8:57 AM OCEANOGRAPHER GEOLOGICAL Gender Identity Female 09/01/2023 3:49 PM CDT Sexual Orientation Straight 09/01/2023 3: 49 PM CDT documented as of this encounter Plan of Treatment Not on file documented as of this encounter Visit Diagnoses Not on filedocumented in this encounter Additional Health Concerns Infection Onset Date Last Indicated Resolved Time Diarrhea 07/11/2023 07/11/2023 07/25/2023 3:05 AM OCEANOGRAPHER GEOLOGICAL documented as of this encounter Care Teams Deep Fat Cook Fry Relationship Specialty Start Date End Date Katey Markham NP PCP - General 03/06/21 09/25/21 Katey Markham NP PCP - General 09/26/21 12/22/21 Cruz Luciano MD [address] [place] [address] [place] [address] PCP - General Internal Medicine 12/23/21 12/27/21 Katey Markham NP PCP - General 12/28/21 12/28/21 Katey Markham NP PCP - General 12/29/21 01/13/22 Cruz Luciano MD [address] [place] [address] [place] [address] PCP - General Internal Medicine 01/14/22 10/03/23 Katey Markham, SEXUAL HEALTH PHYSICIAN [address] [place] [address] [address]on[address] [place] [address] PCP - General Internal Medicine 10/04/23 10/04/23 Katey Markham, SEXUAL HEALTH PHYSICIAN [address] [place] [address] [address]ENT [address]onimo [address] [place] [address] PCP - General Internal Medicine 10/12/23 Katey Markham, SEXUAL HEALTH PHYSICIAN 09/26/21 Alia Fuller, ALKA [address] [place] [address] [place] [address] Nurse Practitioner Family Medicine 09/28/22 Tanika Clay, ALKA [address] [place] [address] [place] [address] Nurse Practitioner Nurse Practitioner 09/28/22 [place] [address] [place] [address] Consulting Physician Urology 09/28/22 Beau Stone, ALKA [address] [place] [address] Nurse Practitioner Family Practice 09/28/22 Pearl [place] DO [address] [place] [address] [address]ENT Jer[address] [place] [address] Consulting Physician Otolaryngology 09/28/22 documented as of this encounter
--- OUTSIDE RECORDS SUMMARY | 2024-10-09 07:50 | XMS_ITS | Clinical Summary ---
Author Organization [facility] Address [address] [place] [address] Phone Care Team Providers Care Tmr Teacher Name Role Phone Aguilar Najera MD Unavailable [phone] Danilo Lyles MD Unavailable Cruz Luciano MD Primary Care Provider [phone] Allergies Active Allergy Reactions Criticality Noted Date [...] Description 12/17/2024 10:45 AM CDT [facility] [address] [place] [address] Angelique Walker Elvie, PAC [address] [place] [address] Discharge Disposition: Discharged to home or Selfcare [...] to complete this topic Insurance [employer] [place] Member Subscriber Plan / Payer (Ef fective 2022-Present) Name:Jessica Noriega Relation to Subscriber:Self Name:Jessica Noriega Payer ID:[id number] (NAIC) Group ID:Not on file Type:Not on file Address: [address] [address] Care Teams Tmr Teacher Relationship Specialty Start Date End Date Cruz Luciano MD [address] [place] [address] PCP - General Orthopaedic Surgery 01/12/24 Aguilar Najera MD [address] [address] Consulting Physician Urology 03/18/22 Danilo Lyles MD [address] [place] [address] Consulting Physician Medical Oncology 04/27/23
--- OUTSIDE RECORDS SUMMARY | 2024-10-09 07:51 | XMS_ITS | Clinical Summary ---
Author Organization [facility] Address [address] [place] [address] Care Team Providers Care Traffic Ii Manager Name Role Phone Zack Nguyen MD Unavailable Cruz Luciano MD Primary Care Provider [phone] Source Comments [facility],non-owned Affiliates and Associated Physician Practices is amultiple site organization consisting of ambulatory clinics and hospital sitesin [place], [place], [place] and [place]. This disclosure is being madepursuant to the Care Everywhere program and may not contain all information available regarding this patient. Last updated 18.[facility] Allergies Active Allergy Reactions Criticality Noted Date Comments Aspirin Urticaria High 02/19/2014 Reaction: Hives, Reaction: Hives, Latex Urticaria Medium 09/27/2017 Sulfa Antibiotics Urticaria High 02/19/2014 Reaction: Hives, Reaction: Hives, Sulfa Drugs 02/19/2014 Sulfanilamide Urticaria Medium 03/10/2023 Reaction: Hives, Medications * This document contains information received from the source organization and may not represent a complete record from that organization. * Be aware that medications may not be up to date on this document. Alwaysverify current medications with the patient. hydrocodone-mara taminophen (NORCO) 10-325 MG tabletIndicatio ns:Moderate to Moderately Severe Pain Take 1 (one) tablet by mouth every 4 hours as needed for Pain Reasons: Moderate to Moderately Severe Pain Active Sacubitril-Vals vanesa (ENTRESTO PO) Active METOPROLOL SUCCINATE PO Active Sertraline HCl (ZOLOFT PO) Active Ferrous Euitichcl-B-Puk ic Acid (IRON-C PO) Active fluticasone-ume clidin-vilant (Trelegy Ellipta) 200-62.5-25 MCG/ACT inhaler Inhale 1 (one) puff by mouth once daily Active CLONAZEPAM PO Active cyclobenzaprine (Flexeril) 10 MG tablet Take 1 (one) tablet by mouth as needed for Muscle Spasms Active VITAMIN D PO Active Probiotic Product (PROBIOTIC PO) Activ e Other tumeric curcumin Act mario Other MIX AND TAKE 1/2 TO 1 CAPFUL DAILY NEEDED FOR CONSTIPATION 3 Active amoxicillin-cla vulanate (Augmentin) 875-125 MG tablet Take 1 tablet every 12 hours by oral route as directed for 10 days. 3 Active Active Problems Problem Noted Date Diagnosed [...] Recorded Patient Health Questionnaire-2 Score 2 02/21/2023 Comments No Sex and Gender Information Value Date Recorded Sex Assigned at Not on file Legal Sex Female 6:24 PM CDT Gender Identity Not on file [...] 50+ (1 of 2 - PCV) 1990 MAMMOGRAM 03/18/2019 03/18/2017 LUNG CANCER SCREENING 2021 ZOSTER VACCINE (1 of 2) 2021 COVID-19 VACCINE (2 - 2023-2 5 season) 2024 06/23/2021 INFLUENZA VACCINE (Season Ended) 2025 HIV SCREENING Completed 02/21/2023 HIB VACCINE Aged Out No longer eligi ble based on patient's age to complete this topic HPV VACCINE Aged Out No longer eligi ble based on patient's age to complete this topic MENINGOCOCCAL (Group B) VACC INE SHARED DECISION-MAKING Aged Out No longer eligibl e based on patient's age to complete this topic MENINGOCOCCAL GROUPS A/C/Y/W VACCINE Aged Out No longer eligible b ased on patient's age to complete this topic [...] ve Non-react mario 02/21/2023 2:43 PM CDT [facility] Comment:No Laboratory eviden ce of HIV infection. Blood BLOOD SPECIMEN / Unknown Lab Venipuncture / Unknown 02/21/2023 1:02 PM CDT 02/21/2023 1:21 PM CDT Aristides Velasco MD LAB - CHEMISTRY ORDERABLES Fin al Result Performing Organization Address [facility]/State/[facility] Co de Phone Number [facility] [address] [place] [address], [facility] [phone] from Last 3 Months or Most Recently Relevant to Health Maintenance Insurance SELF PAY NO INSURANCE Member Subscriber Plan / Payer (Ef fective for All Dates) Name:Jessica Arriaga Member ID:Not on file Relation to Subscriber:Self Name:JESSICA ARRIAGA Subscriber ID:Not on file Payer ID:Not on file Group ID:Not on file Type:Self Pay Address: [facility] SELF PAY NO INSURANCE Member Subscriber Plan / Payer (Ef fective for All Dates) Name:Jessica Arriaga Member ID:Not on file Relation to Subscriber:Self Name:JESSICA ARRIAGA Subscriber ID:Not on file Payer ID:Not on file Group ID:Not on file Type:Self Pay Address: [place], [place] Advance Directives * Full Code (Latest Code Status on File) Date Activated Date Inactivated Comments 02/19/2014 12:04 AM 02/21/2014 4:03 PM Care Teams Traffic Ii Manager Relationship Specialty Start Date End Date Cruz Luciano MD [address] [place] [address] PCP - General Internal Medicine 12/16/22 Zack Nguyen MD [address] [place], [place] [address]E CK DRIVER [address] Internal Medicine 01/06/21
--- OUTSIDE RECORDS SUMMARY | 2024-10-09 07:51 | XMS_ITS | Clinical Summary ---
Author Organization [facility] Address [address] [place] [address] Care Team Providers Care Senior Contracts Manager Name Role Phone Katey Markham NP Unavailable [phone] Alia Cardoso BALLAST INSPECTOR Unavailable [phone] Tanika Clay NP Unavailable Aguilar Najera MD Unavailable [phone] Beau Stone BALLAST INSPECTOR Unavailable [phone] Pearl York DO Unavailable [phone] Katey Markham NP Primary Care Provider [phone] Allergies Active Allergy Reactions Criticality Noted Date Comments Aspirin Hives,Urticaria High 02/19/2014 Reaction: Hives, Reaction: Hives, Reaction: Hives, Latex Hives,Urticaria Medium 09/27/2017 Sulfa (Sulfonamide Antibiotics) Hives,Urticaria High 02/19/2014 Reaction: Hives, Reaction: Hives, Reaction: Hives, Sulfanilamide Hives,Urticaria Medium 03/10/2023 Reaction: Hives, Medications cholecalciferol (VITAMIN D-3) 1,000 unit tablet Take 1 tablet (1,000 Units total) by mouth daily Active HYDROcodone-aceta minophen (NORCO) 10-325 mg per tabletIndications :Pain Take 1 tablet by mouth every 6 (six) hours as needed for pain Active sertraline (ZOLOFT) 100 mg tablet Take 1 tablet (100 mg total) by mouth 2 (two) times a day Active iron,carbonyl-vit musa C 65 mg iron- 125 mg tablet,delayed release (DR/EC) Take by mouth construction 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 before breakfast Active PATULOQ-CXLN-QRKE Y-XWZY-ZTXVRY ORAL daily Active magnesium gluconate 200 mg tabletIndications :hypomagnesemia 1 tablet (200 mg total) Active zinc gluconate 50 mg tablet Take 1 tablet (50 mg total) by mouth daily Active ascorbic acid, vitamin C, (VITAMIN C) 500 mg CR tablet Take 1 tablet (500 mg total) by mouth daily Active omega-3 fatty acids-fish oil 300-1,000 mg capsule Take 1 capsule (1 g total) by mouth daily Active fluticasone-umecl idin-vilanter (TRELEGY ELLIPTA) 200-62.5-25 mcg inhalerIndication s:Asthma-COPD overlap syndrome (HCC) Inhale 1 puff daily 200 MG 60 each 11 07/20/19 24 Active cyclobenzaprine (FLEXERIL) 10 mg tablet Take 1 tablet (10 mg total) by mouth 3 (three) times a day as needed for muscle spasms Active ondansetron ODT (ZOFRAN-ODT) 4 mg disintegrating tabletIndications :Nausea and vomiting, unspecified vomiting type DISSOLVE 1 TABLET (4 MG TOTAL) BY MOUTH DAILY NEEDED FOR NAUSEA OR VOMITING FOR UP TO 30 DOSES 30 tablet 10/07/19 24 Active metoprolol XL (TOPROL-XL) 25 mg extended release tablet TAKE 1 TABLET BY MOUTH EVERY DAY 90 tablet 3 03/02/20 24 Active lubiprostone (AMITIZA) 8 mcg capsule Take 1 capsule (8 mcg total) by mouth 2 (two) times a day with meals Take with meals 60 capsule 11 03/30/20 24 2024 Active albuterol HFA (PROVENTIL HFA,VENTOLIN HFA,PROAIR HFA) 90 mcg/actuation inhalerIndication s:Asthma-COPD overlap syndrome (HCC) INHALE 2 PUFFS BY MOUTH EVERY 6 HOURS NEEDED FOR WHEEZE OR FOR SHORTNESS OF BREATH 8.5 each 11 03/17/20 25 Active sacubitriL-valsar dang (Entresto) 24-26 mg tablet TAKE 1 TABLET BY MOUTH TWICE A DAY 60 tablet 11 08/24/19 25 Active topiramate (TOPAMAX) 50 mg tabletIndications :Bilateral occipital neuralgia Take half tablet (25 mg) po twice a day for one week, then one tablet po twice a day 60 tablet 3 09/11/19 25 Active predniSONE (DELTASONE) 10 mg tabletIndications :Cervical pain (neck) TAKE 6 TABS DAILY FOR ONE WEEK, 5 DAILY FOR ONE WEEK, 4 DAILY FOR ONE WEEK, 3 DAILY FOR ONE WEEK, 2 DAILY FOR ONE WEEK THEN 1 DAILY FOR ONE WEEK 105 tablet 1 10/02/19 25 Active famotidine (PEPCID) 40 mg tablet TAKE 1 TABLET BY MOUTH EVERY DAY 90 tablet 1 10/05/19 25 Active topiramate (TOPAMAX) 50 mg tabletIndications :Cervical pain (neck) Take half tablet (25 mg) po twice a day for one week, then one tablet po twice a day 60 tablet 3 06/22/19 25 2024 Discontinued(D uplicate order) predniSONE (DELTASONE) 10 mg tabletIndications :Cervical pain (neck) Take 60 mg po once a day x 1 week, then 50 mg every day x 1 week, then 40 mg every day x 1 week, then 30 mg every day x 1 week, then 20 mg every day x 1 week, then 10 mg every day for one week, then stop. 147 tablet 09/11/19 25 2024 Discontinued famotidine (PEPCID) 40 mg tablet Take 1 tablet (40 mg total) by mouth daily 30 tablet 1 09/11/19 25 2024 Discontinued azithromycin (ZITHROMAX) 250 mg tabletIndications :Acute upper respiratory infection Take 2 tablets (500 mg total) by mouth daily for 1 day, THEN 1 tablet (250 mg total) daily for 4 days. 6 tablet 09/25/19 25 2024 Active Problems Problem Noted Date Diagnosed Date Acute upper respiratory infection 09/25/2024 Assessment & Plan (09/25/2024 9:20 AM CDT): She has a steroid taper prescribed from Neurology. I have instructed her to call and clarify the directions and discuss her intolerance of high dose corticosteroids. I will send for azithromycin as she has had a week of increased dyspnea, cough, congestion, and mucus production. We have discussed signs and symptoms that would require urgent evaluation. Cervical pain (neck) 06/24/2024 Bilateral occipital neuralgia [...] however has not had formal follow-up with plant health manager, skin testing may return different results IgE negative and very mild peripheral eosinophilia in the past Cigarette nicotine dependence in remission 11/14 Assessment & Plan (09/25/2024 9:24 AM CDT): She qualifies for annual low-dose CT She is due in November of 2024 Assessment & Plan (11/15/2023 12:58 PM CDT): She qualifies for yearly low-dose CT, she is due again in November 23, 2024 Centrilobular emphysema 11/15/2023 Assessment & Plan (09/25/2024 9:22 AM CDT): She quit smoking in 2022. She remains on closed triple therapy, continue Trelegy Ellipta 200 and albuterol Alpha-1 normal Assessment & Plan (11/15/2023 12:56 PM CDT): [...] Asthma-COPD overlap syndrome 07/20/2023 Assessment & Plan (09/25/2024 9:21 AM CDT): She will continue Trelegy Ellipta 200 once daily at the same time. She is currently using the patient financial assistance program and has received her medication in the mail. She has tried and failed Spiriva, Advair and Symbicort with poor clinical benefit. We have discussed the risks of infection/pneumonia with high dose ICS and we will monitor her carefully, she does not have frequent pneumonias or hospitalizations. No recent significant peripheral eosinophilia Continue albuterol 2 puffs every 4-6 hours as needed only, she is aware of indications for use Avoid triggers, she continues to work on moving She is aware of signs and symptoms that would require earlier evaluation or change to her plan of care Assessment & Plan (05/22/2024 3:29 PM LINE INSPECTOR): She will continue Trelegy Ellipta 200 once [...] triggers Assessment & Plan (07/20/2023 11:53 AM LINE INSPECTOR): Continue Trelegy Ellipta 200 once daily for now We have discussed the risks of infection and we will monitor her carefully Continue albuterol, discussed indications for use She is current on vaccines Avoid triggers Dyspnea on exertion 07/20/2023 Assessment & Plan (07/20/2023 11:51 AM LINE INSPECTOR): Multifactorial I have urged her to prioritize new living arrangements and remain active Iron deficiency anemia 07/20/2023 Assessment & Plan (07/20/2023 11:48 AM LINE INSPECTOR): Last H&H was normal Fluctuations could contribute to dyspnea Continue to follow with Hematology Continue ferrous sulfate as ordered Pelvic and perineal pain 07/02/2023 Assessment & Plan (07/03/2023 6:37 PM LINE INSPECTOR): I suspect main problem is her opiod [...] menopause. Assessment & Plan (05/18/2023 4:21 PM LINE INSPECTOR): The patient presents today for discussion of [...] 06/24/2022 Assessment & Plan (07/20/2023 11:50 AM LINE INSPECTOR): She is due for CT chest in [...] GI Claudication 08/21/2021 Chronic systolic heart failure 08/02/2021 Dyspepsia 04/21/2021 Abdominal pain 04/21/2021 Jaw pain 03/03/2021 Overview (03/03/2021): Added automatically from request for surgery [id number] Other chest pain 02/27/2021 Hot flashes 02/26/2021 [...] valve regurgitation 02/27/20 21 NICM (nonischemic cardiomyopathy) 02/26/2021 Assessment & Plan (09/25/2024 9:26 AM CDT): Continue Entresto Her most recent echocardiogram demonstrated a estimated LVEF at 35-40%, she should continue close follow-up with Cardiology Assessment & Plan (05/22/2024 3:30 PM LINE INSPECTOR): Continue Entresto Continue follow-up with Cardiology Last [...] cardiology Assessment & Plan (07/20/2023 11:47 AM LINE INSPECTOR): Continue Entresto Follow with cardiology Hepatic cyst 11/27/2020 Functional abdominal pain syndrome 11/26/2020 Nausea and vomiting 11/26/2020 Post-nasal drainage 11/26/2020 Tobacco use disorder 08/26/2020 Gastroesophageal reflux disease without esophagi tis 03/12/2020 Assessment & Plan (06/23/2020 5:03 PM LINE INSPECTOR): Patient is doing well with the Pepcid [...] (02/14/2020): Added automatically from request for surgery [id number] Assessment & Plan (06/23/2020 5:03 PM LINE INSPECTOR): Normal upper endoscopy in February of 2020. [...] benefits. Assessment & Plan (06/23/2020 5:02 PM LINE INSPECTOR): Patient is having constipation symptoms no. Discussed [...] is a hard stool. Pt also on salvage determiner opioids which likely contributes to constipation. She [...] (02/14/2020): Added automatically from request for surgery [id number] Assessment & Plan (03/12/2020 1:04 PM CDT): [...] Encounters Date Type Department Care Team Description 10/02/2024 Telephone [facility] [address]th [place] [address] [place] [id number] Shanta Galvan LPN 09/24/2024 2:30 PM CDT Office Visit [facility] at [address] [place] [address] Tanika Clay, ALKA Acute upper respiratory infection (Primary Dx); Asthma-COPD overlap syndrome (HCC); Centrilobular emphysema (HCC); NICM (nonischemic cardiomyopathy) (HCC); Cigarette nicotine dependence in remission 09/10/2024 8:45 AM CDT Office Visit [facility] [address] [facility] [address] [place] [address] Raf Pratt MD Bilateral occipital neuralgia (Primary Dx); Cervical pain (neck) 09/06/2024 Telephone [facility] [address] [place] [address] [place] [address] Latasha Cabrera CMA Prior Auth 09/05/2024 Results Follow-Up [facility] at [address] [place] [address] Alia Cardoso NP 09/04/2024 11:06 AM CDT - 09/04/2024 11:59 PM CDT Hospital Encounter [facility] [address] [place] [address] Discharge Disposition: Discharge to home or self care 09/04/2024 11:00 AM CDT - 09/04/2024 11:59 PM CDT Hospital Encounter [facility] [address] [place] [address] Cardiomyopathy, unspecified type (HCC) Discharge Disposition: Discharge to home or self care 08/29/2024 Telephone [facility] [address] [place] [address] [place] [address] Latasha Cabrera CMA 08/22/2024 1:00 PM CDT Office Visit [facility] at [address] [place] [address] Alia Cardoso NP Congestive heart failure, unspecified HF chronicity, unspecified heart failure type (HCC) (Primary Dx); Cardiomyopathy, unspecified type (HCC); Mixed hyperlipidemia 08/15/2024 Telephone [facility] [address] [place] [address] [place] [address] Latasha Cabrera CMA 08/13/2024 12:00 PM CDT Lab [address] [address] 08/01/2024 Results Follow-Up [facility] at [facility] [address] [place] [address] Alia Cardoso NP 07/30/2024 12:32 PM LINE INSPECTOR - 07/30/2024 11:59 PM LINE INSPECTOR Hospital Encounter [facility] [address] [place] [address] Congestive heart failure, unspecified HF chronicity, unspecified heart failure type (HCC) Discharge Disposition: Discharge to home or self care from Last 3 Months Immunizations Immunization Administration Dates Next Due Tdap 05/12/2017 Tetanus toxoid, adsorbed 06/11/2004 Surgical History Surgery Date Site/Laterality Comments OTHER SURGICAL HISTORY depression: admitted to [facility] KNEE SURGERY Left FINGER TENDON REPAIR Right [...] Outcome: failed per patient Anxiety Substance abuse (HCC) Depression [facility] psych sta y Feb 2014 Chronic diarrhea Abdominal cramping Chronic constipation Loss of appetite Ulcerative colitis (HCC) Asthma Breast implant rupture 01/31/2019 Dysphagia Palpitations Cardiomyopathy (HCC) Chest pain Shortness of breath Sick sinus syndrome (HCC) Ventricular tachycardia (HCC) Hypertension GERD (gastroesophageal [...] Date Smoking Tobacco: Some Days Cigarettes 0.5 37.5 Started: 1985; Last attempted to quit: 03/2022 [...] on file Legal Sex Female 8:57 AM LINE INSPECTOR Gender Identity Female 09/01/2023 3:49 PM CDT [...] Sign Reading Time Taken Comments Blood Pressure 120/60 09/24/2024 2:36 PM CDT Pulse 82 09/24/2024 2:36 PM CDT Temperature 36.3 C (97.3 F) 09/24/2024 2:36 PM CDT Respiratory Rate 16 09/24/2024 2:36 PM CDT Oxygen Saturation 96% 09/24/2024 2:36 PM CDT Inhaled Oxygen Concentration - - Weight 63.3 kg (139 lb 8 oz) 09/24/2024 2:36 PM CDT Height 162.6 cm (5' 4 ) 09/24/2024 2:36 PM CDT Body Mass Index 23.95 09/24/2024 2:36 PM CDT Plan of Treatment Health Maintenance Due Date Last Done Comments Hepatitis B Screening 1989 Pneumococcal vaccine <65 (1 of 2 - PCV) 1990 Zoster Vaccine (1 of 2) 2021 Covid-19 Vaccine (2 - 2023-2 5 season) 2024 06/23/2021 Cervical Cancer Screening 03/30/2024 03/30/2023 Regular Well Visit/Exam 18-64 03/30/2024 03/30/2023 Depression Screening 05/18/2024 05/18/2023, 03/30/2023, 12/20/2016 Breast Cancer Screening-Mammogram 07/11/2024 07/11/2023, 09/24/2022, 01/15/2021, Additional history exists Lung Cancer Screening 11/07/2024 11/07/2023 Influenza Vaccine (Season Ended) 2025 DTaP/Tdap/Td Vaccine (2 - Td or Tdap) 05/12/2027 05/12/2017, 06/11/2004 Colon Cancer Screening-Colonoscopy 12/30/2031 12/29/2021, 02/07/2018, 12/14/2010 Hepatitis C Screening Completed 11/03/2022 Medical Devices Implanted Type Area Compression Molding Machine Setter Device Identifier Shelf Expiration Date Model / Serial / Lot [employer] [id number] Angio-Seal Evolution 6fr .035in Guidewire Bypass Tube Suture - [id number] Implanted:Qty: 1 on 03/06/2021 by Amador Cano MD at [facility] [facility] 10/03/2021 [id number] / / [id number] Procedures Procedure Name Priority Date/Time Associated Diagnosis Comments NM CARDIAC BLOOD POOL IMAGING (REST) Schedule Routine, Read Routine (OP Routine) 09/04/2024 12:20 PM CDT Cardiomyopathy, unspecified type (HCC) CLINICAL PATHOLOGY REPORT Routine 08/13/2024 12:19 PM CDT EGFR Routine 08/13/2024 12:19 PM CDT DIFFERENTIAL AUTO Routine 08/13/2024 12:19 PM CDT PROTEIN ELECTROPHORESIS, WITH REFLEX, SERUM Routine 08/13/2024 12:19 PM CDT CREATINE KINASE (CK), TOTAL Routine 08/13/2024 12:19 PM CDT URIC ACID Routine 08/13/2024 12:19 PM CDT CRP (ACUTE PHASE) Routine 08/13/2024 12:19 PM CDT BENEDICT QUALITATIVE WITH REFLEX TO BENEDICT QUANTITATIVE Routine 08/13/2024 12:19 PM CDT RHEUMATOID FACTOR Routine 08/13/2024 12:19 PM CDT ERYTHROCYTE SEDIMENTATION RATE Routine 08/13/2024 12:19 PM CDT TSH Routine 08/13/2024 12:19 PM CDT COMPREHENSIVE METABOLIC PANEL Routine 08/13/2024 12:19 PM CDT CBC WITH AUTO DIFFERENTIAL Routine 08/13/2024 12:19 PM CDT ERIK-ROSE VIRUS VCA ANTIBODY PANEL Routine 08/13/2024 12:19 PM CDT URINALYSIS, MICROSCOPIC ONLY Routine 08/13/2024 12:18 PM CDT URINALYSIS AND REFLEX TO MICROSCOPIC AND CULTURE Routine 08/13/2024 12:18 PM CDT TRANSTHORACIC ECHO (TTE) COMPLETE W DOPPLER/CF WO CONTRAST Routine 07/30/2024 1:51 PM LINE INSPECTOR Congestive heart failure, unspecified HF chronicity, unspecified heart failure type (HCC) CT LUNG CANCER SCREENING Schedule Routine, Read Routine (OP Routine) 11/07/2023 8:11 AM CDT Nicotine dependence, cigarettes, in remission DIAGNOSTIC MAMMOGRAM BILATERAL W SCOTT W IMPLANTS Schedule Routine, Read Routine (OP Routine) 07/11/2023 1:57 PM LINE INSPECTOR Abnormal mammogram PAP AND HPV, REFLEX TO HPV GENOTYPES Routine 03/30/2023 2:59 PM CDT Encounter for annual routine gynecological examination HEPATITIS C RNA, QUANTITATIVE, PCR Routine 11/03/2022 1:25 PM CDT COLONOSCOPY 12/29/2021 11:33 AM CDT from Last 3 Months or Most Recently Relevant to Health Maintenance Results * NM Cardiac Blood Pool Imaging (Rest) (09/04/2024 12:20 PM CDT) Anatomical Region Laterality Modality Body N/A Nuclear Medicine 09/04/2024 11:5 2 AM CDT Narrative 09/04/2024 6:21 PM [address]T [address] [place] [address] MUGA Report Patient Name: JESSICA ARRIAGA L : 1970 (54y 4m) Study Date: 2024-09-04 11:52:29 AM Gender: F Tech: Ref Provider: ALIA CARDOSO Height(Cm): BSA: Weight(Kg): Order Provider: ALIA CARDOSO PROCEDURES: The patient. INDICATIONS: I42.9 Cardiomyopathy, unspecified. FINDINGS: Medications: tc99m sodium pertechnetate 22.6 millicuries. Left Ventricle: Global Left Ventricular Function is normal. LV Ejection Fraction is 50 %. Right Ventricle: The right ventricle was normal in size. Global resting right ventricular ejection fraction was normal. 51%. LV Wall Motion: No segmental wall motion defects are seen. CONCLUSIONS: No segmental wall motion defects are seen. Normal resting left ventricular function. Normal resting right ventricular function. Electronically Signed By: Brock Crowe MD, [facility] 2024-09-04 5:05:29 PM CDT Procedure Note Brock Crowe MD - 09/04/[address] [address] MUGA Report Patient Name: JESSICA ARRIAGA L : 1970 (54y 4m) Study Date: 2024-09-04 11:52:29 AM Gender: F Tech: Ref Provider: ALIA CARDOSO Height(Cm): BSA: Weight(Kg): Order Provider: ALIA CARDOSO PROCEDURES: The patient. INDICATIONS: I42.9 Cardiomyopathy, unspecified. FINDINGS: Medications: tc99m sodium pertechnetate 22.6 millicuries. Left Ventricle: Global Left Ventricular Function is normal. LV Ejection Fraction is 50%. Right Ventricle: The right ventricle was normal in size. Global resting right ventricularejection fraction was normal. 51%. LV Wall Motion: No segmental wall motion defects are seen. CONCLUSIONS: No segmental wall motion defects are seen. Normal resting left ventricular function. Normal resting right ventricularfunction. Electronically Signed By: Brock Crowe MD, [facility] 2024-09-04 5:05:29 PM CDT us Alia Aniyah Cardoso BALLAST INSPECTOR IMG NM PROCEDURES Final Result * BENEDICT ab ql w/rflx to BENEDICT qn (08/13/2024 12:19 PM CDT) BENEDICT Negative Comment: Interpretive Data Normal range for BENEDICT Qualitative Antibody = Negative. 1. BENEDICT is performed using indirect immunofluorescence against HEp-2 cells 2. BENEDICT titers are performed on all positive qualitative results. 3. A significantly positive BENEDICT result is defined as a positive nuclear fluorescence at a titer of 1:80 or greater. 4. 15% of normal people above age 65 have significantly positive BENEDICT results. 5% or less of normal people age 65 or under have significantly positive BENEDICT results. Current interpretive data was last revised on 2020. Testing performed by: [facility], [address] [place] [address] Blood 08/13/2024 12:1 9 PM CDT 08/13/2024 3:57 PM CDT us Cruz Luciano MD LAB BLOOD ORDERABLES Fin al Result Performing Organization Address City/State/[facility] Co de Phone Number [facility] ([facility]) [address] [place] [address] [place] [address] * Clinical pathology report (08/13/2024 12:19 PM CDT) Miscellaneous 08/13/2024 12: 19 PM CDT 08/14/2024 8:13 AM CDT Narrative 08/15/2024 4:35 PM CDT EPIC results best viewed via link to PDF [facility] Department of Pathology [address] [place] [id number] Final Report Note to Patients: This report may contain a detailed description of human tissue sent by a health care provider to the laboratory for pathologic evaluation. The content of this report is essential for diagnosis and may provide important critical findings. This information may be unfamiliar to patients to review without a medical professional present. It is advised that the patient review this report in the presence of a health care provider who can answer questions and explain the details. Patient Name: JESSICA ARRIAGA Address: [address] [place] [address] Gender: F : 1970 (Age: 54) Service: Location: Hospital #: [id number] Patient Type: [facility] EP ANCILLARY Taken: 08/13/2024 Received: 08/14/2024 Accessioned: 08/14/2024 Physician(s): Dr. Cruz Luciano M.D. [facility] Specimen(s) Received A: Blood (serum) Serum Protein ElectrophoresisReported:08/15/2024 Interpretation: Serum Protein Electrophoresis: Normal serum protein electrophoresis pattern. Comment: Serum Protein Electrophoresis: There are no significant abnormalities of the protein fractions. See Epic and/or separate report for protein fraction table. Salvador Jain MD PhDReport Electronically Reviewed and Signed Out By Salvador Jain MD PhD 08/15/2024 16:34:17 The performance characteristics of some immunohistochemical stains, fluorescence in-situ hybridization tests and immunophenotyping by flow cytometry cited in this report (if any) were determined by the Surgical Pathology Department at [facility] as part of an ongoing senior software quality analyst program and in compliance with federally mandated regulations drawn from the Clinical Laboratory Improvement Act of 1988 (CLIA '88). Some of these tests rely on the use of analyte specific reagents and are subject to specific labeling requirements by the US Food and Drug Administration. Such diagnostic tests may only be performed in a facility that is certified by the Department of Health and Human Services as a high complexity laboratory under CLIA '88. The FDA has determined that such clearance or approval is not necessary. This test is used for clinical purposes. It should not be regarded as investigational or for research. Nevertheless, federal rules concerning the medical use of analyte specific reagents require that the following disclaimer be attached to the report: This test was developed and its performance characteristics determined by the Surgical Pathology Department [facility]. It has not been cleared or approved by the U. S. Food and Drug Administration. REPORT IMAGES AND SCANNED DOCUMENTS, IF INCLUDED, ONLY VIEWABLE IN PDF VERSION OF REPORTe o Cruz Luciano MD LAB PATHOLOGY ORDERABLES Final Result * eGFR (08/13/2024 12:19 PM CDT) eGFR >90 >=60 mL/min/1. 73 m2 Comment: Interpretive Data [...] interpretive data was last reviewed 2021. Blood 08/13/2024 12:1 9 PM CDT 08/13/2024 12:36 PM CDT us Cruz Luciano MD LAB BLOOD ORDERABLES Fin al Result [facility] ([facility]) [address] [facility] [place] [address] * Differential, auto (08/13/2024 12:19 PM CDT) Neutrophil abs 3.8 1.5 - 6.5 K/cumm Imm gran abs 0.0 0.0 - 0.1 K/cumm [facility] ([place]) Lymphocyte abs 2.4 0.8 - 3.3 K/cumm [facility]) Monocyte abs 0.4 0.2 - 0.8 K/cumm [facility] ([place]) Eosinophil abs 0.1 0.0 - 0.5 K/cumm [facility] ([place]) Basophil abs 0.1 0.0 - 0.1 K/cumm [facility] ([place]) Neutrophil pct 56.1 % [facility]) Comment: Interpretive Data Percent cell count reference ranges are not reported, since discordance with absolute values may lead to misinterpretation of CBC data. Current Interpretive Data was last revised on 2017. Imm gran pct 0.3 % [facility] ([place]) Comment: Interpretive Data Percent cell count reference ranges are not reported, since discordance with absolute values may lead to misinterpretation of CBC data. Current Interpretive Data was last revised on 2017. Lymphocyte pct 35.8 % [facility] ([place]) Comment: Interpretive Data Percent cell count reference ranges are not reported, since discordance with absolute values may lead to misinterpretation of CBC data. Current Interpretive Data was last revised on 2017. Monocyte pct 5.9 % [facility] ([place]) Comment: Interpretive Data Percent cell count reference ranges are not reported, since discordance with absolute values may lead to misinterpretation of CBC data. Current Interpretive Data was last revised on 2017. Eosinophil pct 0.9 % [facility] ([place]) Comment: Interpretive [...] Data was last revised on 2017. Blood 08/13/2024 12:1 9 PM CDT 08/13/2024 12:36 PM CDT us Cruz Luciano MD LAB BLOOD ORDERABLES Fin al Result [facility] ([place]) 1 [facility] [place] [address] * (ABNORMAL) CBC with auto differential (08/13/2024 12:19 PM CDT) WBC 6.7 3.8 - 9.9 K/cumm Hgb 12.0 11.9 - 15.5 g/dL [facility] ([place]) Hct 35.1(L) 35.6 - 45.5 % [facility] ([place]) Plt 240 150 - 400 K/cumm [facility] ([place]) MPV 9.3 9.1 - 12.3 fL [facility] RBC 3.84(L) 3.90 - 5.20 M/cumm [facility] ([place]) MCV 91.4 81.3 - 96.4 fL [facility] ([place]) MCH 31.3 27.1 - 33.3 pg [facility] ([place] MCHC 34.2 32.3 - 35.7 g/dL [facility] ([place]) RDW CV 13.1 11.1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
--- OUTSIDE RECORDS SUMMARY | 2024-10-09 07:51 | XMS_ITS | Referral Summary ---
Author Organization [facility] Healthcare Address [address] [place] [address] Care Team Providers Care Reimbursement Director Name Role Phone Katey Markham NP Unavailable [phone] Alia Cardoso LAST CLEANER Unavailable Tanika Clay LAST CLEANER Unavailable Aguilar Najera MD Unavailable [phone] Beau Stone LAST CLEANER Unavailable [phone] Pearl York DO Unavailable [phone] Katey Markham NP Primary Care Provider Encounters Date Type Department Care Team Description 10/02/2024 Telephone [facility] Gastroenterology [address] [facility] 12th [place] [address] [place] [address] Shanta Galvan LPN 09/24/2024 2:30 PM CDT Office Visit [facility] Pulmonary at [address] [place] [address] Tanika Clay NP Acute upper respiratory infection (Primary Dx); Asthma-COPD overlap syndrome (HCC); Centrilobular emphysema (HCC); NICM (nonischemic cardiomyopathy) (HCC); Cigarette nicotine dependence in remission 09/10/2024 8:45 AM CDT Office Visit [facility] [address] [facility] [address] [place] [address] Raf Pratt MD Bilateral occipital neuralgia (Primary Dx); Cervical pain (neck) 09/06/2024 Telephone [facility] Gastroenterology [facility] [facility] 12th [place] [address] [place] [address] Latasha Cabrera CMA Prior Auth 09/05/2024 Results Follow-Up [place] [facility] at [address] [place] [address] Alia Cardoso NP 09/04/2024 11:06 AM CDT - 09/04/2024 11:59 PM CDT Hospital Encounter [address] [address] Discharge Disposition: Discharge to home or self care 09/04/2024 11:00 AM CDT - 09/04/2024 11:59 PM CDT Hospital Encounter [address] [address] Cardiomyopathy, unspecified type (HCC) Discharge Disposition: Discharge to home or self care 08/29/2024 Telephone [facility] Gastroenterology [address] [place] [address] [place] [address] [place] [address] Latasha Cabrera CMA 08/22/2024 1:00 PM CDT Office Visit [place] [facility] at [address] [address] Alia Cardoso NP Congestive heart failure, unspecified HF chronicity, unspecified heart failure type (HCC) (Primary Dx); Cardiomyopathy, unspecified type (HCC); Mixed hyperlipidemia 08/15/2024 Telephone [facility] Gastroenterology [address] [place] [address] 12th [place] [address] [place] [address] Latasha Cabrera CMA 08/13/2024 12:00 PM CDT Lab [address] [address] 08/01/2024 Results Follow-Up [place] [facility] at [facility] [address] [facility] [address] [place] [address] Alia Cardoso NP 07/30/2024 12:32 PM ANIMAL NUTRITION CONSULTANT - 07/30/2024 11:59 PM ANIMAL NUTRITION CONSULTANT Hospital Encounter [facility] Cardiology [address] [place] [address] Congestive heart failure, unspecified HF chronicity, unspecified heart failure type (HCC) Discharge Disposition: Discharge to home or self care from Last 3 Months Allergies Active Allergy [...] mg tablet,delayed release (DR/EC) Take by mouth supervisor stave finishing before breakfast Active [id number]-FTGA-GUTL E-CZBU-PGJCTC ORAL daily Active magnesium gluconate 200 mg [...] with meals Take with meals 60 capsule 03/30/20 24 2024 Active albuterol HFA (PROVENTIL HFA,VENTOLIN HFA,PROAIR HFA) 90 mcg/actuation inhalerIndication s:Asthma-COPD overlap syndrome (HCC) INHALE 2 PUFFS BY MOUTH EVERY 6 HOURS NEEDED FOR WHEEZE OR FOR SHORTNESS OF BREATH 8.5 each 11 08/21/19 25 Active sacubitriL-valsar dang (Entresto) 24-26 mg [...] however has not had formal follow-up with privacy officer, skin testing may return different results IgE [...] care Assessment & Plan (05/22/2024 3:29 PM ANIMAL NUTRITION CONSULTANT): She will continue Trelegy Ellipta 200 once [...] triggers Assessment & Plan (07/20/2023 11:53 AM ANIMAL NUTRITION CONSULTANT): Continue Trelegy Ellipta 200 once daily for now We have discussed the risks of infection and we will monitor her carefully Continue albuterol, discussed indications for use She is current on vaccines Avoid triggers Dyspnea on exertion 07/20/2023 Assessment & Plan (07/20/2023 11:51 AM ANIMAL NUTRITION CONSULTANT): Multifactorial I have urged her to prioritize new living arrangements and remain active Iron deficiency anemia 07/20/2023 Assessment & Plan (07/20/2023 11:48 AM ANIMAL NUTRITION CONSULTANT): Last H&H was normal Fluctuations could contribute to dyspnea Continue to follow with Hematology Continue ferrous sulfate as ordered Pelvic and perineal pain 07/02/2023 Assessment & Plan (07/03/2023 6:37 PM ANIMAL NUTRITION CONSULTANT): I suspect main problem is her opiod [...] menopause. Assessment & Plan (05/18/2023 4:21 PM ANIMAL NUTRITION CONSULTANT): The patient presents today for discussion of [...] 06/24/2022 Assessment & Plan (07/20/2023 11:50 AM ANIMAL NUTRITION CONSULTANT): She is due for CT chest in [...] (03/03/2021): Added automatically from request for surgery [id number] Other chest pain 02/27/2021 Hot flashes 02/26/2021 [...] Cardiology Assessment & Plan (05/22/2024 3:30 PM ANIMAL NUTRITION CONSULTANT): Continue Entresto Continue follow-up with Cardiology Last [...] cardiology Assessment & Plan (07/20/2023 11:47 AM ANIMAL NUTRITION CONSULTANT): Continue Entresto Follow with cardiology Hepatic cyst 11/27/2020 Functional abdominal pain syndrome 11/26/2020 Nausea and vomiting 11/26/2020 Post-nasal drainage 11/26/2020 Tobacco use disorder 08/26/2020 Gastroesophageal reflux disease without esophagi tis 03/12/2020 Assessment & Plan (06/23/2020 5:03 PM ANIMAL NUTRITION CONSULTANT): Patient is doing well with the Pepcid [...] (02/14/2020): Added automatically from request for surgery [id number] Assessment & Plan (06/23/2020 5:03 PM ANIMAL NUTRITION CONSULTANT): Normal upper endoscopy in February of 2020. [...] benefits. Assessment & Plan (06/23/2020 5:02 PM ANIMAL NUTRITION CONSULTANT): Patient is having constipation symptoms no. Discussed [...] is a hard stool. Pt also on residential opioids which likely contributes to constipation. She [...] (02/14/2020): Added automatically from request for surgery [id number] Assessment & Plan (03/12/2020 1:04 PM CDT): [...] you are drinking? Patient does not drink 3 Frequency of Binge Drinking Not on file [...] on file Legal Sex Female 8:57 AM ANIMAL NUTRITION CONSULTANT Gender Identity Female 09/01/2023 3:49 PM CDT [...] 09/24/2024 2:36 PM CDT Plan of Treatment Not on file Medical Devices Implanted Type Area Director Of Midwifery/Staff Midwife Device Identifier Shelf Expiration Date Model / Serial / Lot Toppr/[employer] [id number] Angio-Seal Evolution 6fr .035in Guidewire Bypass Tube Suture - [id number] Implanted:Qty: 1 on 03/06/2021 by Amador Cano MD at [facility] [employer] 10/03/2021 [id number] / / [id number] Procedures Procedure Name Priority Date/Time Associated Diagnosis [...] DOPPLER/CF WO CONTRAST Routine 07/30/2024 1:51 PM ANIMAL NUTRITION CONSULTANT Congestive heart failure, unspecified HF chronicity, unspecified heart failure type (HCC) CT LUNG CANCER SCREENING Schedule Routine, Read Routine (OP Routine) 11/07/2023 8:11 AM CDT Nicotine dependence, cigarettes, in remission DIAGNOSTIC MAMMOGRAM BILATERAL W SCOTT W IMPLANTS Schedule Routine, Read Routine (OP Routine) 07/11/2023 1:57 PM ANIMAL NUTRITION CONSULTANT Abnormal mammogram PAP AND HPV, REFLEX TO [...] AM CDT Narrative 09/04/2024 6:21 PM CDT [address] [place] [address] [employer] Report Patient Name: JESSICA ARRIAGA Bernarda : 1970 (54y 4m) Study Date: 2024-09-04 [...] right ventricular function. Electronically Signed By: Brock Croew MD, [facility] 2024-09-04 5:05:29 PM CDT Procedure Note Brock Crowe MD - 09/04/[address] [place] [address] [employer] Report Patient Name: BART JESSICABernarda : 1970 (54y 4m) Study Date: 2024-09-04 [...] ventricularfunction. Electronically Signed By: Brock Crowe MD, [facility] 2024-09-04 5:05:29 PM CDT us Alia Cardoso LAST CLEANER IMG NM PROCEDURES Final Result * BENEDICT [...] last revised on 2020. Testing performed by: [facility], [address] [facility], [place]., [address] Blood 08/13/2024 12:1 9 PM CDT 08/13/2024 3:57 PM CDT us Cruz Luciano MD LAB BLOOD ORDERABLES Fin al Result [facility] ([facility]) [address] [facility] Department of Laboratories [place] [id number] * Clinical pathology report (08/13/2024 12:19 PM CDT) Miscellaneous 08/13/2024 12: 19 PM CDT 08/14/2024 8:13 AM CDT Narrative 08/15/2024 4:35 PM CDT EPIC results best viewed via link to PDF [facility] Department of Pathology [address] [place] [id number] Final Report Note to Patients: This report [...] the details. Patient Name: JESSICA ARRIAGA Address: [address] [place] [address] Gender: F : 1970 (Age: 54) Service: Location: Hospital #: [id number] Patient Type: [facility] EP ANCILLARY Taken: 08/13/2024 Received: 08/14/2024 Accessioned: 08/14/2024 Physician(s): Dr. Cruz Luciano M.D. [facility] Specimen(s) Received A: Blood (serum) Serum [...] determined by the Surgical Pathology Department at [facility] as part of an ongoing air quality technician program and in compliance with federally mandated regulations drawn from the Clinical Laboratory Improvement Act of 1988 (CLIA '). Some of these tests rely on the [...] characteristics determined by the Surgical Pathology Department [facility]. It has not been cleared or approved [...] of Race in Diagnosing Kidney Disease, JASN 202). The CKD-EPI equation should not be used for patients with unstable renal function and has not been validated in children and those over 70. Current interpretive data was last reviewed 2021. Blood 08/13/2024 12:1 9 PM CDT 08/13/2024 12:36 PM CDT Cruz Luciano MD LAB BLOOD ORDERABLES Fin al Result [facility]O [facility] ([place]) [address] [facility] Department [place] [address] * Differential, auto (08/13/2024 12:19 PM CDT) [...] MD LAB BLOOD ORDERABLES Fin al Result [facility] ([place]) [address] [facility] [place] [address] * (ABNORMAL) CBC with auto differential (08/13/2024 12:19 PM CDT) WBC 6.7 3.8 - 9.9 K/cumm Hgb 12.0 11.9 - 15.5 g/dL [facility] ([place]) Hct 35.1(L) 35.6 - 45.5 % [facility] ([place]) Plt 240 150 - 400 K/cumm [facility] ([place]) MPV 9.3 9.1 - 12.3 fL [facility] ([place]) RBC 3.84(L) 3.90 - 5.20 M/cumm [facility] ([place]) MCV 91.4 81.3 - 96.4 fL [facility] ([place]) MCH 31.3 27.1 - 33.3 pg [facility] ([place]) MCHC 34.2 32.3 - 35.7 g/dL [facility] ([place]) RDW CV 13.1 11.1 - 14.9 % [facility] ([place]) RDW SD 43.7 35.7 - 48.1 fL [facility] ([place]) NRBC abs 0.00 0.00 - 0.01 K/cumm [facility] ([place]) Blood 08/13/2024 12:1 9 PM CDT 08/13/2024 12:36 PM CDT us Cruz Luciano MD LAB BLOOD ORDERABLES Fin al Result [facility] ([place]) [address] [facility] Department [place] [address] * (ABNORMAL) Erik-Rose virus (EBV) antibody panel Blood (08/13/2024 12:19 PM CDT) Pathologist [facility] EBV nuclear Ab Positive(A) Negative Comment: Indicates the presence of detectable IgG antibody to EBV Nuclear Antigen. Testing performed by: [facility], [address] [place]., [address] EBV VCA IgG Positive(A) Negative [facility] ([place]) Comment: Indicates the presence of antibody; 90% of the adult population will have been infected with EBV sometime in the past. Testing performed by: [facility], [address] [place]., [address] EBV VCA IgM Negative Negative [facility] ([place]) Comment: No detectable IgM antibody to EBV-VCA. A negative result indicates no current infection with EBV. If clinical suspicion of acute EBV infection is present, testing should be repeated after one week. Testing performed by: [facility], [address] [place]., [address] EBV interp Past Infection [facility] ([place]) Comment:Testing performed by : [facility], [address] [place]., [address] Blood 08/13/2024 12:1 9 PM CDT 08/13/2024 3:56 PM CDT us Cruz Luciano MD LAB MICROBIOLOGY - [facility] AL ORDERABLES Final Result [facility] ([place]) [address] [facility] Department [place] [address] * (ABNORMAL) Erythrocyte sedimentation rate (08/13/2024 12:19 PM CDT) [facility] Erythrocyte sedimentation rate 31(H) 1 - 30 mm/hr Blood 08/13/2024 12:1 9 PM CDT 08/13/2024 12:36 PM CDT us Cruz Luciano MD LAB BLOOD ORDERABLES Fin al Result Performing Organization Address City/[facility]/ZIP Co de Phone Number [facility] ([place]) 1 [facility] [place] [address] * Rheumatoid factor (08/13/2024 12:19 PM CDT) Rheumatoid factor, quant <10 <=15 IUnits/mL Comment:Testing performed by : [facility], [address] [place] [address]., [address] Blood 08/13/2024 12:1 9 PM CDT 08/13/2024 4:51 PM CDT us Cruz Luciano MD LAB BLOOD ORDERABLES Fin al Result Performing Organization Address [facility] Co de Phone Number [facility] ([place]) 1 [facility] [place] [address] * CRP (acute phase) (08/13/2024 12:19 PM CDT) CRP <3.0 <=10.0 mg/L Blood 08/13/2024 12:1 9 PM CDT 08/13/2024 12:36 PM CDT us Cruz Luciano MD LAB BLOOD ORDERABLES Fin al Result [facility] ([place]) 1 [facility] [place] [address] * Uric acid (08/13/2024 12:19 PM CDT) Uric acid 3.7 2.5 - 7.0 mg/dL Blood 08/13/2024 12:1 9 PM CDT 08/13/2024 12:36 PM CDT us Cruz Luciano MD LAB BLOOD ORDERABLES Fin al Result [facility] ([place]) [address] [facility] Department [place] [address] * TSH (08/13/2024 12:19 PM CDT) [facility] Thyroid Stimulating Hormone 0.87 0.30 - 4.20 mcIUnit/mL Blood 08/13/2024 12:1 9 PM CDT 08/13/2024 12:36 PM CDT Cruz Luciano MD LAB BLOOD ORDERABLES Fin al Result Performing Organization Address City/[facility] Co de Phone Number [facility] ([place]) [address] [facility] Department [place] [address] * Protein electrophoresis with reflex, serum with interpretation (08/13/2024 12:19 PM CDT) [facility] Protein, sr 7.1 6.2 - 8.2 g/dL Comment:Testing performed by : [facility], [address] [place] [address]., [address] Albumin 4.8 3.2 - 5.0 g/dL [facility] ([place]) Comment:Testing performed by : [address] [address] Alpha-1 globulin 0.2 0.2 - 0.4 g/dL [facility] ([place]) Comment:Testing performed by : [address] [address] Alpha-2 globulin 0.7 0.5 - 1.0 g/dL [facility] ([place]) Comment:Testing performed by : [address] [address] Beta-1 globulin 0.3 0.3 - 0.6 g/dL [facility] ([place]) Comment:Testing performed by : [address] [address] Beta-2 globulin 0.3 0.2 - 0.6 g/dL [facility] ([place]) Comment:Testing performed by : [address] [address] Gamma globulin 0.8 0.5 - 1.7 g/dL [facility] ([place]) Comment:Testing performed by : [facility], [address] [place] [address]., [address] SPEP interp See Cl Path Rpt [facility] ([place]) Comment:Testing performed by : [facility], [address] [place] [address]., [address] Blood 08/13/2024 12:1 9 PM CDT 08/13/2024 4:51 PM CDT Cruz Luciano MD LAB BLOOD ORDERABLES Fin al Result [facility] ([place]) [address] [facility] [place] [address] * Creatine kinase (CK), total (08/13/2024 12:19 PM CDT) Pathologist [facility] CK 115 30 - 200 Units/L Blood 08/13/2024 12:1 9 PM CDT 08/13/2024 12:36 PM CDT Curz Luciano MD LAB BLOOD ORDERABLES Fin al Result [facility] ([place] [address] [facility] Department [place] [address] * Comprehensive metabolic panel (08/13/2024 12:19 PM CDT) Sodium 136 135 - 145 mmol/L Potassium, pl 4.4 3.3 - 4.9 mmol/L [facility] ([place]) Chloride 100 97 - 110 mmol/L [facility] ([place]) CO2 26 22 - 32 mmol/L [facility] ([place]) Anion gap 10 2 - 15 mmol/L [facility] ([place]) BUN 9 6 - 25 mg/dL [facility] ([place]) Creatinine 0.73 0.60 - 1.10 mg/dL [facility] ([place]) Glucose 101 70 - 199 [...] ([place]) AST 26 10 - 45 Units/L [facility] ([place]) Blood 08/13/2024 12:1 9 PM CDT 08/13/2024 12:36 PM CDT us Cruz Luciano MD LAB BLOOD ORDERABLES Fin al Result [facility] ([place]) [address] [facility] Department [place] [address] * (ABNORMAL) Urinalysis reflex to microscopic and culture Urine (08/13/2024 12:18 PM CDT) Color, ur Yellow Yellow Clarity, ur Clear Clear [facility] A ([place]) Specific gravity, ur 1.018 1.003 - 1.030 [facility] ([place]) pH, urine 8.0 [facility] ([place]) Comment: Interpretive Data U rine pH is affected by diet, medications, systemic acid-base disturbances, and renal tubular function. pH may affect urinary stone formation. For example, urine pH below 6.0 may help reduce the tendency for calcium phosphate stones and pH greater than 6.0 may reduce the tendency for uric acid stone formation. Source: [facility] Current Interpretive Data was last revised on [...] Reflex to microscopic UA will be performed. [facility] ([place]) Urine 08/13/2024 12:1 8 PM CDT 08/13/2024 1:23 PM CDT Cruz Luciano MD LAB MICROBIOLOGY - GENER AL ORDERABLES Final Result Performing Organization Address [facility] Co de Phone Number [facility] ([place]) [address] [facility] [place] [address] * (ABNORMAL) Urinalysis, microscopic only (08/13/2024 12:18 PM CDT) WBC, ur 0-5 0 - 5 /HPF RBC, ur 6-10(A) 0 - 2 /HPF [facility] ([place]) Epithelial cells, squamous, ur 1-5 0 - 5 /HPF [facility] ([place]) Yeast, ur Trace(A) [facility] ([place]) Mucous, ur Present(A) [facility] ([place]) Culture Reflex Comment Reflex conditions for urine culture (WBC >10) not met. [facility] ([place]) Urine 08/13/2024 12:1 8 PM CDT 08/13/2024 1:23 PM CDT Cruz Luciano MD LAB URINE ORDERABLES Fin al Result Performing Organization Address [facility] Co de Phone Number [facility] ([place]) [address] [facility] Department [place] [address] * TRANSTHORACIC ECHO (TTE) COMPLETE W DOPPLER/CF WO CONTRAST (07/30/2024 1:51 PM ANIMAL NUTRITION CONSULTANT) LV EF 35 % CONS SCIMAGE Anatomical Region Laterality Modality Ultrasound 07/30/2024 1:11 PM ANIMAL NUTRITION CONSULTANT Narrative 07/30/2024 3:52 PM ANIMAL NUTRITION CONSULTANT [address] [address] Echocardiogram Report Patient Name: JESSICA ARRIAGA : [...] By: Dr Gavin Low 07/30/2024 3:51:47 PM ANIMAL NUTRITION CONSULTANT Procedure Note Gavin Low MD - 07/30/[address] [place] [address] Echocardiogram Report Patient Name: JESSICA ARRIAGA : [...] By: Dr Gavin Low 07/30/2024 3:51:47 PM ANIMAL NUTRITION CONSULTANT Alia Cardoso NP CV ECHO PROCEDURES Carin [...] Annie Linares M.D. TW: TW Report ID: [id number] Reading Location: [id number] Procedure Note Annie Linares MD - 11/07/2023 [...] Annie Linares M.D. TW: TW Report ID: [id number] Reading Location: [id number] Austin Stout MD IMG CT PROCEDURES Final Result * Diagnostic Mammogram Bilateral W Scott W Implants (07/11/2023 1:57 PM ANIMAL NUTRITION CONSULTANT) Anatomical Region Laterality Modality Breast Bilateral Mammography 07/11/2023 4:15 PM ANIMAL NUTRITION CONSULTANT Impressions 07/11/2023 4:15 PM ANIMAL NUTRITION CONSULTANT 1. Probably benign asymmetry versus amorphous calcifications [...] Hayes Blair M.D. Narrative 07/11/2023 4:15 PM ANIMAL NUTRITION CONSULTANT EXAMINATION: DIAGNOSTIC MAMMOGRAM BILATERAL W SCOTT W [...] Genotypes (03/30/2023 2:59 PM CDT) CLINICAL INFORMATION: [facility] Comment:ROUTINE SCREENING LMP [facility] Comment:NONE Previous Pap [facility] Comment:NONE GIVEN Prev. Bx [facility] Comment:NONE GIVEN SOURCE: [facility] Comment:Cervix, Endocervix Pap, specimen adequacy [facility] Comment: Satisfactory for evaluation. Endocervical/transformation zone component absent. HPV interp [facility] Comment: Cytology Results: Negative for intraepithelial lesion or malignancy. School Laboratory Technician [facility] Comment: SRR, CT(ASCP) CT Screening Location: [address] [address] Comment [facility] Comment: EXPLANATORY NOTE: The Pap is [...] Client Letter) showing TIS test codes, see [email or web address] ([employer])/Resources, and navigate to Well-Woman>Physician Materials>TIS Client Letter. You can also call for test code assistance. Human papillomavirus DNA, High Risk E6/E7 Not Detected NOT DETECTED [employer] /[facility] Comment: Not Detected High Risk HPV types (16,18,31,33,35,39,45,51,52, 56,58,59,66,68) were not detected. Other HPV types which cause anogenital lesions may be present. The significance of the other types of HPV in malignant processes has not been established. Methodology: Real Time PCR Thin prep 03/30/2023 2:59 PM CDT 04/01/2023 2:49 AM CDT us Silvia Velez NP LAB CYTOLOGY ORDERABLES Final Re sult [facility] [address] [facility] [address] [facility] [place] [address] * Hepatitis C (HCV) RNA PCR, quantitative (11/03/2022 1:25 PM CDT) Pathologist [facility] HCV RNA result Not Detected [facility] ([place]) Comment: The quantifiable range of this assay is 15 IU/mL to 100,000,000 IU/mL (1.18 log IU/mL to 8.00 log IU/mL). Testing was performed by the EVA 6800 HCV Test ([employer] Testing performed at [facility] Current Interpretive Data was last revised on 2021 Testing performed by: [facility], [address] [facility] [address] Blood 11/03/2022 1:25 PM CDT 11/04/2022 10:17 AM CDT us Moni Briseno LAST CLEANER LAB MICROBIOLOGY - GENERAL ORDERABLES Final Result [facility] ([place]) 1 [facility] Department [place] [address] * COLONOSCOPY (12/29/2021 11:33 AM CDT) Anatomical Region Laterality Modality Other Narrative Procedure Note Kingsley Corea MD - 12/29/2021 11:[address] [facility] Patient Name: Jessica [place]ri[place] Procedure Date: 12/29/2021 11:33 AM Date of : 1970 Admit Type: Outpatient Age: 51 Gender: Female Attending MD: Kingsley Corea M.D. Room: [facility] ENDOSCOPY ROOM 1 Note Status: Finalized Patient [...] under direct vision. The Pediatric Colonoscope [id number]-H190L [id number] was introducedthrough the anus and advanced to [...] 11:33 AM Procedure Code(s): --- Professional --- 74709, Colonoscopy, flexible; with biopsy, single or multiple Diagnosis Code(s): --- Professional --- Z80.0, Family history of malignant neoplasm of digestive organs K64.8, Other hemorrhoids CPT copyright 2020 [employer]. All rights reserved. The codes documented in this report are preliminary and upon international student advisor reviewmay be revised to meet current compliance requirements. Recognized by the [employer] for promoting quality in endoscopy Kingsley Corea MD ENDOSCOPY PROCEDURES Final Result from Last 3 Months or Most Recently Relevant to Health Maintenance Insurance [facility] Advance Directives For more information, please contact: [phone] * Full Code (Latest Code Status on [...] 9:14 AM 04/26/2018 12:11 PM Care Teams Reimbursement Director Relationship Specialty Start Date End Date Katey Markham NP [address] [place] [address] [place] [address] PCP - General Internal Medicine 10/12/23 Katey Markham NP 09/26/21 Alia Cardoso NP Nurse Practitioner Family Medicine 09/28/22 Tanika Clay NP Nurse Practitioner Nurse Practitioner 09/28/22 [place] [address] [place] [address] Consulting Physician Urology 09/28/22 [place] [address] [place] [address] Nurse Practitioner Family Practice 09/28/22 Pearl York DO [address] [facility] [address] TRENT Jeronimo [address] [address] Consulting Physician Otolaryngology 09/28/22
--- OUTSIDE RECORDS SUMMARY | 2024-10-09 07:51 | XMS_ITS | Encounter Summary ---
Author Organization [facility] Address [address] [place] [address] Care Team Providers Care Seed Cleaning Machine Operator Name Role Phone Katey Markham NP Unavailable [phone] Alia Fuller METEOROLOGY TEACHER Unavailable Tanika Clay NP Unavailable Aguilar Najera MD Unavailable [phone] Beau Stone METEOROLOGY TEACHER Unavailable [phone] Pearl York DO Unavailable [phone] Katey Markham NP Primary Care Provider [phone] Encounter Details Date Type Department Care Team (Late st Contact Info) Description 09/05/2024 Results Follow-Up [facility] at [address] [place] [address] Alia Fuller NP [address] [place] [address] [address] [place] [address] Social History Tobacco Use Types [...] on file 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 Gender Identity Female 09/01/2023 3:49 PM CDT Sexual Orientation Straight 09/01/2023 3: 49 PM CDT documented as of this encounter Plan of Treatment Not on file documented as of this encounter Visit Diagnoses Not on filedocumented in this encounter Care Teams Seed Cleaning Machine Operator Relationship Specialty Start Date End Date Katey Markham NP [address] [place] [address] DR TRENT Jeronimo [address] [address] PCP - General Internal Medicine 10/12/23 Katey Markham NP 09/26/21 Alia Fuller NP Nurse Practitioner Family Medicine 09/28/22 Tanika Clay NP Nurse Practitioner Nurse Practitioner 09/28/22 [place] [address]AS [address] [place] [address] Consulting Physician Urology 09/28/22 [place] [address] [place] [address] Nurse Practitioner Family Practice 09/28/22 Pearl York DO [address] [facility] [address] TRENT Jeronimo [address] [address] Consulting Physician Otolaryngology 09/28/22 documented as of this encounter
== END 2024-10-09 07:46 | disposition home or self-care (01) ==
PROVIDERS: PCP Nurse Practitioner Adult Health; Visit Provider Otolaryngology
DX: K14.8 Other diseases of tongue (principal); D21.9 Benign neoplasm of connective and other soft tissue, unspecified; K22.4 Dyskinesia of esophagus
CPT/HCPCS: 70491; Q9967

== ENCOUNTER 2024-12-10 10:30 | Outpatient (RCR) | payer OTHER, SELFPAY ==
--- NOTE | 2024-10-01 12:00 | OPREHPOC ---
Outpatient Therapy Plan of Care This is a Multidisciplinary Plan of Care that may contain components documented by all disciplines (PT, OT, and ST.) PT Problem 1 PT Problem #1 Knowledge Deficit PT Goal 1 Goal / Goal Update *independent with HEP Target Visit 8 PT Problem 2 PT Problem #2 Pain PT Goal 1 Goal / Goal Update * report pain of 7/10 at worst Target Visit 8 PT Goal 2 Goal / Goal Update * pt report headaches 3x/wk Target Visit 8 PT Problem 3 PT Problem #3 Impaired Flexibility PT Goal 1 Goal / Goal Update *increase cervical flexibility to improve driving and home activity: sitting active motion: 1* rotation R 50' 2* rotation L 50' 3* side bend R 30' 4* side bend L 30' Target Visit 8 PT Problem 4 PT Problem #4 Pain PT Goal 1 Goal / Goal Update *improve self assessment with Neck index rating of 68% limitation in activity level Target Visit 8
--- NOTE | 2024-10-01 12:00 | PTOPEVAL1 ---
Assessment and note entered by Sneha Sweeney, PT Evaluation Information Assessment Status Evaluation ICD-10 Condition Codes (PT) Cervicalgia M54.2 Onset worse over past 6 months Subjective Information chronic pain in neck since 2020; gradually getting worse; CT: report states severe cervical spondylosis; was sent here by neurologist, sent for therapy and follow up in December; previous PT did not really help- it aggravated her neck pain have too many meds and too many side effects from them activity: not working outside of home; do not do anything because of the pain; is able to do bathing and dressing, sometimes is 3 days before she takes a shower due to pain; her sister does help some with home cleaning and dog care; she does some home cleaning when she can. Reported Pain Level Pain Score Self Report Additional Pain Score Comments pain range in the past week: 6-9/10; radicular pain into both hands, fingers numb & hurts all time; elbows hurt all time & tender to touch; also reports pain in legs--inner thighs, calves and toes- tingle headaches: 4-5 x/ week, duration of ~ all day; med does not help increase pain: up on feet 30-40 minutes; decrease pain: change positions, heat, neck stretching exercises reports with sleeping, 2 hours at the most/time Assessment PT Clinical Summary Jessica has the diagnosis of cervical pain. And reports radicular pain into both UE's, fingers numb all the time and headaches 4-5 x/wk. Sleeping and activity are disrupted due to pain. Neck Index rating of 80% limitation in activity level. She has a history of chronic neck pain. CT of neck reports severe cervical spondylosis. 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 With the evaluation: cervical active ROM is limited in all motions and all increase pain; bilateral shoulder ranges WNL and no pain increase posture with rounded shoulders and forward head With palpation, tenderness cervical & upper traps Skilled PT services are indicated for modalities to decrease pain and spasms; therapeutic exercises to improve posture and cervical ROM with education for HEP, posture correction and pain management. Plan of Care Interventions Electrical Stimulation,Hot Pack/Cold Pack,Manual Therapy,Neuro Re-education,Patient/Caregiver Education,Therapeutic Activities,Therapeutic Exercise,Ultrasound,Other Other Interventions taping, dry needling--she agreed to it PT Services Indicated Yes Treatment Frequency and 1-2x/wk for 8 visits Duration These treatments will address the objective and functional deficits as defined above. The patient will be advanced safely and appropriately in order for the patient to progress towards his/her prior level of function. Additional exercises will be introduced and as well as a comprehensive home exercise program upon discharge, if needed, ?to ensure carryover of functional gains achieved in the clinic. This treatment plan has been reviewed and agreement upon by the patient.
--- NOTE | 2024-10-24 09:02 | OPREHPOC ---
Outpatient Therapy Plan of Care This is a Multidisciplinary Plan of Care that may contain components documented by all disciplines (PT, OT, and ST.) PT Problem 1 PT Problem #1 Knowledge Deficit PT Goal 1 Goal / Goal Update *independent with HEP 10-24-24 progress goal met, continue to progress education and HEP Target Visit 16 PT Problem 2 PT Problem #2 Pain PT Goal 1 Goal / Goal Update * report pain of 7/10 at worst 10-24-24 progress goal not met, 8/10 continue towards goal Target Visit 16 PT Goal 2 Goal / Goal Update * pt report headaches 3x/wk 10-24-24 progress goal not met, 5x/wk continue towards goal Target Visit 16 PT Problem 3 PT Problem #3 Impaired Flexibility PT Goal 1 Goal / Goal Update *increase cervical flexibility to improve driving and home activity: sitting active motion: 1* rotation R 50' 2* rotation L 50' 3* side bend R 30' 4* side bend L 30' 10-24-24 progress goal 3 met continue towards goals Target Visit 16 PT Problem 4 PT Problem #4 Pain PT Goal 1 Goal / Goal Update *improve self assessment with Neck index rating of 68% limitation in activity level 10-24-24 progress goal not met, 76% continue towards goal Target Visit 16
--- NOTE | 2024-10-24 09:02 | PTOPPROG ---
Assessment and note entered by Sneha Sweeney, PT Assessment Status Progress ICD-10 Condition Codes (PT) Cervicalgia M54.2 Onset worse over past 6 months Subjective Information therapy is helping--feel like not waking up as much at night, better blood flow to hands, not as tingling in hands; exercises help, have learned how to help pain; want to continue with therapy. going to see a new neurologist soon. have seen ENT about knots in mouth and problems swallowing- going to have barium swallow test; frustrated about all that I have going on and continued pain; just want to get a diagnosis and PAIN: range in the past week 5-8/10; feel like have inflammation, pain in cheek bones; neck hurts and stiff; base of head hurts radicular pain into both arms to fingers intermittent; medial elbows tender to touch; hands hurt all the time; have some trigger finger problems headaches in the past week 5- that lasted all day- --mild pain, sometimes shoots increase pain: hold position too long, up on feet too long--30 to 60 minutes decrease pain: ibuprofen, heat, biofreeze. with sleeping, awaken due to pain in neck 4-5 x/ night Assessment PT Clinical Summary Jessica has received a total of 8 PT sessions. Compared to the initial evaluation: pain rating from 6-9/10 to 5-8/10, continues to have radicular pain into both hands with numbness, with medial elbows tender to touch; Self assessment with Neck Disability index rating from 80 to 76% limitation in activity level; reported headaches about the same at 4-5x/wk, lasting all day; reported sleeping tolerance same at awaken 4-5x/night due to pain; slight increase in cervical motions of rotation to L and side bend to R and L; education for HEP, posture and pain management. The goals were partially achieved. Continue PT treatment. Plan of Care Interventions Electrical Stimulation,Hot Pack/Cold Pack,Manual Therapy,Neuro Re-education,Patient/Caregiver Education,Therapeutic Activities,Therapeutic Exercise,Ultrasound,Other Other Interventions taping, dry needling--she agreed to it PT Services Indicated Yes Treatment Frequency and 1-2x/wk x 8 visits Duration These treatments will address the objective and functional deficits as defined above. The patient will be advanced safely and appropriately in order for the patient to progress towards his/her prior level of function. Additional exercises will be introduced and as well as a comprehensive home exercise program upon discharge, if needed, ?to ensure carryover of functional gains achieved in the clinic. This treatment plan has been reviewed and agreement upon by the patient.
--- NOTE | 2024-11-14 11:02 | PCPTNOTE ---
Cancelled, over slept per front office. AKS
--- NOTE | 2024-11-21 10:02 | PCPTNOTE ---
Rescheduled per front office. AKS
--- NOTE | 2024-12-03 13:28 | PCPTNOTE ---
pt called and canceled today's appt due to illness.
--- NOTE | 2024-12-04 08:21 | PCPTNOTE ---
pt did not show for reeval appt today. Called and left voice mail message.
--- NOTE | 2025-01-21 08:44 | PCPTNOTE ---
PHYSICAL THERAPY DISCHARGE 01-21-25 Dr. Raf Lopez has received a total of 15 PT sessions, called and canceled 3 appointments, from October 01 to January 03, for the diagnosis of cervicalgia. She then stopped attending. Therefore, she will be discharged from PT. The goals were not addressed.
== END 2024-12-30 23:59 | disposition home or self-care (01) ==
LOC: ANHPT 10:30
PROVIDERS: PCP Nurse Practitioner Adult Health
DX: M54.2 Cervicalgia (principal)
CPT/HCPCS: 97014; 97035; 97110; 97140; 97162; 97530; G0283

== ENCOUNTER 2024-12-31 13:26 | Outpatient (CLI) | payer OTHER, SELFPAY ==
--- NOTE | ~2024-12-31 | XR_ITS ---
MODIFIED ESOPHAGRAM HISTORY: Dysphagia. TECHNIQUE: Modified barium esophagram was performed by speech pathologist under radiologist fluorosco pic guidance. This was recorded on tape. The exam was reviewed on 12/31/2024 23:37 CDT. The DAP for this procedure was 0.8 Gycm2. Fluoroscopy time is 1.3 minutes. FINDINGS: Lateral projection of the cervical spine demonstrates age advanced degenerative disease. No penetration or aspiration. IMPRESSION: 1: Normal modified esophagram 2: Please refer to speech pathologist report for additional detail. Reviewed, dictated and finalized at location A.
--- OUTSIDE RECORDS SUMMARY | 2024-12-31 13:31 | XMS_ITS | Encounter Summary ---
Author Organization [facility] Address [address] [place] [address] Phone Care Team Providers Care High Man Name Role Phone Katey Markham NP Unavailable [phone] Alia Fuller NP Unavailable [phone] Tanika Clay NP Unavailable Aguilar Najera MD Unavailable [phone] Beau Stone NP Unavailable [phone] Pearl York DO Unavailable Katey Markham NP Primary Care Provider [phone] Encounter Details Date Type Department Care Team (Late st Contact Info) Description 12/28/2024 Results Follow-Up [facility] Gastroenterology [address] [facility] Advanced Medicine 12th [place] [address] [place] [id number] Celeste Rubio MD [address] [place] [address] Surgical pathology Social History Tobacco Use Types Packs/Day Years Used Date Smoking Tobacco: Every Day Cigarettes 0.5 37.7 Started: 1985; Last attempted to quit: 03/2022 Smokeless Tobacco: Never Comments:4 per day Alcohol Use Standard Drinks/Week Comments No 0 (1 standard drink = 0.6 oz pur e alcohol) AUDIT-C Answer Date Recorded Q1: How often do you have a drink containing alc ohol? Never 12/26/2024 Average Number of Drinks Not on file 025 Frequency of Binge Drinking Not on file 12/05 PHQ-2 Answer Date Recorded PHQ-2 Total Score [...] making you feel afraid or unsafe? 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 Gender Identity Female 09/01/2023 3:49 PM CDT Sexual Orientation Straight 09/01/2023 3: 49 PM CDT documented as of this encounter Plan of Treatment Not on file documented as of this encounter Visit Diagnoses Not on filedocumented in this encounter Care Teams High Man Relationship Specialty Start Date End Date Katey Markham NP [address] [facility] [place] [address] PCP - General Internal Medicine 11/01/24 Katey Markham NP 09/26/21 Alia Fuller NP Nurse Practitioner Family Medicine 09/28/22 Tanika Clay NP Nurse Practitioner Nurse Practitioner 09/28/22 Aguilar Najera MD Consulting Physician Urology 09/28/22 Beau Stone NP Nurse Practitioner Family Practice 09/28/22 Pearl York DO [address] [facility] [address] NEW[address] [address] Consulting Physician Otolaryngology 09/28/22 documented as of this encounter
--- OUTSIDE RECORDS SUMMARY | 2024-12-31 13:31 | XMS_ITS | Encounter Summary ---
Author Organization [facility] Address [address] [place] [address] Care Team Providers Care Secondary Teacher Name Role Phone Katey Markham NP Primary Care Provider [phone] Katey Markham YARN SPINNER Primary Care Provider [phone] Katey Markham NP Unavailable [phone] Cruz Luciano MD Primary Care Provider + Katey Markham NP Primary Care Provider [phone] Katey Markham NP Primary Care Provider [phone] Cruz Luciano MD Primary Care Provider + Alia Fuller YARN SPINNER Unavailable [phone] Tanika Clay YARN SPINNER Unavailable [phone] Aguilar Najera MD Unavailable [phone] Beau Stone YARN SPINNER Unavailable [phone] Pearl York DO Unavailable [phone] Katey Markham NP Primary Care Provider [phone] Katey Markham NP Primary Care Provider [phone] Katey Markham NP Primary Care Provider [phone] Encounter Details Date Type Department Care Team (Late st Contact Info) Description 09/04/2021 Telephone [facility] [address] [place] [address] Arcelia Pollard, RT Social History Tobacco Use Types Packs/Day Years Used Date Smoking Tobacco: Every Day Cigarettes Smokeless Tobacco: Never Comments:4 per day Alcohol Use Standard Drinks/Week Comments No 0 (1 standard drink = 0.6 oz pur e alcohol) Comments No Sex and Gender Information Value Date Recorded Sex Assigned at Not on file 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 Gender Identity Female 09/01/2023 3:49 PM CDT Sexual Orientation Straight 09/01/2023 3: 49 PM CDT documented as of this encounter Plan of Treatment Not on file documented as of this encounter Visit Diagnoses Not on filedocumented in this encounter Additional Health Concerns Infection Onset Date Last Indicated Resolved Time Diarrhea 07/11/2023 07/11/2023 07/25/2023 3:05 AM 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 PLANNER documented as of this encounter Care Teams Secondary Teacher Relationship Specialty Start Date End Date Katey Markham NP PCP - General 03/06/21 09/25/21 Katey Markham NP PCP - General 09/26/21 12/22/21 Cruz Luciano MD [facility] [place] [address] PCP - General Internal Medicine 12/23/21 12/27/21 Katey Markham NP PCP - General 12/28/21 12/28/21 Katey Markham NP PCP - General 12/29/21 01/13/22 Cruz Luciano MD [address] [place] [address] [place] [address] PCP - General Internal Medicine 01/14/22 10/03/23 Katey Markham, YARN SPINNER [address] [place] [address] DR TRENT Jeronimo [facility] [address] [place] [address] PCP - General Internal Medicine 10/04/23 10/04/23 Katey Markham, YARN SPINNER [address] [place] [address] [address] TRENT Jeronimo [facility] [address] [place] [address] PCP - General Internal Medicine 10/12/23 10/31/24 Katey Markham, YARN SPINNER [address] [place] [address] [place] [address] PCP - General Internal Medicine 11/01/24 Katey Markham, YARN SPINNER 09/26/21 Alia Fuller, ALKA [address] [place] [address] [place] [address] Nurse Practitioner Family Medicine 09/28/22 Tanika Clay, YARN SPINNER [address] [place] [address] [place] [address] Nurse Practitioner Nurse Practitioner 09/28/22 Aguilar Najera MD [address] [place] [address] [place] [address] Consulting Physician Urology 09/28/22 Beau Stone, ALKA [address] [place] [address] [place] [address] Nurse Practitioner Family Practice 09/28/22 Pearl York DO [address] [facility] [address] TRENT Jeronimo [address] [address] Consulting Physician Otolaryngology 09/28/22 documented as of this encounter
--- OUTSIDE RECORDS SUMMARY | 2024-12-31 13:31 | XMS_ITS | Encounter Summary ---
Author Organization [facility] Address [address] [place] [address] Phone Care Team Providers Care Emergency Services Professional Name Role Phone Cruz Luciano MD Primary Care Provider [phone] Aguilar Najera MD Unavailable [phone] Cruz Luciano MD Primary Care Provider [phone] Tanika Clay APRN, [facility] Primary Care Provide r Danilo Lyles MD Unavailable [phone] Cruz Luciano MD Primary Care Provider [phone] Encounter Details Date Type Department Care Team (Late st Contact Info) Description 04/27/2022 [facility]cribe [facility] [address] [place] [address] Cruz Luciano MD [address] [place] [id number] Social History Tobacco Use Types Packs/Day Years [...] Care Team (Late st Contact Info) Description 12/10/2025 11:00 AM CDT [facility] [address] [place] [address] 12/17/2025 10:40 AM CDT [facility] [address] [place] [address] Aaron Angelique Elvie, PAC [address] [place] [address] documented as of this encounter Visit Diagnoses Not on filedocumented in this encounter Care Teams Emergency Services Professional Relationship Specialty Start Date End Date Cruz Luciano MD PCP - General Internal Medicine 03/11/22 10/12/22 Cruz Luciano MD [address] [place] [address] PCP - General Internal Medicine 10/19/22 11/09/22 Tanika Clay, STITCH BONDING MACHINE OPERATOR, DONOR RELATIONS COORDINATOR [address] [place] [address] PCP - General Advanced Practice Nurse 11/10/22 01/11/24 Cruz Luciano MD [address] [place] [address] PCP - General Orthopaedic Surgery 01/12/24 Aguilar Najera MD [address] [address] Consulting Physician Urology 03/18/22 Danilo Lyles MD [address] [place] [address] Consulting Physician Medical Oncology 04/27/23 documented as of this encounter
--- OUTSIDE RECORDS SUMMARY | 2024-12-31 13:31 | XMS_ITS | Encounter Summary ---
Author Organization [facility] Address [address] [place] [address] Care Team Providers Care Blow Mold Technician Name Role Phone Katey Markham NP Unavailable [phone] Alia Fuller INFORMATICA MDM ARCHITECT Unavailable [phone] Tanika Clay INFORMATICA MDM ARCHITECT Unavailable [phone] Aguilar Najera MD Unavailable [phone] Beau Stone INFORMATICA MDM ARCHITECT Unavailable [phone] Pearl York DO Unavailable [phone] Katey Markham NP Primary Care Provider Encounter Details Date Type Department Care Team (Late st Contact Info) Description 12/31/2024 10:45 AM CDT Office Visit [facility] [address] [place] [address] [address] [place] [address] Raf Pratt MD [address] [place] [address] [address] [place] [address] Social History Tobacco Use Types Packs/Day Years Used Date Smoking Tobacco: Every Day Cigarettes 0.5 37.7 Started: 1985; Last attempted to quit: 03/2022 Smokeless Tobacco: Never Tobacco Cessation:Ready to Q [...] on file 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 Gender Identity Female 09/01/2023 3:49 PM CDT Sexual Orientation Straight 09/01/2023 3: 49 PM CDT documented as of this encounter Last Filed Vital Signs Vital Sign Reading Time Taken Comments Blood Pressure 122/68 12/31/2024 10:51 AM CDT Pulse 66 12/31/2024 10:51 AM CDT Temperature - - Respiratory Rate - - Oxygen Saturation 99% 12/31/2024 10:51 AM CDT Inhaled Oxygen Concentration - - Weight 61.9 kg (136 lb 6.4 oz) 12/31/2024 10:51 AM CDT Height 165.1 cm (5' 5) 12/31/2024 10:51 AM CDT Body Mass Index 22.7 12/31/2024 10:51 AM CDT documented in this encounter Plan of Treatment Not on file documented as of this encounter Visit Diagnoses Not on filedocumented in this encounter Care Teams Blow Mold Technician Relationship Specialty Start Date End Date Katey Markham NP [address] [facility] [place] [address] PCP - General Internal Medicine 11/01/24 Katey Markham, INFORMATICA MDM ARCHITECT 09/26/21 Alia Fuller, INFORMATICA MDM ARCHITECT Nurse Practitioner Family Medicine 09/28/22 Tanika Clay NP Nurse Practitioner Nurse Practitioner 09/28/22 Aguilar Najera MD Consulting Physician Urology 09/28/22 Beau Stone NP Nurse Practitioner Family Practice 09/28/22 Pearl York DO [address] [place] [address] [address] [place] [address] Consulting Physician Otolaryngology 09/28/22 documented as of this encounter
--- OUTSIDE RECORDS SUMMARY | 2024-12-31 13:32 | XMS_ITS | Data Portability ---
Author Organization [facility] [employer], Main Office Address [address] [place] [address] Care Team Providers Care Cloth Stretcher Name Role Phone ADELE VALENTINE Primary Care Provider Assessment Encounter Date Assessment Date Assessment LastModified by Organization Details LastModified Time 02/11/2023 02/11/2023 Provided number to [employer] for [employer] rides Not available 02/11/2023 13:59:30 Plan of Treatment Reminders Order Date Submit Date Provider Last Modified By Organization Details Last Modified Time Details Appointments None recorded. Lab hypersensit ivity pneumonitis profile, serum 2022 023 [email or web address] 25 Not available 11:56:[address] referral - Multiple skin calcificati ons, unexplained rashes, spooning of nails 2022 023 [email or web address] 25 [facility], [address] [place], [address], 3 10:54:08 hematologis t referral - Also with mild anemia 2022 [address] [facility], [address] [place], [address], 3 17:36:04 Procedures None recorded. Surgeries None recorded. Imaging None recorded. Medication Orders amoxicillin 875 mg-potassiu m clavulanate 125 mg tablet 2022 023 ecottrell 7 [id number], [address], [place], [address], 3 11:15:38 prednisone 10 mg tablet 2022 023 MALI [facility] [address] In [facility], [address] [facility], [place], [address], 3 15:02:18 Patient TargetsNo targets recorded. 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 hodil ator riri metry * No observ ation record ed. [facility] ([facility]) [address] [place] [address], [address], 03/01/2023 13:16:50 Result Notes None recorded. Problems Name Problem SNOMED Code Status Onset Date Resolution Date Notes Provider Name and Address Organization Details Recorded Time Bipolar disorder 89544839 Active 2016 Not Available [facility] 3 19:28:43 Chronic depressio n 406539240 Completed 201605/12/2017 Not Available [facility] 3 19:28:43 Mixed anxiety and depressiv e disorder 852261435 Active 2016 Not Available [facility] 3 19:28:43 Scoliosis deformity of spine 529415949 Active 2016 Not Available [facility] 3 19:28:43 Pain in left knee Active 2016 Not Available [facility] 3 19:28:43 Anxiety 15310649 Completed 201605/12/2017 Not Available [facility] 3 19:28:44 Spina bifida 96427195 Active 2016 Not Available [facility] 3 19:28:44 Smoker 48385087 Active 2016 Not Available [facility] 3 19:28:45 Chronic back pain 034514562 Active 2016 Not Available [facility] 3 19:28:43 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 53354970969 513269 Active 2021 Not Available [facility] 3 19:28:43 Pulmonary emphysema 62133924 Active 2021 Not Available [facility] 3 19:28:45 Muscle weakness 27941372 Active 2021 Not Available [facility] 3 19:28:43 Dizziness 948075611 Active 2021 Not Available [facility] 3 19:28:44 Exposure to potential ly harmful entity Active 2021 Not Available [facility] 3 19:28:44 Chronic systolic heart failure 691363703 Active 2021 Not Available [facility] 3 19:28:44 Nicotine dependenc e 90598989 Active 2021 Not Available [facility] 3 19:28:44 Dyspnea on exertion 33201930 Active 2021 Not Available [facility] 3 19:28:44 Chronic cough 88697500 Active 2021 Not Available [facility] 3 19:28:44 Fatigue 67789779 Active 2021 Not Available [facility] 3 19:28:45 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 804259468 Active 2021 Not Available [facility] 3 19:28:43 Pulmonary function studies abnormal 006798782 Active 2021 Not Available [facility] 3 19:28:43 Hypersens itivity pneumonit is 29633626 Active 2021 Not Available [facility] 3 19:28:43 Candidias is of mouth 53505213 Active 2021 Not Available [facility] 3 19:28:45 Asthma 298462199 Active 2021 Not Available [facility] 3 19:28:43 Multiple nodules of lung 765035486 Active 2021 Not Available [facility] 3 19:28:44 Exacerbat ion of moderate persisten t asthma 208262794 Active 2022 Not Available [facility] 3 19:28:44 Chronic Erik-B arr virus infection syndrome 817206924 Active 2022 GRISELDA Ferguson [address] [facility], [address], [address] , [employer] 3 15:04:10 Abnormal weight loss 675404143 Active 2022 GRISELDA Ferguson [address] [facility], [place] [address], [place], [address] , [employer] 3 16:46:48 Red blood cell count below reference range 412233182 Active 2022 GRISELDA Ferguson [address], [place] [address], [place], [address] , [employer] 3 10:16:41 Skin lesion 20311946 Active 2022 GRISELDA Ferguson [address] [employer] [employer], [place] [address], [place], [address] , [employer] 3 10:17:40 Acute sinusitis 77668766 Active 2022 GRISELDA Ferguson [address], [address], [address] , [employer] 3 16:40:02 Problem Notes None recorded. Medical Equipment None Reported. Allergies Allergen ID Allergen Name Allergen Category Reaction Reaction Severity Criticality Documentation Date Start Date Code Code System Note Provider Name and Address Organization Details Recorded Time 25054 Substance with sulfonami de structure and antibacte rial mechanism of action (substanc e) medicatio n hives severe Not available 08/04/2022 54212 8003 SNOMED Not Available [facility] 3 19:30:15 45726 aspirin medicatio n hives severe Not available 08/04/2022 1191 RxNorm Not Available [facility] 3 19:30:15 Medications Name Sig Start Date [...] Not Available Not Available No t Available Carey 5 mg-325 mg tablet Take 1 tablet [...] in Arterial blood by Pulse oximetry Systolic And Diastolic Provider Name and Address Organization Details Last Updated DateTime 3 167.64 cm 17.8 kg/m2 15364.1 6 g 97.3 [degF] 64 /min 99 % 99 % 120/70 mm[Hg] Shira Warren MA [place] [employer] [facility] 3 09:35:04 Date Recorded Body height Body mass index (BMI) Body weight Body temperature Heart rate Oxygen saturation Oxygen saturation in Arterial blood by Pulse oximetry Systolic And Diastolic Provider Name and Address Organization Details Last Updated DateTime 3 167.64 cm 17.8 kg/m2 24504.1 6 g 97.2 [degF] 71 /min 99 % 99 % 112/60 mm[Hg] Tatiana Jimenez RN [facility] [employer] [facility] 3 14:40:41 Date Recorded Body height Body mass index (BMI) Body weight Body temperature Heart rate Oxygen saturation Oxygen saturation in Arterial blood by Pulse oximetry Systolic And Diastolic Provider Name and Address Organization Details Last Updated DateTime 3 167.64 cm 17.8 kg/m2 02607.1 6 g 97.3 [degF] 68 /min 99 % 99 % 114/64 mm[Hg] Tatiana Jimenez RN [facility] [employer] [facility] 3 11:16:24 Date Recorded Body height Body mass index (BMI) Body weight Body temperature Heart rate Oxygen saturation Oxygen saturation in Arterial blood by Pulse oximetry Systolic And Diastolic Provider Name and Address Organization Details Last Updated DateTime 3 167.64 cm 18.6 kg/m2 52118.1 2 g 98.3 [degF] 76 /min 99 % 99 % 102/58 mm[Hg] Roya Tapia [facility] [employer] [facility] 3 16:33:07 Date Recorded Body height Body mass index (BMI) Body weight Body temperature Heart rate Oxygen saturation Oxygen saturation in Arterial blood by Pulse oximetry Systolic And Diastolic Provider Name and Address Organization Details Last Updated DateTime 3 167.64 cm 19 kg/m2 49009.9 g 97.3 [degF] 72 /min 97 % 97 % 92/50 mm[Hg] Roya Tapia [facility] [employer] [facility] 3 15:33:16 Social History Question Answer Notes LastModified by Organizat ion Details LastModified Time Tobacco Smoking Status Current Every Day Smoker Not Available [facility] 08/04/2022 19:28:03 What Is Your Level Of Caffeine Consumption? Heavy [id number] Information not available 08/04/2022 Which Illicit Or Recreational Drugs Have You Used? Marijana Every3-6 Mo [id number].[id number] Information not available 08/04/2022 How Many Years Have You Used Illicit Or Recreational Drugs? 35 [id number] Information not available 08/04/2022 At What Age Did You Start Smoking Tobacco? 15 MIGRATION.[id number] 8468 Information not available 08/04/2022 How Much Tobacco Do You Smoke? 1 PPD Now-8 A Day MIGRATION.[id number] Information not available 08/04/2022 How Many Years Have You Smoked Tobacco? 35 MIGRATION.[id number] 6130 Information not available 08/04/2022 Have You Used IV Drugs? No MIGRATION.[id number] 0324 Information not available 08/04/2022 Sex: Unknown Functional Status Question Answer Note LastModified by Organizat ion Details LastModified Time Do you use any illicit or recreational drugs? Yes [id number] 26 Information not available 08/04/2022 Do you or have you ever used any other forms of tobacco or nicotine? No [id number].[id number] 26 Information not available 08/04/2022 Mental Status None recorded. Family History Nothing Reported. Medical History No medical history recorded. Gynecological HistoryNo gynecological history recorded. Obstetrics History GPAL:G 0 P 0 0 0 0 Immunizations Vaccine Type Date Status Note Provider Nam e and Address Organization Details Recorded Time Tdap 05/12/2017 completed Not Available [facility] 08/04/2022 19:30:13 Past Encounters Encounter ID Performer Location Encounter Start Date Encounter Closed Date Diagnosis/Indication Diagnosis SNOMED-CT Code Diagnosis ICD10 Code Diagnosis Note [id number] [facility] [address] [place] [address] 06/18/2021 00:00:00 06/22/2021 19:29:20 [id number] [facility] [place] [address] [place] [address] 08/03/2021 00:00:00 08/03/2021 14:39:05 [id number] [facility] [place] [address] [place] [address] 09/07/2021 00:00:00 09/07/2021 13:36:06 [id number] [facility] [place] [address] [place] [address] 10/28/2021 00:00:00 10/28/2021 16:09:57 [id number] OJ FergusonAUDREY [facility] [place] [address] [facility], [facility] [address] [place] [address] 11/19/2021 00:00:00 11/19/2021 14:15:06 [id number] NATY Ferguson [facility] [place] [address] [place] [address] 03/03/2022 00:00:00 03/03/2022 14:07:33 [id number] NATY Ferguson [facility] [place] [address] [place] [address] 04/14/2022 00:00:00 04/14/2022 16:48:20 [id number] [facility] [place] [address] [place] [address] 07/26/2022 00:00:00 07/26/2022 14:25:50 [id number] [facility] [place] [address] [place] [address] 08/30/2022 14:20:57 08/31/2022 08:57:21 Asthma 641265663 J45.909 Positive methacholi ne challenge testing at level 3 with 20% drop in BMF1Hpukdw ue Trelegy Ellipta 200Samples to patient todayInstr ucted on techniqueD iscussed reportable S/S Dyspnea on exertion 6084 5006 R06.09 Multifacto ral Chronic Ep mace-Chowdhury virus infection syndrome 854238930 B27.00 She shows me testing from 2019ID referral Multiple n odules of lung 583572204 R91.8 CT chest 03/27/22 with multiple micro nodular nodules No change per CT chest W Jessica today Pulmonary emphysema 8743 3001 J43.9 [...] ordered above Chronic sy stolic heart failure 227940226 I50.22 Follows cardiology Nicotine dependence 5629 4008 Z87.891 Smoking cessation counseling and techniques reviewed at length. Literature reviewed.A void triggers, support groups.Dis traction techniques Greater than 3 but less than 10 minutes spent discussing cessation. Declines NRT.Discus sed Rx options if needed in the future. Abnormal weight loss 267 710634 R63.4 30 pounds in 6 months - follow with PCM Fatigue 72686784 R53.83 Sleep study and BENEDICT normal [id number] Tanika Clay, [facility] [place] [address] [place] [address] 10/12/2022 09:26:05 10/12/2022 10:48:31 Red blood cell count below reference range 557813103 R71.8 Also with low H&HHematol ogy referral today Skin lesion 27918339 L98 .9 Intermitte nt rashesSkin calcificat ionsSpooni ng to nailSaint John's Regional Health Centerer ral to dermatolog y Asthma 400839044 J45.90 9 Positive methacholi ne challenge testing at level 3 with 20% drop in NXX0Sgfvxi ue Trelegy Ellipta 200Samples to patient todayInstr ucted on techniqueD iscussed reportable S/S Chronic Ep mace-Chowdhury virus infection syndrome 016225447 B27.00 She shows me testing from 2019Previo us ID referral Dyspnea on exertion 6084 5006 R06.09 Multifacto ralContinu e inhaled therapyShe must quit smoking Multiple n odules of lung 972532605 R91.8 CT chest 03/27/22 with multiple micro nodular nodules No change per CT chest 3Pla n to repeat in a year Pulmonary emphysema 8743 3001 J43.9 PFT completed 12/17/20Ra yesenia 80%, FEV1 81%No improvemen t [facility] hodilator. Lung volumes significan tly elevated consistent with emphysema seen on CT chest.TLC 282, RV 670DLCO 58, corrects to 65 for alveolar volume.Rep eat 09/04/21 with ratio 89FEV1 84% pre-BDTLC 178, RV 334DLCO 103 adjustedPl ans to repeat this fallAlpha1 MM normalEosi nophils normalSix minute walk testing normalPara septal emphysema noted to CT chest Chronic sy stolic heart failure 173065480 I50.22 Follows cardiology Fatigue 32953974 R53.83 Sleep study and BENEDICT normal Nicotine dependence 5629 4008 Z87.891 Smoking cessation counseling and techniques reviewed at length. Literature reviewed.A void triggers, support groups.Dis traction techniques Greater than 3 but less than 10 minutes spent discussing cessation. Declines NRT.Discus sed Rx options if needed in the future. [id number] Tanika Clay, [employer]-[facility] [place] [address] [place] [address] 11/30/2022 14:36:15 11/30/2022 15:21:26 Asthma 049904891 J45.909 Positive methacholi ne challenge testing at level 3 with 20% drop in GNS3Xnmicc ue Trelegy Ellipta 200Samples to patient todayInstr ucted on techniqueD iscussed reportable S/SStart prednisone taper Pulmonary emphysema 8743 3001 J43.9 PFT completed 12/17/20Ra yesenia 80%, FEV1 81%No improvemen t [facility] hodilator. Lung volumes significan tly elevated [...] Red blood cell count below reference range 846285080 R71.8 Has seen hematology Skin lesion 88205709 L98 .9 Intermitte nt rashesSkin calcificat ionsSpooni ng to nailsDerma tology appointmen t scheduled Chronic Ep mace-Chowdhury virus infection syndrome 265546435 B27.00 She shows me testing from 2019Preo us ID referral Dyspnea on exertion 6084 5006 R06.09 Multifacto ralContinu e inhaled therapyShe must quit smoking Multiple n odules of lung 080944519 R91.8 CT chest 03/27/22 with multiple micro nodular nodulesNo change per CT chest 3Che ck HP panel, she brings mold testing with her today Chronic sy stolic heart failure 031731496 I50.22 Follows cardiology Fatigue 01781712 R53.83 Sleep study and BENEDICT normal Nicotine dependence 5629 4008 Z87.891 Smoking cessation counseling and techniques reviewed at length. Literature reviewed.A void triggers, support groups.Dis traction techniques Greater than 3 but less than 10 minutes spent discussing cessation. Declines NRT.Discus sed Rx options if needed in the future. [id number] Tanika Clay, [employer] [place] [address] [place] [address] 02/11/2023 11:07:12 02/11/2023 12:06:22 Asthma 157447410 J45.909 Positive methacholi ne challenge testing at level 3 with 20% drop in MAC4Fluubq ue Trelegy Ellipta 200, samples to patient todayInstr ucted on techniqueD iscussed reportable S/SStresse d avoidance of triggers Pulmonary emphysema 8743 3001 J43.9 PFT completed 12/17/20Ra yesenia 80%, FEV1 81%No improvemen t [facility] hodilator. Lung volumes significan tly elevated [...] Red blood cell count below reference range 911978622 R71.8 Has seen hematology Skin lesion 14971265 L98 .9 Dermatolog y appointmen t scheduled Chronic Ep mace-Chowdhury virus infection syndrome 830741010 B27.00 Has appointmen t with ID scheduled Dyspnea on exertion 6084 5006 R06.09 Multifacto ralContinu e inhaled therapyQui t smoking and vaping 4 months ago Multiple n odules of lung 433040432 R91.8 CT chest 03/27/22 with multiple micro nodular nodulesNo change per CT chest 08/2022HP panel with high reaction to penicillum Chronic sy stolic heart failure 253474151 I50.22 Follows cardiology Fatigue 43817445 R53.83 Sleep study and BENEDICT normal [id number] Tanika Clay [facility] [place] [address] [place] [address] 03/02/2023 15:58:54 03/02/2023 16:41:00 Asthma 690476376 J45.909 Positive methacholi ne challenge testing 01/2022 at level 3 with 20% drop in AFF0Uilpse ue Trelegy Ellipta 200, samples to patient [...] emphysema noted to CT chest Acute sinusitis 98129478 J01.90 Start amox-clavD iscussed emergently reportable signs and symptoms [id number] JENNIFER [facility] [place] [address] [place] [address] 03/28/2023 15:20:14 03/28/2023 16:18:04 Asthma 214689665 J45.909 Positive methacholi ne challenge testing 01/2022 at level 3 with 20% drop in JYF6Eoztlz ue Trelegy Ellipta 200, samples to patient [...] months ago Multiple n odules of lung 896341902 R91.8 CT chest 03/27/22 with multiple micro nodular nodulesNo change per CT chest 08/2022HP panel with high reaction to penicillum Repeat due 08/2023 Health Concerns Section Related Observation LastModified by Organization Detai ls LastModified Time None Recorded Concern Status LastModified by Organization Details LastModified Time None Recorded Advance Directives Directive None Recorded Payers Insurance Date Sequence Insurance Name Policy Number Policy Cabrales Covered Member ID Cabrales Member ID Guarantor Name 03/25/2023 1 [facility] (MEDICAID HMO) [id number] Jessica Guerraight [id number] Jessica Noriega OBGyn Episode No OBEpisode recorded.
--- OUTSIDE RECORDS SUMMARY | 2024-12-31 13:32 | XMS_ITS ---
Author Organization [facility] Address [address] [place] [address] Care Team Providers Care Rewinder Operator Name Role Phone Amanda Wong Primary Care Provider Gonzalo Dorado REASON FOR VISIT therapy Social History Sex Assigned At : Social History Observation Description Sex Assigned At Female Encounters Encounter Location Date Provider Diagnosis [facility] [address] [place] [address] 12/03/2024 Gonzalo Dorado Plan Of Treatment Next Appt Details Provider Name:Gonzalo estrada, 01/07/2025 03:40:00 PM, [address], [place], [address], Progress Notes * BART TiburcioStaceyOB:[birth year] (54 yo F)Acc No.[id number]:12/03/2024 UNLOCKED PROGRESS NOTE Patient: Jessica GRIMALDO Provider: Brandt Dorado :1970 A ge:54 Y S ex:Female Date:12/03/2024 Address[address] [facility] Pcp:Amanda Wong Subjective: * Chief Complaints: * 1 . Therapy. * Medical History: Objective: * Vitals: Assessment: Plan: * Treatment: * * Electronic signature of Citlaly Dorado on 12/31/2024 at 11:42 AM CDT Sign off status: Pending * Provider: Brandt Dorado Date: 0 12/03/2024 Generated for Josefa stephens/Armando/Anca on: 0 12/31/2024 11:42 AM CDT
--- OUTSIDE RECORDS SUMMARY | 2024-12-31 13:32 | XMS_ITS | Clinical Summary ---
Author Organization [facility] Address [address] [place] [address] Phone Care Team Providers Care Director Of Women'S Services Name Role Phone Aguilar Najera MD Unavailable [phone] Danilo Lyles MD Unavailable [phone] Cruz Luciano MD Primary Care Provider [phone] Allergies Active Allergy Reactions Criticality Noted Date [...] 25 mg by mouth daily. 2 Active HYDROcodone-mara taminophen (NORCO) 10-325 MG Tablet TAKE 1 TABLET BY MOUTH EVERY 4 HOURS NEEDED FOR PAIN. 2 Active cyclobenzaprine (FLEXERIL) 5 MG Tablet TAKE 1 TABLET(5MG) BY MOUTH DAILY 2 Active Vitamin D3 1000 UNIT Tablet Take 1,000 Units by mouth. Active Fluticasone-Ume clidin-Vilant (Trelegy Ellipta) 200-62.5-25 MCG/INH AEROSOL POWDER, BREATH ACTIVATED take by inhalation. Active MAGNESIUM PO Take by mouth. Ac [...] GREENS PO) Take by mouth daily. Active docusate sodium 100 MG Capsule 1 12/18/19 25 Discontin ued(Med List Clean Up) clonazePAM (KlonoPIN) 0.5 MG Tablet TAKE 1/2 TABLET BY MOUTH DAILY(0.25MG DAILY) DAILY 2 12/18/19 25 Discontin ued(Med List Clean Up) Gas Relief Extra Strength 125 MG Chewable Tablet CHEW 1 TABLET BY MOUTH 4 TIMES A DAY NEEDED (CRAMPING/BLOA TING/GAS/NAUSE A) 3 12/18/19 25 Discontin ued(Med List Clean Up) Zinc-Vitamin C (ZINC-A-COLD/ TAMIN C MT) by Mouth/Throat route. 12/18/19 25 Discontin ued(Med List Clean Up) predniSONE (DELTASONE) 20 MG Tablet Take 20 mg by mouth. 4 12/18/19 25 Discontin ued(Med List Clean Up) Active Problems Problem Noted Date Diagnosed Date [...] Scoliosis deformity of spine 05/12/2017 Normocytic anemia Encounters Date Type Department Care Team Description 12/17/2024 10:40 AM CDT [facility] [address] [place] [address] Angelique Walker November, PAC Normocytic anemia (Primary Dx) Discharge Disposition: Discharged to home or Selfcare 12/17/2024 Travel 12/17/2024 Results [facility] [address] [place] [address] Angelique Walker November, PAC FERRITIN, IRON,TRANSFERN,CALC. TIBC,%SAT, VITAMIN B12, Additional followed-up results: 2 12/15/2024 Travel from Last 3 Months Immunizations Immunization Administration Dates Next Due TDAP [...] Sign Reading Time Taken Comments Blood Pressure 124/86 12/17/2024 10:47 AM CDT Pulse 74 12/17/2024 10:47 AM CDT Temperature 36.7 C (98 F) 12/17/2024 10:47 AM CDT Respiratory Rate 18 12/17/2024 10:47 AM CDT Oxygen Saturation 96% 12/17/2024 10:47 AM CDT Inhaled Oxygen Concentration - - Weight 60.8 kg (134 lb 1.6 oz) 12/17/2024 10:47 AM CDT Height 162.6 cm (5' 4) 12/17/2024 10:47 AM CDT Body Mass Index 23.02 12/17/2024 10:47 AM CDT Plan of Treatment Upcoming Encounters Date Type Department Care Team (Late st Contact Info) Description 12/10/2025 11:00 AM CDT Lab [facility] [address] [place] [address] 12/17/2025 10:40 AM CDT [facility] [address] [place] [address] Angelique Walker November, [place] [address] Health Maintenance Due Date Last Done Comments Hepatitis C Virus (HCV) Screening 1971 Hepatitis B Immunization (1 of 3 - 19+ 3-dose series) 1990 Pneumococcal Immunization (50+ years) (1 of 2 - PCV) 1990 Pap Smear 1992 Cervical Cancer Screening (CCS) 2001 HPV/Cotest 2001 Cologuard 2016 Zoster Immunization (1 of 2) 2021 Mammogram 01/22/2023 01/22/2022, 08/07/2020, 03/18/2017 Lung Cancer Screening 08/11/2023 08/10/2022 , 08/10/2022, 03/27/2022, Additional history exists SARS-COV-2 Immunization ( season) 2024 06/23/2021 Immunochemical Fecal Occult Blood 04/27/2024 04/27/2023, 01/25/2023 Influenza Immunization (#1) 2025 Td Immunization Every 10 Years (Adults With 1 Tdap) 05/12/2027 05/12/2017 Colonoscopy 12/30/2031 12/29/2021 Colorectal Cancer Screening 12/30/2031 Respiratory Syncytial Virus (RSV) Immunization (Adult) (1 - 1-dose 75+ series) 2046 DTaP/Tdap/Td Immunization Discontinued 05/12/2017 Human Papillomavirus (HPV) Immunization Aged Out No longer eligible based on patient's age to complete this topic Meningococcal Immunization (ACWY) Aged Out No longer eligible based on patient's age to complete this topic Rotavirus Immunization Aged Out No lo nger eligible based on patient's age to complete this topic Procedures Procedure Name Priority Date/Time Associated Diagnosis Comments CBC WITH AUTO DIFFERENTIAL Routine 12/15/2024 10:33 AM CDT Normocytic anemia FOLIC ACID (FOLATE) Routine 12/15/2024 1 0:33 AM CDT Normocytic anemia COMPLETE BLOOD COUNT (CBC) WITH DIFF Routine 12/15/2024 10:33 AM CDT Normocytic anemia VITAMIN B12 Routine 12/15/2024 10:33 AM CDT Normocytic anemia IRON,TRANSFERN,CALC.T IBC,%SAT Routine 12/15/2024 10:33 AM CDT Normocytic anemia FERRITIN Routine 12/15/2024 10:33 AM CDT Normocytic anemia from Last 3 Months Results * IRON,TRANSFERN,CALC.TIBC,%SAT (12/15/2024 10:33 AM CDT) IRON 102 25 - 156 mcg/dL 12/15/2024 11:32 AM CDT [facility] TRANSFERRIN 229 180 - 382 mg/dL 12/15/2024 11:32 AM CDT [facility] TIBC, CALCULATED 286 265 - 497 mcg/dL 12/15/2024 11:32 AM CDT [facility] % SATURATION * 36 15 - 62 % 12/15/2024 11:32 AM CDT [facility] Blood Venipuncture / Unknown 12/15/2024 10:33 AM CDT 12/15/2024 11:01 AM CDT Angelique Walker PAC CHEMISTRY ORDERABLES Carin l Result [facility] [address] [place] [address] * (ABNORMAL) CBC WITH AUTO DIFFERENTIAL (12/15/2024 10:33 AM CDT) WBC 7.27 4.00 - 12.00 10(3)/mcL 12/15/2024 11:05 AM CDT [facility] RBC 4.03 3.80 - 5.30 10(6)/mcL 12/15/2024 11:05 AM CDT [facility] HEMOGLOBIN (HGB) 12.2 12.0 - 15.8 g/dL 12/15/2024 11:05 AM CDT [facility] HEMATOCRIT (HCT) 36.4 36.0 - 47.0 % 12/15/2024 11:05 AM CDT [facility] MCV 90.3 82.0 - 96.0 fL 12/15/2024 11:05 AM [facility] MCH 30.3 26.0 - 34.0 pg 12/15/2024 11:05 AM [facility] MCHC 33.5 31.0 - 36.0 g/dL 12/15/2024 11:05 AM [facility] PLATELET COUNT 278 140 - 440 10(3)/mcL 12/15/2024 11:05 AM [facility] RDW 13.0 11.8 - 15.5 % 12/15/2024 11:05 AM [facility] MPV 9.5(L) 9.7 - 12.4 fL 12/15/2024 11:05 AM [facility] NEUTROPHILS 57.9 47.0 - 73.0 % 12/15/2024 11:05 AM [facility] LYMPHOCYTES 31.6 18.0 - 42.0 % 12/15/2024 11:05 AM [facility] MONOCYTES 8.0 4.0 - 12.0 % 12/15/2024 11:05 AM [facility] EOSINOPHILS 1.1 0.0 - 5.0 % 12/15/2024 11:05 AM [facility] BASOPHILS 1.1(H) 0.0 - 1.0 % 12/15/2024 11:05 AM [facility] IMMATURE GRANULOCYTE 0.3 0.0 - 0.4 % 12/15/2024 11:05 AM [facility] Comment:Immature Granulocyte s includes Metamyelocytes, Myelocytes, and Promyelocytes. ABSOLUTE NEUTROPHILS 4.21 1.60 - 7.70 10(3)/mcL 12/15/2024 11:05 AM [facility] ABSOLUTE LYMPHOCYTES 2.30 1.30 - 3.20 10(3)/mcL 12/15/2024 11:05 AM [facility] ABSOLUTE MONOCYTES 0.58 0.20 - 1.00 10(3)/mcL 12/15/2024 11:05 AM CDT [facility] ABSOLUTE EOSINOPHIL 0.08 0.00 - 0.40 10(3)/mcL 12/15/2024 11:05 AM CDT [facility] ABSOLUTE BASOPHILS 0.08 0.00 - 0.10 10(3)/mcL 12/15/2024 11:05 AM CDT [facility] ABSOLUTE IMMATURE GRANULOCYTE 0.02 0.00 - 0.03 10 (3) mcL. 12/15/2024 11:05 AM CDT [facility] NRBC PER 100 WBC 0 12/16/19 11:05 AM CDT [facility] Blood Venipuncture / Unknown 12/15/2024 10:33 AM CDT 12/15/2024 11:01 AM CDT [facility] PAC HEMATOLOGY ORDERABLES Fin al Result [facility] [address] [place] [address] * VITAMIN B12 (12/15/2024 10:33 AM CDT) VITAMIN B12 442 213 - 816 pg/mL 12/15/2024 12:05 PM CDT [facility] Blood Venipuncture / Unknown 12/15/2024 10:33 AM CDT 12/15/2024 11:01 AM CDT [facility] PAC CHEMISTRY ORDERABLES Carin l Result [facility] [address] [place] [address] * FOLIC ACID (FOLATE) (12/15/2024 10:33 AM CDT) FOLATE 17.0 7.0 - 31.4 ng/mL 12/15/2024 12:05 PM CDT [facility] IS THE PATIENT REQUIRED TO BE FASTING? No 12/15/2024 12:05 PM CDT [facility] Blood Venipuncture / Unknown 12/15/2024 10:33 AM CDT 12/15/2024 11:01 AM CDT [facility] Walker PAC CHEMISTRY ORDERABLES Carin l Result Performing Organization Address City/[facility]/ZIP Co de Phone Number [facility] [address] [place] [address] * FERRITIN (12/15/2024 10:33 AM CDT) FERRITIN 92 5 - 204 ng/mL 12/15/2024 11:50 AM CDT [facility] Blood Venipuncture / Unknown 12/15/2024 10:33 AM CDT 12/15/2024 11:01 AM CDT [facility] PAC CHEMISTRY ORDERABLES Carin l Result Performing Organization Address City/[facility] Co de Phone Number [facility] [address] [place] [address] from Last 3 Months Insurance MEDICAID [place] Care Teams Director Of Women'S Services Relationship Specialty Start Date End Date Cruz Luciano MD [address] [place] [address] PCP - General Orthopaedic Surgery 01/12/24 Aguilar Najera MD [address] [address] Consulting Physician Urology 03/18/22 Danilo Lyles MD [address] [place] [address] Consulting Physician Medical Oncology 04/27/23
--- OUTSIDE RECORDS SUMMARY | 2024-12-31 13:32 | XMS_ITS | Encounter Summary ---
Author Organization [facility] Address [address] [address] [place] [address] Phone Care Team Providers Care Legal Assistant Name Role Phone Aguilar Najera MD Unavailable [phone] Danilo Lyles MD Unavailable [phone] Cruz Luciano MD Primary Care Provider [phone] Encounter Details Date Type Department Care Team (Late st Contact Info) Description 12/17/2024 Results Follow-Up [facility] [address] [place] [address] Angelique Walker Elvie, PAC [address] [place] [address] FERRITIN, IRON,TRANSFERN,CALC. TIBC,%SAT, VITAMIN B12, Additional followed-up results: 2 Social History Tobacco Use Types Packs/Day Years Used Date Smoking Tobacco: Former Cigarettes 1 35 1 07/1986 - 05/2022 Smokeless Tobacco: Never Alcohol Use Standard Drinks/Week Comments Not Currently [...] Info) Description 12/10/2025 11:00 AM CDT [facility] [address] [place] [address] 12/17/2025 10:40 AM CDT [facility] [address] [place] [address] Angelique Walker Evlie, [facility] [address] [place] [address] documented as of this encounter Visit Diagnoses Not on filedocumented in this encounter Care Teams Legal Assistant Relationship Specialty Start Date End Date Cruz Luciano MD [address] [place] [address] PCP - General Orthopaedic Surgery 01/12/24 Aguilar Najera MD [address] [address] Consulting Physician Urology 03/18/22 Danilo Lyles MD [address] [place] [address] Consulting Physician Medical Oncology 04/27/23 documented as of this encounter
--- OUTSIDE RECORDS SUMMARY | 2024-12-31 13:32 | XMS_ITS | Patient Health Record ---
Author Organization [facility] Address [address] [place] [address] Care Team Providers Care Guyline Operator Name Role Phone Marvin Amanda Primary Care Provider Amanda Almeida Unavailable [phone] Gonzalo Dorado Unavailable [phone] Allergies Allergen (clinical drug ingredient) Drug/Non Drug [...] Zoloft 100 MG 1 tablet Orally twice daily; Duration: 30 days Active Cyproheptadine HCl 4 MG 0.5 tablet Orall y Twice a day; Duration: 30 days 11/12/2022 Active Mirtazapine 15 MG 1 tablet at bedtime Orally Once a day; Duration: 30 day(s) 10/01/2022 Not-Taking Amoxicillin 500 MG [...] school 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 Stress is when someone feels tense, nervous, anxious, or can\t sleep at night because their mind is troubled Somewhat In the past year have you sp ent more than 2 nights in a row in a assisted, retirement, nursing home center, or juvenile correctional facility? No Do [...] Status Risk Notes Problem Posttraumatic stress disorder (52696619) PTSD (post-traumati c stress disorder) (F43.10) Active confirmed Problem Major depressive disorder, severe (F32.2) Active confirmed Encounters Encounter Location Date Provider Diagnosis [address] [address] 01/06/2024 Amandabarney Almeida Major depressive disorder, severe F32.2 and PTSD (post-traumatic stress disorder) F43.[address] [address] 01/27/2024 Amanda Sanftleben Major depressive disorder, severe F32.2 and PTSD (post-traumatic stress disorder) F43.10 [facility] [address] [address] 02/10/2024 Amanda Sanftleben Major depressive disorder, severe F32.2 and PTSD (post-traumatic stress disorder) F43.10 [facility] [address] [address] 02/24/2024 Amanda Sanftleben Major depressive disorder, severe F32.2 and PTSD (post-traumatic stress disorder) F43.10 [facility] [address] [address] 03/02/2024 Amanda Sanftleben Major depressive disorder, severe F32.2 and PTSD (post-traumatic stress disorder) F43.10 [place] [address] [place] [address] 03/09/2024 Amanda Sanftleben Major depressive disorder, severe F32.2 and PTSD (post-traumatic stress disorder) F43.10 [facility] [address] [address] 03/16/2024 Amanda Sanftleben Major depressive disorder, severe F32.2 and PTSD (post-traumatic stress disorder) F43.10 [place] [address] [place] [address] 04/02/2024 Gonzalo Dorado Major depressive disorder, severe F32.2 and PTSD (post-traumatic stress disorder) F43.[address] [address] 04/06/2024 Gonzalo Dorado Major depressive disorder, severe F32.2 and PTSD (post-traumatic stress disorder) F43.10 [facility] [address] [place] [address] 04/13/2024 Gonzalo Dorado Major depressive disorder, severe F32.2 and PTSD (post-traumatic stress disorder) F43.10 [facility] [address] [address] 04/27/2024 Gonzalo Dorado Major depressive disorder, severe F32.2 and PTSD (post-traumatic stress disorder) F43.10 [facility] [address] [place] [address] 05/11/2024 Gonzalo Dorado Major depressive disorder, severe F32.2 and PTSD (post-traumatic stress disorder) F43.10 [facility] [address] [address] 05/25/2024 Gonzalo Dorado Major depressive disorder, severe F32.2 and PTSD (post-traumatic stress disorder) F43.10 [facility] [address] [address] 06/18/2024 Gonzalo Dorado Major depressive disorder, severe F32.2 and PTSD (post-traumatic stress disorder) F43.10 [facility] [address] [place] [address] 06/29/2024 Gonzalo Dorado Major depressive disorder, severe F32.2 and PTSD (post-traumatic stress disorder) F43.10 [place] [address] [place] [address] 07/23/2024 Gonzalo Dorado Major depressive disorder, severe F32.2 and PTSD (post-traumatic stress disorder) F43.10 [facility] [address] [address] 08/06/2024 Gonzalo Dorado Major depressive disorder, severe F32.2 and PTSD (post-traumatic stress disorder) F43.10 [place] [address] [place] [address] 08/21/2024 Gonzalo Dorado Major depressive disorder, severe F32.2 and PTSD (post-traumatic stress disorder) F43.10 [place] [address] [place] [address] 09/03/2024 Gonzalo Dorado Major depressive disorder, severe F32.2 and PTSD (post-traumatic stress disorder) F43.10 [facility] [address] [place] [address] 09/18/2024 Gonzalo Dorado Major depressive disorder, severe F32.2 and PTSD (post-traumatic stress disorder) F43.10 [facility] [address] [place] [address] 10/16/2024 Gonzalo Dorado Major depressive disorder, severe F32.2 and PTSD (post-traumatic stress disorder) F43.10 [facility] [address] [place] [address] 10/22/2024 Gonzalo Dorado Major depressive disorder, severe F32.2 and PTSD (post-traumatic stress disorder) F43.10 [facility] [place] [address] 11/12/2024 Gonzalo Dorado Major depressive disorder, severe F32.2 and PTSD (post-traumatic stress disorder) F43.10 [facility] [address] [place] [address] 12/10/2024 Gonzalo Dorado Major depressive disorder, severe F32.2 and PTSD (post-traumatic stress disorder) F43.10 [facility] [place] [address] 12/24/2024 Gonzalo Dorado PTSD (post-traumatic stress disorder) F43.[address] [place] [address] 09/11/2024 Amanda Wong Assessments Encounter Date Diagnosis (ICD Code) Assessment Notes Treatment Notes Treatment Clinical Notes Section Notes 01/06/2024 Major depressive disorder, severe (ICD-10 - [...] Major depressive disorder, severe (ICD-10 - F32.2) 10/22/2024 Major depressive disorder, severe (ICD-10 - F32.2) 09/03/2024 Major depressive disorder, severe (ICD-10 - F32.2) [...] Major depressive disorder, severe (ICD-10 - F32.2) 11/12/2024 Major depressive disorder, severe (ICD-10 - F32.2) 10/16/2024 Major depressive disorder, severe (ICD-10 - F32.2) 12/24/2024 PTSD (post-traumatic stress disorder) (ICD-10 - F43.10) 12/10/2024 Major depressive disorder, severe (ICD-10 - F32.2) 12/10/2024 PTSD (post-traumatic stress disorder) (ICD-10 - F43.10) 10/16/2024 PTSD (post-traumatic stress disorder) (ICD-10 - F43.10) 11/12/2024 PTSD (post-traumatic stress disorder) (ICD-10 - F43.10) [...] PTSD (post-traumatic stress disorder) (ICD-10 - F43.10) 09/03/2024 PTSD (post-traumatic stress disorder) (ICD-10 - F43.10) 10/22/2024 PTSD (post-traumatic stress disorder) (ICD-10 - F43.10) 09/18/2024 PTSD (post-traumatic stress disorder) (ICD-10 - [...] stress disorder) (ICD-10 - F43.10) 04/02/2024 Other Welding Machine Operator Thermit will continue to work with client on the importance of boundary setting for their own peace. Plan Of Treatment Next Appt Details Provider Name:Gonzalo estrada, 01/07/2025 03:40:00 PM, [address], [place], [address], Insurance Providers Payer Name Payer Address Payer Phone Subscriber Number Group Number Insured Name Patient Relationship to Insured Coverage Start Date Coverage End Date [employer] [address] [place] [phone] [id number] Jessica Noriega Self - patient is the insured 3 [employer] [address] [place] [phone] [id number] Jessica Noriega Self - patient is the insured 9 [employer]ACH[employer] [address] [place] [phone] [id number] Jessica Noriega Self - patient is the insured 4 Medical (General) History Medical History History ICD Code Anemia GERD Connective tissue disorder Surgical History Surgery Date(Month/Year) left knee repair breast bilateral R pinky tendon repair R hand fracture repair
--- OUTSIDE RECORDS SUMMARY | 2024-12-31 13:32 | XMS_ITS | Referral Summary ---
Author Organization [facility] Healthcare Address [address] [place] [address] Care Team Providers Care Aerosol Line Operator Name Role Phone Katey Markham NP Unavailable [phone] Alia Fuller [employer] Unavailable Tanika Clay [employer] Unavailable Aguilar Najera MD Unavailable [phone] Beau Stone [employer] Unavailable [phone] Pearl York DO Unavailable Katey Markham NP Primary Care Provider [phone] Encounters Date Type Department Care Team Description 12/31/2024 10:45 AM CDT Office Visit [facility] [address] [facility] [address] [place] [phone] Raf Pratt MD 12/28/2024 Results Follow-Up [facility] [address] [facility] Advanced Medicine 12th [place] [address] [place] [address] Celeste Rubio MD Surgical pathology 12/26/2024 10:33 AM CDT Anesthesia Event [facility] [address] [facility] [address] [place] [address] Ravi Schilling MD [place], Robert Young, CRNA 12/26/2024 10:30 AM CDT - 12/26/2024 11:00 AM CDT Surgery [facility] [address] [address] Celeste Rubio MD ESOPHAGOGASTRODUODENOSCOPY BIOPSY 12/26/2024 9:45 AM CDT - 12/26/2024 11:32 AM CDT Hospital Encounter [facility] [address] [address] Celeste Rubio MD Gastroesophageal reflux disease, unspecified whether esophagitis present; Dysphagia, unspecified type Discharge Disposition: Discharge to home or self care 12/25/2024 Results Follow-Up [facility] at [address] [phone] Mine Muller MD Comprehensive metabolic panel, eGFR 12/21/2024 Orders Only [facility] [address] [place] [address] [place] [address] Celeste Rubio MD Diarrhea, unspecified type (Primary Dx) 12/19/2024 Telephone [facility] [address] [place] [phone] Charlene Casanova RN GI PROCEDURE 7 DAY PRE CALL 12/17/2024 3:40 PM CDT Lab [address] [address] 11/15/2024 Telephone [facility] [address] [facility] Medicine 12th [place] [address] [place] [address] Shanta Galvan LPN 11/07/2024 10:00 AM CDT - 11/07/2024 11:59 PM CDT Hospital Encounter [address] [address] Nicotine dependence, cigarettes, uncomplicated; Tobacco use Discharge Disposition: Discharge to home or self care 11/01/2024 Telephone [facility] [address] [facility] Medicine 12th [place] [address] [place] [address] Latasha Cabrera, LOCKSTITCH BACK MAKER 10/25/2024 Telephone [facility] [address] [place] [address] [place] [address] Shanta Galvan LPN GI Preprocedure Screening 10/02/2024 Telephone [facility] [address] [place] [address] [place] [address] Shanta Galvan LPN from Last 3 Months Allergies Active Allergy [...] mg tablet,delayed release (DR/EC) Take by mouth polishing wheel setter before breakfast Active RBDORYU-GUBN-FUOWI -OREG-CAPRYL ORAL daily Ac tive magnesium gluconate [...] 200 MG 60 each 11 4 Active cyclobenzaprine (FLEXERIL) 10 mg tablet Take 1 tablet (10 mg total) by mouth 3 (three) times a day as needed for muscle spasms Active ondansetron ODT (ZOFRAN-ODT) 4 mg disintegrating tabletIndications: Nausea and vomiting, unspecified vomiting type DISSOLVE 1 TABLET (4 MG TOTAL) BY MOUTH DAILY NEEDED FOR NAUSEA OR VOMITING FOR UP TO 30 DOSES 30 tablet 4 Active metoprolol XL (TOPROL-XL) 25 mg extended release tablet TAKE 1 TABLET BY MOUTH EVERY DAY 90 tablet 3 4 Active lubiprostone (AMITIZA) 8 mcg capsule Take 1 capsule (8 mcg total) by mouth 2 (two) times a day with meals Take with meals 60 capsule 11 4 03/30/20 25 Active albuterol HFA (PROVENTIL HFA,VENTOLIN HFA,PROAIR HFA) 90 mcg/actuation inhalerIndications :Asthma-COPD overlap syndrome (HCC) INHALE 2 PUFFS BY MOUTH EVERY 6 HOURS NEEDED FOR WHEEZE OR FOR SHORTNESS OF BREATH 8.5 each 11 5 Active sacubitriL-valsart an (Entresto) 24-26 mg tablet TAKE 1 TABLET BY MOUTH TWICE A DAY 60 tablet 11 5 Active topiramate (TOPAMAX) 50 mg tabletIndications: Bilateral occipital neuralgia Take half tablet (25 mg) po twice a day for one week, then one tablet po twice a day 60 tablet 3 5 Active predniSONE (DELTASONE) 10 mg tabletIndications: Cervical pain (neck) TAKE 6 TABS DAILY FOR ONE WEEK, 5 DAILY FOR ONE WEEK, 4 DAILY FOR ONE WEEK, 3 DAILY FOR ONE WEEK, 2 DAILY FOR ONE WEEK THEN 1 DAILY FOR ONE WEEK 105 tablet 1 5 Active famotidine (PEPCID) 40 mg tablet TAKE 1 TABLET BY MOUTH EVERY DAY 90 tablet 1 5 Active Active Problems Problem Noted Date Diagnosed Date Gastroesophageal reflux disease 10/25/2024 Acute upper respiratory infection 09/25/2024 Assessment & [...] however has not had formal follow-up with bulk sugar handler, skin testing may return different results IgE [...] time. She is currently using the patient Le[employer]ir assistance program and has received her medication [...] care Assessment & Plan (05/22/2024 3:29 PM PUBLICATIONS EDITOR): She will continue Trelegy Ellipta 200 once [...] triggers Assessment & Plan (07/20/2023 11:53 AM PUBLICATIONS EDITOR): Continue Trelegy Ellipta 200 once daily for now We have discussed the risks of infection and we will monitor her carefully Continue albuterol, discussed indications for use She is current on vaccines Avoid triggers Dyspnea on exertion 07/20/2023 Assessment & Plan (07/20/2023 11:51 AM PUBLICATIONS EDITOR): Multifactorial I have urged her to prioritize new living arrangements and remain active Iron deficiency anemia 07/20/2023 Assessment & Plan (07/20/2023 11:48 AM PUBLICATIONS EDITOR): Last H&H was normal Fluctuations could contribute to dyspnea Continue to follow with Hematology Continue ferrous sulfate as ordered Pelvic and perineal pain 07/02/2023 Assessment & Plan (07/03/2023 6:37 PM PUBLICATIONS EDITOR): I suspect main problem is her opiod [...] menopause. Assessment & Plan (05/18/2023 4:21 PM PUBLICATIONS EDITOR): The patient presents today for discussion of [...] 06/24/2022 Assessment & Plan (07/20/2023 11:50 AM PUBLICATIONS EDITOR): She is due for CT chest in [...] (03/03/2021): Added automatically from request for surgery [id number] Other chest pain 02/27/2021 Hot flashes 02/26/2021 [...] mitral valve regurgitation 02/27/20 NICM (nonischemic cardiomyopathy) 02/26/2021 Assessment & Plan (09/25/2024 9:26 AM CDT): Continue Entresto Her most recent echocardiogram demonstrated a estimated LVEF at 35-40%, she should continue close follow-up with Cardiology Assessment & Plan (05/22/2024 3:30 PM PUBLICATIONS EDITOR): Continue Entresto Continue follow-up with Cardiology Last [...] cardiology Assessment & Plan (07/20/2023 11:47 AM PUBLICATIONS EDITOR): Continue Entresto Follow with cardiology Hepatic cyst 11/27/2020 Functional abdominal pain syndrome 11/26/2020 Nausea and vomiting 11/26/2020 Post-nasal drainage 11/26/2020 Tobacco use disorder 08/26/2020 Gastroesophageal reflux disease without esophagi tis 03/12/2020 Assessment & Plan (06/23/2020 5:03 PM PUBLICATIONS EDITOR): Patient is doing well with the Pepcid [...] (02/14/2020): Added automatically from request for surgery [id number] Assessment & Plan (06/23/2020 5:03 PM PUBLICATIONS EDITOR): Normal upper endoscopy in February of 2020. [...] benefits. Assessment & Plan (06/23/2020 5:02 PM PUBLICATIONS EDITOR): Patient is having constipation symptoms no. Discussed [...] is a hard stool. Pt also on fpc opioids which likely contributes to constipation. She [...] (02/14/2020): Added automatically from request for surgery [id number] Assessment & Plan (03/12/2020 1:04 PM CDT): [...] on file Legal Sex Female 8:57 AM PUBLICATIONS EDITOR Gender Identity Female 09/01/2023 3:49 PM CDT Sexual Orientation Straight 09/01/2023 3: 49 PM CDT Last Filed Vital Signs Vital Sign Reading Time Taken Comments Blood Pressure 122/68 12/31/2024 10:51 AM CDT Pulse 66 12/31/2024 10:51 AM CDT Temperature 36.2 C (97.2 F) 12/26/2024 10:55 AM CDT Respiratory Rate 23 12/26/2024 11:15 AM CDT Oxygen Saturation 99% 12/31/2024 10:51 AM CDT Inhaled Oxygen Concentration - - Weight 61.9 kg (136 lb 6.4 oz) 12/31/2024 10:51 AM CDT Height 165.1 cm (5' 5) 12/31/2024 10:51 AM CDT Body Mass Index 22.7 12/31/2024 10:51 AM CDT Plan of Treatment Not on file Medical Devices Implanted Type Area Industrial Relations Representative Device Identifier Shelf Expiration Date Model / Serial / Lot [employer] [id number] Angio-Seal Evolution 6fr .035in Guidewire Bypass Tube Suture - [id number] Implanted:Qty: 1 on 03/06/2021 by Amador Cano MD at [facility] 10/03/2021 [id number] / / [id number] Procedures Procedure Name Priority Date/Time Associated Diagnosis Comments SURGICAL PATHOLOGY Routine 12/26/2024 10:47 AM CDT Gastroesophageal reflux disease, unspecified whether esophagitis present Dysphagia, unspecified type EGD 12/26/2024 10:42 AM CDT ESOPHAGOGASTRODUODENOSCOPY BIOPSY 12/26/2024 10:37 AM CDT Gastroesophageal reflux disease, unspecified whether esophagitis present Dysphagia, unspecified type EGFR Routine 12/17/2024 3:42 PM CDT COMPREHENSIVE METABOLIC PANEL Routine 3:[address] LUNG CANCER SCREENING Schedule Routine, Read Routine (OP Routine) 11/07/2024 10:30 AM CDT Nicotine dependence, cigarettes, uncomplicated Tobacco use DIAGNOSTIC MAMMOGRAM BILATER AL W SCOTT W IMPLANTS Schedule Routine, Read Routine (OP Routine) 07/11/2023 1:57 PM PUBLICATIONS EDITOR Abnormal mammogram PAP AND HPV, REFLEX TO HPV GENOTYPES Routine 03/30/2023 2:59 PM CDT Encounter for annual routine gynecological examination HEPATITIS C RNA, QUANTITATIV E, PCR Routine 11/03/2022 1:25 PM CDT COLONOSCOPY 12/29/2021 11:33 AM CDT from Last 3 Months or Most Recently Relevant to Health Maintenance Results * Surgical pathology (12/26/2024 10:47 AM CDT) Tissue (Gastric/Stomach biopsy) 12/26/2024 10:47 AM CDT Tissue specimen (specimen) (Esophageal biopsy) 12/26/2024 10:48 AM CDT Tissue specimen (specimen) (Esophageal biopsy) 12/26/2024 10:48 AM CDT Narrative PATHOLOGY [facility] - 12/27/2024 10:29 PM CDT EPIC results best viewed via link to PDF [facility] [place] [address] Note to Patients: This report may contain [...] can answer questions and explain the details. SURGICAL PATHOLOGY REPORT FINAL Patient Name: JESSICA ARRIAGA Gender: F : 1970 (Age: 54) Address: [address] [place] [id number] Hospital #: [id number] Taken:12/26/2024 Received:12/26/2024 Reported: 12/27/2024 Patient Type: [facility] Service: Gastro Location: Physician(s): Leatha Mendoza NP Diagnosis: A. Stomach, random, endoscopic biopsy - No histopathologic abnormality - No acute or chronic gastritis - No Helicobacter pylori by H&E sections - No intestinal metaplasia, dysplasia, or malignancy B. Esophagus, distal, endoscopic biopsy - Squamous mucosa with mild chronic inflammation and reactive epithelial changes, consistent with mild reflux esophagitis - No acute inflammation, ulcers, or microorganisms - No intestinal metaplasia, dysplasia, or malignancy - No gastric mucosa identified C. Esophagus, proximal, endoscopic biopsy - Squamous mucosa with mild chronic inflammation and reactive epithelial changes, consistent with mild reflux esophagitis - No acute inflammation, ulcers, or microorganisms - No intestinal metaplasia, dysplasia, or malignancy giyi/12/27/2024 09:50 By this signature, I attest that the above diagnosis is based upon my personal examination of the slides(and/or other material indicated in the diagnosis). Rashel Capone MD Report Electronically Reviewed and Signed Out By Rashel Capone MD 12/27/2024 22:29:02 Microscopic Description and Comment: Microscopic examination substantiates the above cited diagnosis. Shabnam Cannon M.D. History: The patient is a 54-year-old woman presenting with gastroesophageal reflux disease. Operative procedure: Upper GI endoscopy. Specimen(s) Received: A: Random gastric biopsy B: Distal esophageal biopsy C: Proximal esophageal biopsy Gross Description: Received in three formalin jars labeled with the patient's identifiers. A. Labeled random gastric biopsy and consists of two dang-pink fragment(s) of soft tissue measuring 0.4-0.6 cm in greatest dimension. Labeled A1. Jar 0. B. Labeled distal esophageal biopsy and consists of multiple white-dang fragment(s) of soft tissue with an aggregate measurement of 0.7 x 0.5 x 0.1 cm. Labeled B1. Jar 0. C. Labeled proximal esophageal biopsy and consists of multiple white-dang fragment(s) of soft tissue an aggregate measurement of 0.4 x 0.3 x 0.1 cm. Labeled C1. Jar [facility]. [facility]12/26/2024 12:39 PA(s): Debi Elise By this signature, I attest that the above diagnosis is based upon my personal examination of the slides(and/or other material). Addenda/Procedures The performance characteristics of some immunohistochemical stains, fluorescence in-situ hybridization tests and immunophenotyping by flow cytometry cited in this report (if any) were determined by the Surgical Pathology and Flow Cytometry Departments at [facility] as part of an ongoing quality coordinator program and in compliance with federally mandated [...] performance characteristics determined by the Surgical Pathology and Flow Cytometry Departments of [facility]. It has not been cleared or approved by the U. S. Food and Drug Administration. IMAGES AND SCANNED DOCUMENTS, IF INCLUDED, ONLY VIEWABLE IN PDF VERSION OF REPORT us Celeste Rubio MD LAB PATHOLOGY ORDERABLES Final Result PATHOLOGY [facility] 3rd Floor [place], [place] [phone] * EGD (12/26/2024 10:42 AM CDT) Anatomical Region Laterality Modality Other Narrative Procedure Note Celeste Rubio MD - 12/26/2024 10:42 AM CDT GI ENDOSCOPY [facility] Patient Name: Jessica Arriaga Procedure Date: 12/26/2024 10:42 AM Date of : 1970 Admit Type: Outpatient Age: 54 Gender: Female Attending MD: Celeste Rubio M.D., Room: [facility] ENDOSCOPY ROOM 8 Note Status: Finalized Procedure: Upper GI endoscopy Indications: Dysphagia, Heartburn Referring MD: Celeste Rubio M.D. Providers: Celeste Rubio M.D. Medicines: Monitored Anesthesia Care Complications: No immediate complications. Estimated Blood Loss: Estimated blood loss was minimal. Procedure: Pre-Anesthesia Assessment: - Immediately prior to administration ofmedications, the patient was re-assessed for adequacy to receive sedatives. The benefits, risks, and alternatives to theprocedure and sedation were discussed and informed consentwas obtained. The scope was passed under direct vision. The GIF [id number] endoscope was introduced through the mouth, and advanced to the second partof duodenum. The upper GI endoscopy was accomplished without difficulty. The patient tolerated the procedure well. Findings: The Z-line was regular and was found 38 cm from the incisors. A 1 cm hiatal hernia was present. The esophagus otherwise appeared normal. The entire examined stomach was normal. Biopsies were taken with acold forceps for histology. Biopsies were taken with a cold forceps for Helicobacter pylori testing. The examined duodenum was normal. Impression: - Z-line regular, 38 cm from the incisors. - 1 cm hiatal hernia. - Normal stomach. Biopsied. - Normal examined duodenum. Recommendation: - Discharge patient to home (with escort). - Await pathology results. - Return to GI clinic. - please call [phone], 8 am -5 pm if any post procedural concerns/issues, after hours/weekends please call [phone] and ask for GI fellow oncall Attending Participation: I personally performed the entire procedure. Electronically signed by Celeste Rubio MD Celeste Rubio M.D. 12/26/2024 10:52:54 AM . Number of Addenda: 0 Note Initiated On: 12/26/2024 10:42 AM us Celeste Rubio MD ENDOSCOPY PROCEDURES Final Res ult * eGFR (12/17/2024 3:42 PM CDT) eGFR >90 >=60 mL/min/1. 73 [...] interpretive data was last reviewed 2021. Blood 12/17/2024 3:42 PM CDT 12/17/2024 4:11 PM CDT Mine Muller MD LAB BLOOD ORDERABL ES Final Result [facility] ([place]) [address] [facility] Department [place] [address] * (ABNORMAL) Comprehensive metabolic panel (12/17/2024 3:42 PM CDT) Sodium 139 135 - 145 mmol/L Potassium, pl 4.1 3.3 - 4.9 mmol/L [facility] ([place]) Chloride 102 97 - 110 mmol/L [facility] ([place]) CO2 21(L) 22 - 32 mmol/L [facility] ([place]) Anion gap 15 2 - 15 mmol/L [facility] ([place]) BUN 10 6 - 25 mg/dL [facility] ([place]) Creatinine 0.68 0.60 - 1.10 mg/dL [facility] ([place]) Glucose 131 70 - 199 mg/dL [facility] ([place]) [...] interpretive data was last revised 2022. Calcium 9.3 8.5 - 10.3 mg/dL [facility] ([place]) Bilirubin, total 0.2 0.1 - 1.2 mg/dL [facility] ([place]) Protein, pl 6.5 6.5 - 8.5 g/dL [facility] ([place]) Albumin 4.5 3.5 - 5.0 g/dL [facility] ([place]) Alk phos 41 40 - 130 Units/L [facility] ([place]) ALT 13 7 - 45 Units/L [facility] ([place]) AST 23 10 - 45 Units/L [facility] ([place]) Blood 12/17/2024 3:42 PM CDT 12/17/2024 4:11 PM CDT us Cruz Luciano MD LAB BLOOD ORDERABLES Fin al Result [facility] ([place]) [address] [facility] Department [place] [address] * CT Lung Cancer Screening (11/07/2024 10:30 AM CDT) Anatomical Region Laterality Modality Chest N/A Computed Tomogra phy 11/16/2024 12:0 0 PM CDT Narrative 11/16/2024 12:09 PM CDT EXAM DESCRIPTION: CT LUNG CANCER SCREENING [...] not an alternative to diagnostic chest CT. The sensitivity for detection of solid visceral lesions is diminished without the use of intravenous contrast. RADIATION DOSE: CT dose index volume (CTDIvol) = 0.96 mGy COMPARISON: CT chest 11/07/2023 FINDINGS: SMOKING RELATED LUNG DISEASE: Mild pulmonary emphysema. Bandlike scarring in the lung bases is unchanged. LUNG NODULES: Noncalcified 4 mm nodule in the right middle lobe (image 206) is unchanged. Noncalcified 3 mm nodule in the medial right upper lobe (image 144) is unchanged. PLEURAE: No pneumothorax or pleural effusion. MEDIASTINUM/MOLLY: No mediastinal or hilar lymphadenopathy within the limitations of a noncontrast exam. HEART: Heart size is normal with no pericardial effusion. CORONARY ARTERY CALCIFICATION: Absent VASCULATURE: No thoracic aortic aneurysm. AXILLAE: No lymphadenopathy. CHEST WALL: Bilateral breast implants. HARDWARE/LINES/TUBES: None. UPPER ABDOMEN: No significant abnormality. MUSCULOSKELETAL: Moderate thoracic spondylosis. IMPRESSION: 1. Noncalcified pulmonary nodules measuring up to 4 mm are unchanged. 2. Mild pulmonary emphysema. Lung-RADS category 2: Benign appearance or behavior. Recommendation: Low dose Screening CT of chest in 12 months. THIS IS AN ELECTRONICALLY VERIFIED FINAL REPORT 11/16/2024 12:09 PM - Electronically signed by Kyle Ardon M.D. LB: FARRAH Report ID: [id number] Reading Location: [place] [address] Procedure Note Kyle Ardon MD - 11/16/2024 EXAM DESCRIPTION: CT LUNG CANCER SCREENING REASON [...] not an alternative to diagnostic chest CT. Thesensitivity for detection of solid visceral lesions is diminished without the use of intravenous contrast. RADIATION DOSE: CT dose index volume (CTDIvol) = 0.96 mGy COMPARISON: CT chest 11/07/2023 FINDINGS: SMOKING RELATED LUNG DISEASE: Mild pulmonary emphysema. Bandlikescarring in the lung bases is unchanged. LUNG NODULES: Noncalcified 4 mm nodule in the right middle lobe ([id number]) is unchanged. Noncalcified 3 mm nodule in the medial right upper lobe(image 144) is unchanged. PLEURAE: No pneumothorax or pleural effusion. MEDIASTINUM/MOLLY: No mediastinal or hilar lymphadenopathy within the limitations of a noncontrast exam. HEART: Heart size is normal with no pericardial effusion. CORONARY ARTERY CALCIFICATION: Absent VASCULATURE: No thoracic aortic aneurysm. AXILLAE: No lymphadenopathy. CHEST WALL: Bilateral breast implants. HARDWARE/LINES/TUBES: None. UPPER ABDOMEN: No significant abnormality. MUSCULOSKELETAL: Moderate thoracic spondylosis. IMPRESSION: 1. Noncalcified pulmonary nodules measuring up to 4 mm are unchanged. 2. Mild pulmonary emphysema. Lung-RADS category 2: Benign appearance or behavior. Recommendation: Low dose Screening CT of chest in 12 months. THIS IS AN ELECTRONICALLY VERIFIED FINAL REPORT 11/16/2024 12:09 PM - Electronically signed by Kyle Ardon M.D. LB: LB Report ID: [id number] Reading Location: [id number] Cruz Luciano MD IMG CT PROCEDURES Final Result * Diagnostic Mammogram Bilateral W Scott W Implants (07/11/2023 1:57 PM PUBLICATIONS EDITOR) Anatomical Region Laterality Modality Breast Bilateral Mammography 07/11/2023 4:15 PM PUBLICATIONS EDITOR Impressions 07/11/2023 4:15 PM PUBLICATIONS EDITOR 1. Probably benign asymmetry versus amorphous calcifications [...] Hayes Blair M.D. Narrative 07/11/2023 4:15 PM PUBLICATIONS EDITOR EXAMINATION: DIAGNOSTIC MAMMOGRAM BILATERAL W SCOTT W [...] Genotypes (03/30/2023 2:59 PM CDT) CLINICAL INFORMATION: [facility] [employer] [facility] Comment:ROUTINE SCREENING LMP [facility] [employer] [facility] Comment:NONE Previous Pap [facility] [employer] [facility] Comment:NONE GIVEN Prev. Bx [facility] [employer] [facility] Comment:NONE GIVEN SOURCE: [facility] [employer] [facility] Comment:Cervix, Endocervix Pap, specimen adequacy [facility] [employer] [facility] Comment: Satisfactory for evaluation. Endocervical/transformation zone component absent. HPV interp [facility] [employer] [facility] Comment: Cytology Results: Negative for intraepithelial lesion or malignancy. [facility] Comment: SRR, CT(ASCP) CT Screening Location: [address] [address] Comment [facility] [employer] [facility] Comment: EXPLANATORY NOTE: The Pap is a [...] Client Letter) showing TIS test codes, see [email or web address]/Resources, and navigate to Well[employer]Woman>Physician Materials>TIS Client Letter. You can also call for test code assistance. Human papillomavirus DNA, High Risk E6/E7 Not Detected NOT DETECTED [employer] [facility] Comment: Not Detected High Risk HPV [...] ORDERABLES Final Re sult Performing Organization Address [facility]/State/ZIP Co de Phone Number [facility] [address] [place] [address] [employer] [address] [place] [address] * Hepatitis C (HCV) RNA PCR, quantitative (11/03/2022 1:25 PM CDT) HCV RNA result Not Detected [facility] ([place]) Comment: The quantifiable range of this assay is 15 IU/mL to 100,000,000 IU/mL (1.18 log IU/mL to 8.00 log IU/mL). Testing was performed by the EVA 6800 HCV Test ([employer] Testing performed at [facility] Current Interpretive Data was last revised on 2021 Testing performed by: [facility], [address] [facility], [place]., [address] Blood 11/03/2022 1:25 PM CDT 11/04/2022 10:17 AM CDT us Moni Briseno NP LAB MICROBIOLOGY - GENERAL ORDERABLES Final Result [facility] [place]) [address] [facility] Department [place] [address] * COLONOSCOPY (12/29/2021 11:33 AM CDT) Anatomical Region Laterality Modality Other Narrative Procedure Note Kingsley Corea MD - 12/29/2021 11:33 AM CDT [facility] Patient Name: Jessica Arriaga Procedure Date: 12/29/2021 11:33 AM Date of : 1970 Admit Type: Outpatient Age: 51 Gender: Female Attending MD: Kingsley Corea M.D. Room: [facility] ENDOSCOPY ROOM 1 Note Status: Finalized Patient [...] under direct vision. The Pediatric Colonoscope PCF-H190L [id number] was introducedthrough the anus and advanced to [...] 11:33 AM Procedure Code(s): --- Professional --- 51730, Colonoscopy, flexible; with biopsy, single or multiple Diagnosis Code(s): --- Professional --- Z80.0, Family history of malignant neoplasm of digestive organs K64.8, Other hemorrhoids CPT copyright 2020 [employer]. All rights reserved. The codes documented in this report are preliminary and upon magnetic prospector reviewmay be revised to meet current compliance requirements. Recognized by the [employer] for promoting quality in endoscopy Kingsley Corea MD ENDOSCOPY PROCEDURES Final Result from Last 3 Months or Most Recently Relevant to Health Maintenance Insurance [facility] Advance Directives For more information, please contact: [phone] * Full Code (Latest Code Status on File) Date Activated Date Inactivated Comments 12/26/2024 9:55 AM 12/26/2024 3:37 PM * Full Code Date Activated Date Inactivated Comments 12/29/2021 11:07 AM 12/29/2021 6:29 PM * Full Code Date Activated Date Inactivated Comments 12/29/2021 11:07 AM 12/29/2021 11:07 AM * Full Code Date Activated Date Inactivated Comments 03/06/2021 9:36 AM 03/06/2021 5:00 PM * Full Code Date Activated Date Inactivated Comments 02/27/2020 1:42 PM 02/27/2020 8:15 PM Care Teams Aerosol Line Operator Relationship Specialty Start Date End Date Katey Markham NP [address] [place] [address] PCP - General Internal Medicine 11/01/24 Katey Markham [employer] 09/26/21 Alia Fuller, ALKA Nurse Practitioner Family Medicine 09/28/22 Tanika Clay NP Nurse Practitioner Nurse Practitioner 09/28/22 Aguilar Najera MD Consulting Physician Urology 09/28/22 Beau Stone, ALKA Nurse Practitioner Family Practice 09/28/22 Pearl York DO [address] [facility] [address] TRENT Jeronimo [address] [address] Consulting Physician Otolaryngology 09/28/22
--- OUTSIDE RECORDS SUMMARY | 2024-12-31 13:32 | XMS_ITS | Clinical Summary ---
Author Organization [facility] Address [address] [place] [address] Care Team Providers Care Aquaculture And Fisheries Professor Name Role Phone Zack Nguyen MD Unavailable Cruz Luciano MD Primary Care Provider [phone] Source Comments [facility],non-owned Affiliates and Associated Physician Practices is amultiple site organization consisting of ambulatory clinics and hospital sitesin [place], [place], [place] and [place]. This disclosure is being madepursuant to the Care Everywhere program and may not contain all information available regarding this patient. Last updated 18.[facility] Allergies Active Allergy Reactions Criticality Noted Date [...] Active Sertraline HCl (ZOLOFT PO) Active Ferrous Xkjvnkpvw-I-Dbc ic Acid (IRON-C PO) Active fluticasone-ume clidin-vilant [...] 11:55 AM CDT Height 167.6 cm (5' 6) 12/31/2020 12:03 PM CDT Body Mass Index [...] COLON CA SCREENING 1970 LIPID TESTING 1970 HEPATITIS C SCREENING 04/10/1989 DTAP/TDAP/TD VACCINES (1 - Tdap) 1990 HEPATITIS B VACCINE (1 of 3 - 19+ 3-dose series) 1990 PNEUMOCOCCAL VACCINE 50+ (1 of 2 - PCV) 1990 PAP SMEAR 1992 MAMMOGRAM 03/18/2019 03/18/2017 LUNG CANCER SCREENING 2021 ZOSTER VACCINE (1 of 2) 2021 COVID-19 VACCINE (2 - 2023-2 5 season) 2024 06/23/2021 INFLUENZA VACCINE (#1) 2025 HIV SCREENING Completed 02/21/2023 HIB VACCINE [...] ve Non-react mario 02/21/2023 2:43 PM CDT [facility] Comment:No Laboratory eviden ce of HIV infection. Blood BLOOD SPECIMEN / Unknown Lab Venipuncture / Unknown 02/21/2023 1:02 PM CDT 02/21/2023 1:21 PM CDT Aristides Velasco MD LAB - CHEMISTRY ORDERABLES Fin al Result Performing Organization Address [facility]/State/[facility] Co de Phone Number [facility] [address] [place] [phone], [facility] [phone] from Last 3 Months or Most Recently Relevant to Health Maintenance Insurance SELF PAY NO INSURANCE Member Subscriber Plan / Payer (Ef fective for All Dates) Name:Jessica Arriaga Member ID:Not on file Relation to Subscriber:Self Name:JESSICA ARRIAGA Subscriber ID:Not on file Payer ID:Not on file Group ID:Not on file Type:Self Pay Address: [facility] SELF PAY NO INSURANCE Member Subscriber Plan / Payer (Ef fective for All Dates) Name:Jessica Arriaga Member ID:Not on file Relation to Subscriber:Self Name:JESSICA ARRIAGA Subscriber ID:Not on file Payer ID:Not on file Group ID:Not on file Type:Self Pay Address: [place], [place] Advance Directives * Full Code (Latest Code Status on File) Date Activated Date Inactivated Comments 02/19/2014 12:04 AM 02/21/2014 4:03 PM Care Teams Aquaculture And Fisheries Professor Relationship Specialty Start Date End Date Cruz Luciano MD [address] [place] [address] PCP - General Internal Medicine 12/16/22 Zack Nguyen MD [address] [place], [place] [address]E [employer]IVER [address] Internal Medicine 01/06/21
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
--- NOTE | 2024-12-31 15:23 | REHSTMBS ---
Assessment and note entered by Elisa Moore, RESTRICTIVE PREPARATION OPERATOR Modified Barium Swallow Evaluation Feeding Type Recommended Oral Food Consistency Regular, Level 7 Liquid Consistency Thin (0) ST Clinical Summary The patient is a 54 year old female referred for an outpatient MBS Study. The patient reports have an MBS in 2019 that was within normal limits but reports since then she is experiencing more frequent dysphagia episodes particularly a sticking sensation with solids and pills. She states that at times the material becomes lodged to the point she has to cough and expectorate the bolus. The patient was positioned in the lateral view and presented the following consistencies: 5cc/tsp thin liquid barium, cup amounts thin liquid barium , pudding mixed with barium paste, cracker coated with barium paste, and a barium pill. Oral Stage: Timely oral preparation and transit across all consistencies. Pharyngeal Stage: Timely swallow initiation across consistencies without viewed aspiration or penetration for all trials presented . No residual was viewed to remain in the vallecula or pyriform sinus following swallows for all consistencies. Swallow function appears within normal limits. No further recommendations at this time.
== END 2024-12-31 13:27 | disposition home or self-care (01) ==
PROVIDERS: PCP Nurse Practitioner Adult Health; Visit Provider Otolaryngology
DX: K22.4 Dyskinesia of esophagus (principal); R13.10 Dysphagia, unspecified
CPT/HCPCS: 74230; 92611

== ENCOUNTER 2025-03-11 16:05 | Outpatient (CLI) | payer OTHER, SELFPAY ==
--- OUTSIDE RECORDS SUMMARY | 2025-02-11 08:40 | XMS_ITS ---
Author Organization [facility] Address [address] [place] [address] Care Team Providers Care Health And Human Performance Professor Name Role Phone Amanda Wong Primary Care Provider Gonzalo Dorado [phone] REASON FOR VISIT Smoking Cessation: Session 1 Social History Sex Assigned At : Social History Observation Description Sex Assigned At Female Encounters Encounter Location Date Provider Diagnosis [facility] [address] [place], [place] [address] [place] [address] 02/11/2025 Gonzalo Dorado Plan Of Treatment No Information Progress Notes * Jaclyn ARRIAGAOB:[birth year] (54 yo F)Acc No.[id number]:02/11/2025 UNLOCKED PROGRESS NOTE Patient: Jessica GRIMALDO Provider: Brandt Dorado :1970 A ge:54 Y S ex:Female Date:02/11/2025 Address[address] [place] [place], [place] Pcp:Amanda Wong Subjective: * Chief Complaints: * 1 . Smoking Cessation: Session 1. * Medical History: Objective: * Vitals: Assessment: Plan: * Treatment: * * Electronic signature of Citlaly Dorado on 03/11/2025 at 04:18 PM CDT Sign off status: Pending * Provider: Brandt Dorado Date: 0 02/11/2025 Generated for Josefa stephens/Armando/Anca on: 1 04:18 PM CDT
--- OUTSIDE RECORDS SUMMARY | 2025-02-19 10:30 | XMS_ITS ---
Author Organization [facility] Address [address] [place] [address] Care Team Providers Care Drywall Application Supervisor Name Role Phone Amanda Wong Primary Care Provider Gonzalo Dorado [phone] REASON FOR VISIT Therapy Social History Sex Assigned At : Social History Observation Description Sex Assigned At Female Encounters Encounter Location Date Provider Diagnosis [address] [place] [address] 02/19/2025 Gonzalo Dorado Plan Of Treatment No Information Progress Notes * Jaclyn ARRIAGAOB:[birth year] (54 yo F)Acc No.[id number]:02/19/2025 UNLOCKED PROGRESS NOTE Patient: Jessica GRIMALDO Provider: Brandt Doraod :1970 A ge:54 Y S ex:Female Date:02/19/2025 [address] [facility] Pcp:Amanda Wong Subjective: * Chief Complaints: * 1 . Therapy. * Medical History: Objective: * Vitals: Assessment: Plan: * Treatment: * * Electronic signature of Citlaly Dorado on 03/11/2025 at 04:18 PM CDT Sign off status: Pending * Provider: Brandt Dorado Date: 0 02/19/2025 Generated for Josefa stephens/Armando/Anca on: 1 04:18 PM CDT
--- OUTSIDE RECORDS SUMMARY | 2025-02-25 10:20 | XMS_ITS ---
Author Organization [facility] Address [address] [place] [address] Care Team Providers Care Burn Out Tender Lace Name Role Phone Amanda Wong Primary Care Provider [phone] Gonzalo Dorado [phone] REASON FOR VISIT Therapy Social History Sex Assigned At : Social History Observation Description Sex Assigned At Female Encounters Encounter Location Date Provider Diagnosis [address] [place] [address] 02/25/2025 Gonzalo Dorado Plan Of Treatment No Information Progress Notes * Jaclyn ARRIAGAOB:[birth year] (54 yo F)Acc No.[id number]:02/25/2025 UNLOCKED PROGRESS NOTE Patient: Jessica GRIMALDO Provider: Brandt Dorado :1970 A ge:54 Y S ex:Female Date:02/25/2025 Address[address] [facility] Pcp:Amanda Wong Subjective: * Chief Complaints: * 1 . Therapy. * Medical History: Objective: * Vitals: Assessment: Plan: * Treatment: * * Electronic signature of Citlaly Dorado on 03/11/2025 at 04:18 PM CDT Sign off status: Pending * Provider: Brandt Dorado Date: 0 02/25/2025 Generated for Josefa stephens/Armando/Anca on: 1 04:18 PM CDT
--- OUTSIDE RECORDS SUMMARY | 2025-03-04 10:20 | XMS_ITS ---
Author Organization [facility] Address [address] [place] [address] Care Team Providers Care Bar Host/Hostess Name Role Phone Amanda Wong Primary Care Provider Gonzalo Dorado Unavailable [phone] REASON FOR VISIT therapy Social History Tobacco Use: Social History Observation Description Date Details (start date - stop date) Current Smoker 01/04/1985 - NA Sex Assigned At : Social History Observation Description Sex Assigned At Female PRAPARE Question Answer Notes Date Completed/Updated: 01/21/2025 Are you a refugee? I choose not to answ er this question What country are you from? I choose not to answer this question What is your current housing situation? I have housing Are you worried about losing your housing? No What is the highest level of school that you have finished? 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 Stress is when someone feels tense, nervous, anxious, or can\t sleep at night because their mind is troubled Somewhat In the past year have you sp ent more than 2 nights in a row in a assisted, retirement, residential center, or juvenile correctional facility? No Do you feel physically and emotionally safe where you currently live? Yes In the past year, have you b een afraid of your partner or ex-partner? I have not had a partner in the past year PRAPARE Score: 5 Enabling Services Provided? 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 Tobacco Control (Standard) Question Answer Notes Tobacco use: Current smoker When did you start smoking? 01/04/1985 How often do you smoke cigarettes? Every day How many cigarettes a day do you smoke? 6-10 How soon after you wake up d o you smoke your first cigarette? 6-30 minutes Are you interested in quitting? Ready to quit Additional Findings: Tobacco user Light cigarett e smoker (1-9 cigs/day) Encounters Encounter Location Date Provider Diagnosis [facility] [address] [place] [address] 03/04/2025 Gonzalo Dorado Major depressive disorder, severe F32.2 and PTSD (post-traumatic stress disorder) F43.10 Assessments Encounter Date Diagnosis (ICD Code) Assessment Notes Treatment Notes Treatment Clinical Notes Section Notes 03/04/2025 Major depressive disorder, severe (ICD-10 - F32.2) 03/04/2025 PTSD (post-traumatic stress disorder) (ICD-10 - F43.10) 03/04/2025 Other Provider engage d in person centered therapy and motivational interviewing to re-establish therapeutic rapport. Clinician provided support, prompting and exploration of current symptom expression and assisted in elicit insight on behavior patterns, historic experience of trauma, trauma responses, and symptom management. Plan Of Treatment Treatment Notes Assessment Notes Other Provider engaged in person centered therapy and motivational interviewing to re-establish therapeutic rapport. Clinician provided support, prompting and exploration of current symptom expression and assisted in elicit insight on behavior patterns, historic experience of trauma, trauma responses, and symptom management. Next Appt Details Follow Up: 1 Week, Reason: Progress Notes * Tiburcio ARRIAGAStaceyOB:04/06 (54 yo F)Acc No.[id number]:03/04/2025 UNLOCKED PROGRESS NOTE Patient: Jessica GRIMALDO Provider: Brandt Dorado :1970 A ge:54 Y S ex:Female Date:03/04/2025 Address[place] [place], [place] [address], [id number] Pcp:Amanda Wong Subjective: * Chief Complaints: * 1 . Therapy. * HPI: D epression Screening: PHQ-9 L ittle interest or pleasure in doing things M ore than half the days, F eeling down, depressed, or hopeless M ore than half the days, T rouble falling or staying asleep, or sleeping too much N ot at all, F eeling tired or having little energy M ore than half the days, P oor appetite or overeating M ore than half the days, F eeling bad about yourself or that you are a failure, or have let yourself or your family down N ot at all, T rouble concentrating on things, such as reading the newspaper or watching television M ore than half the days, M oving or speaking so slowly that other people could have noticed; or the opposite, being so fidgety or restless that you have been moving around a lot more than usual N ot at all, T houghts that you would be better off or of hurting yourself in some way N ot at all, T otal Score 1 0, I nterpretation M oderate Depression. I ntervention D epression Screening Findings P ositive, F ollow-Up for Depression N o Referral necessary, patient involved in behavioral health treatment ., S uicide Risk Assessment Performed 0 03/04/2025. C SSRS Interpretation and Follow Up Plan: CSSRS Interpretation and Follow Up Plan C SSRS Screen documented using SF Y es, R isk Disposition from SF L ow - No Follow Up Plan Required, F ollow Up Plan N o Follow Up Plan required at this time., T imeframe of Screening T olga.? S creening: [place] Suicide Severity Rating Scale (LF) D o you want to initiate with S creener form, 1 . Wish to be : Have you wished you were or wished you could go to sleep and not wake up? N o, 2 . Suicidal Thoughts: Have you actually had any thoughts of killing yourself? N o, 6 . Suicide Behavior Question: Have you ever done anything,started to do anything, or prepared to end your life? N o, I nterpretation: L ow Risk. S jamelbentley: Network Security Officer met with client for individual therapy session. Client states that she recently had lunch again with all of her sister, which client typically tries to avoid, however states this time was extremely pleasant and they all realized that they do not have much time left with eachother, stating even if they make an effort to see eachother once a year, they would only still have a handful off these meetings of all being together. Client. * Medical History: * Social History: S ocial Determinants: Rafa Jacobson ate Completed/Updated: 0 01/21/2025, A re you a refugee? I choose not to answer this question, W hat country are you from? I choose not to answer this question, W hat is your current housing situation? I have housing, A re you worried about losing your housing? N o, W hat is the highest level of school that you have finished? 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 Check all that apply I do not have problems meeting my needs,?Has lack of transportation kept you from medical appointments, meetings, work or from getting things needed for daily living? N o, H ow often do you see or talk to people that you care about and feel close to? (For example: talking to friends on the phone, visiting friends or family, going to episcopal or club meetings) 1 or 2 times a week, H ow stressed are you? Stress is when someone feels tense, nervous, anxious, or can\t sleep at night because their mind is troubled S omewhat, I n the past year have you spent more than 2 nights in a row in a assisted, retirement, residential center, or juvenile correctional facility? N o, D o you feel physically and emotionally safe where you currently live? Y es, I n the past year, have you been afraid of your partner or ex-partner? I have not had a partner in the past year, P PAOLO Score: 5 , E nabling Services Provided? 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 T obacco Use: T obacco Control (Standard) T obacco use: C urrent smoker, W hen did you start smoking? 0 01/04/1985, H ow often do you smoke cigarettes? E very day, H ow many cigarettes a day do you smoke? 6 -10, H ow soon after you wake up do you smoke your first cigarette? 6 -30 minutes, A re you interested in quitting? R arian to quit, A dditional Findings: Tobacco user L ight cigarette smoker (1-9 cigs/day). Objective: * Vitals: * Examination: M ental Status Exam: ATTENTION AND CONCENTRATION N o deficits. APPEARANCE A ppropriate. ATTITUDE AND BEHAVIOR C ooperative. AFFECT B road/Full. MOOD E uthymic. INSIGHT G ood. JUDGMENT G ood. Assessment: * Assessment: 1. M ajor depressive disorder, severe - F32.2 (Primary) 2 . P TSD (post-traumatic stress disorder) - F43.10 Plan: * Treatment: * Procedure Codes: 9 0834 PSYTX PT&/FAMILY 45 MINUTES, Modifiers: AJ * Preventive Medicine: Counseling: S MOKING: P atient counselled on the dangers of tobacco use and urged to quit. . . * Follow Up: 1 Week * * Electronic signature of Citlaly Dorado on 03/11/2025 at 04:17 PM CDT Sign off status: Pending * Provider: Brandt Dorado Date: 0 03/04/2025 Generated for Josefa stephens/Armando/Anca on: 1 04:17 PM CDT History and Physical Notes * HPI (History of Present Illness) Category Sub-Category Detail Notes Category Not es Depression Screening PHQ-9 Little inte rest or pleasure in doing things: More than half the days Feeling down, depressed, or hopeless: Mo re than half the days Trouble falling or staying asleep, or sl eeping too much: Not at all Feeling tired or having little energy: M ore than half the days Poor appetite or overeating: More than h prison the days Feeling bad about yourself o r that you are a failure, or have let yourself or your family down: Not at all Trouble concentrating on thi ngs, such as reading the newspaper or watching television: More than half the days Moving or speaking so slowly that other people could have noticed; or the opposite, being so fidgety or restless that you have been moving around a lot more than usual: Not at all Thoughts that you would be b tim off or of hurting yourself in some way: Not at all Total Score: 10 Interpretation: Moderate Depression Intervention Depression Screening Findings: P ositive Follow-Up for Depression: No Referral necessary, patient involved in behavioral health treatment . Suicide Risk Assessment Performed: 03/04 Screening [place] Suicide Sev erity Rating Scale (LF) Do you want to initiate with: Screener form 1. Wish to be : Have you wished you were or wished you could go to sleep and not wake up?: No 2. Suicidal Thoughts: Have you actually had any thoughts of killing yourself?: No 6. Suicide Behavior Question: Have you ever done anything,started to do anything, or prepared to end your life?: No Interpretation:: Low Risk CSSRS Interpretation and Follow Up Plan CSSRS Interpretation and Follow Up Plan CSSRS Screen documented using SF: Yes Risk Disposition from SF: Low - No Follo w Up Plan Required Follow Up Plan: No Follow Up Plan requir ed at this time. Timeframe of Screening: Today Examination Category Sub-Category Detail Notes Category Not es Mental Status Exam ATTENTION AND CONCENTRATION No defi cits APPEARANCE Appropriate ATTITUDE AND BEHAVIOR Cooperative AFFECT Broad/Full MOOD Euthymic INSIGHT Good JUDGMENT Good
--- NOTE | ~2025-03-11 | MR_ITS ---
EXAMINATION: MR brain/brain stem wo/w con DATE: 03/11/2025 16:57 INDICATION: Degenerative disease of nervous system. TECHNIQUE: Magnetic resonance imaging (MRI) of the brain and brainstem was performed without and with 13 mL MultiHance intravenous contrast. COMPARISON: None. FINDINGS: There is no intracranial hemorrhage, acute infarction, or abnormal intracranial mass lesion. The ventricles are normal in size. The paranasal sinuses are clear. The orbits are normal. The mastoid air cells are normal. IMPRESSION: 1. Normal brain. Reviewed, dictated and finalized at location E. IMPRESSION: 1. Normal brain.
--- OUTSIDE RECORDS SUMMARY | 2025-03-11 16:18 | XMS_ITS | Clinical Summary ---
Author Organization [facility] Address [address] [place] [address] Phone Care Team Providers Care Service Observer Name Role Phone Aguilar Najera MD Unavailable [phone] Danilo Lyles MD Unavailable [phone] Cruz Luciano MD Primary Care Provider [phone] Allergies Active Allergy Reactions Criticality Noted Date [...] GREENS PO) Take by mouth daily. Active Active Problems Problem Noted Date Diagnosed [...] Cardiomyopathy 02/26/2021 Nonrheumatic mitral valve regurgitation 02/27/20 Irritable bowel syndrome wit h both constipation and diarrhea 10/16/2019 Overview (10/19/2022): Last Assessment & Plan: No worrisome signs, we dicussed diet and eating yogurt for probiotics benefits. Chronic back pain 05/19/2017 Bipolar disorder 05/12/2017 Anxiety disorder 05/12/2017 Scoliosis deformity of spine 05/12/2017 Normocytic anemia Encounters Date Type Department Care Team Description 12/17/2024 10:40 AM CDT Office Visit [facility] [address] [place] [address] Angelique Walker Elvie, PAC Normocytic anemia (Primary Dx) Discharge Disposition: Discharged to home or Selfcare 12/17/2024 Travel 12/17/2024 Results Follow-Up [facility] [address] [place] [address] Angelique Walker Elvie, PAC FERRITIN, IRON,TRANSFERN,CALC. TIBC,%SAT, VITAMIN B12, Additional [...] Info) Description 12/10/2025 11:00 AM CDT Lab [facility] [address] [place] [address] 12/17/2025 10:40 AM CDT Office Visit [facility] [address] [place] [address] Angelique Walker Elvie, PAC [address] [place] [address] Health Maintenance Due Date Last Done Comments [...] 08/10/2022 , 08/10/2022, 03/27/2022, Additional history exists Immunochemical Fecal Occult Blood 04/27/2024 04/27/2023, 01/25/2023 Influenza Immunization (#1) 2025 SARS-COV-2 Immunization (2 - season) 2025 06/23/2021 Td Immunization Every 10 Years (Adults With [...] - 156 mcg/dL 12/15/2024 11:32 AM CDT [facility] TRANSFERRIN 229 180 - 382 mg/dL 12/15/2024 11:32 AM CDT [facility] TIBC, CALCULATED 286 265 - 497 mcg/dL 12/15/2024 11:32 AM CDT [facility] % SATURATION * 36 15 - 62 % 12/15/2024 11:32 AM CDT [facility] Blood Venipuncture / Unknown 12/15/2024 10:33 AM CDT 12/15/2024 11:01 AM CDT Angelique Walker PAC CHEMISTRY ORDERABLES Carin l Result [facility] [address] [place] [address] * (ABNORMAL) CBC WITH AUTO DIFFERENTIAL (12/15/2024 10:33 AM CDT) WBC 7.27 4.00 - 12.00 10(3)/mcL 12/15/2024 11:05 AM CDT [facility] RBC 4.03 3.80 - 5.30 10(6)/mcL 12/15/2024 11:05 AM CDT [facility] HEMOGLOBIN (HGB) 12.2 12.0 - 15.8 g/dL 12/15/2024 11:05 AM CDT [facility] HEMATOCRIT (HCT) 36.4 36.0 - 47.0 % 12/15/2024 11:05 AM CDT [facility] MCV 90.3 82.0 - 96.0 fL 12/15/2024 11:05 AM CDT [facility] MCH 30.3 26.0 - 34.0 pg 12/15/2024 11:05 AM CDT [facility] MCHC 33.5 31.0 - 36.0 g/dL 12/15/2024 11:05 AM CDT [facility] PLATELET COUNT 278 140 - 440 10(3)/mcL 12/15/2024 11:05 AM CDT [facility] RDW 13.0 11.8 - 15.5 % 12/15/2024 11:05 AM CDT [facility] MPV 9.5(L) 9.7 - 12.4 fL 12/15/2024 11:05 AM CDT [facility] NEUTROPHILS 57.9 47.0 - 73.0 % 12/15/2024 11:05 AM [facility] LYMPHOCYTES 31.6 18.0 - 42.0 % 12/15/2024 11:05 AM T [facility] MONOCYTES 8.0 4.0 - 12.0 % 12/15/2024 11:05 AM [facility] EOSINOPHILS 1.1 0.0 - 5.0 % 12/15/2024 11:05 AM [facility] BASOPHILS 1.1(H) 0.0 - 1.0 % 12/15/2024 11:05 AM [facility] IMMATURE GRANULOCYTE 0.3 0.0 - 0.4 % 12/15/2024 11:05 AM [facility] Comment:Immature Granulocyte s includes Metamyelocytes, Myelocytes, and Promyelocytes. ABSOLUTE NEUTROPHILS 4.21 1.60 - 7.70 10(3)/[facility] 12/15/2024 11:05 AM [facility] ABSOLUTE LYMPHOCYTES 2.30 1.30 - 3.20 10(3)/[facility] 12/15/2024 11:05 AM [facility] ABSOLUTE MONOCYTES 0.58 0.20 - 1.00 10(3)/[facility] 12/15/2024 11:05 AM [facility] ABSOLUTE EOSINOPHIL 0.08 0.00 - 0.40 10(3)/[facility] 12/15/2024 11:05 AM [facility] ABSOLUTE BASOPHILS 0.08 0.00 - 0.10 10(3)/[facility] 12/15/2024 11:05 AM [facility] ABSOLUTE IMMATURE GRANULOCYTE 0.02 0.00 - 0.03 10 (3) [facility]. 12/15/2024 11:05 AM [facility] NRBC PER 100 WBC 0 12/16/19 11:05 AM [facility] Blood Venipuncture / Unknown 12/15/2024 10:33 AM T 12/15/2024 11:01 AM CDT [facility] HEMATOLOGY ORDERABLES Fin al Result [facility] [address] [place] [address] * VITAMIN B12 (12/15/2024 10:33 AM CDT) VITAMIN B12 442 213 - 816 pg/mL 12/15/2024 12:05 PM CDT [facility] Blood Venipuncture / Unknown 12/15/2024 10:33 AM CDT 12/15/2024 11:01 AM CDT [facility] PAC CHEMISTRY ORDERABLES Carin l Result Performing Organization Address [facility] Co de Phone Number [facility] [address] [place] [address] * FOLIC ACID (FOLATE) (12/15/2024 10:33 AM CDT) FOLATE 17.0 7.0 - 31.4 ng/mL 12/15/2024 12:05 PM CDT [facility] IS THE PATIENT REQUIRED TO BE FASTING? No 12/15/2024 12:05 PM CDT [facility] Blood Venipuncture / Unknown 12/15/2024 10:33 AM CDT 12/15/2024 11:01 AM CDT [facility] PAC CHEMISTRY ORDERABLES Carin l Result Performing Organization Address City/[facility]/ZIP Co de Phone Number [facility] [address] [place] [address] * FERRITIN (12/15/2024 10:33 AM CDT) FERRITIN 92 5 - 204 ng/mL 12/15/2024 11:50 AM CDT [facility] Blood Venipuncture / Unknown 12/15/2024 10:33 AM CDT 12/15/2024 11:01 AM CDT Angelique Walker PAC CHEMISTRY ORDERABLES Carin katheryn Result [facility] [address] [place] [address] from Last 3 Months Insurance MEDICAID [place] Care Teams Service Observer Relationship Specialty Start Date End Date Cruz Luciano MD [address] [place] [address] PCP - General Orthopaedic Surgery 01/12/24 Aguilar Najera MD [address] [address] Consulting Physician Urology 03/18/22 Danilo Lyles MD [address] [place] [address] Consulting Physician Medical Oncology 04/27/23
--- OUTSIDE RECORDS SUMMARY | 2025-03-11 16:18 | XMS_ITS | Encounter Summary ---
Author Organization [facility] Address [address] [place] [address] Care Team Providers Care Director Card Name Role Phone Katey Markham NP Primary Care Provider [phone] Katey Markham COUNTER CLERK [employer] Primary Care Provider [phone] Katey Markham NP Unavailable [phone] Cruz Luciano MD Primary Care Provider + Katey Markham NP Primary Care Provider [phone] Katey Markham NP Primary Care Provider [phone] Cruz Luciano MD Primary Care Provider + Alia Fuller COUNTER CLERK [employer] Unavailable [phone] Tanika Clay COUNTER CLERK [employer] Unavailable [phone] Aguilar Najera MD Unavailable [phone] Beau Stone COUNTER CLERK [employer] Unavailable [phone] Pearl York DO Unavailable [phone] Katey Markham NP Primary Care Provider [phone] Katey Markham NP Primary Care Provider [phone] Katey Markham NP Primary Care Provider [phone] Encounter Details Date Type Department Care Team (Late st Contact Info) Description 09/04/2021 Telephone [facility] [address] [place] [id number] Arcelia Pollard, RT Social History Tobacco Use Types Packs/Day Years Used Date Smoking Tobacco: Every Day Cigarettes Smokeless Tobacco: Never Comments:4 per day Alcohol Use Standard Drinks/Week Comments No 0 (1 standard drink = 0.6 oz pur e alcohol) Comments No Sex and Gender Information Value Date Recorded Sex Assigned at Not on file 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 Gender Identity Female 09/01/2023 3:49 PM CDT Sexual Orientation Straight 09/01/2023 3: 49 PM CDT documented as of this encounter Plan of Treatment Not on file documented as of this encounter Visit Diagnoses Not on filedocumented in this encounter Additional Health Concerns Infection Onset Date Last Indicated Resolved Time Diarrhea 07/11/2023 07/11/2023 07/25/2023 3:05 AM HOUSEKEEPING ROOM INSPECTOR documented as of this encounter Care Teams Director Card Relationship Specialty Start Date End Date Katey Markham NP PCP - General 03/06/21 09/25/21 Katey Markham NP PCP - General 09/26/21 12/22/21 Cruz Luciano MD [facility] [place] [address] PCP - General Internal Medicine 12/23/21 12/27/21 Katey Markham NP PCP - General 12/28/21 12/28/21 Katey Markham NP PCP - General 12/29/21 01/13/22 Cruz Luciano MD [address] [place] [address] [place] [address] PCP - General Internal Medicine 01/14/22 10/03/23 Katey Markham, COUNTER [employer]ERK [employer] [address] [place] [address] DR TRENT Jeronimo [facility] [address] [place] [address] PCP - General Internal Medicine 10/04/23 10/04/23 Katey Markham, COUNTER CLERK [employer] [address] [place] [address] DR TRENT Jeronimo [facility] [address] [place] [address] PCP - General Internal Medicine 10/12/23 10/31/24 Katey Markham, COUNTER CLERK [employer] [address] [place] [address] [place] [address] PCP - General Internal Medicine 11/01/24 Katey Markham, COUNTER CLERK [employer] 09/26/21 Alia Fuller, ALKA [address] [place] [address] [place] [address] Nurse Practitioner Family Medicine 09/28/22 Tanika Clay, COUNTER CLERK [employer] [address] [place] [address] [place] [address] Nurse Practitioner Nurse Practitioner 09/28/22 Aguilar Najera MD [address] [place] [address] [place] [address] Consulting Physician Urology 09/28/22 Beau Stone, ALKA [address] [place] [address] [place] [address] Nurse Practitioner Family Practice 09/28/22 Pearl York DO [address] [facility] [address] TRENT Jeronimo [address] [address] Consulting Physician Otolaryngology 09/28/22 documented as of this encounter
--- OUTSIDE RECORDS SUMMARY | 2025-03-11 16:18 | XMS_ITS | Patient Health Record ---
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 Stress is when someone feels tense, nervous, anxious, or can\t sleep at night because their mind is troubled Somewhat In the past year have you sp ent more than 2 nights in a row in a correction, chcf, jail center, or juvenile correctional facility? No Do you feel physically and emotionally safe where you currently live? Yes In the past year, have you b een afraid of your partner or ex-partner? I have not had a partner in the past year PRAPARE Score: 5 Enabling Services Provided? 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 Tobacco Control (Standard) [...] user Light cigarett e smoker (1-9 cigs/day) Problems Problem Type SNOMED Code ICD Code Onset Dates Problem Status W/U Status Risk Notes Problem Posttraumatic stress disorder (94479237) PTSD (post-traumati c stress disorder) (F43.10) Active confirmed Problem Nicotine dependence (41986296) Nicotine dependence (F17.200) Active confirmed Problem Severe major depression, single episode, without psychotic features (98792197) Major depressive disorder, severe (F32.2) Active confirmed Encounters Encounter Location Date Provider Diagnosis [facility] [address] [place] [address] 02/25/2025 Gonzalo Dorado [facility] [address] [place] [address] 03/04/2025 Gonzalo Dorado Major depressive disorder, severe F32.2 and PTSD (post-traumatic stress disorder) F43.10 [facility] [address] [place] [address] 03/11/2025 Gonzalo Dorado [facility] [address] [place] [address] 03/16/2024 Amanda Almeida Major depressive disorder, severe F32.2 and PTSD (post-traumatic stress disorder) F43.10 [facility] [address] [place] [address] 04/02/2024 Gonzalo Dorado Major depressive disorder, severe F32.2 and PTSD (post-traumatic stress disorder) F43.[address] [place] [address] 04/06/2024 Gonzalo Dorado Major depressive disorder, severe F32.2 and PTSD (post-traumatic stress disorder) F43.10 [facility] [address] [place] [address] 04/13/2024 Gonzalo Dorado Major depressive disorder, severe F32.2 and PTSD (post-traumatic stress disorder) F43.10 [facility] [address] [place] [address] 04/27/2024 Gonzalo Dorado Major depressive disorder, severe F32.2 and PTSD (post-traumatic stress disorder) F43.10 [facility] [address] [place] [address] 05/11/2024 Gonzalo Dorado Major depressive disorder, severe F32.2 and PTSD (post-traumatic stress disorder) F43.10 [facility] [address] [place] [address] 05/25/2024 Gonzalo Dorado Major depressive disorder, severe F32.2 and PTSD (post-traumatic stress disorder) F43.10 [facility] [address] [place] [address] 06/18/2024 Gonzalo Dorado Major depressive disorder, severe F32.2 and PTSD (post-traumatic stress disorder) F43.10 [facility] [address] [address] 06/29/2024 Gonzalo Dorado Major depressive disorder, severe F32.2 and PTSD (post-traumatic stress disorder) F43.10 [facility] [place] [address] 07/23/2024 Gonzalo Dorado Major depressive disorder, severe F32.2 and PTSD (post-traumatic stress disorder) F43.10 [facility] [address] [address] 08/06/2024 Gonzalo Dorado Major depressive disorder, severe F32.2 and PTSD (post-traumatic stress disorder) F43.10 [facility] [place] [address] 08/21/2024 Gonzalo Dorado Major depressive disorder, severe F32.2 and PTSD (post-traumatic stress disorder) F43.10 [address] [place] [address] 09/03/2024 Gonzalo Dorado Major depressive disorder, severe F32.2 and PTSD (post-traumatic stress disorder) F43.10 [facility] [address] [place] [address] 09/18/2024 Gonzalo Dorado Major depressive disorder, severe F32.2 and PTSD (post-traumatic stress disorder) F43.10 [facility] [address] [place] [address] 10/16/2024 Gonzalo Dorado Major depressive disorder, severe F32.2 and PTSD (post-traumatic stress disorder) F43.10 [facility] [address] [place] [address] 10/22/2024 Gonzalo Dorado Major depressive disorder, severe F32.2 and PTSD (post-traumatic stress disorder) F43.10 [facility] [address] [place] [address] 11/12/2024 Gonzalo Dorado Major depressive disorder, severe F32.2 and PTSD (post-traumatic stress disorder) F43.10 [facility] [place] [address] 12/10/2024 Gonzalo Dorado Major depressive disorder, severe F32.2 and PTSD (post-traumatic stress disorder) F43.10 [facility] [address] [place] [address] 12/24/2024 Gonzalo Dorado PTSD (post-traumatic stress disorder) F43.10 [facility] [place] [address] 01/21/2025 Gonzalo Dorado Major depressive disorder, severe F32.2 and PTSD (post-traumatic stress disorder) F43.10 [facility] [place] [address] 01/28/2025 Gonzalo Dorado Nicotine dependence F17.[address] [place] [place] [address] 02/05/2025 Gonzalo Dorado Major depressive disorder, severe F32.2 and PTSD (post-traumatic stress disorder) F43.[address] [place] [address] 09/11/2024 Amanda Wong Assessments Encounter Date Diagnosis (ICD Code) Assessment Notes Treatment Notes Treatment Clinical Notes Section Notes 03/16/2024 Major depressive disorder, severe (ICD-10 - [...] depressive disorder, severe (ICD-10 - F32.2) 12/10/2024 Major depressive disorder, severe (ICD-10 - F32.2) 12/24/2024 PTSD (post-traumati c stress disorder) (ICD-10 - F43.10) 01/21/2025 Major depressive disorder, severe (ICD-10 - F32.2) 01/28/2025 Nicotine dependence (ICD-10 - F17.200) 02/05/2025 Major depressive disorder, severe (ICD-10 - F32.2) 03/04/2025 Major depressive disorder, severe (ICD-10 - F32.2) 10/16/2024 Major depressive disorder, severe (ICD-10 - F32.2) 08/21/2024 Major depressive disorder, severe (ICD-10 - F32.2) 04/27/2024 Major depressive disorder, severe (ICD-10 - F32.2) 04/27/2024 PTSD (post-traumati c stress disorder) (ICD-10 - F43.10) 08/21/2024 PTSD (post-traumati c stress disorder) (ICD-10 - F43.10) 10/16/2024 PTSD (post-traumati c stress disorder) (ICD-10 - F43.10) 03/04/2025 PTSD (post-traumati c stress disorder) (ICD-10 - F43.10) 02/05/2025 PTSD (post-traumati c stress disorder) (ICD-10 - F43.10) 01/21/2025 PTSD (post-traumati c stress disorder) (ICD-10 - F43.10) 12/10/2024 PTSD (post-traumati c stress disorder) (ICD-10 - F43.10) 11/12/2024 PTSD (post-traumati c stress disorder) (ICD-10 - F43.10) 10/22/2024 PTSD (post-traumati c stress disorder) (ICD-10 - F43.10) 09/18/2024 PTSD (post-traumati c stress disorder) (ICD-10 - F43.10) 09/03/2024 PTSD (post-traumati c stress disorder) (ICD-10 - F43.10) 08/06/2024 PTSD (post-traumati c stress disorder) (ICD-10 - F43.10) 07/23/2024 PTSD (post-traumati c stress disorder) (ICD-10 - F43.10) 06/29/2024 PTSD (post-traumati c stress disorder) (ICD-10 - F43.10) 06/18/2024 PTSD (post-traumati c stress disorder) (ICD-10 - F43.10) 05/25/2024 PTSD (post-traumati c stress disorder) (ICD-10 - F43.10) 05/11/2024 PTSD (post-traumati c stress disorder) (ICD-10 - F43.10) 04/13/2024 PTSD (post-traumati c stress disorder) (ICD-10 - F43.10) 04/06/2024 PTSD (post-traumati c stress disorder) (ICD-10 - F43.10) 04/02/2024 PTSD (post-traumati c stress disorder) (ICD-10 - F43.10) 03/16/2024 PTSD (post-traumati c stress disorder) (ICD-10 - F43.10) 03/04/2025 Other Provider engage d in person centered therapy and motivational interviewing to re-establish therapeutic rapport. Clinician provided support, prompting and exploration of current symptom expression and assisted in elicit insight on behavior patterns, historic experience of trauma, trauma responses, and symptom management. 04/02/2024 Other Membership Administrator will continue to work with client on the importance of boundary setting for their own peace. 01/21/2025 Other Provider engage d in person centered therapy and motivational interviewing to re-establish therapeutic rapport. Clinician provided support, prompting and exploration of current symptom expression and assisted in elicit insight on behavior patterns, historic experience of trauma, trauma responses, and symptom management. Engaged individual in suicide risk assessment. Provided risk based intervention to ensure saftey and linkage to ongoing services 01/28/2025 Other Provider albaro haney in Smoking Cessation with client using Cognitive Behavioral Therapy (CBT) to identify trigger and learn relapse-preventi on skills for effective coping. Client also use Motivational Interviewing (HI) to explore and address ambivalence and enhance motivation to align with clients goals of resolving their dependence on nicotine. 02/05/2025 Other Provider engage d in person centered therapy and motivational interviewing to re-establish therapeutic rapport. Clinician provided support, prompting and exploration of current symptom expression and assisted in elicit insight on behavior patterns, historic experience of trauma, trauma responses, and symptom management. Plan Of Treatment No Information Insurance Providers Payer Name Payer Address Payer Phone Subscriber Number Group Number Insured Name Patient Relationship to Insured Coverage Start Date Coverage End Date Analiza [address] [place] [address] [id number] Jessica Noriega Self - patient is the insured 3 [employer] [address] [place] [address] [id number] Jessica Noriega Self - patient is the insured 9 [employer] [address] [place] [address] [id number] Jessica Noriega Self - patient is the insured 4 Medical (General) History Medical History History ICD Code Anemia GERD Connective tissue disorder Surgical History Surgery Date(Month/Year) left knee repair breast bilateral R pinky tendon repair R hand fracture repair
--- OUTSIDE RECORDS SUMMARY | 2025-03-11 16:18 | XMS_ITS | Encounter Summary ---
Author Organization [facility] Address [address] [place] [address] Care Team Providers Care Boat Cleaning Supervisor Name Role Phone Katey Markham NP Unavailable [phone] Alia Fuller PATTERN DRAFTER Unavailable Tanika Clay NP Unavailable [phone] Aguilar Najera MD Unavailable [phone] Beau Stone PATTERN DRAFTER Unavailable [phone] Pearl York DO Unavailable Katey Markham NP Primary Care Provider [phone] Encounter Details Date Type Department Care Team (Late st Contact Info) Description 01/24/2025 Results Follow-Up [facility] at [address] [place] [address] Alia Fuller NP [address] [place] [address] [address] [place] [address] Ammonia, Cortisol, Lipid panel Social History Tobacco Use Types Packs/Day Years Used Date Smoking Tobacco: Every Day Cigarettes 0.5 37.9 Started: 1985; Last attempted to quit: 03/2022 [...] on file 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 Gender Identity Female 09/01/2023 3:49 PM CDT Sexual Orientation Straight 09/01/2023 3: 49 PM CDT documented as of this encounter Plan of Treatment Not on file documented as of this encounter Visit Diagnoses Not on filedocumented in this encounter Care Teams Boat Cleaning Supervisor Relationship Specialty Start Date End Date Katey Markham NP [address] [place] [address] PCP - General Internal Medicine 11/01/24 Katey Markham NP 09/26/21 Alia Fuller NP Nurse Practitioner Family Medicine 09/28/22 Tanika Clay NP Nurse Practitioner Nurse Practitioner 09/28/22 Aguilar Najera MD Consulting Physician Urology 09/28/22 Beau Stone NP Nurse Practitioner Family Practice 09/28/22 Pearl York DO [address] [facility] [address] TRENT Jeronimo [address] [address] Consulting Physician Otolaryngology 09/28/22 documented as of this encounter
--- OUTSIDE RECORDS SUMMARY | 2025-03-11 16:18 | XMS_ITS | Encounter Summary ---
Author Organization [facility] Address [address] [facility] [place] [address] Phone Care Team Providers Care Biller Name Role Phone Cruz Luciano MD Primary Care Provider [phone] Aguilar Najera MD Unavailable [phone] Cruz Luciano MD Primary Care Provider [phone] Tanika Clay APRN, [facility] Primary Care Provide r Danilo Lyles MD Unavailable [phone] Cruz Luciano MD Primary Care Provider [phone] Encounter Details Date Type Department Care Team (Late st Contact Info) Description 04/27/2022 [facility] [address] [place] [address] Cruz Luciano MD [address] [place] [id number] Social History Tobacco Use Types Packs/Day [...] Info) Description 12/10/2025 11:00 AM CDT [facility] [address] [place] [address] 12/17/2025 10:40 AM CDT [facility] [address] [place] [address] Aaron Angelique Elvie, PAC [address] [place] [address] documented as of this encounter Visit Diagnoses Not on filedocumented in this encounter Care Teams Biller Relationship Specialty Start Date End Date Cruz Luciano MD PCP - General Internal Medicine 03/11/22 10/12/22 Cruz Luciano MD [address] [place] [address] PCP - General Internal Medicine 10/19/22 11/09/22 Tanika Clay, SENIOR SALES OPERATIONS ANALYST, UROLOGY NURSE [address] [place] [address] PCP - General Advanced Practice Nurse 11/10/22 01/11/24 Cruz Luciano MD [address] [place] [address] PCP - General Orthopaedic Surgery 01/12/24 Aguilar Najera MD [address] [address] Consulting Physician Urology 03/18/22 Danilo Lyles MD [address] [place] [address] Consulting Physician Medical Oncology 04/27/23 documented as of this encounter
--- OUTSIDE RECORDS SUMMARY | 2025-03-11 16:18 | XMS_ITS | Encounter Summary ---
Author Organization [facility] Address [address] [place] [address] Phone Care Team Providers Care Anesthesiologist Physician Name Role Phone Katey Markham NP Unavailable [phone] Alia Fuller NP Unavailable Tanika Clay NP Unavailable Aguilar Najera MD Unavailable [phone] Beau Stone NP Unavailable [phone] Pearl York DO Unavailable [phone] Katey Markham NP Primary Care Provider [phone] Encounter Details Date Type Department Care Team (Late st Contact Info) Description 02/18/2025 Results Follow-Up [facility] Medicine Gastroenterology [address] [facility] Advanced Medicine 12th [place] [address] [place] [address] Celeste Rubio MD [address] [place] [address] Ova and parasite exam Stool Social History Tobacco Use Types Packs/Day Years [...] on file 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 Gender Identity Female 09/01/2023 3:49 PM CDT Sexual Orientation Straight 09/01/2023 3: 49 PM CDT documented as of this encounter Plan of Treatment Not on file documented as of this encounter Visit Diagnoses Not on filedocumented in this encounter Care Teams Anesthesiologist Physician Relationship Specialty Start Date End Date Katey Markham NP [address] [facility] [place] [address] PCP - General Internal Medicine 11/01/24 Katey Markham NP 09/26/21 Alia Fuller NP Nurse Practitioner Family Medicine 09/28/22 Tanika Clay NP Nurse Practitioner Nurse Practitioner 09/28/22 Aguilar Najera MD Consulting Physician Urology 09/28/22 Beau Stone NP Nurse Practitioner Family Practice 09/28/22 Pearl York DO [address] [facility] [address] [place] [address] [address] Consulting Physician Otolaryngology 09/28/22 documented as of this encounter
--- OUTSIDE RECORDS SUMMARY | 2025-03-11 16:19 | XMS_ITS | Clinical Summary ---
Author Organization [facility] [employer] Address [address] [facility] [place] [address] Care Team Providers Care Audio Tape Librarian Name Role Phone Zack Nguyen MD Unavailable Cruz Luciano MD Primary Care Provider [phone] Source Comments [facility] [employer],non-owned Affiliates and Associated Physician Practices is amultiple site organization consisting of ambulatory clinics and hospital sitesin [place], [place], [place] and [place]. This disclosure is being madepursuant to the Care Everywhere program and may not contain all information available regarding this patient. Last updated 18.[facility] [employer] Allergies Active Allergy Reactions Criticality Noted Date [...] Active Sertraline HCl (ZOLOFT PO) Active Ferrous Wrqcyktcr-W-Cug ic Acid (IRON-C PO) Active fluticasone-ume clidin-vilant [...] of 2) 2021 COVID-19 VACCINE (2 - 2024-2 6 season) 2025 06/23/2021 INFLUENZA VACCINE (#1) 2025 HIV SCREENING [...] ve Non-react mario 02/21/2023 2:43 PM CDT [facility] Comment:No Laboratory eviden ce of HIV infection. Blood BLOOD SPECIMEN / Unknown Lab Venipuncture / Unknown 02/21/2023 1:02 PM CDT 02/21/2023 1:21 PM CDT Aristides Velasco MD LAB - CHEMISTRY ORDERABLES Fin al Result Performing Organization Address [facility]/State/[facility] Co de Phone Number [facility] [address] [place] [address], [facility] [phone] from Last 3 Months or Most Recently Relevant to Health Maintenance Insurance SELF PAY NO INSURANCE Member Subscriber Plan / Payer (Ef fective for All Dates) Name:Jessica Arriaga Member ID:Not on file Relation to Subscriber:Self Name:JESSICA ARRIAGA Subscriber ID:Not on file Payer ID:Not on file Group ID:Not on file Type:Self Pay Address: [facility] SELF PAY NO INSURANCE Member Subscriber Plan / Payer (Ef fective for All Dates) Name:Jessica Arriaga Member ID:Not on file Relation to Subscriber:Self Name:JESSICA ARRIAGA Subscriber ID:Not on file Payer ID:Not on file Group ID:Not on file Type:Self Pay Address: [place], [place] Advance Directives * Full Code (Latest Code Status on File) Date Activated Date Inactivated Comments 02/19/2014 12:04 AM 02/21/2014 4:03 PM Care Teams Audio Tape Librarian Relationship Specialty Start Date End Date Cruz Luciano MD [address] [facility] [place] [address] PCP - General Internal Medicine 12/16/22 Zack Nguyen MD [address] [place], [place] [address] [id number] Internal Medicine 01/06/21
--- OUTSIDE RECORDS SUMMARY | 2025-03-11 16:19 | XMS_ITS | Clinical Summary ---
Author Organization [facility] Address [address] [place] [address] Care Team Providers Care Punch Operator Name Role Phone Katey Markham NP Unavailable [phone] Alia Fuller DIRECTOR OF COMPLIANCE Unavailable [phone] Tanika Clay NP Unavailable [phone] Aguilar Najera MD Unavailable [phone] Beau Stone DIRECTOR OF COMPLIANCE Unavailable [phone] Pearl York DO Unavailable Katey Markham NP Primary Care Provider [phone] Allergies Active Allergy Reactions Criticality Noted Date [...] mg tablet,delayed release (DR/EC) Take by mouth log driver before breakfast Active [id number] Z-YMBP-PEFACX ORAL daily Active magnesium gluconate 200 mg tabletIndications :hypomagnesemia 1 tablet (200 mg total) Active ascorbic acid, vitamin C, (VITAMIN C) 500 mg CR tablet Take 1 tablet (500 mg total) by mouth daily Active omega-3 fatty acids-fish oil 300-1,000 mg capsule Take 1 capsule (1 g total) by mouth daily Active fluticasone-umecl idin-vilanter (TRELEGY ELLIPTA) 200-62.5-25 mcg inhalerIndication s:Asthma-COPD overlap syndrome (HCC) Inhale 1 puff daily 200 MG 60 each 024 Active cyclobenzaprine (FLEXERIL) 10 mg tablet Take 1 tablet (10 mg total) by mouth 3 (three) times a day as needed for muscle spasms Active ondansetron ODT (ZOFRAN-ODT) 4 mg disintegrating tabletIndications :Nausea and vomiting, unspecified vomiting type DISSOLVE 1 TABLET (4 MG TOTAL) BY MOUTH DAILY NEEDED FOR NAUSEA OR VOMITING FOR UP TO 30 DOSES 30 tablet Active lubiprostone (AMITIZA) 8 mcg capsule Take 1 capsule (8 mcg total) by mouth 2 (two) times a day with meals Take with meals 60 capsule 2024 Active Additional Information Patient not taking.Reported on 01/02/2025 albuterol HFA (PROVENTIL HFA,VENTOLIN HFA,PROAIR HFA) 90 mcg/actuation inhalerIndication s:Asthma-COPD overlap syndrome (HCC) INHALE 2 PUFFS BY MOUTH EVERY 6 HOURS NEEDED FOR WHEEZE OR FOR SHORTNESS OF BREATH 8.5 each 025 Active sacubitriL-valsar dang (Entresto) 24-26 mg tablet TAKE 1 TABLET BY MOUTH TWICE A DAY 60 tablet 11 025 Active topiramate (TOPAMAX) 50 mg tabletIndications :Bilateral occipital neuralgia Take half tablet (25 mg) po twice a day for one week, then one tablet po twice a day 60 tablet 3 025 Active Additional Information Patient not taking.Reported on 01/02/2025 predniSONE (DELTASONE) 10 mg tabletIndications :Cervical pain (neck) TAKE 6 TABS DAILY FOR ONE WEEK, 5 DAILY FOR ONE WEEK, 4 DAILY FOR ONE WEEK, 3 DAILY FOR ONE WEEK, 2 DAILY FOR ONE WEEK THEN 1 DAILY FOR ONE WEEK 105 tablet 1 025 Active Additional Information Patient not taking.Reported on 01/02/2025 famotidine (PEPCID) 40 mg tablet TAKE 1 TABLET BY MOUTH EVERY DAY 90 tablet 1 025 Active Additional Information Patient not taking.Reported on 01/02/2025 omeprazole (PriLOSEC) 40 mg capsuleIndication s:Gastroesophagea l reflux disease, unspecified whether esophagitis present Take 1 capsule (40 mg total) by mouth daily 30 capsule 11 025 2025 Active metoprolol XL (TOPROL-XL) 25 mg extended release tablet TAKE 1 TABLET BY MOUTH EVERY DAY 90 tablet 3 025 Active metoprolol XL (TOPROL-XL) 25 mg extended release tablet TAKE 1 TABLET BY MOUTH EVERY DAY 90 tablet 3 024 2024 Discontinued Active Problems Problem Noted Date Diagnosed Date Chronic migraine without aur a without status migrainosus, not intractable 01/07/2025 Gastroesophageal reflux disease 10/25/2024 Acute upper respiratory [...] however has not had formal follow-up with system administrator, skin testing may return different results IgE [...] Albuterol as needed Mucinex or NAC OTC Asthma-COPD overlap syndrome 07/20/2023 Assessment & Plan [...] care Assessment & Plan (05/22/2024 3:29 PM DIETARY AID): She will continue Trelegy Ellipta 200 once [...] triggers Assessment & Plan (07/20/2023 11:53 AM DIETARY AID): Continue Trelegy Ellipta 200 once daily for now We have discussed the risks of infection and we will monitor her carefully Continue albuterol, discussed indications for use She is current on vaccines Avoid triggers Dyspnea on exertion 07/20/2023 Assessment & Plan (07/20/2023 11:51 AM DIETARY AID): Multifactorial I have urged her to prioritize new living arrangements and remain active Iron deficiency anemia 07/20/2023 Assessment & Plan (07/20/2023 11:48 AM DIETARY AID): Last H&H was normal Fluctuations could contribute to dyspnea Continue to follow with Hematology Continue ferrous sulfate as ordered Pelvic and perineal pain 07/02/2023 Assessment & Plan (07/03/2023 6:37 PM DIETARY AID): I suspect main problem is her opiod [...] menopause. Assessment & Plan (05/18/2023 4:21 PM DIETARY AID): The patient presents today for discussion of [...] 06/24/2022 Assessment & Plan (07/20/2023 11:50 AM DIETARY AID): She is due for CT chest in [...] (03/03/2021): Added automatically from request for surgery [id number] Other chest pain 02/27/2021 Hot flashes 02/26/2021 [...] Cardiology Assessment & Plan (05/22/2024 3:30 PM DIETARY AID): Continue Entresto Continue follow-up with Cardiology Last [...] cardiology Assessment & Plan (07/20/2023 11:47 AM DIETARY AID): Continue Entresto Follow with cardiology Hepatic cyst 11/27/2020 Functional abdominal pain syndrome 11/26/2020 Nausea and vomiting 11/26/2020 Post-nasal drainage 11/26/2020 Tobacco use disorder 08/26/2020 Gastroesophageal reflux disease without esophagi tis 03/12/2020 Assessment & Plan (06/23/2020 5:03 PM DIETARY AID): Patient is doing well with the Pepcid [...] (02/14/2020): Added automatically from request for surgery [id number] Assessment & Plan (06/23/2020 5:03 PM DIETARY AID): Normal upper endoscopy in February of 2020. [...] benefits. Assessment & Plan (06/23/2020 5:02 PM DIETARY AID): Patient is having constipation symptoms no. Discussed [...] is a hard stool. Pt also on terminal gauger opioids which likely contributes to constipation. She [...] emphysema, unspeci fied emphysema type 09/16/2023 11/15/2023 Numbness and tingling of upp er and lower extremities of both sides 09/04/2023 01/07/2025 Lump in throat 02/14/2020 07/17/2021 Overview (02/14/2020): Added automatically from request for surgery [id number] Assessment & Plan (03/12/2020 1:04 PM CDT): [...] Encounters Date Type Department Care Team Description 5 Results Follow-Up [facility] [address] [facility] 12th [place] [address] [place] [address] Celeste Rubio MD Ova and parasite exam Stool 5 11:31 AM CDT - 5 11:59 PM CDT Hospital Encounter [address] [address] Diarrhea, unspecified type Discharge Disposition: Discharge to home or self care 5 Results Follow-Up [place] [facility] at [address] [place] [address] Alia Fuller NP Ammonia, Cortisol, Lipid panel 5 12:05 PM CDT Lab [address] [address] Congestive heart failure, unspecified HF chronicity, unspecified heart failure type (HCC); Mixed hyperlipidemia 5 10:45 AM CDT Office Visit [place] [facility] at [facility] [address] [facility] [address] [place] [address] Alia Fuller NP Congestive heart failure, unspecified HF chronicity, unspecified heart failure type (HCC) (Primary Dx); Mixed hyperlipidemia 5 10:45 AM CDT Office Visit [facility] [address] [facility] [address] [place] [phone] Raf Pratt MD Chronic migraine without aura without status migrainosus, not intractable (Primary Dx); Bilateral occipital neuralgia; Cervical pain (neck) 5 Telephone [facility] [address] [place] [address] [place] [address] [place] [address] Shanta Galvan LPN 5 Results Follow-Up [facility] [address] [place] [address] [place] [address] [place] [address] Celeste Rubio MD Surgical pathology 5 10:33 AM CDT Anesthesia Event [address] [address] Ravi Schilling MD [place], Robert Young, CRNA 5 10:30 AM CDT - 5 11:00 AM CDT Surgery [address] [address] Celeste Rubio MD ESOPHAGOGASTRODUODENOSCOPY BIOPSY 5 9:45 AM CDT - 5 11:32 AM CDT Hospital Encounter [facility] [address] [address] Celeste Rubio MD Gastroesophageal reflux disease, unspecified whether esophagitis present; Dysphagia, unspecified type Discharge Disposition: Discharge to home or self care 5 Results Follow-Up [facility] [place] [address] [facility] [address] [place] [phone] Mine Muller MD Comprehensive metabolic panel, eGFR 5 Orders Only [facility] Medicine Gastroenterology [facility] Medicine 12th [place] [address] [place] [phone] Celeste Rubio MD Diarrhea, unspecified type (Primary Dx) 5 Telephone [facility] Specialty Services [address] [place] [address] Charlene Casanova RN GI PROCEDURE 7 DAY PRE CALL 5 3:40 PM CDT Lab [facility] [address] [place] [address] from Last 3 Months Immunizations Immunization Administration Dates Next Due Tdap 05/12/2017 Tetanus toxoid, adsorbed 06/11/2004 Surgical History Surgery Date Site/Laterality Comments OTHER SURGICAL HISTORY depression: admitted to [facility] KNEE SURGERY Left FINGER TENDON REPAIR Right [...] Chronic constipation Loss of appetite Ulcerative colitis Asthma Breast implant rupture 01/31/2019 Dysphagia Palpitations Cardiomyopathy Chest pain Shortness of breath Sick sinus syndrome (HCC) Ventricular tachycardia (HCC) Hypertension GERD (gastroesophageal reflux disease) Emphysema of lung Anemia Cardiomyopathy Nausea and vomiting in adult 10/05/2021 Pelvic [...] on file Legal Sex Female 8:57 AM DIETARY AID Gender Identity Female 09/01/2023 3:49 PM CDT [...] Sign Reading Time Taken Comments Blood Pressure 106/60 01/02/2025 10:55 AM CDT Pulse 76 01/02/2025 10:55 AM CDT Temperature 36.2 C (97.2 F) 12/26/2024 10:55 AM CDT Respiratory Rate 18 01/02/2025 10:55 AM CDT Oxygen Saturation 99% 12/31/2024 10:51 AM CDT Inhaled Oxygen Concentration - - Weight 60.8 kg (134 lb) 01/02/2025 10:55 AM CDT Height 165.1 cm (5' 5) 01/02/2025 10:55 AM CDT Body Mass Index 22.3 01/02/2025 10:55 AM CDT Plan of Treatment Health Maintenance Due Date Last Done Comments Hepatitis B Screening 1989 Pneumococcal vaccine <65 (1 of 2 - PCV) 1990 Zoster Vaccine (1 of 2) 2021 Cervical Cancer Screening 03/30/2024 03/30/2023 Regular Well Visit/Exam 18-64 03/30/2024 03/30/2023 Depression Screening 05/18/2024 05/18/2023, 03/30/2023, 12/20/2016 Breast Cancer Screening-Mammogram 07/11/2024 07/11/2023, 09/24/2022, 01/15/2021, Additional history exists Covid-19 Vaccine (2 - 2024-2 6 season) 2025 06/23/2021 Influenza Vaccine (#1) 2025 Lung Cancer Screening 11/08/2025 11/07/2024, 024 DTaP/Tdap/Td Vaccine (2 - Td or Tdap) 05/12/2027 05/12/2017, 06/11/2004 Colon Cancer Screening-Colonoscopy 12/30/2031 12/29/2021, 02/07/2018, 12/14/2010 Hepatitis C Screening Completed 11/03/2022 Medical Devices Implanted Type Area Carton Folder Device Identifier Shelf Expiration Date Model / Serial / Lot [employer] [id number] Angio-Seal Evolution 6fr .035in Guidewire Bypass Tube Suture - [id number] Implanted:Qty: 1 on 03/06/2021 by Amador Cano MD at [facility] [employer] 10/03/2021 [id number] / / [id number] Procedures Procedure Name Priority Date/Time Associated Diagnosis Comments OVA AND PARASITE EXAM GEN LAB Routine 9:30 AM CDT Diarrhea, unspecified type LIPID PANEL Routine 01/21/2025 12:08 PM CDT Mixed hyperlipidemia CORTISOL Routine 01/21/2025 12:08 PM CDT Congestive heart failure, unspecified HF chronicity, unspecified heart failure type (HCC) AMMONIA Routine 01/21/2025 12:08 PM CDT Congestive heart failure, unspecified HF chronicity, unspecified heart failure type (HCC) SURGICAL PATHOLOGY Routine 12/26/2024 10:47 AM CDT [...] Read Routine (OP Routine) 07/11/2023 1:57 PM DIETARY AID Abnormal mammogram PAP AND HPV, REFLEX TO HPV GENOTYPES Routine 03/30/2023 2:59 PM CDT Encounter for annual routine gynecological examination HEPATITIS C RNA, QUANTITATIV E, PCR Routine 11/03/2022 1:25 PM CDT COLONOSCOPY 12/29/2021 11:33 AM CDT from Last 3 Months or Most Recently Relevant to Health Maintenance Results * Ova and parasite exam Stool (02/12/2025 9:30 AM CDT) Ova & Parasite exam [facility] Comment: SOURCE: STOOL, STLP OVA AND PARASITE, MICROSCOPY, F FINAL No parasites seen. Cryptosporidium, Cyclospora, and microsporidia are not readily detected by this method. Single negative specimen does not rule out parasitic infection. Test Performed by: [place] [address] Ehr Trainer: Valeri Pérez Ph.D.; CLIA# [id number] Stool 02/12/2025 9:30 AM CDT 02/12/2025 12:03 PM CDT Narrative [facility] ([place]) - 02/16/2025 9:11 AM CDT Is the patient immunosuppressed?->No Has the patient had recent travel outside the [place]?->Yes us Celeste Rubio MD LAB MICROBIOLOGY - GENERAL ORD ERABLES Final Result [facility] ([place]) 1 [facility] [place] [address] [facility] * Cortisol (01/21/2025 12:08 PM CDT) Cortisol 7.3 4.8 - 19.5 mcg/dl Comment: Interpretive Data Normal Range: 4.8 - 19.5 mcg/dL; Evening: Half of morning value. This analyte undergoes marked diurnal variation. Ranges indicated apply to morning specimens. Current interpretive data was last revised 2018. Testing performed by: [facility], [address] [place] [address], [place]., [address] Blood 01/21/2025 12:0 8 PM CDT 01/21/2025 3:48 PM CDT Alia Fuller DIRECTOR OF COMPLIANCE LAB BLOOD ORDERABLES Fi nal Result [facility] ([place]) 1 [facility] [place] [address] * Ammonia (01/21/2025 12:08 PM CDT) Ammonia 21 <=50 mcmol/L [facility] ([place]) Blood 01/21/2025 12:0 8 PM CDT 01/21/2025 12:13 PM CDT Alia Fuller DIRECTOR OF COMPLIANCE LAB BLOOD ORDERABLES Fi nal Result Performing Organization Address [facility] Co de Phone Number [facility] ([place]) 1 [facility] [place] [address] * (ABNORMAL) Lipid panel (01/21/2025 12:08 PM CDT) Cholesterol 289(H) 30 - 199 mg/dL [facility] ([place]) Comment: Interpretive Data [...] Data was last revised on 2018. Triglycerides 173(H) <=149 mg/dL [facility] ([place]) Comment: Interpretive [...] Data was last revised on 2018. HDL 46 >=40 mg/dL [facility] ([place]) Comment: Interpretive [...] Interpretive Data was last revised on 2024. Testing performed by: [facility], [facility], [place], [address] Non-HDL Cholesterol 243 mg/dL [facility] ([place]) Comment: Interpretive Data [...] Interpretive Data was last revised on 2018. Testing performed by: [facility], [place], [address] Chol/HDL ratio 6 ANANDA Marshall SAW[facility] ([place]) Comment:Testing performed by : [place], [address] Blood 01/21/2025 12:0 8 PM CDT 01/21/2025 12:13 PM CDT Alia Fuller NP LAB BLOOD ORDERABLES nal Result [facility] ([place]) [address] [place] [address] Department [place] [address] * Surgical pathology (12/26/2024 10:47 AM CDT) Tissue (Gastric/Stomach biopsy) 12/26/2024 10:47 AM CDT Tissue specimen (specimen) (Esophageal biopsy) 12/26/2024 10:48 AM CDT Tissue specimen (specimen) (Esophageal biopsy) 12/26/2024 10:48 AM CDT Narrative PATHOLOGY [facility] - 12/27/2024 10:29 PM CDT EPIC results best viewed via link to PDF [facility] Amelia Tracey [facility] [place] [address] Note to Patients: This report may contain [...] Gender: F : 1970 (Age: 54) Address: [address] [place] [address] Hospital #: [id number] Taken:12/26/2024 Received:12/26/2024 Reported: 12/27/2024 Patient Type: [facility] Service: Gastro Location: Physician(s): Leatha Mendoza NP [...] x 0.1 cm. [address] C[address]. [facility]/12/26/2024 12:39 PA(s): Debi Elise By this signature, I attest that the above diagnosis is based upon my personal examination of the slides(and/or other material). Addenda/Procedures The performance characteristics of some immunohistochemical stains, fluorescence in-situ hybridization tests and immunophenotyping by flow cytometry cited in this report (if any) were determined by the Surgical Pathology and Flow Cytometry Departments at [facility] as part of an ongoing quality assurance calibrator program and in compliance with federally mandated [...] Surgical Pathology and Flow Cytometry Departments of [facility]. It has not been cleared or approved by the U. S. Food and Drug Administration. IMAGES AND SCANNED DOCUMENTS, IF INCLUDED, ONLY VIEWABLE IN PDF VERSION OF REPORT us Celeste Rubio MD LAB PATHOLOGY ORDERABLES Final Result PATHOLOGY [facility] 3rd Floor [place], [place] [phone] * EGD (12/26/2024 10:42 AM CDT) Anatomical Region Laterality Modality Other Narrative Procedure Note Celeste Rubio MD - 12/26/2024 10:42 AM CDT GI ENDOSCOPY [facility] Patient Name: Jessica Arriaga Procedure Date: 12/26/2024 10:42 AM Date of : 1970 Admit Type: Outpatient Age: 54 Gender: Female Attending MD: Celeste Rubio M.D., Room: [facility] ENDOSCOPY ROOM 8 Note Status: Finalized Procedure: [...] passed under direct vision. The [id number] endoscope was introduced through the mouth, and [...] Return to GI clinic. - please call [phone], 8 am -5 pm if any post procedural concerns/issues, after hours/weekends please call [phone] and ask for GI fellow oncall Attending [...] of Race in Diagnosing Kidney Disease, JASN 2021). The CKD-EPI equation should not be used for patients with unstable renal function and has not been validated in children and those over 70. Current interpretive data was last reviewed 2021. Blood 12/17/2024 3:42 PM CDT 12/17/2024 4:11 PM CDT Mine Muller MD LAB BLOOD ORDERABL ES Final Result [facility] ([place]) 1 [facility] [place] [address] * (ABNORMAL) Comprehensive metabolic panel (12/17/2024 3:42 [...] Fin al Result [facility] ([place]) 1 [facility] [place] [address] * CT Lung Cancer Screening (11/07/2024 10:30 [...] 11/16/2024 12:09 PM - Electronically signed by Klye Ardon M.D. LB: FARRAH Report ID: [id number] Reading Location: [id number] Procedure Note Kyle Ardon MD - 11/16/2024 [...] mm nodule in the right middle lobe ([id number]) is unchanged. Noncalcified 3 mm nodule in [...] Kyle Ardon M.D. LB: LB Report ID: [id number] Reading Location: [place] [address] us Cruz Luciano MD IMG CT PROCEDURES Final Result * Diagnostic Mammogram Bilateral W Scott W Implants (07/11/2023 1:57 PM DIETARY AID) Anatomical Region Laterality Modality Breast Bilateral Mammography 07/11/2023 4:15 PM DIETARY AID Impressions 07/11/2023 4:15 PM DIETARY AID 1. Probably benign asymmetry versus amorphous calcifications [...] Hayes Blair M.D. Narrative 07/11/2023 4:15 PM DIETARY AID EXAMINATION: DIAGNOSTIC MAMMOGRAM BILATERAL W SCOTT W [...] PM CDT) CLINICAL INFORMATION: [facility] Comment:ROUTINE SCREENING LMP [facility] Comment:NONE Previous Pap [facility] Comment:NONE GIVEN Prev. Bx [facility] Comment:NONE GIVEN SOURCE: [facility] Comment:Cervix, Endocervix Pap, specimen adequacy [facility] Comment: Satisfactory for evaluation. Endocervical/transformation zone component absent. HPV interp [facility] Comment: Cytology Results: Negative for intraepithelial lesion or malignancy. Crusher Operator Que [facility] Comment: SRR, CT(ASCP) CT Screening Location: [address] [address] Comment [facility] Comment: EXPLANATORY NOTE: The Pap is a [...] Client Letter) showing TIS test codes, see www.Likeable Local/Resources, and navigate to Well-Woman>Physician Materials>TIS Client Letter. You can also call for test code assistance. Human papillomavirus DNA, High Risk E6/E7 Not Detected NOT DETECTED [employer] /Jose IBARRA Comment: Not Detected High Risk HPV types (16,18,31,33,35,39,45,51,52, 56,58,59,66,68) were not detected. Other HPV types which cause anogenital lesions may be present. The significance of the other types of HPV in malignant processes has not been established. Methodology: Real Time PCR Thin prep 03/30/2023 2:59 PM CDT 04/01/2023 2:49 AM CDT us Silvia Velez DIRECTOR OF COMPLIANCE LAB CYTOLOGY ORDERABLES Final Re sult [employer] [address] [employer]/Jose [facility]Former[facility] [address] [facility] [place] [address] * Hepatitis C (HCV) RNA PCR, quantitative (11/03/2022 1:25 PM CDT) [facility] HCV RNA result Not Detected [facility] ([place]) Comment: The quantifiable range of this assay is 15 IU/mL to 100,000,000 IU/mL (1.18 log IU/mL to 8.00 log IU/mL). Testing was performed by the EVA 6800 HCV Test ([employer] Testing performed at [facility] Current Interpretive Data was last revised on 2021 Testing performed by: [facility], [address] [place]., [address] Blood 11/03/2022 1:25 PM CDT 11/04/2022 10:17 AM CDT us Moni Briseno DIRECTOR OF COMPLIANCE LAB MICROBIOLOGY - GENERAL ORDERABLES Final Result Performing Organization Address City/[facility]/ZIP Co de Phone Number [facility] ([place]) 1 [facility] [place] [address] * COLONOSCOPY (12/29/2021 11:33 AM CDT) Anatomical Region Laterality Modality Other Narrative Procedure Note Kingsley Corea MD - 12/29/2021 11:33 AM CDT [facility] Patient Name: Jessica Arriaga Procedure Date: 12/29/2021 11:33 AM Date of : 1970 Admit Type: Outpatient Age: 51 Gender: Female Attending MD: Kingsley Corea M.D. Room: [facility] ENDOSCOPY ROOM 1 Note Status: Finalized [...] under direct vision. The Pediatric Colonoscope [id number] was introducedthrough the anus and advanced to [...] 11:33 AM Procedure Code(s): --- Professional --- 50971, Colonoscopy, flexible; with biopsy, single or multiple Diagnosis Code(s): --- Professional --- Z80.0, Family history of malignant neoplasm of digestive organs K64.8, Other hemorrhoids CPT copyright 2020 [employer]. All rights reserved. The codes documented in this report are preliminary and upon cath lab nurse reviewmay be revised to meet current compliance requirements. Recognized by the [employer] for promoting quality in endoscopy Kingsley Corea MD ENDOSCOPY PROCEDURES Final Result from Last 3 Months or Most Recently Relevant to Health Maintenance Insurance [facility] Advance Directives For more information, please contact: [phone] * Full Code (Latest Code Status on [...] 1:42 PM 02/27/2020 8:15 PM Care Teams Punch Operator Relationship Specialty Start Date End Date Katey Markham NP [address] [address] PCP - General Internal Medicine 11/01/24 Katey Markham NP 09/26/21 Alia Fuller NP Nurse Practitioner Family Medicine 09/28/22 Tanika Clay NP Nurse Practitioner Nurse Practitioner 09/28/22 Aguilar Najera MD Consulting Physician Urology 09/28/22 Beau Stone NP Nurse Practitioner Family Practice 09/28/22 Pearl York DO [address] [place] [address] [place] [address] Consulting Physician Otolaryngology 09/28/22
== END 2025-03-11 16:06 | disposition home or self-care (01) ==
PROVIDERS: PCP Nurse Practitioner Adult Health; Visit Provider Otolaryngology
DX: G31.9 Degenerative disease of nervous system, unspecified (principal); R13.10 Dysphagia, unspecified; K22.4 Dyskinesia of esophagus; K21.9 Gastro-esophageal reflux disease without esophagitis
CPT/HCPCS: 70553; A9577

== ENCOUNTER 2025-04-16 11:09 | Outpatient (CLI) | payer OTHER, SELFPAY ==
--- OUTSIDE RECORDS SUMMARY | 2025-02-11 07:40 | XMS_ITS ---
Author Organization [facility] Address [address] [place] [address] Care Team Providers Care Screen Machine Operator Name Role Phone Amanda Wong Primary Care Provider Gonzalo Dorado REASON FOR VISIT Smoking Cessation: Session 1 Social History Sex Assigned At : Social History Observation Description Sex Assigned At Female Encounters Encounter Location Date Provider Diagnosis [facility] [address] [place] [address] 02/11/2025 Gonzalo Dorado Plan Of Treatment Next Appt Details Provider Name:Gonzalo estrada, 04/19/2025 11:00:00 AM, [address] [facility], [place], [address], Progress Notes * BART TiburcioStaceyOB:[birth year] (55 yo F)Acc No.[id number]:02/11/2025 UNLOCKED PROGRESS NOTE Patient: Jessica GRIMALDO Provider: Brandt Dorado :1970 A ge:54 Y S ex:Female Date:02/11/2025 Address[address] [place], [id number] Pcp:Amanda Wong Subjective: * Chief Complaints: * 1 . Smoking Cessation: Session 1. * Medical History: Objective: * Vitals: Assessment: Plan: * Treatment: * * Electronic signature of Citlaly Dorado on 04/16/2025 at 11:52 AM OUTREACH REP Sign off status: Pending * Provider: Brandt Dorado Date: 0 02/11/2025 Generated for Josefa stephens/Armando/Anca on: 1 06/16/2024 11:52 AM OUTREACH REP
--- OUTSIDE RECORDS SUMMARY | 2025-02-19 09:30 | XMS_ITS ---
Author Organization [facility] Address [address] [place] [address] Care Team Providers Care Septic Tank Service Technician Name Role Phone Amanda Wong Primary Care Provider Gonzalo Dorado [phone] REASON FOR VISIT Therapy Social History Sex Assigned At : Social History Observation Description Sex Assigned At Female Encounters Encounter Location Date Provider Diagnosis [facility] [address] [place] [address] [place] [address] 02/19/2025 Gonzalo Dorado Plan Of Treatment Next Appt Details Provider Name:Gonzalo estrada, 04/19/2025 11:00:00 AM, [address] [facility], [place], [address], Progress Notes * BARTTiburcioStaceyOB:04/06 (55 yo F)Acc No.[id number]:02/19/2025 UNLOCKED PROGRESS NOTE Patient: Jessica GRIMALDO Provider: Brandt Dorado :1970 A ge:54 Y S ex:Female Date:02/19/2025 Address:[address] [facility] Pcp:Amanda Wong Subjective: * Chief Complaints: * 1 . Therapy. * Medical History: Objective: * Vitals: Assessment: Plan: * Treatment: * * Electronic signature of Citlaly Dorado on 04/16/2025 at 11:52 AM CARTON STENCILER Sign off status: Pending * Provider: Brandt Dorado Date: 0 02/19/2025 Generated for Josefa stephens/Armando/Anca on: 1 06/16/2024 11:52 AM CARTON STENCILER
--- OUTSIDE RECORDS SUMMARY | 2025-03-25 10:00 | XMS_ITS ---
Author Organization [facility] Address [address] [place] [address] Care Team Providers Care Financial Sales Professional Name Role Phone Amanda Wong Primary Care Provider Gonzalo Dorado [phone] REASON FOR VISIT Therapy Social History Sex Assigned At : Social History Observation Description Sex Assigned At Female Encounters Encounter Location Date Provider Diagnosis [facility] [address] [place] [address] [place] [address] 03/25/2025 Gonzalo Dorado Plan Of Treatment Next Appt Details Provider Name:Gonzalo estrada, 04/19/2025 11:00:00 AM, [address] [facility], [place], [address], Progress Notes * BARTTiburcioStaceyOB:04/06 (55 yo F)Acc No.[id number]:03/25/2025 UNLOCKED PROGRESS NOTE Patient: Jessica GRIMALDO Provider: Brandt Dorado :1970 A ge:54 Y S ex:Female Date:03/25/2025 Address:[address] [facility] Pcp:Amanda Wong Subjective: * Chief Complaints: * 1 . Therapy. * Medical History: Objective: * Vitals: Assessment: Plan: * Treatment: * * Electronic signature of Citlaly Dorado on 04/16/2025 at 11:53 AM MEDICAL UNDERWRITER Sign off status: Pending * Provider: Brandt Dorado Date: 1 Generated for Josefa stephens/Armando/Anca on: 1 06/16/2024 11:53 AM MEDICAL UNDERWRITER
--- OUTSIDE RECORDS SUMMARY | 2025-04-05 07:00 | XMS_ITS ---
Author Organization [facility] Address [address] [place] [address] Care Team Providers Care Speech Correction Consultant Name Role Phone Amanda Wong Primary Care Provider Gonzalo Dorado REASON FOR VISIT therapy Social History Sex Assigned At : Social History Observation Description Sex Assigned At Female Encounters Encounter Location Date Provider Diagnosis [facility] [address], [place] [address] 04/05/2025 Gonzalo Dorado Plan Of Treatment Next Appt Details Provider Name:Gonzalo estrada, 04/19/2025 11:00:00 AM, [address] [place], [address], Progress Notes * BARTTiburcioStaceyOB:04/06 (55 yo F)Acc No.[id number]:04/05/2025 UNLOCKED PROGRESS NOTE Patient: Jessica GRIMALDO Provider: Brandt Dorado :1970 A ge:54 Y S ex:Female Date:04/05/2025 Address:[address] [facility] Pcp:Amanda Wong Subjective: * Chief Complaints: * 1 . Therapy. * Medical History: Objective: * Vitals: Assessment: Plan: * Treatment: * * Electronic signature of Citlaly Dorado on 04/16/2025 at 11:51 AM LASER ENGINEER Sign off status: Pending * Provider: Brandt Dorado Date: Generated for Josefa stephens/Armando/Anca on: 1 06/16/2024 11:51 AM LASER ENGINEER
--- OUTSIDE RECORDS SUMMARY | 2025-04-09 09:00 | XMS_ITS ---
Author Organization [facility] Address [address] [place] [address] Care Team Providers Care Nurse Staff [facility] Name Role Phone Amanda Wong Primary Care Provider Gonzalo Dorado [phone] REASON FOR VISIT Therapy Social History Tobacco Use: Social History Observation Description Date Details (start date - stop date) Current Smoker 01/04/1985 - NA Sex Assigned At : Social History Observation Description Sex Assigned At Female Tobacco Control (Standard) Question Answer Notes Tobacco [...] cigs/day) Encounters Encounter Location Date Provider Diagnosis [facility] [address] [place] [address] 04/09/2025 Gonzalo Dorado Major depressive disorder, severe F32.2 and PTSD (post-traumatic stress disorder) F43.10 Assessments Encounter Date Diagnosis (ICD Code) Assessment Notes Treatment Notes Treatment Clinical Notes Section Notes 04/09/2025 Major depressive disorder, severe (ICD-10 - F32.2) 04/09/2025 PTSD (post-traumatic stress disorder) (ICD-10 - F43.10) Plan Of Treatment Next Appt Details Follow Up: 3 Weeks, Reason: Provider Name:Gonzalo estrada, 04/19/2025 11:00:00 AM, [address] [facility], [place], [address], Progress Notes * Jaclyn ARRIAGAOB:[birth year] (55 yo F)Acc No.[id number]:04/09/2025 UNLOCKED PROGRESS NOTE Patient: Jessica GRIMALDO Provider: Brandt Dorado :1970 A ge:54 Y S ex:Female Date:04/09/2025 Address:[address] [place] [address], [facility] Pcp:Amanda Wong Subjective: * Chief Complaints: * 1 . Therapy. * HPI: D epression Screening: PHQ-9 L ittle interest or pleasure in doing things S everal days, F eeling down, depressed, or hopeless S everal days, T rouble falling or staying asleep, or sleeping too much M ore than half the days, F eeling tired or having little energy M ore than half the days, P oor appetite or overeating S everal days, F eeling bad about yourself or that you are a failure, or have let yourself or your family down S everal days, T rouble concentrating on things, such as reading the newspaper or watching television?Several days, M oving or speaking so slowly that other people could have noticed; or the opposite, being so fidgety or restless that you have been moving around a lot more than usual N ot at all, T houghts that you would be better off or of hurting yourself in some way N ot at all, T otal Score 9 , I nterpretation M ild Depression. S creening: Weed Suicide Severity Rating Scale (LF) D o [...] o, I nterpretation: L ow Risk. S ummary: Physical Education Teacher met with client for individual therapy appointment via telehealth services. Physical Education Teacher met with client to assess current level of functioning. Client has been doing well but is tired. Client is having some car problems but feel they are manageable. Client has been reflect recently on past of wanting to help a lot of people, client also felt she could handle more than others and as a result it was better things happen to her than others. Physical Education Teacher pointed out that we learn resilence when given the opportunity to over come, instead of hoping to take the ability for misfortune to happen to others, we should allow our loved ones to learn what client has which is she can overcome the hard challenges of life. * Medical History: * Social History: T obacco Use: T obacco Control (Standard) [...] Plan: * Treatment: * Procedure Codes: 9 0832 PSYTX PT&/FAMILY 30 MINUTES, Modifiers: AJ * Preventive Medicine: Counseling: S MOKING: P atient counselled on the dangers of tobacco use and urged to quit. 1 06/09/2024 .. * Follow Up: 3 Weeks * * Electronic signature of Citlaly Dorado on 04/16/2025 at 11:53 AM HOOK LOADER Sign off status: Pending * Provider: Brandt Dorado Date: 06/09/2024 Generated for Josefa stephens/Armando/Ingridransmitting on: 06/16/2024 11:53 AM HOOK LOADER History and Physical Notes * HPI (History of Present Illness) Category Sub-Category Detail Notes Category Not es Depression Screening PHQ-9 Little inte rest or pleasure in doing things: Several days Feeling down, depressed, or hopeless: Se veral days Trouble falling or staying a sleep, or sleeping too much: More than half the days Feeling tired or having little energy: M ore than half the days Poor appetite or overeating: Several day s Feeling bad about yourself o r that you are a failure, or have let yourself or your family down: Several days Trouble concentrating on thi ngs, such as reading the newspaper or watching television: Several days Moving or speaking so slowly that other people could have noticed; or the opposite, being so fidgety or restless that you have been moving around a lot more than usual: Not at all Thoughts that you would be b tim off or of hurting yourself in some way: Not at all Total Score: 9 Interpretation: Mild Depression Screening Weed Suicide Sev erity Rating Scale (LF) Do [...] end your life?: No Interpretation:: Low Risk Examination Category Sub-Category Detail Notes Category Not es Mental Status Exam ATTENTION AND CONCENTRATION No defi cits APPEARANCE Appropriate ATTITUDE AND BEHAVIOR Cooperative AFFECT Broad/Full MOOD Euthymic INSIGHT Good JUDGMENT Good
--- NOTE | ~2025-04-16 | CT_ITS ---
EXAM/PROCEDURE: CT soft tissue neck w con HISTORY: facial pain, dysphagia COMPARISON: October 09, 2024 TECHNIQUE: IV contrast enhanced soft tissue neck CT performed FINDINGS: No discrete lesion or abscess/abnormal fluid collection. Scattered nonpathologic sized lymph nodes are noted. Vascular structures are patent. Parapharyngeal and retropharyngeal spaces as well as fossa of Rosenmuller appears symmetric and within normal limits. Tracheal air column within the field of views patent. Vocal cords appear grossly symmetric. The thyroid appears normal. No acute process seen in the visualized intracranial contents or upper chest. IMPRESSION: Stable soft tissue neck CT with no discrete lesion or mass seen to explain source of patient's symptoms. Reviewed, dictated and finalized at location A. N ROOM TECHNICIAN IMPRESSION: Stable soft tissue neck CT with no discrete lesion or mass seen to explain sour ce of patient's symptoms.
--- OUTSIDE RECORDS SUMMARY | 2025-04-16 11:52 | XMS_ITS | Patient Health Record ---
Author Organization [facility] Address [address] [place] [address] Care Team Providers Care Returned Item Clerk Name Role Phone Amanda Wong Primary Care Provider Gonzalo Dorado Unavailable Allergies Allergen (clinical drug ingredient) Drug/Non Drug Allergy documented on EMR Reaction Allergy Type Onset Date Status -81 Unknown Drug Allergy Active Latex Latex Unknown [...] Status Risk Notes Problem Posttraumatic stress disorder (47508827) PTSD (post-traumati c stress disorder) (F43.10) Active confirmed Problem Nicotine dependence (42078117) Nicotine dependence (F17.200) Active confirmed Problem Severe major depression, single episode, without psychotic features (18554952) Major depressive disorder, severe (F32.2) Active confirmed Encounters Encounter Location Date Provider Diagnosis [facility] [address] [address] 03/25/2025 Gonzalo Dorado [address] [address] 04/09/2025 Gonzalo Dorado Major depressive disorder, severe F32.2 and PTSD (post-traumatic stress disorder) F43.[address] [address] 04/27/2024 Gonzalo Dorado Major depressive disorder, severe F32.2 and PTSD (post-traumatic stress disorder) F43.[address] [address] 05/11/2024 Gonzalo Dorado Major depressive disorder, severe F32.2 and PTSD (post-traumatic stress disorder) F43.[address] [address] 05/25/2024 Gonazlo Dorado Major depressive disorder, severe F32.2 and PTSD (post-traumatic stress disorder) F43.[address] [address] 06/18/2024 Gonzalo Dorado Major depressive disorder, severe F32.2 and PTSD (post-traumatic stress disorder) F43.10 [facility] [address] [address] 06/29/2024 Gonzalo Dorado Major depressive disorder, severe F32.2 and PTSD (post-traumatic stress disorder) F43.10 [facility] [address] [place] [address] 07/23/2024 Gonzalo Dorado Major depressive disorder, severe F32.2 and PTSD (post-traumatic stress disorder) F43.10 [facility] [address] [address] 08/06/2024 Gonzalo Dorado Major depressive disorder, severe F32.2 and PTSD (post-traumatic stress disorder) F43.10 [facility] [place] [address] 08/21/2024 Gonzalo Dorado Major depressive disorder, severe F32.2 and PTSD (post-traumatic stress disorder) F43.10 [facility] [place] [address] 09/03/2024 Gonzalo Dorado Major depressive disorder, severe F32.2 and PTSD (post-traumatic stress disorder) F43.10 [facility] [address] [address] 09/18/2024 Gonzalo Dorado Major depressive disorder, severe F32.2 and PTSD (post-traumatic stress disorder) F43.10 [facility] [place] [address] 10/16/2024 Gonzalo Dorado Major depressive disorder, severe F32.2 and PTSD (post-traumatic stress disorder) F43.10 [facility] [address] [place] [address] 10/22/2024 Gonzalo Dorado Major depressive disorder, severe F32.2 and PTSD (post-traumatic stress disorder) F43.10 [facility] [address] [place] [address] 11/12/2024 Gonzalo Dorado Major depressive disorder, severe F32.2 and PTSD (post-traumatic stress disorder) F43.10 [facility] [address] [place] [address] 12/10/2024 Gonzalo Dorado Major depressive disorder, severe F32.2 and PTSD (post-traumatic stress disorder) F43.10 [facility] [address] [place] [address] 12/24/2024 Gonzalo Dorado PTSD (post-traumatic stress disorder) F43.10 [facility] [address] [place] [address] 01/21/2025 Gonzalo Dorado Major depressive disorder, severe F32.2 and PTSD (post-traumatic stress disorder) F43.10 [facility] [address] [place] [address] 01/28/2025 Gonzalo Dorado Nicotine dependence F17.200 [facility] [place] [address] 02/05/2025 Gonzalo Dorado Major depressive disorder, severe F32.2 and PTSD (post-traumatic stress disorder) F43.10 [facility] [place] [address] 02/25/2025 Gonzalo Dorado Major depressive disorder, severe F32.2 and PTSD (post-traumatic stress disorder) F43.10 [facility] [place] [address] 03/04/2025 Gonzalo Dorado Major depressive disorder, severe F32.2 and PTSD (post-traumatic stress disorder) F43.10 [facility] [place] [address] 03/11/2025 Gonzalo Dorado Major depressive disorder, severe F32.2 and PTSD (post-traumatic stress disorder) F43.[address] [place] [address] 09/11/2024 Amanda Wong Assessments Encounter Date Diagnosis (ICD Code) Assessment Notes Treatment Notes Treatment Clinical Notes Section Notes 04/27/2024 Major depressive disorder, severe (ICD-10 - [...] Major depressive disorder, severe (ICD-10 - F32.2) 02/25/2025 Major depressive disorder, severe (ICD-10 - F32.2) 03/04/2025 Major depressive disorder, severe (ICD-10 - F32.2) 03/11/2025 Major depressive disorder, severe (ICD-10 - F32.2) 04/09/2025 Major depressive disorder, severe (ICD-10 - F32.2) 04/09/2025 PTSD (post-traumati c stress disorder) (ICD-10 - F43.10) 03/11/2025 PTSD (post-traumati c stress disorder) (ICD-10 - F43.10) 03/04/2025 PTSD (post-traumati c stress disorder) (ICD-10 - F43.10) 02/25/2025 PTSD (post-traumati c stress disorder) (ICD-10 - [...] (post-traumati c stress disorder) (ICD-10 - F43.10) 04/27/2024 PTSD (post-traumati c stress disorder) (ICD-10 - F43.10) 01/21/2025 Other Provider engage d in person [...] effective coping. Client also use Motivational Interviewing (MS) to explore and address ambivalence and enhance motivation to align with clients goals of resolving their dependence on nicotine. 02/05/2025 Other Provider engage d in person centered therapy and motivational interviewing to re-establish therapeutic rapport. Clinician provided support, prompting and exploration of current symptom expression and assisted in elicit insight on behavior patterns, historic experience of trauma, trauma responses, and symptom management. 02/25/2025 Other Provider engage d in person centered therapy and motivational interviewing to re-establish therapeutic rapport. Clinician provided support, prompting and exploration of current symptom expression and assisted in elicit insight on behavior patterns, historic experience of trauma, trauma responses, and symptom management. 03/04/2025 Other Provider engage d in person centered therapy and motivational interviewing to re-establish therapeutic rapport. Clinician provided support, prompting and exploration of current symptom expression and assisted in elicit insight on behavior patterns, historic experience of trauma, trauma responses, and symptom management. 03/11/2025 Other Provider engage d in person centered therapy and motivational interviewing to re-establish therapeutic rapport. Clinician provided support, prompting and exploration of current symptom expression and assisted in elicit insight on behavior patterns, historic experience of trauma, trauma responses, and symptom management. Plan Of Treatment Next Appt Details Provider Name:Gonzalo estrada, 04/19/2025 11:00:00 AM, [address] [facility] [address], [place], [address], Insurance Providers Payer Name Payer Address Payer Phone Subscriber Number Group Number Insured Name Patient Relationship to Insured Coverage Start Date Coverage End Date [employer] [address] [place] [phone] [id number] Jessica Noriega Self - patient is the insured 3 [employer] [address] [place] [address] [phone] [id number] Jessica Noriega Self - patient is the insured 9 [employer] [address] [place] [address] [phone] [id number] Jessica Noriega Self - patient is the insured 4 Medical (General) History Medical History History ICD Code Anemia GERD Connective tissue disorder Surgical History Surgery Date(Month/Year) left knee repair breast bilateral R pinky tendon repair R hand fracture repair
--- OUTSIDE RECORDS SUMMARY | 2025-04-16 11:52 | XMS_ITS | Clinical Summary ---
Author Organization [facility] Address [address] [place] [address] Phone Care Team Providers Care Vocational Instructor Name Role Phone Aguilar Najera MD Unavailable [phone] Danilo Lyles MD Unavailable [phone] Cruz Luciano MD Primary Care Provider [phone] Allergies Active Allergy Reactions Criticality Noted Date [...] Info) Description 12/10/2025 11:00 AM CDT Lab [facility] [address] [place] [address] 12/17/2025 10:40 AM CDT Office Visit [facility] [address] [place] [address] Angelique Walker Elvie, PAC [address] [place] [address] Health Maintenance Due Date Last Done Comments Hepatitis C Virus (HCV) Screening 1970 Hepatitis B Immunization (1 of 3 - 19+ 3-dose series) 1990 Pneumococcal Immunization (50+ years) (1 of 2 - PCV) 1990 Pap Smear 1992 Cervical Cancer Screening (CCS) 2001 HPV/Cotest 2001 Cologuard 2016 Respiratory Syncytial Virus (RSV) Immunization (Adult) (1 - Risk 50-74 years 1-dose series) 2021 Zoster Immunization (1 of 2) 2021 Mammogram 01/22/2023 01/22/2022, 01/04, 03/18/2017 Lung Cancer Screening 08/11/2023 08/10/2022 , 08/10/2022, 03/27/2022, Additional history exists Immunochemical Fecal Occult Blood 04/27/2024 04/27/2023, 01/25/2023 Influenza Immunization (#1) 2025 SARS-COV-2 Immunization (2 - season) 2025 06/23/2021 Td Immunization Every 10 Years (Adults With 1 Tdap) 05/12/2027 05/12/2017 Colonoscopy 12/30/2031 12/29/2021 Colorectal Cancer Screening 12/30/2031 DTaP/Tdap/Td Immunization Discontinued 05/12/2017 Human Papillomavirus (HPV) Immunization Aged Out No longer eligible based on patient's age to complete this topic Meningococcal Immunization (ACWY) Aged Out No longer eligible based on patient's age to complete this topic Rotavirus Immunization Aged Out No lo nger eligible based on patient's age to complete this topic Insurance MEDICAID [employer] Care Teams Vocational Instructor Relationship Specialty Start Date End Date Cruz Luciano MD [address] [place] [address] PCP - General Orthopaedic Surgery 01/12/24 Aguilar Najera MD [address] [address] Consulting Physician Urology 03/18/22 Danilo Lyles MD [address] [place] [address] Consulting Physician Medical Oncology 04/27/23
--- OUTSIDE RECORDS SUMMARY | 2025-04-16 11:52 | XMS_ITS | Encounter Summary ---
Author Organization [facility] Address [address] [place] [address] Phone Care Team Providers Care Cribber Name Role Phone Katey Markham NP Unavailable [phone] Alia Fuller NP Unavailable [phone] Tanika Clay NP Unavailable Aguilar Najera MD Unavailable [phone] Beau Stone NP Unavailable [phone] Pearl York DO Unavailable [phone] Katey Markham NP Primary Care Provider Encounter Details Date Type Department Care Team (Late st Contact Info) Description 02/18/2025 Results Follow-Up [facility] Medicine Gastroenterology [address] [facility] Advanced Medicine 12th [place] [address] [place] [address] Celeste Rubio MD [address] [place] [address] Ova and parasite exam Stool Social History Tobacco Use Types Packs/Day Years Used Date Smoking Tobacco: Every Day Cigarettes 0.5 38 Started: 1985; Last attempted to quit: 03/2022 [...] on file Legal Sex Female 8:57 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 [address] PCP - General Internal Medicine 11/01/24 Katey Markham NP 09/26/21 Alia Fuller NP Nurse Practitioner Family Medicine 09/28/22 Tanika Clay NP Nurse Practitioner Nurse Practitioner 09/28/22 Aguilar Najera MD Consulting Physician Urology 09/28/22 Beau Stone NP Nurse Practitioner Family Practice 09/28/22 Pearl York DO [address] [facility] [address] [address] Consulting Physician Otolaryngology 09/28/22 documented as of this encounter
--- OUTSIDE RECORDS SUMMARY | 2025-04-16 11:52 | XMS_ITS | Encounter Summary ---
Author Organization [facility] Address [address] [place] [address] Phone Care Team Providers Care Stave And Bolt Equalizer Name Role Phone Katey Markham NP Unavailable [phone] Alia Fuller NP Unavailable Tanika Clay NP Unavailable [phone] Aguilar Najera MD Unavailable [phone] Beau Stone EDUCATIONAL ADVISOR Unavailable [phone] Pearl York DO Unavailable [phone] Katey Markham NP Primary Care Provider [phone] Encounter Details Date Type Department Care Team (Late st Contact Info) Description 03/28/2025 Telephone [facility] Medicine Gastroenterology [address] [facility] Advanced Medicine 12th [place] [address] [place] [address] Latasha Cabrera CMA Social History Tobacco Use Types Packs/Day Years Used Date Smoking Tobacco: Every Day Cigarettes 0.5 38 Started: 1985; Last attempted to quit: 03/2022 Smokeless Tobacco: Never Comments:4 per day Alcohol Use Standard Drinks/Week Comments No 0 (1 standard drink = 0.6 oz pur e alcohol) PHQ-2 Answer Date Recorded PHQ-2 Total Score [...] money to get more. Never true 09/15/2023 AUDIT-C Answer Date Recorded Frequency of Alcohol Consumption Not on file 04/01/2025 Q2: How many drinks containi ng alcohol do you have on a typical day when you are drinking? Patient does not drink Frequency of Binge Drinking Not on file 03/07 Personal Safety Answer Date Recorded Have you ever been in or are you currently in a harmful physical or emotional relationship or is someone making you feel afraid or unsafe? 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 Patient does not drink 04/01/2025 2:36 PM CDT Tawnya Candelaria CMA * BP Location Answer Date of Assessment Author Left arm 04/01/2025 2:33 PM CDT Brandt Candelaria CMA documented as of this encounter Miscellaneous Notes * Telephone Encounter - Latasha Cabrera CMA - 04/10/2025 12:15 PM CST I have been receiving IT updates on this...You should see this is Dr. Rubio's basket and can make the update. Please see the below. Number [id number] Created 14d ago14 days ago Updated 16h ago16 hours ago State In Progress Epic issues Caller Latasha Cabrera Urgency 2 - Medium Configuration item WUIT Epic Activity Attachments [facility] 16h ago16 hours ago Additional comments 2025-04-09 20:31:06 - Debi Olmos [id number] (Additional comments) @Latasha Cabrera [email or web address] Result Note was redacted and [facility] and [facility] will able to update with comments that the narrative should say No - that the patient has not traveled outside the [place]. [facility] 9d ago9 days ago Additional comments 2025-04-01 18:32:11 - Jose Pranay [id number] (Additional comments) I'm looking into this issue and I'll try to get an update for you tomorrow. [facility] 13d ago13 days ago Additional comments 2025-03-29 11:40:50 - Jeff Simon [id number] (Additional comments) @Latasha Cabrera [email or web address] it's mentioned that [facility] updated the question response. You mayneed to ask them to resubmit/resend the updated results. Lab is not able to update/change the question response. [facility]ident [facility]ync 14d ago14 days ago Additional comments 2025-03-28 13:28:44 - Jeffery Nguyen [email or web address] (Additional comments) RA to HIM Team for chart corrections Note under the 'Narrative' section that needs to be edited. Wants to change it to say that the patient had recent travel outside the [place] should be 'No.' [facility]ident [facility] 14d ago14 days ago Additional comments 2025-03-28 11:17:11 - Monica Mercado [id number] (Additional comments) RA ticket tot he lab team to review- Ova and parasite exam StoolOrder: [id number] in the narrative it states Has the patient had recent travel outside the [place]?->Yes this should be no, the [facility] has corrected it on their side but it is not flowing into our system screen shot attached Ignacio Rand 14d ago14 days ago [id number] Created ON PICTURE SCENE BUILDER * Telephone Encounter - Latasha Cabrera CMA - 03/28/2025 11:15 AM CDT Called IT, put in a ticket to have this O & P, on 02/12/25, results to reflect the Question: Has the pt been outside the country to be NO and not yes. IT said I will received an email when it has been corrected in pt's chart. I will let Dr. Rubio and Shanta know when its corrected. I have sent pt a msg to give her an update on her correct answer changed from yes to NO she has not been outside of the country. documented in this encounter Plan of Treatment Not on file documented as of this encounter Visit Diagnoses Not on filedocumented in this encounter Care Teams Stave And Bolt Equalizer Relationship Specialty Start Date End Date Katey Markham NP [address] [address] PCP - General Internal Medicine 11/01/24 Katey Markham NP 09/26/21 Alia Fuller NP Nurse Practitioner Family Medicine 09/28/22 Tanika Clay NP Nurse Practitioner Nurse Practitioner 09/28/22 Aguilar Najera MD Consulting Physician Urology 09/28/22 Beau Stone NP Nurse Practitioner Family Practice 09/28/22 Pearl York DO [address] [place] [address] [address] [place] [address] [place] [address] Consulting Physician Otolaryngology 09/28/22 documented as of this encounter
--- OUTSIDE RECORDS SUMMARY | 2025-04-16 11:52 | XMS_ITS | Encounter Summary ---
Author Organization [facility] Address [address] [place] [address] Phone Care Team Providers Care Distribution System Operator Name Role Phone Cruz Luciano MD Primary Care Provider [phone] Aguilar Najera MD Unavailable [phone] Cruz Luciano MD Primary Care Provider [phone] Tanika Clay APRN, [facility] Primary Care Provide r Danilo Lyles MD Unavailable [phone] Cruz Luciano MD Primary Care Provider [phone] Encounter Details Date Type Department Care Team (Late st Contact Info) Description 04/27/2022 [facility] [address] [place] [address] Cruz Luciano MD [address] [facility] [address] [address] Social History Tobacco Use Types Packs/Day [...] Info) Description 12/10/2025 11:00 AM CDT [facility] [address] [place] [id number] 12/17/2025 10:40 AM CDT [facility] [address] [place] [address] Aaron Angelique Elvie, [facility] [address] [place] [address] documented as of this encounter Visit Diagnoses Not on filedocumented in this encounter Care Teams Distribution System Operator Relationship Specialty Start Date End Date Cruz Luciano MD PCP - General Internal Medicine 03/11/22 10/12/22 Cruz Luciano MD [address] [place] [address] PCP - General Internal Medicine 10/19/22 11/09/22 Tanika Clay PRORATION CLERK, TAPE TRANSFERRER [address] [place] [address] PCP - General Advanced Practice Nurse 11/10/22 01/11/24 Cruz Luciano MD [address] [place] [address] PCP - General Orthopaedic Surgery 01/12/24 Aguilar Najera MD [address] [place], [address] [address] Consulting Physician Urology 03/18/22 Danilo Lyles MD [address] [place] [address] Consulting Physician Medical Oncology 04/27/23 documented as of this encounter
--- OUTSIDE RECORDS SUMMARY | 2025-04-16 11:52 | XMS_ITS | Encounter Summary ---
Author Organization [facility] Address [address] [place] [address] Care Team Providers Care Entry Processor Name Role Phone Katey Markham NP Primary Care Provider [phone] Katey Markham MACHINE SHOP INSTRUCTOR Primary Care Provider [phone] Katey Markham NP Unavailable [phone] Cruz Luciano MD Primary Care Provider + Katey Markham NP Primary Care Provider [phone] Katey Markham NP Primary Care Provider [phone] Cruz Luciano MD Primary Care Provider + Alia Fuller MACHINE SHOP INSTRUCTOR Unavailable [phone] Tanika Clay MACHINE SHOP INSTRUCTOR Unavailable [phone] Aguilar Najera MD Unavailable [phone] Beau Stone MACHINE SHOP INSTRUCTOR Unavailable [phone] Pearl York DO Unavailable [phone] Katey Markham NP Primary Care Provider [phone] Katey Markham NP Primary Care Provider [phone] Katey Markham NP Primary Care Provider [phone] Encounter Details Date Type Department Care Team (Late st Contact Info) Description 09/04/2021 Telephone [facility] [address] [place] [address] [address], [place] Social History Tobacco Use Types Packs/Day Years Used Date Smoking Tobacco: Every Day Cigarettes Smokeless Tobacco: Never Comments:4 per day Alcohol Use Standard Drinks/Week Comments No 0 (1 standard drink = 0.6 oz pur e alcohol) Comments No Sex and Gender Information Value Date Recorded Sex Assigned at Not on file Legal 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 Gender Identity Female 09/01/2023 3:49 PM CDT Sexual Orientation Straight 09/01/2023 3: 49 PM CDT documented as of this encounter Plan of Treatment Not on file documented as of this encounter Visit Diagnoses Not on filedocumented in this encounter Additional Health Concerns Infection Onset Date Last Indicated Resolved Time Diarrhea 07/11/2023 07/11/2023 07/25/2023 3:05 AM 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 documented as of this encounter Care Teams Entry Processor Relationship Specialty Start Date End Date Katey Markham NP PCP - General 03/06/21 09/25/21 Katey Markham NP PCP - General 09/26/21 12/22/21 Cruz Luciano MD [facility] [place] [address] PCP - General Internal Medicine 12/23/21 12/27/21 Katey Markham NP PCP - General 12/28/21 12/28/21 Katey Markham NP PCP - General 12/29/21 01/13/22 Cruz Luciano MD [address] [place] [address] [place] [address] PCP - General Internal Medicine 01/14/22 10/03/23 Katey Markham, MACHINE SHOP INSTRUCTOR [address] [place] [address] [address] Jeronimo [facility] [address] [place] [address] PCP - General Internal Medicine 10/04/23 10/04/23 Katey Markham, MACHINE SHOP INSTRUCTOR [address] [place] [address] [address] Jeronimo [facility] [address] [place] [address] PCP - General Internal Medicine 10/12/23 10/31/24 Katey Markham, MACHINE SHOP INSTRUCTOR [address] [place] [address] [place] [address] PCP - General Internal Medicine 11/01/24 Katey Markham, MACHINE SHOP INSTRUCTOR 09/26/21 Alia Fuller, ALKA [address] [place] [address] [place] [address] Nurse Practitioner Family Medicine 09/28/22 Tanika Clay, MACHINE SHOP INSTRUCTOR [address] [place] [address] [place] [address] Nurse Practitioner Nurse Practitioner 09/28/22 Aguilar Najera MD [address] [place] [address] [place] [address] Consulting Physician Urology 09/28/22 Beau Stone, ALKA [address] [place] [address] [place] [address] Nurse Practitioner Family Practice 09/28/22 Pearl York DO [address] [facility] [address] [address] Consulting Physician Otolaryngology 09/28/22 documented as of this encounter
--- OUTSIDE RECORDS SUMMARY | 2025-04-16 11:53 | XMS_ITS | Data Portability ---
Author Organization [facility] [address], Main Office Address [address] [place] [address] Care Team Providers Care Audio Visual Aids Director Name Role Phone ADELE VALENTINE Primary Care [...] spooning of nails 2022 023 [email or web address] 25 [facility], [address] [place], [address], 3 10:54:08 hematologis t referral - Also with mild anemia 2022 023 MALI Carrasco [facility], [address] [place], [address], 3 17:36:04 Procedures None recorded. Surgeries None recorded. Imaging None recorded. Medication Orders amoxicillin 875 mg-potassiu m clavulanate 125 mg tablet 2022 023 ecottrell 7 [facility], [address], [place], [address], 3 11:15:38 prednisone 10 mg tablet 2022 023 MALI [facility] In [facility], [address] [facility], [place], [address], 3 15:02:18 Patient TargetsNo targets recorded. Patient Instructions Encounter Date Encounter Id Patient Instructions Last Modified By Organization Details Last Modified Time 11/30/2022 [id number] complete PFT w/ post bronchodilator spirometry* Not available 03/01/2023 13:17:51 Reason for Referral Also with mild anemia Referring Physician: Tanika Clay, Pulmonary Disease, Encounter Date: 10/12/2022 Forming Fixer Referral for S kin lesion Multiple skin calcifications, unexplained rashes, spooning of nails Referring Physician: Tanika Clay, Pulmonary Disease, Encounter Date: 10/12/2022 Results Created Date Observation Date Name Description Value Unit Range Abnormal Flag Note LastModifiedBy Organization Detail LastModifiedTime 02/22/20 23 02/18/2023 compl ete PFT w/ post [facility] hodil ator riri metry * No observ ation record ed. [facility] ([facility]) [address] [place] [address], [address], 03/01/2023 13:16:50 Result Notes None recorded. Problems Name Problem SNOMED Code Status Onset Date Resolution Date Notes Provider Name and Address Organization Details Recorded Time Bipolar disorder 21148757 Active 2016 Not Available [facility] 3 19:28:43 Chronic depressio n 287152552 Completed 201605/12/2017 Not Available [facility] 3 19:28:43 Mixed anxiety and depressiv e disorder 311010687 Active 2016 Not Available [facility] 3 19:28:43 Scoliosis deformity of spine 468678931 Active 2016 Not Available [facility] 3 19:28:43 Pain in left knee Active 2016 Not Available [facility] 3 19:28:43 Anxiety 37149722 Completed 201605/12/2017 [facility] Available [facility] 3 19:28:44 Spina bifida 53415437 Active 2016 Not Available [facility] 3 19:28:44 Smoker 24362328 Active 2016 Not Available [facility] 3 19:28:45 Chronic back pain 487076092 Active 2016 Not Available [facility] 3 19:28:43 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 40777374509 961021 Active 2021 Not Available [facility] 3 19:28:43 Pulmonary emphysema 52721124 Active 2021 Not Available [facility] 3 19:28:45 Muscle weakness 19431102 Active 2021 Not Available [facility] 3 19:28:43 Dizziness 015709497 Active 2021 Not Available [facility] 3 19:28:44 Exposure to potential ly harmful entity Active 2021 Not Available [facility] 3 19:28:44 Chronic systolic heart failure 548291611 Active 2021 Not Available [facility] 3 19:28:44 Nicotine dependenc e 86866604 Active 2021 Not Available [facility] 3 19:28:44 Dyspnea on exertion 73705905 Active 2021 Not Available [facility] 3 19:28:44 Chronic cough 54393522 Active 2021 Not Available [facility] 3 19:28:44 Fatigue 10282977 Active 2021 Not Available [facility] 3 19:28:45 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 2021 Not Available [facility] 3 19:28:43 Pulmonary function studies abnormal 507990678 Active 2021 Not Available [facility] 3 19:28:43 Hypersens itivity pneumonit is 12405822 Active 2021 Not Available [facility] 3 19:28:43 Candidias is of mouth 19883947 Active 2021 Not Available [facility] 3 19:28:45 Asthma 055127781 Active 2021 Not Available [facility] 3 19:28:43 Multiple nodules of lung 353917673 Active 2021 Not Available [facility] 3 19:28:44 Exacerbat ion of moderate persisten t asthma 197804056 Active 2022 Not Available [facility] 3 19:28:44 Chronic Erik-B arr virus infection syndrome 882266371 Active 2022 GRISELDA Ferguson [address] [facility], [address], [address] , [employer] 3 15:04:10 Abnormal weight loss 902718072 Active 2022 GRISELDA Ferguson [address] [facility], [place] [address], [place], [address] , be2 3 16:46:48 Red blood cell count below reference range 357736882 Active 2022 GRISELDA Ferguson [address], [place] [address], [place], [address] , [employer] 3 10:16:41 Skin lesion 92931246 Active 2022 GRISELDA Ferguson [address] [employer], [place] [address], [place], [address] , [employer] 3 10:17:40 Acute sinusitis 47189192 Active 2022 GRISELDA Ferguson [address] [employer], [address], [address] , [employer] 3 16:40:02 Problem Notes None recorded. Medical Equipment None Reported. Allergies Allergen ID Allergen Name Allergen Category Reaction Reaction Severity Criticality Documentation Date Start Date Code Code System Note Provider Name and Address Organization Details Recorded Time 75790 Substance with sulfonami de structure and antibacte rial mechanism of action (substanc e) medicatio n hives severe Not available 08/04/2022 04130 8003 SNOMED Not Available [facility] 3 19:30:15 69346 aspirin medicatio n hives severe Not available 08/04/2022 1191 RxNorm Not Available [facility] 3 19:30:15 Medications Name Sig Start Date [...] Not Available Not Available No t Available [place] 5 mg-325 mg tablet Take 1 tablet [...] Updated DateTime 3 167.64 cm 17.8 kg/m2 52456.1 6 g 97.3 [degF] 64 /min 99 % 99 % 120/70 mm[Hg] Shira Warren MA [place] [employer] [facility] 3 09:35:04 Date Recorded Body height Body mass index (BMI) Body weight Body temperature Heart rate Oxygen saturation Oxygen saturation in Arterial blood by Pulse oximetry Systolic And Diastolic Provider Name and Address Organization Details Last Updated DateTime 3 167.64 cm 17.8 kg/m2 42961.1 6 g 97.2 [degF] 71 /min 99 % 99 % 112/60 mm[Hg] Tatiana Jimenez RN [facility] [email or web address] [facility] 3 14:40:41 Date Recorded Body height Body mass index (BMI) Body weight Body temperature Heart rate Oxygen saturation Oxygen saturation in Arterial blood by Pulse oximetry Systolic And Diastolic Provider Name and Address Organization Details Last Updated DateTime 3 167.64 cm 17.8 kg/m2 95350.1 6 g 97.3 [degF] 68 /min 99 % 99 % 114/64 mm[Hg] Tatiana Jimenez RN [facility] [email or web address] [facility] 3 11:16:24 Date Recorded Body height Body mass index (BMI) Body weight Body temperature Heart rate Oxygen saturation Oxygen saturation in Arterial blood by Pulse oximetry Systolic And Diastolic Provider Name and Address Organization Details Last Updated DateTime 3 167.64 cm 18.6 kg/m2 68393.1 2 g 98.3 [degF] 76 /min 99 % 99 % 102/58 mm[Hg] Roya Tapia [facility] [email or web address] [facility] 3 16:33:07 Date Recorded Body height Body mass index (BMI) Body weight Body temperature Heart rate Oxygen saturation Oxygen saturation in Arterial blood by Pulse oximetry Systolic And Diastolic Provider Name and Address Organization Details Last Updated DateTime 3 167.64 cm 19 kg/m2 58977.9 g 97.3 [degF] 72 /min 97 % 97 % 92/50 mm[Hg] Roya Tapia [facility] [employer] [facility] 3 15:33:16 Social History Question Answer Notes LastModified by Organizat ion Details LastModified Time Tobacco Smoking Status Current Every Day Smoker Not Available [facility] 08/04/2022 19:28:03 What Is Your Level Of Caffeine Consumption? Heavy [id number] Information not available 08/04/2022 Which Illicit Or Recreational Drugs Have You Used? Marijana Every3-6 Mo [id number] Information not available 08/04/2022 How Many Years Have You Used Illicit Or Recreational Drugs? 35 [id number] Information not available 08/04/2022 At What Age Did You Start Smoking Tobacco? 15 MIGRATION.[id number] 8393 Information not available 08/04/2022 How Much Tobacco Do You Smoke? 1 PPD Now-8 A Day MIGRATION.502675 8310 Information not available 08/04/2022 How Many Years Have You Smoked Tobacco? 35 MIGRATION.259618 1348 Information not available 08/04/2022 Have You Used IV Drugs? No [id number].[id number] 3535 Information not available 08/04/2022 Sex: Unknown Functional Status Question Answer Note LastModified by Organizat ion Details LastModified Time Do you use any illicit or recreational drugs? Yes MIGRATION.[id number] 26 Information not available 08/04/2022 Do you or have you ever used any other forms of tobacco or nicotine? No MIGRATION.[id number] 26 Information not available 08/04/2022 Mental Status None recorded. Family History Nothing Reported. Medical History No medical history recorded. Gynecological HistoryNo gynecological history recorded. Obstetrics History GPAL:G 0 P 0 0 0 0 Immunizations Vaccine Type Date Status Note Provider Nam e and Address Organization Details Recorded Time Tdap 05/12/2017 completed Not Available [facility] 08/04/2022 19:30:13 Past Encounters Encounter ID Performer Location Encounter Start Date Encounter Closed Date Diagnosis/Indication Diagnosis SNOMED-CT Code Diagnosis ICD10 Code Diagnosis IMO Codes Diagnosis Note [id number] [facility] [place] [address] [place] [address] 06/18/2021 00:00:00 06/22/2021 19:29:20 [id number] [facility] [place] [address] [place] [address] 08/03/2021 00:00:00 08/03/2021 14:39:05 [id number] [facility] [place] [address] [place] [address] 09/07/2021 00:00:00 09/07/2021 13:36:06 [id number] [facility] [place] [address] [place] [address] 10/28/2021 00:00:00 10/28/2021 16:09:57 [id number] [facility] [place] [address] [facility], [facility] [address] [place] [address] 11/19/2021 00:00:00 11/19/2021 14:15:06 [id number] NATY Ferguson [facility] [place] [address] [place] [address] 03/03/2022 00:00:00 03/03/2022 14:07:33 [id number] [facility] [place] [place] [address] [place] [address] 04/14/2022 00:00:00 04/14/2022 16:48:20 [id number] [facility] [place] [facility] [place] [address] [place] [address] 07/26/2022 00:00:00 07/26/2022 14:25:50 [id number] [facility] [place] [facility] [place] [address] [place] [address] 08/30/2022 14:20:57 08/31/2022 08:57:21 Asthma 714768178 J45.909 Positive methacholi ne challenge testing at level 3 with 20% drop in JQM4Roglia ue Trelegy Ellipta 200Samples to patient todayInstr ucted on techniqueD iscussed reportable S/S Dyspnea on exertion 6084 5006 R06.09 Multifacto ral Chronic Ep mace-Chowdhury virus infection syndrome 198437240 B27.00 She shows me testing from 2020ID referral Multiple n odules of lung 585113445 R91.8 CT chest 03/27/22 with multiple micro nodular nodules No change per CT chest 3DW Jessica today Pulmonary emphysema 8743 3001 J43.9 PFT completed 12/17/20Ra yesenia 80%, FEV1 81%No improvemen t post-[facility] hodilator. Lung volumes significan tly elevated consistent with emphysema seen on CT chest.TLC 282, RV 670DLCO 58, corrects to 65 for alveolar volume.Rep eat 09/04/21 with ratio 89FEV1 84% pre-BDTLC 178, RV 334DLCO 103 adjustedAl pha1 MM normalEosi nophils normalSix minute walk testing normalPara septal emphysema noted to CT chestRepea t testing as ordered above Chronic sy stolic heart failure 158123057 I50.22 Follows cardiology Nicotine dependence 5629 4008 Z87.891 Smoking cessation counseling and techniques reviewed at length. L iterature reviewed.A void triggers, support groups.Dis traction techniques Greater than 3 but less than 10 minutes spent discussing cessation. Declines NRT.Discus sed Rx options if needed in the future. Abnormal weight loss 267 800701 R63.4 30 pounds in 6 months - follow with PCM Fatigue 15853794 R53.83 Sleep study and BENEDICT normal [id number] Tanika Clay, [facility] [place] [facility] [place] [address] [place] [address] 10/12/2022 09:26:05 10/12/2022 10:48:31 Red blood cell count below reference range 948889688 R71.8 Also with low H&HHematol ogy referral today Skin lesion 85405586 L98 .9 Intermitte nt rashesSkin calcificat ionsSpooni ng to nailsRefer ral to dermatolog y Asthma 980338739 J45.90 9 Positive methacholi ne challenge testing at level 3 with 20% drop in LKP8Vhuwzt ue Trelegy Ellipta 200Samples to patient todayInstr ucted on techniqueD iscussed reportable S/S Chronic Ep mace-Chowdhury virus infection syndrome 557385099 B27.00 She shows me testing from 2019Previo us ID referral Dyspnea on exertion 6084 5006 R06.09 Multifacto ralContinu e inhaled therapyShe must quit smoking Multiple n odules of lung 040404177 R91.8 CT chest 03/27/22 with multiple micro nodular nodules No change per CT chest 3Pla n to repeat in a year Pulmonary emphysema 8743 3001 J43.9 PFT completed 12/17/20Ra yesenia 80%, FEV1 81%No improvemen t post-[facility] hodilator. Lung volumes significan tly elevated consistent with emphysema seen on CT chest.TLC 282, RV 670DLCO 58, corrects to 65 for alveolar volume.Rep eat 09/04/21 with ratio 89FEV1 84% pre-BDTLC 178, RV 334DLCO 103 adjustedPl ans to repeat this fallAlpha1 MM normalEosi nophils normalSix minute walk testing normalPara septal emphysema noted to CT chest Chronic sy stolic heart failure 024047542 I50.22 Follows cardiology Fatigue 53428099 R53.83 Sleep study and BENEDICT normal Nicotine dependence 5629 4008 Z87.891 Smoking cessation counseling and techniques reviewed at length. L iterature reviewed.A void triggers, support groups.Dis traction techniques Greater than 3 but less than 10 minutes spent discussing cessation. Declines NRT.Discus sed Rx options if needed in the future. [id number] Tanika Clay, ST[employer]-[facility] [place] [facility] [place] [address] [place] [address] 11/30/2022 14:36:15 11/30/2022 15:21:26 Asthma 012282230 J45.909 Positive methacholi ne challenge testing at level 3 with 20% drop in RIM9Msvgur ue Trelegy Ellipta 200Samples to patient todayInstr ucted on techniqueD iscussed reportable S/SStart prednisone taper Pulmonary emphysema 8743 3001 J43.9 PFT completed 12/17/20Ra yesenia 80%, FEV1 81%No improvemen t [facility] hodilator. Lung volumes significan tly elevated [...] Red blood cell count below reference range 793919216 R71.8 Has seen hematology Skin lesion 58779749 L98 .9 Intermitte nt rashesSkin calcificat ionsSpooni ng to Madelinealejandra adolph appointmen t scheduled Chronic Ep mace-Chowdhury virus infection syndrome 763465469 B27.00 She shows me testing from 2019Preo us ID referral Dyspnea on exertion 6084 5006 R06.09 Multifacto ralContinu e inhaled therapyShe must quit smoking Multiple n odules of lung 223879876 R91.8 CT chest 03/27/22 with multiple micro nodular nodulesNo change per CT chest 3Che ck HP panel, she brings mold testing with her today Chronic sy stolic heart failure 918731719 I50.22 Follows cardiology Fatigue 62859340 R53.83 Sleep study and BENEDICT normal Nicotine dependence 5629 4008 Z87.891 Smoking cessation counseling and techniques reviewed at length. L iterature reviewed.A void triggers, support groups.Dis traction techniques Greater than 3 but less than 10 minutes spent discussing cessation. Declines NRT.Discus sed Rx options if needed in the future. [id number] Tanika Clay, STOCK DRIVER-[facility] [place] [address] [place] [address] 02/11/2023 11:07:12 02/11/2023 12:06:22 Asthma 175538387 J45.909 Positive methacholi ne challenge testing at level 3 with 20% drop in DMH6Irpfwl ue Trelegy Ellipta 200, samples to patient todayInstr ucted on techniqueD iscussed reportable S/SStresse d avoidance of triggers Pulmonary emphysema 8743 3001 J43.9 PFT completed 12/17/20Ra yesenia 80%, FEV1 81%No improvemen t [facility] hodilator. Lung volumes significan tly elevated [...] Red blood cell count below reference range 208903158 R71.8 Has seen hematology Skin lesion 84056342 L98 .9 Dermatolog y appointmen t scheduled Chronic Ep mace-Chowdhury virus infection syndrome 469692694 B27.00 Has appointmen t with ID scheduled Dyspnea on exertion 6084 5006 R06.09 Multifacto ralContinu e inhaled therapyQui t smoking and vaping 4 months ago Multiple n odules of lung 831889705 R91.8 CT chest 03/27/22 with multiple micro nodular nodulesNo change per CT chest 08/2022HP panel with high reaction to penicillum Chronic sy stolic heart failure 575752386 I50.22 Follows cardiology Fatigue 56992385 R53.83 Sleep study and BENEDICT normal [id number] JENNIFER FergusonP[facility] [place] [address] [place] [address] 03/02/2023 15:58:54 03/02/2023 16:41:00 Asthma 255348547 J45.909 Positive methacholi ne challenge testing 01/2022 at level 3 with 20% drop in BHY4Efysyb ue Trelegy Ellipta 200, samples to patient [...] emphysema noted to CT chest Acute sinusitis 75134516 J01.90 Start amox-clavD iscussed emergently reportable signs and symptoms [id number] OJ Ferguson-[facility] [place] [facility] [place] [address] [place] [address] 03/28/2023 15:20:14 03/28/2023 16:18:04 Asthma 265762238 J45.909 Positive methacholi ne challenge testing 01/2022 at level 3 with 20% drop in QCC3Wyuqka ue Trelegy Ellipta 200, samples to patient todayInstr ucted on techniqueD iscussed reportable S/SStresse d avoidance of triggersAd vised vaccines Pulmonary emphysema 8743 3001 J43.9 PFT completed 12/17/20Ra yesenia 80%, FEV1 81%No improvemen t [facility] hodilator. Lung volumes significan tly elevated [...] months ago Multiple n odules of lung 885622633 R91.8 CT chest 03/27/22 with multiple micro [...] [employer] Member ID Guarantor Name 03/25/2023 1 [facility] (MEDICAID HMO) [id number] Jessica Noriega [id number] Jessica Noriega Notes Date Note Type Note Provider Name and Address Organization Details Recorded Time 3 text/html Jessica presents today to follow up on asthma, emphysema, shortness of breath, wheezing, and coughCompliant with Trelegy Ellipta 200 - requesting samples todayLisa has seen several other providers and has been told that she may have some silicone left from her implant when it ruptured in 2019In addition, she is anemic with low RBC countLandlord has set up a radon testing unit in her houseShe has contacted the [facility] and the health department to help with more testingTells me her cats are getting sick.Denies chest pain.Severe fatigue - this is chronicCough is mildly productiveNo hemoptysisDenies fever and chillsNail abnormalities since childhood, feels like she has redness around her fingernails and clubbingReports mid back pain, chronic - MRI has been deniedShanabela has ID appointment scheduled for January GRISELDA Ferguson [address] [facility], [place], [address], be2 10/12/2022 13:53:14 3 text/html Jessica presents today to follow up on asthma, emphysema, shortness of breath, wheezing, and cough and referralsLisa has seen hematologyAppointment with dermatology in JanuaryReports more lumpsunder her skin todayCompliant with Trelegy Ellipta 200 dailyRescue MDI intermittentSumianabela had independent mold testing done in her house and has the report with her todayDenies chest pain.Severe fatigue - this is chronicCough is mildly productiveNo hemoptysisDenies fever and chillsNo respiratory infection since last OV GRISELDA Ferguson [address] [facility], [address], [place], [address], be2 11/30/2022 16:57:23 3 text/html Jessica presents today [...] infection since last OV GRISELDA Ferguson [address], [address], [place], [address], be2 02/11/2023 13:59:48 3 text/html Jessica presents today to follow up on asthma, emphysema, shortness of breath, wheezing, and cough and referralsShe has seen hematology and has low iron, [...] from OTCNo respiratory infection since last OV NATY Ferguson [address] [facility], [address], [place], [address], [employer] 03/03/2023 11:23:54 3 text/html Jessica presents today [...] aches.Cough is mildly productive but she denies hemoptysisSHanabela tells me she has recently found a water leak under her house and also piles of feces.No repairs thus far completed by [facility]. GRISELDA Ferguson [address] [facility], [facility] [address], [place], [address], [employer] 03/28/2023 19:09:44 OBGyn Episode No OBEpisode recorded.
--- OUTSIDE RECORDS SUMMARY | 2025-04-16 11:53 | XMS_ITS | Clinical Summary ---
Author Organization [facility] [employer] Address [address] [place] [address] Care Team Providers Care Mobile Ui Developer Name Role Phone Zack Nguyen MD Unavailable Cruz Luciano MD Primary Care Provider [phone] Source Comments [facility] [employer],non-owned Affiliates and Associated Physician Practices is amultiple site organization consisting of ambulatory clinics and hospital sitesin [place], [place], [place] and [place]. This disclosure is being madepursuant to the Care Everywhere program and may not contain all information available regarding this patient. Last updated 18.[facility] [employer] Allergies Active Allergy Reactions Criticality Noted Date [...] Active Sertraline HCl (ZOLOFT PO) Active Ferrous Nmmahxdzw-S-Omf ic Acid (IRON-C PO) Active fluticasone-ume clidin-vilant [...] ve Non-react mario 02/21/2023 2:43 PM CDT [facility] Comment:No Laboratory eviden ce of HIV infection. Blood BLOOD SPECIMEN / Unknown Lab Venipuncture / Unknown 02/21/2023 1:02 PM CDT 02/21/2023 1:21 PM CDT Aristides Velasco MD LAB - CHEMISTRY ORDERABLES Fin al Result Performing Organization Address [facility]/State/[facility] Co de Phone Number [facility] [address] [place] [id number], [facility] [phone] from Last 3 Months or Most Recently Relevant to Health Maintenance Insurance SELF PAY NO INSURANCE Member Subscriber Plan / Payer (Ef fective for All Dates) Name:Jessica Arriaga Member ID:Not on file Relation to Subscriber:Self Name:JESSICA ARRIAGA Subscriber ID:Not on file Payer ID:Not on file Group ID:Not on file Type:Self Pay Address: [facility] SELF PAY NO INSURANCE Member Subscriber Plan / Payer (Ef fective for All Dates) Name:Jessica Arriaga Member ID:Not on file Relation to Subscriber:Self Name:JESSICA ARRIAGA Subscriber ID:Not on file Payer ID:Not on file Group ID:Not on file Type:Self Pay Address: [place], [place] Advance Directives * Full Code (Latest Code Status on File) Date Activated Date Inactivated Comments 02/19/2014 12:04 AM 02/21/2014 4:03 PM Care Teams Mobile Ui Developer Relationship Specialty Start Date End Date Cruz Luciano MD [address] [place] [address] PCP - General Internal Medicine 12/16/22 Zack Nguyen MD [address] [place], [place] [address] [phone] Internal Medicine 01/06/21
--- OUTSIDE RECORDS SUMMARY | 2025-04-16 11:53 | XMS_ITS | Clinical Summary ---
Author Organization [facility] Address [address] [place] [address] Care Team Providers Care Police Pilot Name Role Phone Katey Markham NP Unavailable [phone] Alia Fuller STRADDLE BUG DRIVER Unavailable [phone] Tanika Clay NP Unavailable [phone] Aguilar Najera MD Unavailable [phone] Beau Stone STRADDLE BUG DRIVER Unavailable [phone] Pearl York DO Unavailable [phone] Katey Markham NP Primary Care Provider [phone] Allergies Active Allergy Reactions Criticality Noted Date [...] mg tablet,delayed release (DR/EC) Take by mouth early childhood educator aide before breakfast Active [id number] -OREG-CAPRYL ORAL daily Ac tive magnesium gluconate 200 mg tabletIndications: hypomagnesemia 1 tablet (200 mg total) Active ascorbic acid, vitamin C, (VITAMIN C) 500 mg CR tablet Take 1 tablet (500 mg total) by mouth daily Active omega-3 fatty acids-fish oil 300-1,000 mg capsule Take 1 capsule (1 g total) by mouth daily Active fluticasone-umecli din-vilanter (TRELEGY ELLIPTA) 200-62.5-25 mcg inhalerIndications :Asthma-COPD overlap syndrome (HCC) Inhale 1 puff daily 200 MG 60 each 07/20/19 24 Active cyclobenzaprine (FLEXERIL) 10 mg [...] 30 DOSES 30 tablet 10/07/19 24 Active lubiprostone (AMITIZA) 8 mcg capsule Take 1 capsule (8 mcg total) by mouth 2 (two) times a day with meals Take with meals 60 capsule 03/30/20 24 Active Additional Information Patient not taking.Reported on 04/01/2025 albuterol HFA (PROVENTIL HFA,VENTOLIN HFA,PROAIR HFA) 90 mcg/actuation inhalerIndications :Asthma-COPD overlap syndrome (HCC) INHALE 2 PUFFS BY MOUTH EVERY 6 HOURS NEEDED FOR WHEEZE OR FOR SHORTNESS OF BREATH 8.5 each 08/21/19 25 Active sacubitriL-valsart an (Entresto) 24-26 mg tablet TAKE 1 TABLET BY MOUTH TWICE A DAY 60 tablet 08/24/19 25 Active topiramate (TOPAMAX) 50 mg tabletIndications: Bilateral occipital neuralgia Take half tablet (25 mg) po twice a day for one week, then one tablet po twice a day 60 tablet 3 09/11/19 25 Active predniSONE (DELTASONE) 10 mg tabletIndications: Cervical pain (neck) TAKE 6 TABS DAILY FOR ONE WEEK, 5 DAILY FOR ONE WEEK, 4 DAILY FOR ONE WEEK, 3 DAILY FOR ONE WEEK, 2 DAILY FOR ONE WEEK THEN 1 DAILY FOR ONE WEEK 105 tablet 1 10/02/19 25 Active Additional Information Patient not taking.Reported on 04/01/2025 famotidine (PEPCID) 40 mg tablet TAKE 1 TABLET BY MOUTH EVERY DAY 90 tablet 1 10/05/19 25 Active Additional Information Patient not taking.Reported on 04/01/2025 omeprazole (PriLOSEC) 40 mg capsuleIndications :Gastroesophageal reflux disease, unspecified whether esophagitis present Take 1 capsule (40 mg total) by mouth daily 30 capsule 11 01/01/20 25 026 Active metoprolol XL (TOPROL-XL) 25 mg extended release tablet TAKE 1 TABLET BY MOUTH EVERY DAY 90 tablet 3 02/22/20 25 Active nystatin 100,000 unit/mL suspension Take 5 mL (500,000 Units total) by mouth 4 (four) times a day for 10 days 200 mL 04/01/20 025 Active Problems Problem Noted Date Diagnosed Date Parasites in stool 04/01/2025 Assessment & Plan (04/01/2025 4:15 PM CDT): I am unsure that her pictures represent parasites, this is not my area of expertise. I have referred her to ID for further evaluation Positive BENEDICT (antinuclear antibody) 04/01/2025 Assessment & Plan (04/01/2025 4:16 PM CDT): One positive BENEDICT, speckled 1:80 amongst many other negatives. Due to her variety of symptoms I will refer her to rheumatology for further work up. Chronic migraine without aur a without status [...] asthma without complication 11/15/2023 Assessment & Plan (04/01/2025 4:14 PM CDT): She remains on triple therapy with Trelegy Ellipta 200, one puff daily She is aware to rinse and spit after use Continue albuterol as needed only, discussed indications for use Very weakly positive penicillin chrysogenum on HP panel in the past She has had a negative RAST panel however has not had formal follow-up with duck farmer, skin testing may return different results IgE negative and very mild peripheral eosinophilia in the past Avoid triggers We discussed vaccines Assessment & Plan (11/15/2023 12:57 PM CDT): She remains on triple therapy with Trelegy Ellipta 201 puff daily She is aware to rinse and spit after use Continue albuterol as needed only, discussed indications for use Very weakly positive penicillin chrysogenum on HP panel in the past She has had a negative RAST panel however has not had formal follow-up with duck farmer, skin testing may return different results IgE negative and very mild peripheral eosinophilia in the past Cigarette nicotine dependence without complicati on 11/15/2023 Assessment & Plan (04/01/2025 4:12 PM CDT): - Smoking cessation counseling and techniques reviewed at length - Avoid triggers and use distraction techniques - Participate in support groups - Information given regarding [place] [employer] Quit line: [id number] for free services - 5 minutes spent discussing cessation She qualifies for annual low-dose CT She is due in November of 2025 Assessment & Plan (09/25/2024 9:24 AM CDT): She qualifies for annual low-dose CT She is due in November of 2024 Assessment & Plan (11/15/2023 12:58 PM CDT): She qualifies for yearly low-dose CT, she is due again in November 23, 2024 Centrilobular emphysema 11/15/2023 Assessment & Plan (04/01/2025 4:13 PM CDT): She remains on closed triple therapy, continue Trelegy Ellipta 200 and albuterol She does not have significant peripheral eosinophilia She does not exacerbate frequently Alpha-1 normal Assessment & Plan (09/25/2024 9:22 AM CDT): [...] care Assessment & Plan (05/22/2024 3:29 PM COMMERCIAL FRONT LOAD DRIVER): She will continue Trelegy Ellipta 200 once [...] triggers Assessment & Plan (07/20/2023 11:53 AM COMMERCIAL FRONT LOAD DRIVER): Continue Trelegy Ellipta 200 once daily for now We have discussed the risks of infection and we will monitor her carefully Continue albuterol, discussed indications for use She is current on vaccines Avoid triggers Dyspnea on exertion 07/20/2023 Assessment & Plan (07/20/2023 11:51 AM COMMERCIAL FRONT LOAD DRIVER): Multifactorial I have urged her to prioritize new living arrangements and remain active Iron deficiency anemia 07/20/2023 Assessment & Plan (07/20/2023 11:48 AM COMMERCIAL FRONT LOAD DRIVER): Last H&H was normal Fluctuations could contribute to dyspnea Continue to follow with Hematology Continue ferrous sulfate as ordered Pelvic and perineal pain 07/02/2023 Assessment & Plan (07/03/2023 6:37 PM COMMERCIAL FRONT LOAD DRIVER): I suspect main problem is her opiod [...] menopause. Assessment & Plan (05/18/2023 4:21 PM COMMERCIAL FRONT LOAD DRIVER): The patient presents today for discussion of [...] 06/24/2022 Assessment & Plan (07/20/2023 11:50 AM COMMERCIAL FRONT LOAD DRIVER): She is due for CT chest in [...] (03/03/2021): Added automatically from request for surgery [id number] Other chest pain 02/27/2021 Hot flashes 02/26/2021 [...] Cardiology Assessment & Plan (05/22/2024 3:30 PM COMMERCIAL FRONT LOAD DRIVER): Continue Entresto Continue follow-up with Cardiology Last [...] cardiology Assessment & Plan (07/20/2023 11:47 AM COMMERCIAL FRONT LOAD DRIVER): Continue Entresto Follow with cardiology Hepatic cyst 11/27/2020 Functional abdominal pain syndrome 11/26/2020 Nausea and vomiting 11/26/2020 Post-nasal drainage 11/26/2020 Tobacco use disorder 08/26/2020 Gastroesophageal reflux disease without esophagi tis 03/12/2020 Assessment & Plan (06/23/2020 5:03 PM COMMERCIAL FRONT LOAD DRIVER): Patient is doing well with the Pepcid [...] (02/14/2020): Added automatically from request for surgery [id number] Assessment & Plan (06/23/2020 5:03 PM COMMERCIAL FRONT LOAD DRIVER): Normal upper endoscopy in February of 2020. [...] benefits. Assessment & Plan (06/23/2020 5:02 PM COMMERCIAL FRONT LOAD DRIVER): Patient is having constipation symptoms no. Discussed [...] is a hard stool. Pt also on long term care pharmacist opioids which likely contributes to constipation. She [...] (02/14/2020): Added automatically from request for surgery [id number] Assessment & Plan (03/12/2020 1:04 PM CDT): [...] Encounters Date Type Department Care Team Description 04/09/2025 Telephone [facility] Pulmonary at [address] [place] [phone] Susan Dukes LPN Referral to infectious 04/02/2025 Orders Only [facility] Pulmonary at [address] [place] [address] Tanika Clay, STRADDLE BUG DRIVER Cigarette nicotine dependence in remission (Primary Dx); Parasites in stool 04/01/2025 2:30 PM CDT Office Visit [facility] Pulmonary at [address] [place] [phone] Tanika Clay, STRADDLE BUG DRIVER Parasites in stool (Primary Dx); Positive BENEDICT (antinuclear antibody); Moderate persistent asthma without complication; Cigarette nicotine dependence without complication; Centrilobular emphysema 03/28/2025 Telephone [facility] Gastroenterology [address] [facility] Medicine 12th [place] [address] [place] [phone] Latasha Cabrera CMA 03/19/2025 1:40 PM CDT Lab [address] [address] 02/18/2025 Results Follow-Up [facility] Gastroenterology [address] [facility] Medicine 12th [place] [address] [place] [phone] Celeste Rubio MD Ova and parasite exam Stool 02/12/2025 11:31 AM CDT - 02/12/2025 11:59 PM CDT Hospital Encounter [address] [phone] Diarrhea, unspecified type Discharge Disposition: Discharge to home or self care 01/24/2025 Results Follow-Up [facility] at [address] [place] [address] Alia Fuller NP Ammonia, Cortisol, Lipid panel 01/21/2025 12:05 PM CDT Lab [address] [phone] Congestive heart failure, unspecified HF chronicity, unspecified heart failure type (HCC); Mixed hyperlipidemia from Last 3 Months Immunizations Immunization Administration Dates Next Due Tdap 05/12/2017 Tetanus toxoid, adsorbed 06/11/2004 Surgical History Surgery Date Site/Laterality Comments OTHER SURGICAL HISTORY depression: admitted to [facility] KNEE SURGERY Left FINGER TENDON REPAIR Right [...] per patient Anxiety Substance abuse (HCC) Depression [facility] psych sta y Feb 2014 Chronic diarrhea [...] on file Legal Sex Female 8:57 AM COMMERCIAL FRONT LOAD DRIVER Gender Identity Female 09/01/2023 3:49 PM CDT [...] Sign Reading Time Taken Comments Blood Pressure 134/64 04/01/2025 2:33 PM CDT Pulse 70 04/01/2025 2:33 PM CDT Temperature 36.2 C (97.2 F) 04/01/2025 2:33 PM CDT Respiratory Rate 16 04/01/2025 2:33 PM CDT Oxygen Saturation 98% 04/01/2025 2:33 PM CDT Inhaled Oxygen Concentration - - Weight 64 kg (141 lb) 04/01/2025 2:33 PM CDT Height 165.1 cm (5' 5) 04/01/2025 2:33 PM CDT Body Mass Index 23.46 04/01/2025 2:33 PM CDT Plan of Treatment Health Maintenance [...] Completed 11/03/2022 Medical Devices Implanted Type Area Tar Pot Worker Device Identifier Shelf Expiration Date Model / Serial / Lot [employer] [id number] Angio-Seal Evolution 6fr .035in Guidewire Bypass Tube Suture - [id number] Implanted:Qty: 1 on 03/06/2021 by Amador Cano MD at [facility] [employer] 10/03/2021 [id number] / / [id number] Procedures Procedure Name Priority Date/Time Associated Diagnosis Comments EGFR Routine 03/19/2025 1:47 PM CDT COMPREHENSIVE METABOLIC PANEL Routine 03/19/2025 1:47 PM CDT OVA AND PARASITE EXAM GEN LAB Routine 02/12/2025 9:30 AM CDT Diarrhea, unspecified type LIPID [...] dependence, cigarettes, uncomplicated Tobacco use DIAGNOSTIC MAMMOGRAM BILATERAL W SCOTT W IMPLANTS Schedule Routine, Read Routine (OP Routine) 07/11/2023 1:57 PM COMMERCIAL FRONT LOAD DRIVER Abnormal mammogram PAP AND HPV, REFLEX TO HPV GENOTYPES Routine 03/30/2023 2:59 PM CDT Encounter for annual routine gynecological examination HEPATITIS C RNA, QUANTITATIVE, PCR Routine 11/03/2022 1:25 PM CDT COLONOSCOPY 12/29/2021 11:33 AM CDT from Last 3 Months or Most Recently Relevant to Health Maintenance Results * eGFR (03/19/2025 1:47 PM CDT) eGFR >90 >=60 mL/min/1. 73 [...] interpretive data was last reviewed 2021. Blood 03/19/2025 1:47 PM CDT 03/19/2025 2:46 PM CDT us Katey Markham STRADDLE BUG DRIVER LAB BLOOD ORDERABLES Final Res ult [facility] ([place]) 1 [facility] [place] [address] * (ABNORMAL) Comprehensive metabolic panel (03/19/2025 1:47 PM CDT) Sodium 140 135 - 145 mmol/L Potassium, pl 4.3 3.3 - 4.9 mmol/L [facility] ([place]) Chloride 103 97 - 110 mmol/L [facility] ([place]) CO2 26 22 - 32 mmol/L [facility] ([place]) Anion gap 11 2 - 15 mmol/L [facility] ([place]) BUN 14 6 - 25 mg/dL [facility] ([place]) Creatinine 0.77 0.60 - 1.10 mg/dL [facility] ([place]) Glucose 107 70 - 199 mg/dL [facility] ([place]) Comment: Interpretive Data Fasting glucose [...] interpretive data was last revised 2022. Calcium 9.6 8.5 - 10.3 mg/dL [facility] ([place]) Bilirubin, total 0.2 0.1 - 1.2 mg/dL [facility] ([place]) Protein, pl 7.1 6.5 - 8.5 g/dL [facility] ([place]) Albumin 4.5 3.5 - 5.0 g/dL [facility] ([place]) Alk phos 38(L) 40 - 130 Units/L [facility] ([place]) ALT 16 7 - 45 Units/L [facility] ([place]) AST 27 10 - 45 Units/L [facility] ([place]) Blood 03/19/2025 1:47 PM CDT 03/19/2025 2:46 PM CDT us Katey Markham STRADDLE BUG DRIVER LAB BLOOD ORDERABLES Final Res ult [facility] ([place]) 1 [facility] Department [place] [address] * Ova and parasite exam Stool (02/12/2025 9:30 AM CDT) Ova & Parasite exam [facility] Lab Comment: SOURCE: STOOL, STLP OVA AND PARASITE, MICROSCOPY, F FINAL No parasites seen. Cryptosporidium, Cyclospora, and microsporidia are not readily detected by this method. Single negative specimen does not rule out parasitic infection. Test Performed by: [facility] - [address] [address] Junior Database Administrator: Valeri Pérez Ph.D.; CLIA# [id number] Stool 02/12/2025 9:30 AM CDT 02/12/2025 12:03 PM CDT Narrative [facility] ([place]) - 02/16/2025 9:11 AM CDT Is the patient immunosuppressed?->No Has the patient had recent travel outside the [place]?->Yes Celeste Rubio MD LAB MICROBIOLOGY - GENERAL ORD ERABLES Final Result Performing Organization Address City/[facility] [address]/ZIP Co de Phone Number [facility] ([place]) [address] [place] [address] [place] ref Lab * Cortisol (01/21/2025 12:08 PM CDT) Cortisol 7.3 4.8 - 19.5 mcg/dl Comment: Interpretive Data Normal Range: 4.8 - 19.5 mcg/dL; Evening: Half of morning value. This analyte undergoes marked diurnal variation. Ranges indicated apply to morning specimens. Current interpretive data was last revised 2018. Testing performed by: [facility], [address] [place] [address]., [address] Blood 01/21/2025 12:0 8 PM CDT 01/21/2025 3:48 PM CDT us Alia Aniyah Fuller STRADDLE BUG DRIVER LAB BLOOD ORDERABLES Fi nal Result Performing Organization Address [facility] [address]/ZIP Co de Phone Number [facility] ([place]) 1 [facility] [place] [address] * Ammonia (01/21/2025 12:08 PM CDT) Ammonia 21 <=50 mcmol/L [facility] ([place]) Blood 01/21/2025 12:0 8 PM CDT 01/21/2025 12:13 PM CDT Aliarosa Fuller STRADDLE BUG DRIVER LAB BLOOD ORDERABLES Fi nal Result [facility] ([place]) 1 [facility] [place] [address] * (ABNORMAL) Lipid panel (01/21/2025 12:08 PM [...] 3. Jeff Carlton et al. CHRIST Cardiol. 2019October 04;5(5):540-548. doi: 10.1001/[email or web address] Current Interpretive Data was last revised on 2024. Testing performed by: [place], [address] Non-HDL Cholesterol 243 mg/dL [facility] ([place]) [...] last revised on 2018. Testing performed by: [place], [address] Chol/HDL ratio 6 [facility]AC[facility]IN[facility] R [facility] ([place]) Comment:Testing performed by : [place], [address] Blood 01/21/2025 12:0 8 PM CDT 01/21/2025 12:13 PM CDT Alia Fuller NP LAB BLOOD ORDERABLES Fi nal Result [facility] [place] 1 [facility] Department of Laboratories [place], [place] [id number] * CT Lung Cancer Screening (11/07/2024 10:30 [...] Kyle Ardon M.D. LB: LB Report ID: [id number] Reading Location: [id number] Procedure Note Kyle Ardon MD - 11/16/2024 [...] mm nodule in the right middle lobe () is unchanged. Noncalcified 3 mm nodule in [...] Kyle Ardon M.D. LB: LB Report ID: [id number] Reading Location: [id number] us Cruz Luciano MD IMG CT PROCEDURES Final Result * Diagnostic Mammogram Bilateral W Scott W Implants (07/11/2023 1:57 PM COMMERCIAL FRONT LOAD DRIVER) Anatomical Region Laterality Modality Breast Bilateral Mammography 07/11/2023 4:15 PM COMMERCIAL FRONT LOAD DRIVER Impressions 07/11/2023 4:15 PM COMMERCIAL FRONT LOAD DRIVER 1. Probably benign asymmetry versus amorphous calcifications [...] Hayes Blair M.D. Narrative 07/11/2023 4:15 PM COMMERCIAL FRONT LOAD DRIVER EXAMINATION: DIAGNOSTIC MAMMOGRAM BILATERAL W SCOTT W [...] to HPV Genotypes (03/30/2023 2:59 PM CDT) Pathologist [facility] CLINICAL INFORMATION: [facility] Comment:ROUTINE SCREENING LMP [facility] Comment:NONE Previous Pap [facility] Comment:NONE GIVEN Prev. Bx [facility] Comment:NONE GIVEN SOURCE: [facility] Comment:Cervix, Endocervix Pap, specimen adequacy [facility] Comment: Satisfactory for evaluation. Endocervical/transformation zone component absent. HPV interp [facility] Comment: Cytology Results: Negative for intraepithelial lesion or malignancy. Mechanic Senior Que [facility] Comment: SRR, CT(ASCP) CT Screening Location: [address] [address] Comment [facility] [address] [facility] Comment: EXPLANATORY NOTE: The Pap is [...] Client Letter) showing TIS test codes, see www.[employer]/Resources, and navigate to Well-Woman>Physician Materials>TIS Client Letter. You can also call for test code assistance. Human papillomavirus DNA, High Risk E6/E7 Not Detected NOT DETECTED [employer] /Jose IBARRA Comment: Not Detected High Risk HPV types (16,18,31,33,35,39,45,51,52, 56,58,59,66,68) were not detected. Other HPV types which cause anogenital lesions may be present. The significance of the other types of HPV in malignant processes has not been established. Methodology: Real Time PCR Thin prep 03/30/2023 2:59 PM CDT 04/01/2023 2:49 AM CDT Silvia Velez NP LAB CYTOLOGY ORDERABLES Final Re sult [facility] [address] [place] [address] [facility]/[place] [address] [facility] [place] [address] * Hepatitis C (HCV) RNA PCR, quantitative (11/03/2022 1:25 PM CDT) Pathologist [facility] HCV RNA result Not Detected [facility] ([place]) Comment: The quantifiable range of this assay is 15 IU/mL to 100,000,000 IU/mL (1.18 log IU/mL to 8.00 log IU/mL). Testing was performed by the EVA 6800 HCV Test ([employer] Testing performed at [facility] Current Interpretive Data was last revised on 2021 Testing performed by: [facility], [address] [place]., [address] Blood 11/03/2022 1:25 PM CDT 11/04/2022 10:17 AM CDT us Moni Briseno STRADDLE BUG DRIVER LAB MICROBIOLOGY - GENERAL ORDERABLES Final Result Performing Organization Address City/[facility] [address]/ZIP Co de Phone Number [facility] ([place]) 1 [facility] Department [place] [address] * COLONOSCOPY (12/29/2021 11:33 AM CDT) Anatomical Region Laterality Modality Other Narrative Procedure Note Kingsley Corea MD - 12/29/2021 11:33 AM CDT [facility] Patient Name: Jessica Noriega Procedure Date: 12/29/2021 11:33 AM Date of : 1970 Admit Type: Outpatient Age: 51 Gender: Female Attending MD: Kingsley Corea M.D. Room: [facility] ENDOSCOPY ROOM 1 Note Status: Finalized [...] under direct vision. The Pediatric Colonoscope [id number]-[id number] was introducedthrough the anus and advanced to [...] 11:33 AM Procedure Code(s): --- Professional --- 57612, Colonoscopy, flexible; with biopsy, single or multiple Diagnosis Code(s): --- Professional --- Z80.0, Family history of malignant neoplasm of digestive organs K64.8, Other hemorrhoids CPT copyright 2020 [employer]. All rights reserved. The codes documented in this report are preliminary and upon drug abuse program coordinator reviewmay be revised to meet current compliance requirements. Recognized by the [employer] for promoting quality in endoscopy Kingsley Corea MD ENDOSCOPY PROCEDURES Final Result from Last 3 Months or Most Recently Relevant to Health Maintenance Insurance [facility] Advance Directives For more information, please contact: [phone] * Full Code (Latest Code Status on [...] 1:42 PM 02/27/2020 8:15 PM Care Teams Police Pilot Relationship Specialty Start Date End Date Katey Markham, STRADDLE BUG DRIVER [address] [place] [address] PCP - General Internal Medicine 11/01/24 Katey Markham, STRADDLE BUG DRIVER 09/26/21 Alia Fuller, [place] Nurse Practitioner Family Medicine 09/28/22 Tanika Clay NP Nurse Practitioner Nurse Practitioner 09/28/22 Aguilar Najera MD Consulting Physician Urology 09/28/22 Beau Stone, [place] Nurse Practitioner Family Practice 09/28/22 Pearl York DO [address] [place] [address] DR TRENT Jeronimo [address] [address] Consulting Physician Otolaryngology 09/28/22
== END 2025-04-16 11:10 | disposition home or self-care (01) ==
PROVIDERS: PCP Nurse Practitioner Adult Health; Visit Provider Nurse Practitioner Adult Health
DX: E78.2 Mixed hyperlipidemia (principal); F11.20 Opioid dependence, uncomplicated; F41.0 Panic disorder [episodic paroxysmal anxiety]; F43.12 Post-traumatic stress disorder, chronic; F43.21 Adjustment disorder with depressed mood; F60.9 Personality disorder, unspecified; I95.1 Orthostatic hypotension; I34.0 Nonrheumatic mitral (valve) insufficiency; I50.30 Unspecified diastolic (congestive) heart failure; J30.89 Other allergic rhinitis; J45.40 Moderate persistent asthma, uncomplicated; M47.22 Other spondylosis with radiculopathy, cervical region; M41.124 Adolescent idiopathic scoliosis, thoracic region
CPT/HCPCS: 70491; Q9967